=== PATIENT | female | born 1925 | race Caucasian/White ===

== ENCOUNTER 2016-05-25 03:10 | Emergency (ER) | payer MEDICARE, BC ==
[~2016-05-25 03:10] MED LIST: /ONDA4TA PO; /SUCR1TA OR; ACET500C PO; ALLE25CA OR; ASPI325T PO; ASPI81TA3 OR; AZIT250T3 PO; CIPR500T4 OR; DEXILANT OR; FLAG500T OR; FURO40TA2 OR; HYDR-3719 PO; METO25TAB PO; MIRA0.12 PO; REQUIP PO; VICO5TAB OR; VIT D 2000 PO; VITA10002 PO; VITA50003 PO; XANA0.25 PO
[2016-05-25 04:27] LABS: ABG BASE EXCESS 0.9 (-2.0-2.0); ABG DEVICE NASAL CANN; ABG HCO3 25.3 MEQ/L (22.0-26.0); ABG PARTIAL PRESSURE CO2 39.1 mmHg (35.0-45.0); ABG PARTIAL PRESSURE O2 70.1 mmHg (75.0-100.0); ABG STANDARD HCO3 25.3 MEQ/L (22.0-26.0); ABG TOTAL CO2 26.5 MEQ/L (23.0-31.0); ABG pH (ARTERIAL) 7.428 UNITS (7.350-7.450)
[2016-05-25 04:34] LABS: INR 1.06
[2016-05-25 04:37] LABS: CALCIUM LEVEL 8.2 MG/DL (8.8-10.2); CREATININE FOR GFR 0.96 MG/DL (0.55-1.02); GLOMERULAR FILTRATION RATE 58.4 (>32); POTASSIUM SERUM 3.6 MEQ/L (3.5-5.1)
[2016-05-25 04:50] LABS: BASO % 0.3 % (0.0-1.0); EOS # 0.2 K/mm3 (0.0-0.50); EOS % 3.1 % (0.0-3.0); LARGE UNSTAINED CELL # 0.1 K/mm3 (0.0-0.4); LARGE UNSTAINED CELL % 1.1 % (0.0-4.0); LYMPH # 1.7 K/mm3 (1.5-4.5); LYMPH % 19.9 % (24.0-44.0); MEAN CORPUSCULAR HEMOGLOBIN 35.7 pg (27.0-33.0); MEAN CORPUSCULAR HGB CONC 33.5 g/dl (32.0-36.5); MEAN CORPUSCULAR VOLUME 106.7 fl (80.0-96.0); MONO # 0.3 K/mm3 (0.0-0.8); MONO % 4.1 % (0.0-5.0); NEUTROPHILS # 5.8 K/mm3 (1.8-7.7); NEUTROPHILS % 71.5 % (36.0-66.0); PLATELET COUNT, AUTOMATED 162 k/mm3 (150-450); RED CELL DISTRIBUTION WIDTH 13.5 % (11.5-14.5); WHITE BLOOD COUNT 8.1 K/mm3 (4.0-10.0)
--- NOTE | 2016-05-25 05:10 | REPUSA ---
CLINICAL HISTORY: Edema. COMMENTS: Real time sonography with duplex doppler of the extremities bilaterally was performed with attention to the major deep venous structures. Evaluation reveals the common femoral, superficial femoral and popliteal veins bilaterally to be comp letely compressible without intraluminal thrombus. There is normal spontaneous phasic flow and augmen tation in all deep veins. The greater saphenous/common femoral vein junctions are patent bilaterally. IMPRESSION: No evidence of DVT in the lower extremities bilaterally. Thank you for your kind referral of this patient.
[2016-05-25] MEDS ORDERED: FUROSEMIDE 40 MG/4 ML VIAL (J1940) As Ordered ONE (06:23)
--- NOTE | 2016-05-25 06:38 | EDDOCDS ---
Nurse's Notes [facility] Name: Sarah Ambrosio Age: 89 yrs Sex: Female : 1925 Arrival Date: 05/25/2016 Time: 03:10 Bed 8 Private MD: Christopher Spain Diagnosis: Chronic combined systolic (congestive) and diastolic (congestive) heart failure Presentation: 05/25 03:12 Presenting complaint: EMS states: Increased SOB and dizziness this morning. Edema. km Suicide/Homicide risk assessment- the patient denies having any suicidal and/or homicidal ideations and does not present with any other emotional, behavioral or mental health complaints. Status: Patient is not a special services director or dependent. Transition of care: patient was not received from another setting of care. 03:12 [place] [facility] [place] [facility] [place] Assessment: 03:12 General: Appears in no apparent distress, comfortable, Behavior is appropriate for age, kmg1 cooperative, pleasant. Pain: Denies pain. The patient is triaged at the bedside. See Assessment in Nurses Notes section of ED record. Neurological: Level of Consciousness is awake, alert, Denies dizziness. Cardiovascular: Rhythm is sinus rhythm No ectopy. Chest pain is denied. Respiratory: Airway is patent Respiratory effort is even, unlabored, Respiratory pattern is regular, symmetrical, Breath sounds are clear bilaterally. GI: No deficits noted. Abdomen is flat, non- distended Bowel sounds present X 4 quads. Abd is soft and non tender X 4 quads. Derm: Skin is pink, warm & dry. Historical: - Allergies: PENICILLINS; - Home Meds: 1. hydrocodone-acetaminophen 10-325 mg Oral tab .5 tab every 4 hours (Last dose: 05/24/2016) 2. pramipexole 0.125 mg oral tab 1 tab 3 times per day (Last dose: 05/24/2016) 3. bisoprolol fumarate 5 mg oral tab 0.5 tab once daily (Last dose: 05/24/2016) 4. Vitamin B-12 1,000 mcg Oral tab 1,000 mcg (Last dose: 05/24/2016) 5. Senokot-S 8.6-50 mg oral tab 2 tabs once daily 6. Breo Ellipta 100-25 mcg/dose inhalation dsdv 1 puff once daily (Last dose: 05/25/2016) 7. Vitamin D Oral 75484 unit every other week 8. aspirin 325 mg Oral tab 1 tab once daily - PMHx: bursitis; Degenerative disc disease; Gall Bladder Disease; restless leg syndrome; CVA; Hypertension; - PSHx: Appendectomy; Hysterectomy; - Social history: No barriers to communication noted. - Family history: Not pertinent. - : The pt / caregiver states he / she is not on anticoagulants. Home medication list is obtained from the patient, [employer] import data. - Exposure Risk Screening:: None identified. Screenin:15 Screening information is obtained from the patient. Fall risk: No risks identified. kmg1 Assistance ADL's: requires no assistance with activities of daily living. Abuse/DV Screen: The patient / caregiver reports he/she is: not in a situation that causes fear, pain or injury. Nutritional screening: No deficits noted. Advance Directives: There is no active DNR order. home support is adequate. Assessment: 03:12 General: See triage assessment. kmg1 04:15 General: Appears in no apparent distress, comfortable, Behavior is appropriate for age, kmg1 cooperative, pleasant. Pain: Denies pain. Neurological: Denies dizziness. Cardiovascular: Rhythm is regular. Respiratory: No deficits noted. Airway is patent Respiratory effort is even, unlabored, Respiratory pattern is regular, symmetrical. 05:15 Reassessment: Patient appears in no apparent distress at this time. Patient states kmg1 feeling better. Patient states symptoms have improved. 06:30 Reassessment: Patient states feeling better. Patient states symptoms have improved. kmg1 General: Appears in no apparent distress, comfortable, Behavior is appropriate for age, cooperative, pleasant. 06:37 Adult Sepsis Screening: The patient does not have new or worsening altered mentation. kmg1 Patient's respiratory rate is less than 22. Systolic blood pressure is greater than 100. Patient has a qSOFA score of 0- Negative Sepsis Screen. Vital Signs: 03:19 BP 139 / 63 LA Sitting (auto/reg); Pulse 72 MON; Resp 18 S; Temp 97.9(TE); Pulse Ox 96% cln on R/A; Weight 54.43 kg (R); Height 5 ft. 0 in. (152.40 cm) (R); Pain 3/10; 06:24 BP 123 / 64 LA Supine (auto/reg); Pulse 73 MON; Resp 18 S; Temp 97.9(TE); Pulse Ox 94% cln on R/A; Pain 0/10; 03:19 Body Mass Index 23.44 (54.43 kg, 152.40 cm) cln ED Course: 03:12 Patient visited by Shirley Shipman, Membership Coordinator. jlm 03:12 Christopher Spain is Private Physician. jlm 03:12 Patient moved to 8 [facility] 03:16 Triage Initiated kmg1 03:20 Pt greeted and oriented to ED. Patient advised of names of staff involved in care, cln location of call valadez, wait times and NPO status. Patient has correct armband on for positive identification. Bed in low position. Call light in reach. Side rails up X 1. 03:21 Patient visited by Chelsea Tom PCA. cln 03:21 Rahul Cortes DO is Attending Physician. cs11 03:21 Patient visited by Rahul Cortes DO. cs11 03:30 Inserted saline lock: 20 gauge in right antecubital area and blood collected. The kc3 patient tolerated the procedure well. 04:04 Patient visited by Mel Frost RN. kc3 04:04 Pt & Aptt Sent. kc3 04:04 MED Profile Sent. kc3 04:04 CBC with Diff Sent. kc3 04:04 BNP Sent. kc3 04:08 EKG done. (by ED staff). Reviewed by Rahul Cortes DO. nicole 04:09 Patient visited by Patria Mann PCA. niocle 04:15 The patient / caregiver is instructed regarding the plan of care and ED course. kmg1 04:15 No procedures done that require assistance. kmg1 04:17 -Arterial Blood Gas Sent. jc3 04:18 Patient moved to Ultrasound dmg 04:42 Patient moved to 8 dmg 05:10 Assisted to bedside commode. nicole 05:35 Ultrasound Bilateral LE R/O DVT Returned. EDMS 05:39 Patient visited by Patria Mann PCA. nicole 05:55 Christopher Spain is Referral Physician. cs11 06:24 [facility] Payment Agreement was scanned into [employer] and attached to record. hs2 06:25 Patient visited by Chelsea Tom PCA. cln 06:30 Discontinued lock bleeding controlled, pressure dressing applied, No redness/swelling kmg1 at site. Administered Medications: 06:30 Drug: Furosemide 40 mg [furosemide 10 mg/mL injection solution (4 mL)] Route: IVP; km Site: right antecubital; 06:33 CANCELLED (Other Intervention Used): Furosemide 60 mg IM once kmg1 RT: 04:17 ABG's drawn from right radial artery pressure held for 5 minutes no bleeding noted jc3 pressure bandage applied specimen sent pt. tolerated well. Order Results: Lab Order: BNP; SPEC'M 05/25/16 03:27 Test: BRAIN NATRIURETIC PEPTIDE; Value: 343; Range: <100; Abnormal: Above high normal; Units: PG/ML; Status: F Lab Order: CBC with Diff; SPEC'M 05/25/16 03:27 Test: WHITE BLOOD COUNT; Value: 8.1; Range: 4.0-10.0; Units: K/mm3; Status: F Test: RED BLOOD COUNT; Value: 2.94; Range: 4.00-5.40; Abnormal: Below low normal; Units: M/mm3; Status: F Test: HEMOGLOBIN; Value: 10.5; Range: 12.0-16.0; Abnormal: Below low normal; Units: g/dl; Status: F Test: HEMATOCRIT; Value: 31.4; Range: 36.0-47.0; Abnormal: Below low normal; Units: %; Status: F Test: MEAN CORPUSCULAR VOLUME; Value: 106.7; Range: 80.0-96.0; Abnormal: Above high normal; Units: fl; Status: F Test: MEAN CORPUSCULAR HEMOGLOBIN; Value: 35.7; Range: 27.0-33.0; Abnormal: Above high normal; Units: pg; Status: F Test: MEAN CORPUSCULAR HGB CONC; Value: 33.5; Range: 32.0-36.5; Units: g/dl; Status: F Test: RED CELL DISTRIBUTION WIDTH; Value: 13.5; Range: 11.5-14.5; Units: %; Status: F Test: PLATELET COUNT, AUTOMATED; Value: 162; Range: 150-450; Units: k/mm3; Status: F Test: NEUTROPHILS %; Value: 71.5; Range: 36.0-66.0; Abnormal: Above high normal; Units: %; Status: F Test: LYMPH %; Value: 19.9; Range: 24.0-44.0; Abnormal: Below low normal; Units: %; Status: F Test: MONO %; Value: 4.1; Range: 0.0-5.0; Units: %; Status: F Test: EOS %; Value: 3.1; Range: 0.0-3.0; Abnormal: Above high normal; Units: %; Status: F Test: BASO %; Value: 0.3; Range: 0.0-1.0; Units: %; Status: F Test: LARGE UNSTAINED CELL %; Value: 1.1; Range: 0.0-4.0; Units: %; Status: F Test: NEUTROPHILS #; Value: 5.8; Range: 1.8-7.7; Units: K/mm3; Status: F Test: LYMPH #; Value: 1.7; Range: 1.5-4.5; Units: K/mm3; Status: F Test: MONO #; Value: 0.3; Range: 0.0-0.8; Units: K/mm3; Status: F Test: EOS #; Value: 0.2; Range: 0.0-0.50; Units: K/mm3; Status: F Test: BASO #; Value: 0.0; Range: 0.0-0.2; Units: K/mm3; Status: F Test: LARGE UNSTAINED CELL #; Value: 0.1; Range: 0.0-0.4; Units: K/mm3; Status: F Lab Order: MED Profile; SPEC'M 05/25/16 03:27 Test: GLUCOSE, FASTING; Value: 106; Range: 83-110; Units: MG/DL; Status: F Test: BLOOD UREA NITROGEN; Value: 14; Range: 7-18; Units: MG/DL; Status: F Test: CREATININE FOR GFR; Value: 0.96; Range: 0.55-1.02; Units: MG/DL; Status: F Test: GLOMERULAR FILTRATION RATE; Value: 58.4; Range: >32; Status: F Test: SODIUM LEVEL; Value: 138; Range: 136-145; Units: MEQ/L; Status: F Test: POTASSIUM SERUM; Value: 3.6; Range: 3.5-5.1; Units: MEQ/L; Status: F Test: CHLORIDE LEVEL; Value: 101; Range: 98-107; Units: MEQ/L; Status: F Test: CARBON DIOXIDE LEVEL; Value: 28; Range: 21-32; Units: MEQ/L; Status: F Test: ANION GAP; Value: 9; Range: 8-16; Units: MEQ/L; Status: F Test: CALCIUM LEVEL; Value: 8.2; Range: 8.8-10.2; Abnormal: Below low normal; Units: MG/DL; Status: F Test Note: ; Units are mL/min/1.73 m2 Chronic Kidney Disease Staging per NKF: Stage I & II GFR >=60 Normal to Mildly Decreased Stage III GFR 30-59 Moderately Decreased Stage IV GFR 15-29 Severely Decreased Stage V GFR <15 Very Little GFR Left ESRD GFR <15 on KNITTING INSPECTOR Lab Order: -Arterial Blood Gas; SPEC'M 05/25/16 04:16 Test: ABG pH (ARTERIAL); Value: 7.428; Range: 7.350-7.450; Units: UNITS; Status: F Test: ABG PARTIAL PRESSURE CO2; Value: 39.1; Range: 35.0-45.0; Units: mmHg; Status: F Test: ABG PARTIAL PRESSURE O2; Value: 70.1; Range: 75.0-100.0; Abnormal: Below low normal; Units: mmHg; Status: F Test: ABG TOTAL CO2; Value: 26.5; Range: 23.0-31.0; Units: MEQ/L; Status: F Test: ABG HCO3; Value: 25.3; Range: 22.0-26.0; Units: MEQ/L; Status: F Test: ABG BASE EXCESS; Value: 0.9; Range: -2.0-2.0; Status: F Test: ABG STANDARD HCO3; Value: 25.3; Range: 22.0-26.0; Units: MEQ/L; Status: F Test: ABG O2 SATURATION; Value: 94.5; Range: 95.0-99.0; Abnormal: Below low normal; Units: %; Status: F Test: ABG DEVICE; Value: NASAL TASH; Status: F Lab Order: Pt & Aptt; SPEC'M 05/25/16 03:27 Test: PROTHROMBIN TIME; Value: 13.9; Range: 12.3-14.5; Units: SECONDS; Status: F Test: INR; Value: 1.06; Status: F Test: PARTIAL THROMBOPLASTIN TIME; Value: 31.7; Range: 26.6-37.1; Units: SECONDS; Status: F Test Note: ; THERAPUTIC HUMAN INR VALUES INDICATIONS NORMAL RANGES PROPHYLAXIS/TREATMENT OF: VENOUS THROMBOSIS 2.0-3.0 PULMONARY EMBOLISM 2.0-3.0 PREVENTION OF SYSTEMIC EMBOLISM FROM: TISSUE HEART VALVES 2.0-3.0 ACUTE MYOCARDIAL INFARCTION 2.0-3.0 VALVULAR HEART DISEASE 2.0-3.0 ATRIAL FIBRILLATION 2.0-3.0 MECHANICAL VALVES(HIGH RISK) 2.5-3.5 RECURRENT MYOCARDIAL INFARCTION 2.5-3.5 Radiology Order: Ultrasound Bilateral LE R/O DVT Test: Ultrasound Bilateral LE R/O DVT REASON FOR EXAMINATION: Deformity/Swelling; ; CLINICAL HISTORY: Edema.; COMMENTS:; ; Real time sonography with duplex doppler of the extremities bilaterally was performed with attention; to the major deep venous structures.; Evaluation reveals the common femoral, superficial femoral and popliteal veins bilaterally to be comp; letely compressible without intraluminal thrombus. There is normal spontaneous phasic flow and augmen; tation in all deep veins. The greater saphenous/common femoral vein junctions are patent bilaterally.; ; IMPRESSION:; No evidence of DVT in the lower extremities bilaterally.; Thank you for your kind referral of this patient.; ; Outcome: 05:56 Discharge ordered by Provider. 11 06:30 Discharge Assessment: Patient awake, alert and oriented x 3. No cognitive and/or kmg1 functional deficits noted. Patient verbalized understanding of disposition instructions. Patient awake and alert. patient administered narcotics - no. The following High Risk Discharge criteria are identified: None. Discharged to home via wheelchair, with family. Condition: improved. Discharge instructions given to patient, family, Instructed on discharge instructions, follow up and referral plans. medication usage, Demonstrated understanding of instructions, medications, Pt was receptive of discharge instructions/ teaching. Prescriptions given X 1. Property sent home with patient. 06:37 No special radiology studies were completed. kmg1 06:38 [place] [facility] [place] Signatures: Dispatcher [employer] EDMS Enedina Rosario, RN RN kmg1 Jessika Oliveira Joseph jc3 Patria Mann, CHIEF DESIGN ENGINEER CHIEF DESIGN ENGINEER nicole Rahul Cortes, DO DO cs11 Shirley Shipman, Membership Coordinator Unit Mel Fay RN RN kc3 Angelita Bowles, Reg Reg hs2 Vaishali, Chelsea, CHIEF DESIGN ENGINEER CHIEF DESIGN ENGINEER cln MTDD
--- NOTE | 2016-05-25 06:38 | EDDOCDS ---
Physician Documentation [facility] Name: Sarah Ambrosio Age: 89 yrs Sex: Female : 1925 Arrival Date: 05/25/2016 Time: 03:10 Bed 8 Private MD: Christopher Spain Disposition: 05/25/16 05:56 Discharged to Home/Self Care. Impression: Chronic combined systolic (congestive) and diastolic (congestive) heart failure. - Condition is Stable. - Prescriptions for bumetanide 2 mg Oral tablet - take 1 tablet by ORAL route 2 times per day; 60 tablet. - Medication Reconciliation, Local Pharmacy Hours form. - Follow up: Christopher Spain; When: Call to arrange an appointment; Reason: Recheck today's complaints. - Problem is chronic. - Symptoms have improved. - Notes: discontinue lasix Historical: - Allergies: PENICILLINS; - Home Meds: 1. hydrocodone-acetaminophen 10-325 mg Oral tab .5 tab every 4 hours (Last dose: 05/24/2016) 2. pramipexole 0.125 mg oral tab 1 tab 3 times per day (Last dose: 05/24/2016) 3. bisoprolol fumarate 5 mg oral tab 0.5 tab once daily (Last dose: 05/24/2016) 4. Vitamin B-12 1,000 mcg Oral tab 1,000 mcg (Last dose: 05/24/2016) 5. Senokot-S 8.6-50 mg oral tab 2 tabs once daily 6. Breo Ellipta 100-25 mcg/dose inhalation dsdv 1 puff once daily (Last dose: 05/25/2016) 7. Vitamin D Oral 96333 unit every other week 8. aspirin 325 mg Oral tab 1 tab once daily - PMHx: bursitis; Degenerative disc disease; Gall Bladder Disease; restless leg syndrome; CVA; Hypertension; - PSHx: Appendectomy; Hysterectomy; - Social history: No barriers to communication noted. - Family history: Not pertinent. - : The pt / caregiver states he / she is not on anticoagulants. Home medication list is obtained from the patient, [employer] import data. - Exposure Risk Screening:: None identified. Vital Signs: 05/25 03:19 BP 139 / 63 LA Sitting (auto/reg); Pulse 72 MON; Resp 18 S; Temp 97.9(TE); Pulse Ox 96% cln on R/A; Weight 54.43 kg / 120 lbs (R); Height 5 ft. 0 in. (152.40 cm) (R); Pain 3/10; 06:24 BP 123 / 64 LA Supine (auto/reg); Pulse 73 MON; Resp 18 S; Temp 97.9(TE); Pulse Ox 94% cln on R/A; Pain 0/10; 03:19 Body Mass Index 23.44 (54.43 kg, 152.40 cm) cln MDM: 03:59 Call Respiratory ordered. cs11 04:00 Chest, 2 View (pa\E\lat) Ordered. EDMS 04:00 Ultrasound Bilateral LE R/O DVT Ordered. EDMS 04:01 BNP Ordered. EDMS 04:01 CBC with Diff Ordered. EDMS 04:01 MED Profile Ordered. EDMS 04:01 -Arterial Blood Gas Ordered. EDMS 04:01 Pt & Aptt Ordered. EDMS 04:01 ECG WITH READING ER PHYS+CARDIAG ordered. EDMS 04:03 Call Respiratory complete. m 05:41 BNP Reviewed. cs11 05:41 CBC with Diff Reviewed. cs11 05:41 MED Profile Reviewed. cs11 05:41 -Arterial Blood Gas Reviewed. cs11 05:41 Pt & Aptt Reviewed. cs11 05:41 Ultrasound Bilateral LE R/O DVT Reviewed. cs11 06:07 Financial registration complete. hs2 06:24 [facility] Payment Agreement was scanned into [employer] and attached to record. hs2 06:34 Furosemide 40 mg IVP once ordered. kmg1 Administered Medications: 06:30 Drug: Furosemide 40 mg [furosemide 10 mg/mL injection solution (4 mL)] Route: [place]P; [facility] [place]: right antecubital; 06:33 CANCELLED (Other Intervention Used): Furosemide 60 mg IM once km Signatures: Dispatcher [employer] EDMS Enedina Rosario, RN RN [facility] [place] Rahul Cortes DO DO 11 Shirley Shipman, Molecular Biology Scientist Unit Angelita Gaona, Reg Reg hs2 The chart was reviewed and I authenticate all verbal orders and agree with the evaluation and treatment provided.Corrections: (The following items were deleted from the chart) 06:33 05:53 Furosemide 60 mg IM once ordered. [place] [id number] Attachments: 06:24 [facility] [place] hs2 [facility]
--- NOTE | 2016-05-25 08:44 | REP ---
TWO VIEW CHEST: Two views of the chest are performed. There is mild cardiomegaly. There is vascular congestion and diffuse increase in interstitial markings. There is blunting of the left costophrenic angle suggesting a small left pleural effusion. There is calcification of the thoracic aorta. The mediastinal silhouette is unremarkable and unchanged since prior study of 11/19/2015. There are mild degenerative changes of the spine. IMPRESSION: Findings compatible with CHF and interstitial pulmonary edema. Small left effusion. Signed by Crow Samson MD 05/25/2016 04:54 P
--- NOTE | 2016-05-27 07:39 | EDDOCDS ---
Physician Documentation [facility] Name: Sarah Ambrosio Age: 89 yrs Sex: Female : 1925 Arrival Date: 05/25/2016 Time: 03:10 Bed 8 Private MD: Christopher Spain Disposition: 05/25/16 05:56 Discharged to Home/Self Care. Impression: Chronic combined systolic (congestive) and diastolic (congestive) heart failure. - Condition is Stable. - Prescriptions for bumetanide 2 mg Oral tablet - take 1 tablet by ORAL route 2 times per day; 60 tablet. - Medication Reconciliation, Local Pharmacy Hours form. - Follow up: Christopher Spain; When: Call to arrange an appointment; Reason: Recheck today's complaints. - Problem is chronic. - Symptoms have improved. - Notes: discontinue lasix Historical: - Allergies: PENICILLINS; - Home Meds: 1. hydrocodone-acetaminophen 10-325 mg Oral tab .5 tab every 4 hours (Last dose: 05/24/2016) 2. pramipexole 0.125 mg oral tab 1 tab 3 times per day (Last dose: 05/24/2016) 3. bisoprolol fumarate 5 mg oral tab 0.5 tab once daily (Last dose: 05/24/2016) 4. Vitamin B-12 1,000 mcg Oral tab 1,000 mcg (Last dose: 05/24/2016) 5. Senokot-S 8.6-50 mg oral tab 2 tabs once daily 6. Breo Ellipta 100-25 mcg/dose inhalation dsdv 1 puff once daily (Last dose: 05/25/2016) 7. Vitamin D Oral 31919 unit every other week 8. aspirin 325 mg Oral tab 1 tab once daily - PMHx: bursitis; Degenerative disc disease; Gall Bladder Disease; restless leg syndrome; CVA; Hypertension; - PSHx: Appendectomy; Hysterectomy; - Social history: No barriers to communication noted. - Family history: Not pertinent. - : The pt / caregiver states he / she is not on anticoagulants. Home medication list is obtained from the patient, [employer] import data. - Exposure Risk Screening:: None identified. Vital Signs: 05/25 03:19 BP 139 / 63 LA Sitting (auto/reg); Pulse 72 MON; Resp 18 S; Temp 97.9(TE); Pulse Ox 96% cln on R/A; Weight 54.43 kg / 120 lbs (R); Height 5 ft. 0 in. (152.40 cm) (R); Pain 3/10; 06:24 BP 123 / 64 LA Supine (auto/reg); Pulse 73 MON; Resp 18 S; Temp 97.9(TE); Pulse Ox 94% cln on R/A; Pain 0/10; 03:19 Body Mass Index 23.44 (54.43 kg, 152.40 cm) cln MDM: 03:59 Call Respiratory ordered. cs11 04:00 Chest, 2 View (pa\E\lat) Ordered. EDMS 04:00 Ultrasound Bilateral LE R/O DVT Ordered. EDMS 04:01 BNP Ordered. EDMS 04:01 CBC with Diff Ordered. EDMS 04:01 MED Profile Ordered. EDMS 04:01 -Arterial Blood Gas Ordered. EDMS 04:01 Pt & Aptt Ordered. EDMS 04:01 ECG WITH READING ER PHYS+CARDIAG ordered. EDMS 04:03 Call Respiratory complete. m 05:41 BNP Reviewed. cs11 05:41 CBC with Diff Reviewed. cs11 05:41 MED Profile Reviewed. cs11 05:41 -Arterial Blood Gas Reviewed. cs11 05:41 Pt & Aptt Reviewed. cs11 05:41 Ultrasound Bilateral LE R/O DVT Reviewed. cs11 06:07 Financial registration complete. hs2 06:24 [facility] Payment Agreement was scanned into [employer] and attached to record. hs2 06:34 Furosemide 40 mg IVP once ordered. kmg1 Administered Medications: 06:30 Drug: Furosemide 40 mg [furosemide 10 mg/mL injection solution (4 mL)] Route: [place]P; [facility] [place]: right antecubital; 06:33 CANCELLED (Other Intervention Used): Furosemide 60 mg IM once km Signatures: Dispatcher [employer] EDMS Enedina Rosario, RN RN [facility] [place] Rahul Cortes DO DO 11 Shirley Shipman, District Attorney Unit Angelita Gaona, Reg Reg hs2 The chart was reviewed and I authenticate all verbal orders and agree with the evaluation and treatment provided.Corrections: (The following items were deleted from the chart) 06:33 05:53 Furosemide 60 mg IM once ordered. [place] [id number] Attachments: 06:24 [facility] [place] Agreement hs2 Chart Complete MTDD
--- NOTE | 2016-05-27 07:39 | EDDOCDS ---
Physician Documentation [facility] Name: Sarah Ambrosio Age: 89 yrs Sex: Female : 1925 Arrival Date: 05/25/2016 Time: 03:10 Bed 8 Private MD: Christopher Spain Disposition: 05/25/16 05:56 Discharged to Home/Self Care. Impression: Chronic combined systolic (congestive) and diastolic (congestive) heart failure. - Condition is Stable. - Prescriptions for bumetanide 2 mg Oral tablet - take 1 tablet by ORAL route 2 times per day; 60 tablet. - Medication Reconciliation, Local Pharmacy Hours form. - Follow up: Christopher Spain; When: Call to arrange an appointment; Reason: Recheck today's complaints. - Problem is chronic. - Symptoms have improved. - Notes: discontinue lasix Historical: - Allergies: PENICILLINS; - Home Meds: 1. hydrocodone-acetaminophen 10-325 mg Oral tab .5 tab every 4 hours (Last dose: 05/24/2016) 2. pramipexole 0.125 mg oral tab 1 tab 3 times per day (Last dose: 05/24/2016) 3. bisoprolol fumarate 5 mg oral tab 0.5 tab once daily (Last dose: 05/24/2016) 4. Vitamin B-12 1,000 mcg Oral tab 1,000 mcg (Last dose: 05/24/2016) 5. Senokot-S 8.6-50 mg oral tab 2 tabs once daily 6. Breo Ellipta 100-25 mcg/dose inhalation dsdv 1 puff once daily (Last dose: 05/25/2016) 7. Vitamin D Oral 54897 unit every other week 8. aspirin 325 mg Oral tab 1 tab once daily - PMHx: bursitis; Degenerative disc disease; Gall Bladder Disease; restless leg syndrome; CVA; Hypertension; - PSHx: Appendectomy; Hysterectomy; - Social history: No barriers to communication noted. - Family history: Not pertinent. - : The pt / caregiver states he / she is not on anticoagulants. Home medication list is obtained from the patient, [employer] import data. - Exposure Risk Screening:: None identified. Vital Signs: 05/25 03:19 BP 139 / 63 LA Sitting (auto/reg); Pulse 72 MON; Resp 18 S; Temp 97.9(TE); Pulse Ox 96% cln on R/A; Weight 54.43 kg / 120 lbs (R); Height 5 ft. 0 in. (152.40 cm) (R); Pain 3/10; 06:24 BP 123 / 64 LA Supine (auto/reg); Pulse 73 MON; Resp 18 S; Temp 97.9(TE); Pulse Ox 94% cln on R/A; Pain 0/10; 03:19 Body Mass Index 23.44 (54.43 kg, 152.40 cm) cln MDM: 03:59 Call Respiratory ordered. cs11 04:00 Chest, 2 View (pa\E\lat) Ordered. EDMS 04:00 Ultrasound Bilateral LE R/O DVT Ordered. EDMS 04:01 BNP Ordered. EDMS 04:01 CBC with Diff Ordered. EDMS 04:01 MED Profile Ordered. EDMS 04:01 -Arterial Blood Gas Ordered. EDMS 04:01 Pt & Aptt Ordered. EDMS 04:01 ECG WITH READING ER PHYS+CARDIAG ordered. EDMS 04:03 Call Respiratory complete. m 05:41 BNP Reviewed. cs11 05:41 CBC with Diff Reviewed. cs11 05:41 MED Profile Reviewed. cs11 05:41 -Arterial Blood Gas Reviewed. cs11 05:41 Pt & Aptt Reviewed. cs11 05:41 Ultrasound Bilateral LE R/O DVT Reviewed. cs11 06:07 Financial registration complete. hs2 06:24 [facility] Payment Agreement was scanned into [employer] and attached to record. hs2 06:34 Furosemide 40 mg IVP once ordered. kmg1 Administered Medications: 06:30 Drug: Furosemide 40 mg [furosemide 10 mg/mL injection solution (4 mL)] Route: IVP; [facility] [place] Site: right antecubital; 06:33 CANCELLED (Other Intervention Used): Furosemide 60 mg IM once km Signatures: Dispatcher [employer] EDMS Enedina Rosario, RN RN [facility] [place] Rahul Cortes DO DO 11 Shirley Shipman, Peanut [employer] Unit Angelita Gaona, Reg Reg hs2 The chart was reviewed and I authenticate all verbal orders and agree with the evaluation and treatment provided.Corrections: (The following items were deleted from the chart) 06:33 05:53 Furosemide 60 mg IM once ordered. [place] [id number] Attachments: 06:24 [facility] [place] Agreement hs2 Chart Complete MTDD
--- NOTE | 2016-05-27 07:39 | EDDOCDS ---
Nurse's Notes [facility] Name: Sarah Ambrosio Age: 89 yrs Sex: Female : 1925 Arrival Date: 05/25/2016 Time: 03:10 Bed 8 Private MD: Christopher Spain Diagnosis: Chronic combined systolic (congestive) and diastolic (congestive) heart failure Presentation: 05/25 03:12 Presenting complaint: EMS states: Increased SOB and dizziness this morning. Edema. km Suicide/Homicide risk assessment- the patient denies having any suicidal and/or homicidal ideations and does not present with any other emotional, behavioral or mental health complaints. 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 Transition of care: patient was not received from another setting of care. 03:12 Acuity: [place] 3 [facility] [place]:12 Method Of Arrival: [place] [facility] T[place] Assessment: 03:12 General: Appears in no apparent distress, comfortable, Behavior is appropriate for age, kmg1 cooperative, pleasant. Pain: Denies pain. The patient is triaged at the bedside. See Assessment in Nurses Notes section of ED record. Neurological: Level of Consciousness is awake, alert, Denies dizziness. Cardiovascular: Rhythm is sinus rhythm No ectopy. Chest pain is denied. Respiratory: Airway is patent Respiratory effort is even, unlabored, Respiratory pattern is regular, symmetrical, Breath sounds are clear bilaterally. GI: No deficits noted. Abdomen is flat, non- distended Bowel sounds present X 4 quads. Abd is soft and non tender X 4 quads. Derm: Skin is pink, warm & dry. Historical: - Allergies: PENICILLINS; - Home Meds: 1. hydrocodone-acetaminophen 10-325 mg Oral tab .5 tab every 4 hours (Last dose: 05/24/2016) 2. pramipexole 0.125 mg oral tab 1 tab 3 times per day (Last dose: 05/24/2016) 3. bisoprolol fumarate 5 mg oral tab 0.5 tab once daily (Last dose: 05/24/2016) 4. Vitamin B-12 1,000 mcg Oral tab 1,000 mcg (Last dose: 05/24/2016) 5. Senokot-S 8.6-50 mg oral tab 2 tabs once daily 6. Breo Ellipta 100-25 mcg/dose inhalation dsdv 1 puff once daily (Last dose: 05/25/2016) 7. Vitamin D Oral 79137 unit every other week 8. aspirin 325 mg Oral tab 1 tab once daily - PMHx: bursitis; Degenerative disc disease; Gall Bladder Disease; restless leg syndrome; CVA; Hypertension; - PSHx: Appendectomy; Hysterectomy; - Social history: No barriers to communication noted. - Family history: Not pertinent. - : The pt / caregiver states he / she is not on anticoagulants. Home medication list is obtained from the patient, [employer] import data. - Exposure Risk Screening:: None identified. Screenin:15 Screening information is obtained from the patient. Fall risk: No risks identified. kmg1 Assistance ADL's: requires no assistance with activities of daily living. Abuse/DV Screen: The patient / caregiver reports he/she is: not in a situation that causes fear, pain or injury. Nutritional screening: No deficits noted. Advance Directives: There is no active DNR order. home support is adequate. Assessment: 03:12 General: See triage assessment. kmg1 04:15 General: Appears in no apparent distress, comfortable, Behavior is appropriate for age, kmg1 cooperative, pleasant. Pain: Denies pain. Neurological: Denies dizziness. Cardiovascular: Rhythm is regular. Respiratory: No deficits noted. Airway is patent Respiratory effort is even, unlabored, Respiratory pattern is regular, symmetrical. 05:15 Reassessment: Patient appears in no apparent distress at this time. Patient states kmg1 feeling better. Patient states symptoms have improved. 06:30 Reassessment: Patient states feeling better. Patient states symptoms have improved. kmg1 General: Appears in no apparent distress, comfortable, Behavior is appropriate for age, cooperative, pleasant. 06:37 Adult Sepsis Screening: The patient does not have new or worsening altered mentation. kmg1 Patient's respiratory rate is less than 22. Systolic blood pressure is greater than 100. Patient has a qSOFA score of 0- Negative Sepsis Screen. Vital Signs: 03:19 BP 139 / 63 LA Sitting (auto/reg); Pulse 72 MON; Resp 18 S; Temp 97.9(TE); Pulse Ox 96% cln on R/A; Weight 54.43 kg (R); Height 5 ft. 0 in. (152.40 cm) (R); Pain 3/10; 06:24 BP 123 / 64 LA Supine (auto/reg); Pulse 73 MON; Resp 18 S; Temp 97.9(TE); Pulse Ox 94% cln on R/A; Pain 0/10; 03:19 Body Mass Index 23.44 (54.43 kg, 152.40 cm) cln ED Course: 03:12 Patient visited by Shirley Shipman, Manager Commission. jlm 03:12 Christopher Spain is Private Physician. jlm 03:12 Patient moved to 8 [facility] 03:16 Triage Initiated kmg1 03:20 Pt greeted and oriented to ED. Patient advised of names of staff involved in care, cln location of call valadez, wait times and NPO status. Patient has correct armband on for positive identification. Bed in low position. Call light in reach. Side rails up X 1. 03:21 Patient visited by Chelsea Tom PCA. cln 03:21 Rahul Cortes DO is Attending Physician. cs11 03:21 Patient visited by Rahul Cortes DO. cs11 03:30 Inserted saline lock: 20 gauge in right antecubital area and blood collected. The kc3 patient tolerated the procedure well. 04:04 Patient visited by Mel Frost RN. kc3 04:04 Pt & Aptt Sent. kc3 04:04 MED Profile Sent. kc3 04:04 CBC with Diff Sent. kc3 04:04 BNP Sent. kc3 04:08 EKG done. (by ED staff). Reviewed by Rahul Cortes DO. nicole 04:09 Patient visited by Patria Mann PCA. nicole 04:15 The patient / caregiver is instructed regarding the plan of care and ED course. kmg1 04:15 No procedures done that require assistance. kmg1 04:17 -Arterial Blood Gas Sent. jc3 04:18 Patient moved to Ultrasound dmg 04:42 Patient moved to 8 dmg 05:10 Assisted to bedside commode. nicole 05:35 Ultrasound Bilateral LE R/O DVT Returned. EDMS 05:39 Patient visited by Patria Mann PCA. nicole 05:55 Christopher Spain is Referral Physician. cs11 06:24 [facility] Payment Agreement was scanned into [employer] and attached to record. hs2 06:25 Patient visited by Chelsea Tom PCA. cln 06:30 Discontinued lock bleeding controlled, pressure dressing applied, No redness/swelling kmg1 at site. 09:06 Chest, 2 View (pa\E\lat) Returned. EDMS Administered Medications: 06:30 Drug: Furosemide 40 mg [furosemide 10 mg/mL injection solution (4 mL)] Route: IVP; kmg1 Site: right antecubital; 06:33 CANCELLED (Other Intervention Used): Furosemide 60 mg IM once kmg1 RT: 04:17 ABG's drawn from right radial artery pressure held for 5 minutes no bleeding noted jc3 pressure bandage applied specimen sent pt. tolerated well. Order Results: Lab Order: BNP; SPEC'M 05/25/16 03:27 Test: BRAIN NATRIURETIC PEPTIDE; Value: 343; Range: <100; Abnormal: Above high normal; Units: PG/ML; Status: F Lab Order: CBC with Diff; SPEC'M 05/25/16 03:27 Test: WHITE BLOOD COUNT; Value: 8.1; Range: 4.0-10.0; Units: K/mm3; Status: F Test: RED BLOOD COUNT; Value: 2.94; Range: 4.00-5.40; Abnormal: Below low normal; Units: M/mm3; Status: F Test: HEMOGLOBIN; Value: 10.5; Range: 12.0-16.0; Abnormal: Below low normal; Units: g/dl; Status: F Test: HEMATOCRIT; Value: 31.4; Range: 36.0-47.0; Abnormal: Below low normal; Units: %; Status: F Test: MEAN CORPUSCULAR VOLUME; Value: 106.7; Range: 80.0-96.0; Abnormal: Above high normal; Units: fl; Status: F Test: MEAN CORPUSCULAR HEMOGLOBIN; Value: 35.7; Range: 27.0-33.0; Abnormal: Above high normal; Units: pg; Status: F Test: MEAN CORPUSCULAR HGB CONC; Value: 33.5; Range: 32.0-36.5; Units: g/dl; Status: F Test: RED CELL DISTRIBUTION WIDTH; Value: 13.5; Range: 11.5-14.5; Units: %; Status: F Test: PLATELET COUNT, AUTOMATED; Value: 162; Range: 150-450; Units: k/mm3; Status: F Test: NEUTROPHILS %; Value: 71.5; Range: 36.0-66.0; Abnormal: Above high normal; Units: %; Status: F Test: LYMPH %; Value: 19.9; Range: 24.0-44.0; Abnormal: Below low normal; Units: %; Status: F Test: MONO %; Value: 4.1; Range: 0.0-5.0; Units: %; Status: F Test: EOS %; Value: 3.1; Range: 0.0-3.0; Abnormal: Above high normal; Units: %; Status: F Test: BASO %; Value: 0.3; Range: 0.0-1.0; Units: %; Status: F Test: LARGE UNSTAINED CELL %; Value: 1.1; Range: 0.0-4.0; Units: %; Status: F Test: NEUTROPHILS #; Value: 5.8; Range: 1.8-7.7; Units: K/mm3; Status: F Test: LYMPH #; Value: 1.7; Range: 1.5-4.5; Units: K/mm3; Status: F Test: MONO #; Value: 0.3; Range: 0.0-0.8; Units: K/mm3; Status: F Test: EOS #; Value: 0.2; Range: 0.0-0.50; Units: K/mm3; Status: F Test: BASO #; Value: 0.0; Range: 0.0-0.2; Units: K/mm3; Status: F Test: LARGE UNSTAINED CELL #; Value: 0.1; Range: 0.0-0.4; Units: K/mm3; Status: F Lab Order: MED Profile; SPEC'M 05/25/16 03:27 Test: GLUCOSE, FASTING; Value: 106; Range: 83-110; Units: MG/DL; Status: F Test: BLOOD UREA NITROGEN; Value: 14; Range: 7-18; Units: MG/DL; Status: F Test: CREATININE FOR GFR; Value: 0.96; Range: 0.55-1.02; Units: MG/DL; Status: F Test: GLOMERULAR FILTRATION RATE; Value: 58.4; Range: >32; Status: F Test: SODIUM LEVEL; Value: 138; Range: 136-145; Units: MEQ/L; Status: F Test: POTASSIUM SERUM; Value: 3.6; Range: 3.5-5.1; Units: MEQ/L; Status: F Test: CHLORIDE LEVEL; Value: 101; Range: 98-107; Units: MEQ/L; Status: F Test: CARBON DIOXIDE LEVEL; Value: 28; Range: 21-32; Units: MEQ/L; Status: F Test: ANION GAP; Value: 9; Range: 8-16; Units: MEQ/L; Status: F Test: CALCIUM LEVEL; Value: 8.2; Range: 8.8-10.2; Abnormal: Below low normal; Units: MG/DL; Status: F Test Note: ; Units are mL/min/1.73 m2 Chronic Kidney Disease Staging per NKF: Stage I & II GFR >=60 Normal to Mildly Decreased Stage III GFR 30-59 Moderately Decreased Stage IV GFR 15-29 Severely Decreased Stage V GFR <15 Very Little GFR Left ESRD GFR <15 on FORM SETTER STEEL PAN FORMS Lab Order: -Arterial Blood Gas; [facility] 05/25/16 04:16 Test: ABG pH (ARTERIAL); Value: 7.428; Range: 7.350-7.450; Units: UNITS; Status: F Test: ABG PARTIAL PRESSURE CO2; Value: 39.1; Range: 35.0-45.0; Units: mmHg; Status: F Test: ABG PARTIAL PRESSURE O2; Value: 70.1; Range: 75.0-100.0; Abnormal: Below low normal; Units: mmHg; Status: F Test: ABG TOTAL CO2; Value: 26.5; Range: 23.0-31.0; Units: MEQ/L; Status: F Test: ABG HCO3; Value: 25.3; Range: 22.0-26.0; Units: MEQ/L; Status: F Test: ABG BASE EXCESS; Value: 0.9; Range: -2.0-2.0; Status: F Test: ABG STANDARD HCO3; Value: 25.3; Range: 22.0-26.0; Units: MEQ/L; Status: F Test: ABG O2 SATURATION; Value: 94.5; Range: 95.0-99.0; Abnormal: Below low normal; Units: %; Status: F Test: ABG DEVICE; Value: NASAL TASH; Status: F Lab Order: Pt & Aptt; SPEC'M 05/25/16 03:27 Test: PROTHROMBIN TIME; Value: 13.9; Range: 12.3-14.5; Units: SECONDS; Status: F Test: INR; Value: 1.06; Status: F Test: PARTIAL THROMBOPLASTIN TIME; Value: 31.7; Range: 26.6-37.1; Units: SECONDS; Status: F Test Note: ; THERAPUTIC HUMAN INR VALUES INDICATIONS NORMAL RANGES PROPHYLAXIS/TREATMENT OF: VENOUS THROMBOSIS 2.0-3.0 PULMONARY EMBOLISM 2.0-3.0 PREVENTION OF SYSTEMIC EMBOLISM FROM: TISSUE HEART VALVES 2.0-3.0 ACUTE MYOCARDIAL INFARCTION 2.0-3.0 VALVULAR HEART DISEASE 2.0-3.0 ATRIAL FIBRILLATION 2.0-3.0 MECHANICAL VALVES(HIGH RISK) 2.5-3.5 RECURRENT MYOCARDIAL INFARCTION 2.5-3.5 Radiology Order: Chest, 2 View (pa\E\lat) Test: Chest, 2 View (pa\E\lat) REASON FOR EXAMINATION: Shortness of Breath; TWO VIEW CHEST:; ; Two views of the chest are performed. There is mild cardiomegaly. There is; vascular congestion and diffuse increase in interstitial markings. There is; blunting of the left costophrenic angle suggesting a small left pleural effusion.; There is calcification of the thoracic aorta. The mediastinal silhouette is; unremarkable and unchanged since prior study of 11/19/2015. There are mild; degenerative changes of the spine.; ; IMPRESSION:; ; Findings compatible with CHF and interstitial pulmonary edema. Small left; effusion.; ; ; Signed by; Crow Samson MD 05/25/2016 04:54 P; Radiology Order: Ultrasound Bilateral LE R/O DVT Test: Ultrasound Bilateral LE R/O DVT REASON FOR EXAMINATION: Deformity/Swelling; ; CLINICAL HISTORY: Edema.; COMMENTS:; ; Real time sonography with duplex doppler of the extremities bilaterally was performed with attention; to the major deep venous structures.; Evaluation reveals the common femoral, superficial femoral and popliteal veins bilaterally to be comp; letely compressible without intraluminal thrombus. There is normal spontaneous phasic flow and augmen; tation in all deep veins. The greater saphenous/common femoral vein junctions are patent bilaterally.; ; IMPRESSION:; No evidence of DVT in the lower extremities bilaterally.; Thank you for your kind referral of this patient.; ; Outcome: 05:56 Discharge ordered by Provider. cs11 06:30 Discharge Assessment: Patient awake, alert and oriented x 3. No cognitive and/or kmg1 functional deficits noted. Patient verbalized understanding of disposition instructions. Patient awake and alert. patient administered narcotics - no. The following High Risk Discharge criteria are identified: None. Discharged to home via wheelchair, with family. Condition: improved. Discharge instructions given to patient, family, Instructed on discharge instructions, follow up and referral plans. medication usage, Demonstrated understanding of instructions, medications, Pt was receptive of discharge instructions/ teaching. Prescriptions given X 1. Property sent home with patient. 06:37 No special radiology studies were completed. [facility] [place]:38 [place] left the ED. [facility] Signatures: Dispatcher [employer] EDMS Enedina Rosario RN RN kmg1 Jessika Oliveira Myles Savage jc3 Patria Mann, COOK FRY COOK FRY nicole Rahul Cortes, DO DO cs11 Shirley Shipman, Manager Commission Unit catrinam Mel Frost,SALMA RN kc3 Angelita Bowles, Reg Reg hs2 Chelsea Tom, COOK FRY COOK FRY cln Chart Complete MTDD
--- NOTE | 2016-05-27 09:36 | ECGEPIP ---
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
== END 2016-05-25 06:38 | disposition home or self-care (01) ==
LOC: M ED 03:10
DX: I50.9 Heart failure, unspecified (principal); M51.35 Other intervertebral disc degeneration, thoracolumbar region; G25.81 Restless legs syndrome; K82.9 Disease of gallbladder, unspecified; I10 Essential (primary) hypertension; Z86.73 Personal history of transient ischemic attack (TIA), and cerebral infarction without residual deficits; Z79.82 Long term (current) use of aspirin; Z79.891 Long term (current) use of opiate analgesic; Z79.899 Other long term (current) drug therapy; Z88.0 Allergy status to penicillin
CPT/HCPCS: 36415; 36600; 71020; 80048; 82803; 83880; 85025; 85610; 85730; 93005; 93970; 96374; 99284; J1940

== ENCOUNTER → 2016-05-28 | Outpatient (REF) | payer MEDICARE, BC ==
[2016-05-28 16:19] LABS: MEAN CORPUSCULAR HEMOGLOBIN 36.5 pg (27.0-33.0); MEAN CORPUSCULAR HGB CONC 34.3 g/dl (32.0-36.5); MEAN CORPUSCULAR VOLUME 106.4 fl (80.0-96.0); RED CELL DISTRIBUTION WIDTH 13.5 % (11.5-14.5)
[2016-05-28 16:23] LABS: CALCIUM LEVEL 8.6 MG/DL (8.8-10.2); CREATININE FOR GFR 1.03 MG/DL (0.55-1.02); GLOMERULAR FILTRATION RATE 53.8 (>32); POTASSIUM SERUM 3.5 MEQ/L (3.5-5.1)
== END ==
LOC: M SFHCPLAZ 13:59
PROVIDERS: ATTEND Nurse Practitioner Adult Health
DX: I51.89 Other ill-defined heart diseases (principal); I48.0 Paroxysmal atrial fibrillation; J44.9 Chronic obstructive pulmonary disease, unspecified; G25.81 Restless legs syndrome; M48.06 Spinal stenosis, lumbar region
CPT/HCPCS: 36415; 80048; 85027; G0463

== ENCOUNTER → 2016-07-14 | Outpatient (REF) | payer MEDICARE, BC ==
[2016-07-14 16:21] LABS: ALBUMIN 3.9 GM/DL (3.2-5.2); ALBUMIN/GLOBULIN RATIO 1.44 (1.00-1.93); BILIRUBIN,TOTAL 1.1 MG/DL (0.2-1.0); CREATININE FOR GFR 1.11 MG/DL (0.55-1.02); GLOMERULAR FILTRATION RATE 49.4 (>32); POTASSIUM SERUM 4.1 MEQ/L (3.5-5.1); TOTAL PROTEIN 6.6 GM/DL (6.4-8.2)
[2016-07-14 16:29] LABS: MEAN CORPUSCULAR HEMOGLOBIN 35.5 pg (27.0-33.0); MEAN CORPUSCULAR VOLUME 110.8 fl (80.0-96.0); RED CELL DISTRIBUTION WIDTH 13.2 % (11.5-14.5); WHITE BLOOD COUNT 8.9 K/mm3 (4.0-10.0)
== END ==
LOC: M SFHCPLAZ 10:54
PROVIDERS: ATTEND Internal Medicine
DX: G25.81 Restless legs syndrome (principal)

== ENCOUNTER 2016-08-27 00:41 | Emergency (ER) | payer MEDICARE, BC ==
[~2016-08-27] VITALS: Ht 149.9 cm; Wt 52.2 kg
[2016-08-27] MEDS ORDERED: BUME2TAB PO (00:56)
[2016-08-27] MEDS ORDERED: BREO1INH INH (00:56)
[2016-08-27] MEDS ORDERED: BISO10TA PO (00:56)
[2016-08-27] MEDS ORDERED: SENO8.6T2 PO (00:56)
[2016-08-27] MEDS ORDERED: FUROSEMIDE 40 MG/4 ML VIAL (J1940) IV ONE (01:45)
[2016-08-27 02:10] LABS: BASO % 0.7 % (0.0-1.0); EOS # 0.2 K/mm3 (0.0-0.50); EOS % 2.9 % (0.0-3.0); LARGE UNSTAINED CELL # 0.1 K/mm3 (0.0-0.4); LARGE UNSTAINED CELL % 1.2 % (0.0-4.0); LYMPH # 1.6 K/mm3 (1.5-4.5); LYMPH % 21.8 % (24.0-44.0); MEAN CORPUSCULAR HEMOGLOBIN 35.5 pg (27.0-33.0); MEAN CORPUSCULAR HGB CONC 33.4 g/dl (32.0-36.5); MEAN CORPUSCULAR VOLUME 106.2 fl (80.0-96.0); MONO # 0.3 K/mm3 (0.0-0.8); MONO % 3.6 % (0.0-5.0); NEUTROPHILS # 5.2 K/mm3 (1.8-7.7); NEUTROPHILS % 69.8 % (36.0-66.0); PLATELET COUNT, AUTOMATED 173 k/mm3 (150-450); RED CELL DISTRIBUTION WIDTH 13.7 % (11.5-14.5); WHITE BLOOD COUNT 7.4 K/mm3 (4.0-10.0)
[2016-08-27 02:40] LABS: ANION GAP 7 MEQ/L (8-16); BLOOD UREA NITROGEN 18 MG/DL (7-18); CALCIUM LEVEL 8.8 MG/DL (8.8-10.2); CARBON DIOXIDE LEVEL 32 MEQ/L (21-32); CHLORIDE LEVEL 96 MEQ/L (98-107); CREATININE FOR GFR 1.23 MG/DL (0.55-1.02); GLOMERULAR FILTRATION RATE 43.9 (>32); GLUCOSE, FASTING 97 MG/DL (83-110); POTASSIUM SERUM 3.8 MEQ/L (3.5-5.1); SODIUM LEVEL 135 MEQ/L (136-145)
[2016-08-27 04:37] VITALS: BP 92/51
--- NOTE | 2016-08-27 06:15 | REP ---
Clinical: Dyspnea and cough. Technique: PA and lateral. Comparison: 05/25/2016. Findings: The cardiac silhouette is within normal limits. Lung post demonstrate diffuse chronic interstitial changes essentially unchanged compared to prior examinations. Left hilar prominence is again noted and likely related to prominent pulmonary vasculature rather than adenopathy. No effusion. No pneumothorax. Skeletal structures demonstrate osteopenia and degenerative change. Impression: Diffuse chronic-appearing changes similar to prior examination as described above. Subtle superimposed atelectasis cannot be excluded. Signed by Ousmane Perez MD 08/27/2016 06:06 A
--- NOTE | 2016-08-29 07:00 | ECGEPIP ---
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
== END 2016-08-27 05:30 | disposition home or self-care (01) ==
LOC: M ED 02:36
DX: I50.9 Heart failure, unspecified (principal); I48.91 Unspecified atrial fibrillation; R60.0 Localized edema; I51.9 Heart disease, unspecified; Z79.899 Other long term (current) drug therapy; Z79.82 Long term (current) use of aspirin; Z79.891 Long term (current) use of opiate analgesic; Z79.51 Long term (current) use of inhaled steroids; Z88.0 Allergy status to penicillin
CPT/HCPCS: 71020; 80048; 82550; 82553; 83880; 84484; 85025; 93005; 93041; 94760; 96374; 99285; J1940

== ENCOUNTER → 2016-09-01 | Outpatient (REF) | payer MEDICARE, BC ==
[~2016-09-01] MED LIST changes: +BISO10TA PO; +BREO1INH INH; +BUME2TAB PO; +SENO8.6T2 PO
[2016-09-01 14:25] LABS: CREATININE FOR GFR 1.37 MG/DL (0.55-1.02); GLOMERULAR FILTRATION RATE 38.7 (>32); POTASSIUM SERUM 3.5 MEQ/L (3.5-5.1)
== END ==
LOC: M SFHCPLAZ 11:19
PROVIDERS: ATTEND Internal Medicine
DX: I50.9 Heart failure, unspecified (principal)

== ENCOUNTER → 2016-09-23 | Outpatient (REF) | payer MEDICARE, BC ==
[~2016-09-23] MED LIST changes: +ASPI325T28 PO; +AZIT-12 PO; -AZIT250T3 PO; +BISO5TAB5 PO; +CLAR10CA3 PO; +CYCL5TAB PO; +DEMA20TA6 PO; +HYOS125TA PO; +LIDO5TD TD; +LORA0.5T11 PO; +MAGN1TAB25 PO; +MAGN500T5 PO; +METO25TA4 PO; -METO25TAB PO; +MILKSUS PO; +MORP20SO3 PO; +MUPI2OI TOP; +PERCOCET PO; +POTA10CA PO; +POTA10TA16 PO; -SENO8.6T2 PO; +SENO8.6T5 PO; +TORS20TA2 PO; +VITA1CAP40 PO; -VITA50003 PO; +[UNRECOGNIZED DRUG - CODE] INJ
[2016-09-23 13:27] LABS: MEAN CORPUSCULAR HEMOGLOBIN 37.7 pg (27.0-33.0); MEAN CORPUSCULAR HGB CONC 34.9 g/dl (32.0-36.5); MEAN CORPUSCULAR VOLUME 107.8 fl (80.0-96.0); RED CELL DISTRIBUTION WIDTH 13.1 % (11.5-14.5); WHITE BLOOD COUNT 9.4 K/mm3 (4.0-10.0)
[2016-09-23 13:43] LABS: ALBUMIN/GLOBULIN RATIO 1.48 (1.00-1.93); BILIRUBIN,TOTAL 1.2 MG/DL (0.2-1.0); CALCIUM LEVEL 8.8 MG/DL (8.8-10.2); CREATININE FOR GFR 1.24 MG/DL (0.55-1.02); GLOMERULAR FILTRATION RATE 43.5 (>32); TOTAL PROTEIN 6.7 GM/DL (6.4-8.2)
== END ==
LOC: M SFHCPLAZ 10:12
PROVIDERS: ATTEND Nurse Practitioner Adult Health
DX: I51.89 Other ill-defined heart diseases (principal)
CPT/HCPCS: 36415; 80053; 85027; G0463

== ENCOUNTER 2016-10-18 11:34 | Inpatient (IN) | payer MEDICARE, BC ==
[~2016-10-18] VITALS: Ht 152.4 cm; Wt 53.6 kg
[~2016-10-18 11:34] MED LIST changes: -ASPI325T28 PO; -BISO5TAB5 PO; -CLAR10CA3 PO; -CYCL5TAB PO; -DEMA20TA6 PO; -HYOS125TA PO; -LIDO5TD TD; -LORA0.5T11 PO; -MAGN1TAB25 PO; -MAGN500T5 PO; -MILKSUS PO; -MORP20SO3 PO; -MUPI2OI TOP; -PERCOCET PO; -POTA10CA PO; -POTA10TA16 PO; -TORS20TA2 PO; -[UNRECOGNIZED DRUG - CODE] INJ
[2016-10-18] MEDS ORDERED: MORPHINE 2 MG/ML 1ML SYRINGE IM ONE ×2 (12:30→14:00)
--- NOTE | 2016-10-18 14:00 | REP ---
CT RIGHT HIP: CT right hip performed in the axial plane with sagittal and coronal reconstruction images. Soft tissue structures appear unremarkable. I see no evidence of acute fracture, dislocation or intrinsic bone disease. There is mild joint space narrowing with subchondral sclerosis and spurring. There are mild tendinous calcifications along the greater trochanter. IMPRESSION: Mild degenerative changes. No fracture or dislocation. Signed by Crow Samson MD 10/18/2016 07:30 P
--- NOTE | 2016-10-18 14:08 | REP ---
CT LUMBAR SPINE: CT lumbar spine is performed in the axial plane with sagittal and coronal reconstruction images. There is an old compression fracture of L5 which is stable since the MRI of 09/08/2012. No new fracture or dislocation is seen. There is moderate diffuse spurring. There is moderate diffuse disc space narrowing with vacuum phenomenon at T12-L1, L1-2, L2-3 and L3-4. There is mild narrowing at L4-5. There is mild narrowing and vacuum at L5-S1. Diffuse sclerosis and spurring is seen at the posterior facet joints. Moderate size spur is seen at the posterior superior margin of L5 causing mild to moderate spinal stenosis at L4-5 unchanged since the prior MRI exam. Diffuse atherosclerotic calcifications are seen of the abdominal aorta. IMPRESSION: No acute fracture or dislocation. Diffuse degenerative changes. Old compression fracture L5 is unchanged since at least 09/08/2012. There is unchanged mild to moderate spinal stenosis at L4-5. Signed by Crow Samson MD 10/18/2016 07:30 P
--- NOTE | 2016-10-18 14:13 | REP ---
RIGHT HUMERUS, TWO VIEWS: There is no evidence of an acute fracture, dislocation or intrinsic bone disease. IMPRESSION: No fracture or dislocation. Signed by Crow Samson MD 10/18/2016 07:30 P
--- NOTE | 2016-10-18 14:14 | REP ---
RIGHT RIB SERIES: Four views of the right ribs are performed. The study is somewhat limited due to osteopenia but I see no evidence of fracture or bone lesion. An accompanying view of the chest demonstrates no acute pulmonary disease. There is calcification and tortuosity of the thoracic aorta. IMPRESSION: No rib fracture visualized. Signed by Crow Samson MD 10/18/2016 07:30 P
--- NOTE | 2016-10-18 14:27 | HPEPDOC ---
Medical History and Physical Date of Admission History and Physical PRIMARY CARE PROVIDER: [Christopher Vela] ATTENDING: Dr. Lagunas CHIEF COMPLAINT: [Fall] HISTORY OF PRESENT ILLNESS: [89 yo F with hx of HFpEF 70% on last echocardiogram , HTN, chronic back and hip pain, opioid dependance, afib not on AC 2/2 falls spinal stenosis, and chronic Lumbar fx, has been c/o severe hip and back pain could not sleep all night had to sit up through out the night, pain is intolerable was not relieved by her home dose of hydrocodone, patients son at the beside witnessed her fall he states that she essentially tripped over her walker as she was walking in the living room, also has been having significant LE edema and cannot place her compression stockings on, no shortness of breath, no palpitations or chest pain, no orthopnea or PND no loss of consciousness, patient gets chronic injections in the hip] PAST MEDICAL HISTORY: as above PAST SURGICAL HISTORY: cataract surgery hysterectomy SOCIAL HISTORY: lives home with her son, former smoker FAMILY HISTORY: denies ALLERGIES: Please see below. REVIEW OF SYSTEMS reviewed negative except for HPI HOME MEDICATIONS: Please see below. PHYSICAL EXAMINATION: VITAL SIGNS: Vital Sign - Last 24 Hours 10/18/16 10/18/16 10/18/16 10/18/16 11:35 12:01 12:27 12:59 Temp 97.1 Pulse 84 Resp 18 18 18 B/P (MAP) 104/55 (71) Pulse Ox 92 O2 Delivery Room Air 10/18/16 10/18/16 10/18/16 10/18/16 13:55 14:08 14:56 15:20 Resp 20 18 18 18 O2 Delivery Room Air 10/18/16 10/18/16 10/18/16 15:36 15:43 16:46 Temp 98.5 Pulse 87 Resp 18 16 B/P (MAP) 99/55 (70) 102/54 (70) Pulse Ox 94 O2 Delivery Room Air GENERAL APPEARANCE: [in moderate distress 2/2 pain]. HEENT: [PERRL EOMI]. CARDIOVASCULAR: [s1 s2 tachy, irregular]. LUNGS: [CTA]. ABDOMEN: [s,nt,nd,+BS]. MUSCULOSKELETAL: [DUPREE equally]. EXTREMITIES: [+3 pitting edema, ttp of b/l LE]. NEUROLOGICAL: [AAOx3]. no focal deficit LABORATORY DATA: See below. IMAGING: [CT r hip No acute fracture or dislocation. Diffuse degenerative changes. Old compression fracture L5 is unchanged since at least 09/08/2012. There is unchanged mild to moderate spinal stenosis at L4-5.] echo 10/2015 1. Hyperdynamic left ventricle systolic function. LVEF 70-75% by visual estimate. No regional wall motion abnormalities. Normal LV internal dimensions and wall thickness. Unable to assess LV diastolic function in the setting of atrial flutter. 2. Suggestive of moderate elevation of estimated right ventricle systolic pressure versus mild elevation of pulmonary artery systolic pressure. Moderate tricuspid regurgitation. Normal right ventricle size with hyperdynamic right ventricle systolic function. Structurally normal appearing tricuspid leaflets. 3. Inferior vena cava plethora. Suggestive of elevated central venous pressure of at least 20 mmHg. 4. Mild mitral annular calcification. Mild mitral regurgitation. RIB xray negative for fx R arm xray neg for fx MICROBIOLOGY: Please see below. ASSESSMENT: [[89 yo F with hx of HFpEF 70% on last echocardiogram, HTN, chronic back and hip pain, opioid dependance, afib not on AC 2/2 falls spinal stenosis, and chronic Lumbar fx, has been c/o severe hip and back pain could not sleep all night had to sit up through out the night, pain is intolerable was not relieved by her home dose of hydrocodone, patients son at the beside witnessed her fall he states that she essentially tripped over her walker as she was walking in the living room, also has been having significant LE edema and cannot place her compression stockings on, no shortness of breath, no palpitations or chest pain, no orthopnea or PND no loss of consciousness, patient gets chronic injections in the hip]]. . 1. intractable hip pain acute on chronic 2/2 recent fall likely mechanical, will admit for intractable pain, place on percocet for mod pain, morphine for severe pain, stool softners 2. hypokalemia/hyponatremia- likely due to bumex along with poor po intake will replete, 3. b/l LE edema appears chronic 2/2 venous insufficiency also dependant edema, elevated LE continue bumex 2mg daily 4. HFpEF - stable 5. HTN- continue home med 6. afib- fairly controlled, tachycardia due to pain, will continue bisoprolol home dose, not on AC due to frequent falls DVT px. DVT px. . Vital Signs Vital Signs Date Time Temp Pulse Resp B/P (MAP) Pulse Ox O2 Delivery O2 Flow Rate FiO2 10/18/16 14:08 18 10/18/16 12:01 10/18/16 11:35 97.1 84 92 Room Air Home Medications Scheduled Acetaminophen/Hydrocodone (Hydrocodone/Acetaminophen 10-325 mg) 1 Tab Tab, 0.5 TAB PO TID TAKES EITHER HALF A TAB OR A WHOLE TAB Aspirin (Aspirin) 325 Mg Tab, 325 MG PO DAILY Bisoprolol Fumarate (Bisoprolol Fumarate) 5 Mg Tab, 5 MG PO QPM Bumetanide (Bumetanide) 2 Mg Tab, 2 MG PO EVERY OTHER DAY for EDEMA Cortisone Acetate (Cortisone Acetate) 1 Pow Pow, 1 DOSE INJ ASDIRECTED SEES FOR INJECTIONS AT PAIN CLINIC. HAS OTHER INJECTION SCHEDULED FOR 10/19 IN RIGHT HIP Cyanocobalamin (Vitamin B-12) 1,000 Mcg Tab, 1,000 MCG PO DAILY Ergocalciferol (Vitamin D) 50,000 Unit Cap, 50,000 UNIT PO Q2WK EVERY OTHER TIFFANIE Fluticasone/Vilanterol (Breo Ellipta 100-25 Mcg/INH) 1 Inh Inh, 1 PUFF INH DAILY Magnesium Oxide (Magnesium) 500 Mg Tab, 500 MG PO DAILY Mupirocin (Mupirocin) 2 % Oin, 1 DOSE TOP TID APPLIES TO RIGHT LOWER LEG Senna (Senokot) 8.6 Mg Tab, 2 TAB PO DAILY Allergies Coded Allergies: Penicillins (Verified Allergy, Intermediate, RASH, 06/29/12) Penicillins Cross Reactors (Verified Allergy, Intermediate, RASH, 06/29/12) CHARLIE LAGUNAS MD Oct 18, 2016 14:27
[2016-10-18] MEDS ORDERED: BISO5TAB5 PO (14:30)
[2016-10-18] MEDS ORDERED: ASPI325T28 PO (14:30)
[2016-10-18] MEDS ORDERED: [UNRECOGNIZED DRUG - CODE] INJ (14:34)
[2016-10-18] MEDS ORDERED: MAGN500T5 PO (14:34)
[2016-10-18] MEDS ORDERED: MUPI2OI TOP (14:34)
[2016-10-18] MEDS ORDERED: ONDANSETRON 4MG/2ML VIAL (J2405) IV PRN (14:45)
[2016-10-18] MEDS ORDERED: zolPIDEM TARTRATE 5 MG TAB PO PRN (14:45)
[2016-10-18] MEDS: MORPHINE 2 MG/ML 1ML SYRINGE IV PRN ×2 (14:56→20:14)
[2016-10-18 14:58] LABS: BASO % 0.3 % (0.0-1.0); EOS # 0.1 K/mm3 (0.0-0.50); EOS % 0.5 % (0.0-3.0); LARGE UNSTAINED CELL # 0.1 K/mm3 (0.0-0.4); LARGE UNSTAINED CELL % 0.7 % (0.0-4.0); LYMPH # 0.9 K/mm3 (1.5-4.5); LYMPH % 6.8 % (24.0-44.0); MEAN CORPUSCULAR HGB CONC 35.6 g/dl (32.0-36.5); MONO # 0.3 K/mm3 (0.0-0.8); MONO % 2.4 % (0.0-5.0); NEUTROPHILS # 11.3 K/mm3 (1.8-7.7); NEUTROPHILS % 89.2 % (36.0-66.0); PLATELET COUNT, AUTOMATED 228 k/mm3 (150-450); RED CELL DISTRIBUTION WIDTH 13.1 % (11.5-14.5); WHITE BLOOD COUNT 12.7 K/mm3 (4.0-10.0)
[2016-10-18 15:25] LABS: ANION GAP 10 MEQ/L (8-16); BLOOD UREA NITROGEN 19 MG/DL (7-18); CALCIUM LEVEL 8.7 MG/DL (8.8-10.2); CARBON DIOXIDE LEVEL 28 MEQ/L (21-32); CHLORIDE LEVEL 91 MEQ/L (98-107); GLUCOSE, FASTING 118 MG/DL (83-110); POTASSIUM SERUM 3.3 MEQ/L (3.5-5.1); SODIUM LEVEL 129 MEQ/L (136-145)
[2016-10-18 16:00] VITALS: BP 90/53
[2016-10-18] MEDS: CYANOCOBALAMIN 500 MCG TAB PO SCH (16:43)
[2016-10-18] MEDS: ASPIRIN ENTERIC 325 MG TAB PO SCH (16:43)
[2016-10-18] MEDS: NORCO, ANEXSIA 5/325MG TABLET (HYDROcodone/ACETAMINOPHEN) PO PRN (16:46)
[2016-10-18] MEDS: ENOXAPARIN 30 MG/0.3 ML SYR (J1650) SC SCH (17:01)
[2016-10-18] MEDS ORDERED: POTASSIUM CHLORIDE 10 MEQ SR TABLET PO ONE (18:00)
[2016-10-18] MEDS ORDERED: NS 500 ML IV ONE (18:00)
[2016-10-18] MEDS: BISOPROLOL FUMARATE 5 MG TAB PO SCH (20:13)
[2016-10-18] MEDS: DOCUSATE SODIUM 100 MG CAP PO SCH (20:13)
[2016-10-18] MEDS: SENOKOT S TAB PO SCH (20:13)
[2016-10-18 21:00] VITALS: BP 95/54
[2016-10-19] MEDS: NORCO, ANEXSIA 5/325MG TABLET (HYDROcodone/ACETAMINOPHEN) PO PRN ×3 (02:28→17:26)
[2016-10-19 03:34] LABS: BASO % 0.2 % (0.0-1.0); EOS # 0.2 K/mm3 (0.0-0.50); EOS % 1.5 % (0.0-3.0); LARGE UNSTAINED CELL # 0.1 K/mm3 (0.0-0.4); LARGE UNSTAINED CELL % 0.8 % (0.0-4.0); LYMPH # 1.3 K/mm3 (1.5-4.5); LYMPH % 12.2 % (24.0-44.0); MEAN CORPUSCULAR HEMOGLOBIN 36.9 pg (27.0-33.0); MEAN CORPUSCULAR HGB CONC 34.9 g/dl (32.0-36.5); MEAN CORPUSCULAR VOLUME 105.8 fl (80.0-96.0); MONO # 0.3 K/mm3 (0.0-0.8); MONO % 2.9 % (0.0-5.0); NEUTROPHILS # 8.3 K/mm3 (1.8-7.7); NEUTROPHILS % 82.4 % (36.0-66.0); PLATELET COUNT, AUTOMATED 195 k/mm3 (150-450); RED CELL DISTRIBUTION WIDTH 13.9 % (11.5-14.5)
[2016-10-19 03:43] LABS: ABG BASE EXCESS 1.5 (-2.0-2.0); ABG PARTIAL PRESSURE CO2 34.9 mmHg (35.0-45.0); ABG PARTIAL PRESSURE O2 84.2 mmHg (75.0-100.0); ABG STANDARD HCO3 25.8 MEQ/L (22.0-26.0); ABG TOTAL CO2 26.1 MEQ/L (23.0-31.0); ABG pH (ARTERIAL) 7.473 UNITS (7.350-7.450)
[2016-10-19 04:12] LABS: ALBUMIN 3.4 GM/DL (3.2-5.2); ALBUMIN/GLOBULIN RATIO 1.48 (1.00-1.93); BILIRUBIN,TOTAL 2.5 MG/DL (0.2-1.0); CALCIUM LEVEL 7.9 MG/DL (8.8-10.2); CREATININE FOR GFR 1.1 MG/DL (0.55-1.02); GLOMERULAR FILTRATION RATE 49.8 (>32); MAGNESIUM LEVEL 2.3 MG/DL (1.8-2.4); POTASSIUM SERUM 3.8 MEQ/L (3.5-5.1); TOTAL PROTEIN 5.7 GM/DL (6.4-8.2)
[2016-10-19] MEDS ORDERED: FUROSEMIDE 40 MG/4 ML VIAL (J1940) IV ONE (04:45)
[2016-10-19 06:00] VITALS: BP 119/57
[2016-10-19 06:25] LABS: OSMOLALITY URINE 239 MOSM/KG (500-800)
--- NOTE | 2016-10-19 07:42 | REP ---
Portable chest, 03:13 a.m., single AP view the patient sitting: Comparisons are 10/18/2016 and 08/27/2016. There is diffuse interstitial coarsening as an interval change compatible with vascular engorgement and interstitial infiltrates. The right hemidiaphragm is obscured compatible with a focal right lower lobe infiltrate. The right costophrenic angle is effaced compatible with a small right pleural effusion. Cardiac size is enlarged. The dnaish, mediastinum, bony thorax are unremarkable. Impression: Vascular engorgement and interstitial infiltrates. Small right pleural effusion. Cardiomegaly. Signed by Crow Louie MD 10/19/2016 07:34 A
--- NOTE | 2016-10-19 08:19 | ECGEPIP ---
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
[2016-10-19] MEDS: CYANOCOBALAMIN 500 MCG TAB PO SCH (10:28)
[2016-10-19] MEDS: ASPIRIN ENTERIC 325 MG TAB PO SCH (10:28)
[2016-10-19] MEDS: BUMETANIDE 1 MG TAB PO SCH (10:28)
[2016-10-19] MEDS: SENOKOT S TAB PO SCH ×2 (10:28→20:02)
[2016-10-19] MEDS: DOCUSATE SODIUM 100 MG CAP PO SCH ×2 (10:28→20:02)
[2016-10-19 10:44] LABS: CALCIUM LEVEL 8.5 MG/DL (8.8-10.2); CREATININE FOR GFR 1.21 MG/DL (0.55-1.02); GLOMERULAR FILTRATION RATE 44.6 (>32); MAGNESIUM LEVEL 2.2 MG/DL (1.8-2.4); POTASSIUM SERUM 3.5 MEQ/L (3.5-5.1)
[2016-10-19 14:00] VITALS: BP 144/60
--- NOTE | 2016-10-19 15:34 | REP ---
REASON: History of spinal stenosis. COMPARISON: 09/08/2012. The technologist has indicated in the patient's synapse power jacket that the images obtained were the best obtainable. There is excessive motion artifact although the patient was medicated prior to the exam. There are marked technically differences between today's examination and the prior examination. There does not appear to be a gross change in the appearance of vertebral body height or alignment. There does not appear to be a gross change in the disc space height or degree of hydrational signal. Modic type 2 endplate changes are again seen at T12-L1 and L1-2. A grade 3 superior endplate concave deformity of L5 status quo. There is an unchanged spondylolisthesis of L4 on L5. No gross signal changes appear to have developed in the imaged portion of the spinal cord. Broad based annular bulges are seen at every lumbar level. These appears stable, however, subtle increments of worsening cannot be excluded due to the excessive artifact created by motion. There is degenerative facet joint change seen bilaterally with thickening of the ligamentum flava at multiple levels causing central canal stenosis at essentially all lumbar levels and at the T12-L1 level in a fashion which appears to be unchanged from the prior exam. There is no definite evidence of an acute disc extrusion. IMPRESSION: Marked exam limitations with findings and chronic changes as described above. This limited exam shows no definite evidence of an acute disc extrusion or significant acute change from the prior exam, however, subtle degrees of worsening cannot be ruled out by this exam. Signed by Luis Alfredo Anderson DO 10/19/2016 04:30 P
--- NOTE | 2016-10-19 17:00 | REP ---
HISTORY: Pain after fall. AP pelvis shows bilateral hip degenerative changes and bony demineralization. Degenerative changes are also seen involving the sacroiliac joints and imaged portion of the spine. There is no evidence of a fracture. IMPRESSION: Chronic changes. TWO VIEWS OF THE LEFT HIP: HISTORY: Pain after a fall. The bones are demineralized. There are degenerative changes seen involving the left sacroiliac joint and left hip with asymmetric hip joint space narrowing and mild buttressing. The bones are demineralized. There is no evidence an acute fracture. TWO VIEWS OF THE RIGHT HIP: HISTORY: Pain after fall. PRIORS: None. Degenerative changes seen involving the right hip with asymmetric hip joint space narrowing and mild buttressing. Degenerative changes are also seen involving the right sacroiliac joint. There is no evidence of an acute fracture or dislocation. IMPRESSION: Chronic changes. Signed by Luis Alfredo Anderson DO 10/19/2016 07:09 P
[2016-10-19] MEDS: ENOXAPARIN 30 MG/0.3 ML SYR (J1650) SC SCH (17:26)
[2016-10-19 20:02] VITALS: BP 92/51
[2016-10-19] MEDS: BISOPROLOL FUMARATE 5 MG TAB PO SCH (20:02)
--- NOTE | 2016-10-19 21:49 | IPN ---
DATE: 10/19/2016 Ms. Ambrosio is feeling much better today. Pain is better controlled, although she does still have pain specifically in her right hip and her back; she has been up and to the bathroom with assistance. She has required two-person assist. She is hungry for breakfast this morning. She is anxious about the possibility of an MRI and declines interest in surgery, although she would be willing to talk to a surgeon. Temperature is 97.2. Pulse 100, respiratory rate 18, blood pressure 119/57, 92% on 2 liters. Intake and output notable for a negative fluid balance of -40. She is awake, appropriately interactive, pleasantly conversant, somewhat hard of hearing. Breathing is symmetrical. I:E ratio is 1:3. Heart is distant sounding. Abdomen: Soft, doughy, nontender. White cell count 10, hemoglobin 9.4, platelets of 195, BUN 18, creatinine 1.2. MRI is pending. ASSESSMENT: This is an 89-year-old with intractable back pain and falls. PLAN: 1. The patient has intractable hip and back pain in the setting of spinal stenosis, follows with Dr. Rizvi, has been encouraged to have MRI and corticosteroid injections for many months, which the patient has declined. Her sleep has been affected by pain. 2. The patient has hypokalemia and hyponatremia, which will be repleted as needed. 3. The patient has lower extremity edema, which apparently is much improved from yesterday. 4. The patient has hypertension. 5. The patient has atrial fibrillation, not on anticoagulation due to frequent falls. I did discuss this case at length with the patient and her son at the bedside.
[2016-10-19 22:00] VITALS: BP 92/51
[2016-10-20] MEDS: NORCO, ANEXSIA 5/325MG TABLET (HYDROcodone/ACETAMINOPHEN) PO PRN ×4 (01:56→20:38)
[2016-10-20 06:00] VITALS: BP 96/55
[2016-10-20 06:37] LABS: MEAN CORPUSCULAR HEMOGLOBIN 36.9 pg (27.0-33.0); MEAN CORPUSCULAR HGB CONC 34.4 g/dl (32.0-36.5); MEAN CORPUSCULAR VOLUME 107.3 fl (80.0-96.0); RED CELL DISTRIBUTION WIDTH 13.8 % (11.5-14.5); WHITE BLOOD COUNT 10.9 K/mm3 (4.0-10.0)
[2016-10-20 07:38] LABS: CALCIUM LEVEL 8.3 MG/DL (8.8-10.2); CREATININE FOR GFR 1.16 MG/DL (0.55-1.02); GLOMERULAR FILTRATION RATE 46.8 (>32); MAGNESIUM LEVEL 2.1 MG/DL (1.8-2.4); POTASSIUM SERUM 3.5 MEQ/L (3.5-5.1)
[2016-10-20] MEDS: CYANOCOBALAMIN 500 MCG TAB PO SCH (08:51)
[2016-10-20] MEDS: ASPIRIN ENTERIC 325 MG TAB PO SCH (08:51)
[2016-10-20] MEDS: DOCUSATE SODIUM 100 MG CAP PO SCH ×2 (08:51→20:36)
[2016-10-20] MEDS: SENOKOT S TAB PO SCH ×2 (08:52→20:37)
--- NOTE | 2016-10-20 12:51 | IPNPDOC ---
Subjective Date Seen The patient was seen on 10/20/16. Subjective Chief Complaint/HPI The patient is a 89-year-old female admitted with a reason for visit of Intractable Pain. Assessment /Plan Problems (1) Anemia Discussed With: Patient Problem Specific Plan: Monitor Clinically, Repeat Labs Problem Text: H/H trending down. Serial CBC. Stool guaic pending. (2) Spinal stenosis at L4-L5 level Status: Acute Response to Treatment: Controlled Discussed With: Patient Problem Specific Plan: Monitor Clinically (3) Intractable back pain Status: Acute Response to Treatment: Controlled Discussed With: Patient Problem Specific Plan: Monitor Clinically (4) Fall Status: Chronic Discussed With: Patient (5) Intractable pain Status: Chronic Discussed With: Patient Problem Specific Plan: Monitor Clinically (6) Restless leg Status: Chronic Discussed With: Patient (7) A-fib Status: Chronic Discussed With: Patient Problem Text: no a/c due to falls. (8) Hypotension Status: Chronic Problem Specific Plan: Monitor Clinically Problem Text: DC Zebeta Plan/VTE VTE Prophylaxis Ordered?: Yes (LOVENOX) Plan Diet: Continue Current Activity: Continue Current Therapy: PT Respiratory: Wean Oxygen Diagnostics: Repeat Labs in AM, Other Diagnostics Monitor H/H. Wean O2. Pain controlled with oral analgesics. VS, [facility]&O[facility] Vital Signs/I&O Vital Signs Date Time Temp Pulse Resp B/P (MAP) Pulse Ox O2 Delivery O2 Flow Rate FiO2 10/20/16 09:22 18 10/20/16 06:00 99.1 96 96/55 (69) 96 Nasal Cannula 2.0 I&O- Last 24 Hours up to 6 AM 10/20/16 05:59 Intake Total 960 ml Output Total 2100 ml Balance -1140 ml Laboratory Data 24H LABS Laboratory Tests 2 10/19/16 15:59: Magnesium Level 2.3 10/20/16 06:11: Magnesium Level 2.1, Anion Gap 9, Glomerular Filtration Rate 46.8, Blood Urea Nitrogen 15, Creatinine 1.16H, Sodium Level 134L, Potassium Level 3.5, Chloride Level 95L, Carbon Dioxide Level 30, Calcium Level 8.3L CBC/BMP Laboratory Tests 10/20/16 06:11 Red Blood Count 2.42 L, Mean Corpuscular Volume 107.3 H, Mean Corpuscular Hemoglobin 36.9 H, Mean Corpuscular Hemoglobin Concent 34.4, Red Cell Distribution Width 13.8, Calcium Level 8.3 L WALKER WREN MD Oct 20, 2016 12:50
[2016-10-20 14:00] VITALS: BP 117/61
[2016-10-20] MEDS ORDERED: NORCO, ANEXSIA 5/325MG TABLET (HYDROcodone/ACETAMINOPHEN) PO ONE (16:45)
[2016-10-20] MEDS: ENOXAPARIN 30 MG/0.3 ML SYR (J1650) SC SCH (17:29)
[2016-10-20 22:00] VITALS: BP 124/62
[2016-10-21] MEDS: NORCO, ANEXSIA 5/325MG TABLET (HYDROcodone/ACETAMINOPHEN) PO PRN ×3 (01:54→11:40)
[2016-10-21 06:00] VITALS: BP 110/59
[2016-10-21 06:45] LABS: MEAN CORPUSCULAR HEMOGLOBIN 36.8 pg (27.0-33.0); MEAN CORPUSCULAR HGB CONC 34.1 g/dl (32.0-36.5); MEAN CORPUSCULAR VOLUME 107.9 fl (80.0-96.0); RED CELL DISTRIBUTION WIDTH 13.8 % (11.5-14.5); WHITE BLOOD COUNT 12.5 K/mm3 (4.0-10.0)
[2016-10-21 07:02] LABS: CALCIUM LEVEL 8.5 MG/DL (8.8-10.2); CREATININE FOR GFR 1.02 MG/DL (0.55-1.02); GLOMERULAR FILTRATION RATE 54.3 (>32); POTASSIUM SERUM 3.1 MEQ/L (3.5-5.1)
[2016-10-21] MEDS ORDERED: POTASSIUM CHLORIDE 10% LIQ 20 MEQ/15 ML UDC PO ONE (08:00)
[2016-10-21] MEDS: ASPIRIN ENTERIC 325 MG TAB PO SCH (09:56)
[2016-10-21] MEDS: BUMETANIDE 1 MG TAB PO SCH (09:56)
[2016-10-21] MEDS: SENOKOT S TAB PO SCH (09:57)
[2016-10-21] MEDS: CYANOCOBALAMIN 500 MCG TAB PO SCH (09:57)
[2016-10-21] MEDS: DOCUSATE SODIUM 100 MG CAP PO SCH (09:57)
--- NOTE | 2016-10-21 11:04 | DS.PDOC ---
Discharge Summary General Date of Admission Oct 18, 2016 at 14:40 Date of Discharge 10/21/16 Discharge Summary PROCEDURES PERFORMED DURING STAY: [None]. DISCHARGE DIAGNOSES: 1. Acute/chronic lower back pain 2. Spinal stenosis 3. CHF - diastolic dysfunction 4. HTN 5. A-fib - not on anticoagulation due to fall risk 6. Opioid dependence 7. chronic anemia 8. chronic kidney disease COMPLICATIONS/CHIEF COMPLAINT: Intractable Pain. HOSPITAL COURSE: 89 female with history of chronic back pain, follows with Dr. Rizvi where she receives injections. Patient's son also witnessed mechanical fall. Patient admitted for intractable pain. She did require IV analgesics at the beginning of her hospital stay, but her pain eventually was managed with oral analgesics. MRI was obtained which did not show any obvious new acute findings, but was a poor study due to motion. PT evaluation stated safe for discharge. Patient was anemic, but stable, can be followed as outpatient. Patient was also hypotensive and bradycardic, home Zebeta discontinued pending further evaluation by her PCP. DISCHARGE MEDICATIONS: Please see below. ALLERGIES: Please see below. PHYSICAL EXAMINATION ON DISCHARGE: VITAL SIGNS: Please see below. GENERAL: NAD, elderly, frail HEENT: NC/AT, EOMI, PERRL NECK: supple CARDIOVASCULAR EXAMINATION: +S1S2, RRR RESPIRATORY EXAMINATION: CTA B/L ABDOMINAL EXAMINATION: soft, NT, +BS EXTREMITIES: trace lower extremity edema R/L PSYCHIATRIC EXAMINATION: AAOx3 LABORATORY DATA: Please see below. IMAGING: ACTIVITY: [As tolerated]. DIET:Regular DISCHARGE INSTRUCTIONS: 1. Follow up PCP in 3-5 days. 2. Follow up Dr. Rizvi in 1-2 days. ITEMS TO FOLLOWUP ON ON OUTPATIENT: 1. Follow up CBC. 2. Further workup for anemia. DISCHARGE CONDITION: Stable. TIME SPENT ON DISCHARGE: Greater than 30 minutes. Vital Signs/I&Os Vital Signs Date Time Temp Pulse Resp B/P (MAP) Pulse Ox O2 Delivery O2 Flow Rate FiO2 10/21/16 07:21 18 10/21/16 06:51 Room Air 10/21/16 06:00 98.2 99 110/59 (76) 98 10/20/16 06:00 2.0 I&O- Last 24 Hours up to 6 AM 10/21/16 06:00 Intake Total 840 ml Output Total 1000 ml Balance -160 ml Laboratory Data Labs 24H Laboratory Tests 2 10/21/16 06:14: Anion Gap 10, Glomerular Filtration Rate 54.3, Blood Urea Nitrogen 15, Creatinine 1.02, Sodium Level 130L, Potassium Level 3.1L, Chloride Level 92L, Carbon Dioxide Level 28, Calcium Level 8.5L, Magnesium Level 2.0 CBC/BMP Laboratory Tests 10/21/16 06:14 Red Blood Count 2.49 L, Mean Corpuscular Volume 107.9 H, Mean Corpuscular Hemoglobin 36.8 H, Mean Corpuscular Hemoglobin Concent 34.1, Red Cell Distribution Width 13.8, Calcium Level 8.5 L Discharge Medications Scheduled Acetaminophen/Hydrocodone (Hydrocodone/Acetaminophen 10-325 mg) 1 Tab Tab, 1 TAB PO TID, (Reported) TAKES EITHER HALF A TAB OR A WHOLE TAB Aspirin (Aspirin) 325 Mg Tab, 325 MG PO DAILY, (Reported) Bisoprolol Fumarate (Bisoprolol Fumarate) 5 Mg Tab, 2.5 MG PO DAILY, (Reported) Bumetanide (Bumetanide) 2 Mg Tab, 2 MG PO EVERY OTHER DAY for EDEMA, (Reported) Cortisone Acetate (Cortisone Acetate) 1 Pow Pow, 1 DOSE INJ ASDIRECTED, ( Reported) SEES FOR INJECTIONS AT PAIN CLINIC, GETS INJECTIONS IN HER BACK AND HIP. WAS LAST SCHEDULED ON 10/19 FOR HIP INJECTION, BUT MISSED DUE TO BEING INPATIENT Cyanocobalamin (Vitamin B-12) 1,000 Mcg Tab, 1,000 MCG PO DAILY, (Reported) Ergocalciferol (Vitamin D) 50,000 Unit Cap, 50,000 UNIT PO Q2WK, (Reported) EVERY OTHER WEDNESDAY Fluticasone/Vilanterol (Breo Ellipta 100-25 Mcg/INH) 1 Inh Inh, 1 PUFF INH DAILY , (Reported) Mupirocin (Mupirocin) 2 % Oin, 1 DOSE TOP TID, (Reported) APPLIES TO RIGHT LOWER LEG Senna (Senokot) 8.6 Mg Tab, 2 TAB PO DAILY, (Reported) Allergies Coded Allergies: Penicillins (Verified Allergy, Intermediate, RASH, 10/26/16) Penicillins Cross Reactors (Verified Allergy, Intermediate, RASH, 10/26/16) Diazepam (Verified Adverse Reaction, Unknown, syncope, 10/26/16) Ethanol (Verified Adverse Reaction, Unknown, syncope, 10/26/16) WALKER WREN MD Oct 21, 2016 11:04
== END 2016-10-21 14:50 | disposition home or self-care (01) | DRG 552 ==
LOC: M ED 11:34 → M ED INP 14:40 → M MS5PR 15:55
PROVIDERS: ADMIT Internal Medicine; ATTEND Internal Medicine
DX: M54.5 Low back pain (principal); F11.20 Opioid dependence, uncomplicated; E87.1 Hypo-osmolality and hyponatremia; I50.32 Chronic diastolic (congestive) heart failure; I11.0 Hypertensive heart disease with heart failure; E87.6 Hypokalemia; I48.2 Chronic atrial fibrillation; M25.551 Pain in right hip; D64.9 Anemia, unspecified; G25.81 Restless legs syndrome; I95.89 Other hypotension; M48.06 Spinal stenosis, lumbar region; Z88.0 Allergy status to penicillin; Z87.891 Personal history of nicotine dependence; Z79.82 Long term (current) use of aspirin; Z79.899 Other long term (current) drug therapy

== ENCOUNTER 2016-10-26 09:58 | Inpatient (IN) | payer MEDICARE, BC ==
[~2016-10-26] VITALS: Ht 152.4 cm; Wt 51.6 kg
[~2016-10-26 09:58] MED LIST changes: +ASPI325T28 PO; +BISO5TAB5 PO; +MAGN500T5 PO; +MUPI2OI TOP; +[UNRECOGNIZED DRUG - CODE] INJ
[2016-10-26] MEDS ORDERED: BISO5TAB5 PO (10:13)
--- NOTE | 2016-10-26 10:56 | ED PDOC ---
Post-Departure Follow-Up PT PRESENTS WITH HER SON TODAY COMPLAINING OF BACK/HIP PAIN. PT SEES DR. GARCIA FOR PAIN MANAGEMENT FOR HER BACK PAIN. PT WAS ADMITTED DURING HER LAST ER VISIT 1 WEEK AGO FOR THE SAME. WAS DISCHARGED ON WEDNESDAY AND SAW DR. GARCIA ON WEDNESDAY. SON STATES DR. GARCIA ADVISED THEM BECAUSE OF THE AMOUNT OF PAIN SHE WAS IN THAT THEY SHOULD WAIT FOR THESE INJECTIONS. DR. GARCIA IS NOW OUT OF TOWN FOR THE WEEK AND PT RETURNS TO THE ER WITH BACK PAIN/HIP PAIN THAT IS MAKING IT INCREASINGLY DIFFICULT TO AMBULATE IN THE HOUSE. PT TAKES NORCO AT HOME AND THE SON STATES SHE IS DOING WELL AT THIS MOMENT, BUT HE WANTS SOMEONE TO GIVE THIS PT HER INJECTIONS UNDER FLUOROSCOPY, "BECAUSE THEY HAVE GONE IN [place] BEFORE AND WE AREN'T GOING THROUGH THAT HORSE SHIT AGAIN." PT AND SON VERY FRUSTRATED AND ARE WANTING INJECTIONS. SPOKE WITH DR. GAN REGARDING THIS PT AND HER CIRCUMSTANCES. ADVISED TO SPEAK WITH [facility] TO SEE IF THEY CAN HELP. IF NOT, OFFER ADMISSION FOR PAIN CONTROL. SPOKE WITH DR. DELUCA WHO STATED HE DOES NOT PERFORM THESE INJECTIONS, BUT SUGGESTED I SPEAK WITH DR. PETTIT TO SEE IF HE WOULD BE OF SOME ASSISTANCE. CALLED AND SPOKE WITH DR. PETTIT WHO STATED THIS PT WOULD BE ABLE TO BE SEEN AND INJECTED WITHIN THE NEXT DAY. DR. PETTIT ADVISED HIS HASHER MACHINE OPERATOR WOULD BE ABLE TO SEE AND ASSESS THE PT WHEN SHE GETS ADMITTED AND HE WOULD PERFORM THE INJECTION TOMORROW. SPOKE AGAIN WITH PT AND SON AND ALL ARE IN AGREEMENT WITH TREATMENT PLAN AT THIS TIME. MALU SOTELO PA-C Oct 26, 2016 10:56
[2016-10-26] MEDS ORDERED: GABAPENTIN 100 MG CAP PO ONE (11:15)
[2016-10-26 12:20] LABS: BASO % 0.2 % (0.0-1.0); EOS # 0.1 K/mm3 (0.0-0.50); LARGE UNSTAINED CELL # 0.1 K/mm3 (0.0-0.4); LYMPH # 0.9 K/mm3 (1.5-4.5); LYMPH % 6.9 % (24.0-44.0); MEAN CORPUSCULAR HEMOGLOBIN 36.7 pg (27.0-33.0); MEAN CORPUSCULAR HGB CONC 34.7 g/dl (32.0-36.5); MEAN CORPUSCULAR VOLUME 105.6 fl (80.0-96.0); MONO # 0.3 K/mm3 (0.0-0.8); MONO % 2.6 % (0.0-5.0); NEUTROPHILS # 11.5 K/mm3 (1.8-7.7); NEUTROPHILS % 88.3 % (36.0-66.0); PLATELET COUNT, AUTOMATED 244 k/mm3 (150-450); RED CELL DISTRIBUTION WIDTH 14.1 % (11.5-14.5)
[2016-10-26 12:37] LABS: ANION GAP 9 MEQ/L (8-16); BLOOD UREA NITROGEN 18 MG/DL (7-18); CALCIUM LEVEL 8.7 MG/DL (8.8-10.2); CARBON DIOXIDE LEVEL 28 MEQ/L (21-32); CHLORIDE LEVEL 86 MEQ/L (98-107); CREATININE FOR GFR 1.08 MG/DL (0.55-1.02); GLOMERULAR FILTRATION RATE 50.9 (>32); GLUCOSE, FASTING 124 MG/DL (83-110); POTASSIUM SERUM 3.7 MEQ/L (3.5-5.1); SODIUM LEVEL 123 MEQ/L (136-145)
[2016-10-26] MEDS ORDERED: ONDANSETRON 4MG/2ML VIAL (J2405) IV PRN (13:30)
[2016-10-26] MEDS ORDERED: ACETAMINOPHEN TAB 650MG DOSE (2X325MG) PO PRN (13:30)
--- NOTE | 2016-10-26 13:42 | HPEPDOC ---
Medical History and Physical Date of Admission 10/26/16 History and Physical PRIMARY CARE PROVIDER: Dr. Christopher Spain ATTENDING: Dr. Teresa Dalton CHIEF COMPLAINT: Intractable back pain HISTORY OF PRESENT ILLNESS: This is a 89-year-old female history of diastolic heart failure, atrial fibrillation on anticoagulation given falls with history of chronic lumbar fracture and spinal stenosis, chronic hyponatremia, chronic neck and back pain, hypertension who presents complaining of intractable back pain. Patient's and son state that the patient has chronic back pain from the spinal stenosis, compression fracture, as well as bursitis bilaterally. Patient typically has injections with Dr. Rizvi, however she missed her appointment and now he's on vacation. Her pain is very severe, and she was recently admitted earlier this month. Her MRI from 5 days ago with feels no significant changes. The ED staff at spoken to Dr. Moore, who agreed to do that point injections during this hospitalization. Aside from this, patient does have chronic lower extremity edema however is 2-3 + with weeping areas. She sees Dr. Martinez in the office for follow-up. Patient also notes that her right lower extremity is much weaker than the left and this has occurred on Wednesday. She has difficulty ambulating with her walker now. Denies any slurred speech/facial droop. No chest pain/palpitations/ shortness of breath. PAST MEDICAL HISTORY:As per HPI PAST SURGICAL HISTORY: Hysterectomy, cataract surgery SOCIAL HISTORY: History of tobacco abuse. Lives with son. Walks with a walker. FAMILY HISTORY: Noncontributory ALLERGIES: Please see below. REVIEW OF SYSTEMS: HEENT: Denies sore throat/headache CARDIOVASCULAR: Denies chest pain/palpitations RESPIRATORY: Denies shortness of breath/cough GASTROINTESTINAL: denies nausea/vomiting GENITOURINARY: Denies dysuria/urinary urgency. MUSCULOSKELETAL: Denies myalgias/arthralgias NEUROLOGICAL: Denies any focal weakness HOME MEDICATIONS: Please see below. PHYSICAL EXAMINATION: Vitals: (see below) General: No acute distress, laying comfortably in chair. Denies any pain at this time. HEENT: Moist mucous membranes. Neck: No JVD or lymphadenopathy Cardiac: RRR, No murmurs. Pulm: Coarse crackle b/l bases. No wheezing, rhonchi Abd: NT/ND + BS Ext: 2+ pitting edema BLE. RLE with wound, does not appear infected. No erythema /warmth. No cyanosis. Neuro: Strength 5/5 BUE and 5/5 LLE. 1-2/5 RLE. CN 2-12 intact. LABORATORY DATA: See below. IMAGING: MICROBIOLOGY: Please see below. ASSESSMENT/PLAN: 1. Intractable back pain with history of spinal stenosis, chronic L5 compression fracture, bursitis. Recent admission for similar complaints. Dr. Moore will be doing the injection shots during this hospitalization. In the meantime, will continue with Percocet/morphine when necessary. 2. Right lower extremity weakness- questional secondary to her underlying stenosis, however given her atrial fibrillation and not being on anticoagulation secondary to her fall risk, we will obtain CT Head/MRI of the brain to rule out CVA. Neuro checks in the meantime. On aspirin daily. Avoid oversedation in setting of neurologic symptom and risk of hypotension. 3. Bilateral lower extremity edema, with a history of diastolic heart failure. Rule out DVT with Doppler ultrasound. We will place patient on Lasix IV, as well as continue Bumex. We will need to keep a close eye on her renal function, and may require further adjustments of these diuretics tomorrow. 4. Chronic hyponatremia- likely hypervolemic. We will continue with diuretic therapy. Continue to monitor. 5. Hypertension- controlled continue home meds 6. History of atrial fibrillation- on aspirin. Not on anticoagulation secondary to falls. On beta jasmyn 7. Leukocytosis- afebrile. Chest x-ray 6 days ago with ? Right-sided infiltrate. No cough. We'll obtain CT chest to rule out infiltrate. Urinalysis. 8. Chronic anemia- stable. No acute bleeding at this time. We will continue to monitor. 9. Chronic kidney disease stage III- stable. Avoid nephrotoxins. Strict I/O. DVT prophylaxis- SCDs Prognosis guarded Plan discussed in detail with patient and son. Patient will be followed by Dr. Teresa Garduno starting 10/27/16 at 7 AM. Vital Signs Vital Signs Date Time Temp Pulse Resp B/P (MAP) Pulse Ox O2 Delivery O2 Flow Rate FiO2 10/26/16 10:26 10/26/16 10:00 98.0 84 18 97 Room Air Laboratory Data Labs 24H Laboratory Tests 2 10/26/16 12:02: White Blood Count 13.0H, Red Blood Count 2.52L, Hemoglobin 9.2L, Hematocrit 26.6L, Mean Corpuscular Volume 105.6H, Mean Corpuscular Hemoglobin 36.7H, Mean Corpuscular Hemoglobin Concent 34.7, Red Cell Distribution Width 14.1, Platelet Count 244, Neutrophils (%) (Auto) 88.3H, Lymphocytes (%) (Auto) 6.9L, Monocytes (%) (Auto) 2.6, Eosinophils (%) (Auto) 1.0, Basophils (%) (Auto) 0.2, Neutrophils # (Auto) 11.5H, Lymphocytes # (Auto) 0.9L, Monocytes # (Auto) 0.3, Eosinophils # (Auto) 0.1, Basophils # (Auto) 0.0, Large Unclassified Cells % 1.0 , Large Unclassified Cells # 0.1, Anion Gap 9, Glomerular Filtration Rate 50.9, Blood Urea Nitrogen 18, Creatinine 1.08H, Sodium Level 123L, Potassium Level 3.7 , Chloride Level 86L, Carbon Dioxide Level 28, Calcium Level 8.7L CBC/BMP Laboratory Tests 10/26/16 12:02 Red Blood Count 2.52 L, Mean Corpuscular Volume 105.6 H, Mean Corpuscular Hemoglobin 36.7 H, Mean Corpuscular Hemoglobin Concent 34.7, Red Cell Distribution Width 14.1, Neutrophils (%) (Auto) 88.3 H, Lymphocytes (%) (Auto) 6.9 L, Monocytes (%) (Auto) 2.6, Eosinophils (%) (Auto) 1.0, Basophils (%) (Auto ) 0.2, Neutrophils # (Auto) 11.5 H, Lymphocytes # (Auto) 0.9 L, Monocytes # ( Auto) 0.3, Eosinophils # (Auto) 0.1, Basophils # (Auto) 0.0, Calcium Level 8.7 L Home Medications Scheduled Acetaminophen/Hydrocodone (Hydrocodone/Acetaminophen 10-325 mg) 1 Tab Tab, 1 TAB PO TID TAKES EITHER HALF A TAB OR A WHOLE TAB Aspirin (Aspirin) 325 Mg Tab, 325 MG PO DAILY Bisoprolol Fumarate (Bisoprolol Fumarate) 5 Mg Tab, 2.5 MG PO DAILY Cortisone Acetate (Cortisone Acetate) 1 Pow Pow, 1 DOSE INJ ASDIRECTED SEES DR.RADHA FOR INJECTIONS [facility], GETS INJECTIONS IN HER BACK AND HIP. WAS LAST SCHEDULED ON 10/19 FOR HIP INJECTION, BUT MISSED DUE TO BEING INPATIENT Cyanocobalamin (Vitamin B-12) 1,000 Mcg Tab, 1,000 MCG PO DAILY Ergocalciferol (Vitamin D) 50,000 Unit Cap, 50,000 UNIT PO Q2WK EVERY OTHER WEDNESDAY Fluticasone/Vilanterol (Breo Ellipta 100-25 Mcg/INH) 1 Inh Inh, 1 PUFF INH DAILY Lidocaine (Lidocaine) 5 % Pad, 1 PATCH TD DAILY Mupirocin (Mupirocin) 2 % Oin, 1 DOSE TOP TID APPLIES TO RIGHT LOWER LEG Senna (Senokot) 8.6 Mg Tab, 2 TAB PO DAILY Torsemide (Demadex) 20 Mg Tab, 20 MG PO QAM Scheduled PRN Cyclobenzaprine HCl (Cyclobenzaprine HCl) 5 Mg Tab, 5 MG PO Q8HP PRN for SPASMS Milk Of Magnesia (Milk of Magnesia) 1,200 Mg/15 Ml Romelia, 30 ML PO BIDP PRN for CONSTIPATION Oxycodone/Acetaminophen (Percocet 5MG/325MG Tablet) 1 Tab Tab, 1 TAB PO Q6HP PRN for MILD/MODERATE PAIN (PS 1-7) Allergies Coded Allergies: Penicillins (Verified Allergy, Intermediate, RASH, 10/26/16) Penicillins Cross Reactors (Verified Allergy, Intermediate, RASH, 10/26/16) Diazepam (Verified Adverse Reaction, Unknown, syncope, 10/26/16) Ethanol (Verified Adverse Reaction, Unknown, syncope, 10/26/16) ELIU LICEA MD Oct 26, 2016 13:42
[2016-10-26] MEDS ORDERED: FUROSEMIDE 40 MG/4 ML VIAL (J1940) IV SCH (14:00)
[2016-10-26 14:15] VITALS: BP 105/60
[2016-10-26] MEDS ORDERED: PERCOCET 5MG/325MG TAB PO PRN (14:45)
[2016-10-26] MEDS: MORPHINE 2 MG/ML 1ML SYRINGE IV PRN ×3 (15:07→20:45)
[2016-10-26] MEDS: SENOKOT S TAB PO SCH (15:40)
[2016-10-26] MEDS: CYANOCOBALAMIN 500 MCG TAB PO SCH (15:41)
[2016-10-26] MEDS: BISOPROLOL FUMARATE 5 MG TAB PO SCH (15:41)
[2016-10-26] MEDS ORDERED: MORPHINE 2 MG/ML 1ML SYRINGE IV ONE (15:45)
[2016-10-26] MEDS ORDERED: MUPIROCIN 2% OINT 22 GM TUBE TOP SCH ×2 (16:00→16:26)
[2016-10-26 16:07] VITALS: BP 95/57
[2016-10-26] MEDS: ASPIRIN ENTERIC 325 MG TAB PO SCH (16:13)
[2016-10-26] MEDS ORDERED: CYCLOBENZAPRINE 5MG TABLET PO ONE (16:30)
[2016-10-26 18:00] VITALS: BP 94/50
--- NOTE | 2016-10-26 19:15 | CR ---
DATE OF CONSULTATION: 10/26/2016 REFERRING PHYSICIAN: Yue Javed MD CHIEF COMPLAINT: 1. Low back pain. 2. Bilateral hip pain, right greater than left. HISTORY OF PRESENT ILLNESS: Sarah is an 89-year-old female who has had a significant increase in her chronic low back pain and hip pain condition this past month. Follows with Dr. Rizvi at [facility] in [place] and has had a recent lumbar epidural steroid injection around the 12th of this month. The following day she did fall at home. She has been unable to sleep this past month due to severe pain. Reports new onset of right leg paralysis over the past two days. Has had an increase in lower extremity edema with weeping of the right lower extremity with anterior larson skin ulcer noted. She states she lives with her son. He is present today at the bedside. According to the nursing staff, the patient was very uncomfortable ever since evaluation at the emergency room. She has been receiving morphine, hydrocodone and Flexeril over the past few hours prior to this consult and now is stating her pain level as 0/10. She is reluctant to move due to increase in pain. Reporting worst area of pain is her right hip. White count is elevated at 13. PAST MEDICAL HISTORY: 1. 70% HFpEF on last echocardiogram 2. Hypertension. 3. Chronic back and hip pain. 4. Opioid dependence. 5. Atrial fibrillation not on anticoagulation secondary to falls. 6. Spinal stenosis. 7. Chronic lumbar fracture. PAST SURGICAL HISTORY: 1. Cataract. 2. Hysterectomy. SOCIAL HISTORY: Former smoker. Lives with her son. FAMILY HISTORY: Noncontributory. REVIEW OF SYSTEMS: 11-point review of systems negative except for as discussed in history of present illness (HPI). Denies chest pains or shortness of breath. Reports normal control over bowel and bladder and normal bowel and bladder function. PHYSICAL EXAMINATION: Awake, alert. Rating pain level 0/10. VITAL SIGNS: 97, 99.3, 24, blood pressure (BP) 95/57, oxygen saturation 100%. CARDIAC: S1-S2. Normal rate and rhythm. RESPIRATORY - Lung sounds diminished in the bases. Inspection of spine, tenderness noted over hips by me bilaterally. NEURO - Unable to move right leg. Gross pedal and lower extremity edema with weeping and a 2-cm circular ulcer right lower extremity. SKIN: Area of discoloration purple, red in color right inner thigh, which is very painful DIAGNOSTICS: Magnetic Resonance Imaging (MRI) of the lumbar spine dated 10/19/2016 reviewed. Excessive artifact created by of motion. There is degenerative facette joint change seen bilaterally with thickening of the ligamentum flavum at multiple levels causing central canal stenosis at essentially all lumbar levels and at the T12-L1 level in a fashion which appears to be unchanged from the prior exam. There is no definite evidence of an acute disk extrusion. ASSESSMENT: 1. Acute on chronic low back pain. 2. Right hip pain and 3. Right leg paralysis. PLAN: Reviewed the patient's entire presentation with Dr. Moore to include elevated white count and new onset of right leg paralysis. Also informed him of open ulcer right anterior larson and weeping edema of the lower extremities right greater than left. At this point, it is too soon to safely undergo any injection therapy, but he will be visiting the patient tomorrow to reassess. Continue current pain medications as tolerated. May consider more imaging studies of the lumbosacral (LS) spine depending on her presentation tomorrow. If you have any questions or concerns, please do not hesitate to contact me. CHET
--- NOTE | 2016-10-26 19:34 | ECGEPIP ---
Stationary ECG Study [facility] Test Date: 2016-10-26 Pat Name: ROSITA MEDEIROS Department: Room: [place] [address] Gender: F Staff Interpreter: SCOTT : [id number] Requested By: ELIU LICEA Order Number: [id number] Reading MD: German Graham Measurements Intervals [place] Rate: 82 P: [place]: 0 QRS: -22 QRSD: 90 T: 0 QT: 384 QTc: 449 Interpretive Statements Underlying atrial fibrillation with controlled ventricular response. Leftward axis Low voltages with slow precordial R-wave progression and persistent S waves in V5 and V6 Body habitus versus pulmonary disease. Nonspecific ST/T-wave abnormalities No change from 10/18/16 Electronically Signed On 10-26-2016 19:33:27 EDT by German Graham
[2016-10-26 20:00] VITALS: BP 106/57
[2016-10-26] MEDS: MUPIROCIN 2% OINT 22 GM TUBE TOP SCH (20:08)
[2016-10-27] VITALS (10 sets, daily range): BP systolic 64–122; BP diastolic 45–63; O2SAT 96
[2016-10-27] MEDS: PERCOCET 5MG/325MG TAB PO PRN ×3 (00:31→18:09)
[2016-10-27] MEDS: FUROSEMIDE 40 MG/4 ML VIAL (J1940) IV SCH ×2 (03:42→14:57)
[2016-10-27] MEDS: MORPHINE 2 MG/ML 1ML SYRINGE IV PRN ×4 (03:51→16:45)
[2016-10-27 05:39] LABS: MEAN CORPUSCULAR HEMOGLOBIN 36.7 pg (27.0-33.0); MEAN CORPUSCULAR HGB CONC 34.1 g/dl (32.0-36.5); MEAN CORPUSCULAR VOLUME 107.7 fl (80.0-96.0); RED CELL DISTRIBUTION WIDTH 14.5 % (11.5-14.5); WHITE BLOOD COUNT 13.1 K/mm3 (4.0-10.0)
[2016-10-27 05:52] LABS: ANION GAP 11 MEQ/L (8-16); BLOOD UREA NITROGEN 21 MG/DL (7-18); CALCIUM LEVEL 8.7 MG/DL (8.8-10.2); CARBON DIOXIDE LEVEL 29 MEQ/L (21-32); CHLORIDE LEVEL 87 MEQ/L (98-107); CREATININE FOR GFR 1.12 MG/DL (0.55-1.02); GLOMERULAR FILTRATION RATE 48.8 (>32); GLUCOSE, FASTING 105 MG/DL (83-110); MAGNESIUM LEVEL 2.5 MG/DL (1.8-2.4); POTASSIUM SERUM 3.5 MEQ/L (3.5-5.1); SODIUM LEVEL 127 MEQ/L (136-145)
[2016-10-27] MEDS ORDERED: BUMETANIDE 1 MG TAB PO SCH (09:00)
[2016-10-27] MEDS: MUPIROCIN 2% OINT 22 GM TUBE TOP SCH ×3 (09:33→22:24)
[2016-10-27] MEDS: CYANOCOBALAMIN 500 MCG TAB PO SCH (09:34)
[2016-10-27] MEDS: SENOKOT S TAB PO SCH (09:36)
[2016-10-27] MEDS: LIDOCAINE 5% (LIDODERM) PATCH TD SCH (09:36)
[2016-10-27] MEDS: ASPIRIN ENTERIC 325 MG TAB PO SCH (09:36)
[2016-10-27] MEDS: BISOPROLOL FUMARATE 5 MG TAB PO SCH (09:46)
--- NOTE | 2016-10-27 10:40 | REP ---
CT Head without contrast HISTORY: Leg weakness COMPARISON: 07/06/2011 Areas of decreased attenuation are present in the periventricular and subcortical white matter. This represents small-vessel ischemic disease. There is no intraparenchymal hemorrhage, acute infarct, mass or midline shift. T the ventricular system and cortical sulci are dilated consistent with mild volume loss. There is no extra cerebral collection. There is no fracture. The visualized sinuses are clear. IMPRESSION: 1. Small vessel ischemic disease. 2. Mild volume loss. Signed by Kojo Orozco MD 10/27/2016 10:31 A
--- NOTE | 2016-10-27 11:14 | REP ---
CT LUMBAR SPINE WITHOUT CONTRAST: HISTORY: Back pain. COMPARISON: 10/18/2016 There is no disc bulge or herniation at the L1-2 level. The L1 nerves exit the neural foramina without compression. A diffuse disc bulge is present at the L2-3 level. There is minimal compression of the thecal sac. There is hypertrophy of the posterior articulating facets. The L2 nerves exit the neural foramina without compression. A diffuse disc bulge is present at the L3-4 level. There is hypertrophy of the ligamenta flava and posterior articulating facets. These findings produce mild central canal stenosis. There is compression of the left L3 nerve in the neural foramen. The right L3 nerve exits the neural foramen without compression. A diffuse disc bulge is present at the L4-5 level. There is hypertrophy of the ligamenta flava and the posterior articulating facets. There is 7 mm of grade 1 spondylolisthesis of L4 on L5. These findings produce moderate central canal stenosis. There is compression of the right L4 nerve in the neural foramen. The left L4 nerve exits the neural foramen without compression. A diffuse disc bulge is present at the L5-S1 level. There is minimal compression of the thecal sac. There is hypertrophy of the posterior articulating facets. The L5 nerves exit the neural foramina without compression. The L2-3 through L5-S1 intervertebral discs are decreased in height. Vacuum phenomenon is present at the L2-3 and L3-4 levels. These findings are consistent with disc degeneration. There is an old compression fracture of the L5 vertebral body with mild height loss. There is scoliosis convex to the right. IMPRESSION: 1. Diffuse disc bulges at the L2-3 and L5-S1 levels with minimal thecal sac compression. 2. Mild central canal stenosis at the L3-4 level secondary to disc bulge, ligamentous and facet hypertrophy. 3. Moderate central canal stenosis at the L4-5 level secondary to disc bulge, ligamentous and facet hypertrophy and grade 1 spondylolisthesis. Signed by Kojo Orozco MD 10/27/2016 11:16 A
--- NOTE | 2016-10-27 11:19 | REP ---
BILATERAL LOWER EXTREMITY DOPPLER VENOUS ULTRASOUND: Comparison: 05/25/2016, 06/02/2012. Technique: The deep venous system of the bilateral lower extremities is evaluated with bhatia scale imaging, compression ultrasound, color imaging and duplex Doppler interrogation. Examination from the groin through the popliteal fossa into the proximal calf. Findings: There is full compressibility from the common femoral vein in the inguinal region through the popliteal vein on both sides. Color imaging confirms patency throughout the course of the deep venous system. There is respiratory variation and augmented flow at all levels. Impression: 1. No Doppler venous ultrasound evidence of DVT in the bilateral lower extremities. Signed by Mihir Fernandez MD 10/27/2016 11:11 A
--- NOTE | 2016-10-27 11:28 | REP ---
CT CHEST WITHOUT CONTRAST: 10/27/2016 COMPARISON: Portable chest 10/19/2016 and 10/18/2016 rib series CLINICAL HISTORY: Dyspnea , possible infiltrate or other. TECHNIQUE: Helical scanning with coronal and sagittal reconstructions provided. There is underlying COPD and fibrosis with pulmonary artery hypertension. FINDINGS: Lung post show right lower lobe consolidative opacity abutting the pleura which could be infiltrate or subsegmental atelectasis. There is also some patchy opacity abutting the dome of the right diaphragm in the anterior segment of the right lower lobe. It could also be some fibrosis or patchy atelectasis/infiltrate. Deep sulcus subsegmental atelectatic changes are noted. No gross effusion. Scattered areas of minor pleural thickening noted bilaterally. Apical pleuroparenchymal scarring bilaterally. No pulmonary nodule in the upper lobes. Some subpleural fibrotic changes are seen. There is a lateral segment right middle lobe nodule on image of 53 about 5 mm. Some minor cylindrical bronchiectatic changes in the lower lung zones. Heart is mildly prominent with left atrial and ventricular enlargement and right atrial enlargement. There is no pericardial thickening or effusion. There is atherosclerotic calcification of the aorta in its root, ascending arch and descending portions without aneurysm. No pathologic sized mediastinal or hilar adenopathy. No axillary or supraclavicular mass. Bone windows show the sternum, manubrium, portions of clavicles visible to be intact. The left AC and glenohumeral joints show degenerative change with narrowing and mild change on the right. Visualized ribs without displaced fracture or focal lesion, right, with a nondisplaced fracture of the 7th and 8th ribs posterolaterally on the left. No other significant or acute bony finding with the spine showing degenerative disc changes but no compression deformity. There is a dextroconvex scoliosis thoracolumbar junction. In the upper abdomen, the liver shows enlarged left lobe lobulated contour but no hepatomegaly and suggesting chronic liver disease. There is a densely calcified gallstone in the dependent gallbladder which is incompletely visualized. That portion of pancreas included is grossly intact. Adrenal gland show thickening bilaterally suggesting adrenal hyperplasia. Upper poles kidneys without mass. There is extrarenal pelvis bilaterally: Small bowel loops without acute finding. IMPRESSION: 1. Right lower lobe consolidation, atelectasis or infiltrate with some dependent atelectasis, deep sulcus left lower lobe and fibrotic infiltrative changes in the right lower lobe above the dome of the diaphragm. I do not see a definite effusion. 2. COPD, pulmonary artery hypertension, apical pleuroparenchymal scarring and some mild cylindrical bronchiectasis in the lower lung zones. 3. There is a 5 mm nodule in the lateral segment right middle lobe. 4. Calcified tortuous aorta without aneurysm. No pathologic sized mediastinal or hilar adenopathy. Cardiomegaly with multiple chamber enlargement. No pericardial thickening or effusion. Signed by Mihir Fernandez MD 10/27/2016 06:58 P
[2016-10-27] MEDS ORDERED: PERCOCET 5MG/325MG TAB PO PRN (14:45)
[2016-10-27] MEDS: LevoFLOXacin 750 MG TABLET PO SCH (14:57)
--- NOTE | 2016-10-27 15:37 | IPNPDOC ---
Date Seen The patient was seen on 10/27/16. Progress Note Hospitalist Progress Note Subjective: Patient states that she feels much better, her pain is better controlled although she is still having difficulty moving her right lower extremity Objective: Physical Exam: Vitals: Vital Sign - Last 24 Hours 10/26/16 10/26/16 10/26/16 10/26/16 15:40 15:41 15:56 16:07 Temp 99.1 99.1 97.9 Pulse 94 94 94 93 Resp 22 22 24 B/P (MAP) 105/60 105/60 105/60 95/57 (70) Pulse Ox 95 95 100 O2 Delivery Room Air Room Air Room Air 10/26/16 10/26/16 10/26/16 10/26/16 16:10 18:00 20:00 20:30 Temp 98.4 97.0 Pulse 83 117 Resp 20 16 18 B/P (MAP) 94/50 (65) 106/57 (73) Pulse Ox 90 93 O2 Delivery Room Air Room Air Room Air 10/26/16 10/26/16 10/27/16 10/27/16 20:45 20:55 00:00 00:31 Temp 97.3 Pulse 88 Resp 20 18 20 B/P (MAP) 113/63 (80) Pulse Ox 95 O2 Delivery Room Air Room Air Room Air Room Air 10/27/16 10/27/16 10/27/16 10/27/16 01:01 03:51 04:00 07:28 Temp 97.1 Pulse 18 Resp 18 65 22 B/P (MAP) 122/57 (78) Pulse Ox 95 O2 Delivery Room Air Room Air Room Air 10/27/16 10/27/16 10/27/16 10/27/16 08:00 08:45 09:36 09:46 Temp 98.6 Pulse 87 104 Resp 22 20 B/P (MAP) 100/53 (69) 100/53 Pulse Ox 92 O2 Delivery Room Air Room Air 10/27/16 10/27/16 10/27/16 10/27/16 11:30 12:00 13:02 13:57 Temp 99.0 Pulse 99 Resp 20 22 18 20 B/P (MAP) 105/52 (69) Pulse Ox 91 O2 Delivery Room Air General: Awake, alert, no acute distress HEENT: Normocephalic, atraumatic, moist mucous membranes CV: Irregularly irregular Lungs: Clear to auscultation bilaterally Abd: Soft, nontender, nondistended Extremities: Pedal pulses intact bilaterally, 2+ edema bilaterally Neuro: Alert and oriented 3, normal speech, patient is able to wiggle her right toes, but her right lower extremity is significantly weaker than her left Psych: Normal mood and affect Labs and Imaging: Laboratory Tests 10/27/16 04:49 Red Blood Count 2.61 L, Mean Corpuscular Volume 107.7 H, Mean Corpuscular Hemoglobin 36.7 H, Mean Corpuscular Hemoglobin Concent 34.1, Red Cell Distribution Width 14.5, Calcium Level 8.7 L, Total Creatine Kinase 259 H Assessment and Plan: 89-year-old female with history of chronic diastolic CHF, atrial fibrillation, chronic lumbar fracture and spinal stenosis, chronic hyponatremia, chronic neck and back pain, hypertension, chronic anemia, chronic kidney disease stage 2 to 3 who presented to the emergency department with intractable back pain and new right lower extremity weakness. 1. Intractable back pain: The patient is noted to have chronic stenosis and pain , but she states this is above and beyond her usual. CT of the lumbar spine does show mild central stenosis at L3-4 and moderate central stenosis at L4-5, however, this is not significantly changed from one week ago. At this time, the patient is comfortable and sitting in a chair. We will continue the patient on IV morphine, lidocaine patch, Percocet. Dr. Moore of pain management has been consulted, and he is hesitant to do an injection at this time, given her elevated white count and the fact that we have not yet ruled out a stroke as the reason for her right lower extremity weakness. 2. Right lower extremity weakness: CT of the head is unremarkable. We will attempt to get an MRI to rule out CVA, but the patient will require some sedation given her claustrophobia. Already on daily aspirin. 3. Community acquired pneumonia and pulmonary nodule: Chest x-ray aproximately one week ago showed concern for a right consolidation, and CT of the chest on this admission also shows a right lower lobe consolidation, as well as a 5 mm nodule in the right middle lobe. The patient is afebrile and not complaining of any respiratory issues, but she does have a white count of 13. We will initiate her on Levaquin, and she will need outpatient follow-up with pulmonology for the right middle lobe nodule. 4. Acute on chronic diastolic CHF: The patient's most recent echo was performed approximately 11 months ago. It showed a normal ejection fraction, moderate tricuspid regurg, but was not able to assess diastolic function given the Aflutter she was in at the time. However, a prior echo completed in 2011 showed grade 1 diastolic dysfunction. The patient was admitted with significant bilateral lower extremity pitting edema. A Doppler ultrasound shows no evidence of DVT, and we will continue her on IV Lasix for diuresis at this time. We are currently holding her home every other day oral Bumex. 5. Chronic atrial fibrillation: Continue home beta jasmyn and home aspirin. The patient is not on full anticoagulation given her fall risk. 6. Presumed COPD: Patient reports taking Breo Ellipta at home. We do not have this on formulary, but we will substitute Advair while in-house. 7. Acute on chronic hyponatremia: The patient's baseline sodium appears to be in the low 130s. Upon arrival, she had a sodium of 123. I suspect this is secondary to hypervolemia, and we have seen it improve with diuresis now to 127. We'll continue to monitor as we diurese. 8. Hypertension: Continue home beta jasmyn. 9. Chronic anemia: The patient's baseline hemoglobin appears to be in the 9-10s for the last year. She is currently at this baseline. 10. Chronic kidney disease stage 2-3: The patient's baseline creatinine appears to be in the low ones. She is currently at baseline. We'll continue to monitor while we diurese. DVT prophylaxis: SCDs Dispo: pending improvement in back pain and hyponatremia, as well as adequate diuresis; I anticipate the patient will end up needing more than 2 midnights, so we will change her to inpatient status Please note, after I had rounded on the patient in the morning, I received a call from the nursing staff that her son Aung was at the bedside. I came to bedside to speak with both him and the patient's daughter. We discussed the results that we have at the time, as well as the plan going forward, and all questions regarding this were answered. At that time, Aung wanted to further explain what happened when the patient arrived at the hospital yesterday. The nursing staff had previously told me that he had been dissatisfied with how long it took to achieve pain control for his mother, and he proceeded to elaborate on this. I tried multiple times to apologize for the fact that we did not meet his expectations yesterday, but he repeatedly told me he did not want to hear "I'm sorry." I attempted to ask him what we can do to best take care of him and his mother moving forward in the future, but he preferred to continue to discuss his dissatisfaction with the events yesterday. I mentioned to him, that as I had not been working yesterday, the best that I have to offer him regarding the situation yesterday was an apology and a promise that we would work hard to take care of his mother going forward. The son continued to repeat his feelings that yesterday the care of his mother constituted "negligence and neglect," until one of the nursing staff stepped in to let him know that we would not be able to continue this conversation in its current state, but that we would be happy to get someone to speak with him who could continue the conversation. This entire interaction was witnessed by the patient's primary nurses Soledad and Felicia. Afterward, I discussed the conversation with the charge nurse who said she would call the it network administrator content director to speak with the son. VS, I&O, 24H, Fishbone Vital Signs/I&O Vital Signs Date Time Temp Pulse Resp B/P (MAP) Pulse Ox O2 Delivery O2 Flow Rate FiO2 10/27/16 13:57 20 10/27/16 12:00 99.0 99 105/52 (69) 91 Room Air I&O- Last 24 Hours up to 6 AM 10/27/16 06:00 Intake Total 0 ml Output Total 0 ml Balance 0 ml Laboratory Data 24H LABS Laboratory Tests 2 10/27/16 04:49: Anion Gap 11, Glomerular Filtration Rate 48.8, Blood Urea Nitrogen 21H, Creatinine 1.12H, Sodium Level 127L, Potassium Level 3.5, Chloride Level 87L, Carbon Dioxide Level 29, Calcium Level 8.7L, Total Creatine Kinase 259H, Magnesium Level 2.5H, Creatine Kinase MB 3.8H, Creatine Kinase MB Relative Index 1.46, Troponin I < 0.02 CBC/BMP Laboratory Tests 10/27/16 04:49 Red Blood Count 2.61 L, Mean Corpuscular Volume 107.7 H, Mean Corpuscular Hemoglobin 36.7 H, Mean Corpuscular Hemoglobin Concent 34.1, Red Cell Distribution Width 14.5, Calcium Level 8.7 L, Total Creatine Kinase 259 H LISHA EVANS Oct 27, 2016 15:37
[2016-10-27] MEDS: LORazepam 2 MG/ML VIAL (J2060) IV PRN ×2 (17:57→19:47)
[2016-10-27] MEDS: ADVAIR HFA 115/21MCG INHALER INH SCH (19:55)
--- NOTE | 2016-10-27 20:33 | ECHO ---
DATE OF PROCEDURE: 10/27/2016 AGE: 89 GENDER: Female HEIGHT: 60 inches WEIGHT: 121 pounds BODY SURFACE AREA: 1.51 m2 PATIENT LOCATION: Inpatient, PCU, room 3228 REFERRING PHYSICIAN: Dr. Kevon Javed INDICATION: Heart failure (unspecified). 2-D MEASUREMENTS: RV: 3.3 cm LV: 3.3 cm Septum: 0.9 cm Posterior wall: 0.9 cm Aortic root: 2.5 cm LA: 3.4 cm LVEF: 75% DOPPLER MEASUREMENTS: AV: 1.5 m/s LVOT: 0.7 m/s LVOT diameter: 1.6 cm MV-E: 97 Early mitral deceleration time: 134 ms E prime: 8.3, E/E prime ratio: 11.7 PV: 0.6 m/s Pulmonary artery acceleration 88 ms RVSP: 66 mmHg IVC: 2.2 cm COMMENTS: Underlying atrial fibrillation/flutter with controlled ventricular response. No intraventricular conduction disturbance. Normal left heart chamber sizes. Normal right ventricular size, but moderately dilated right atrium. Left ventricle (LV) wall thickness was normal. On real-time imaging from the parasternal and apical projections there was a subtle septal wall motion abnormality, but other left ventricular carmona were hyperkinetic. Right ventricular free wall motion was hypokinetic. Mild mitral annular calcification with normal leaflet thickness and excursion with no posterior systolic buckling. Three equal sized aortic cusps were mildly thickened, but with adequate cusp separation. Normal aortic root size. No apparent intracardiac mass or pericardial effusion. Color flow Doppler study taken from the parasternal and apical projection showed mild mitral, trace aortic, and severe tricuspid with moderate pulmonic insufficiency. Guided continuous wave Doppler of her aortic valve showed a normal peak systolic velocity against left ventricle (LV) outflow tract obstruction. Pulsed and continuous wave Doppler of her LV inflow tract taken from the apical four-chamber projection showed normal diastolic filling velocities against mitral stenosis. There was only early diastolic/passive filling pattern as we would expect with her underlying atrial arrhythmia. Her estimated mean left atrial pressure at this time was within normal limits. Pulsed and continuous wave Doppler of her pulmonary trunk showed a normal peak systolic velocity against right ventricle (RV) outflow tract obstruction. Her pulmonary artery acceleration time was abbreviated consistent with an elevated pulmonary vascular resistance. Guided continuous wave Doppler of her tricuspid valve allowed our estimation of her right ventricular systolic pressure (severely increased). Her inferior vena cava was at least mildly dilated with absent respiratory collapse consistent with significantly elevated central venous pressure/right heart failure. CONCLUSIONS: Normal left ventricular size and wall thickness with subtle septal wall motion abnormality attributed to right ventricular pressure overload. Preserved global left ventricular systolic function. Normal left atrial size and Doppler estimated mean left atrial pressure. Right ventricle upper limits of normal in size with hypokinesis and Doppler evidence of severe pulmonary hypertension. Moderately dilated right atrium and mildly dilated inferior vena cava with absent respiratory collapse consistent with right heart failure. Mild aortic valvular sclerosis without stenosis and only trace insufficiency. Mild mitral annular calcification with mild insufficiency. Normal appearing tricuspid valve with severe insufficiency. Comparing today's study with that of November 19, 2015, there appears to be a worsening of her pulmonary hypertension. Her prognosis would be quite guarded.
[2016-10-27] MEDS: **NOTE PATIENT COMMENT** MISC XX SCH (21:00)
[2016-10-27] MEDS ORDERED: NS 500 ML IV ONE (22:45)
[2016-10-28] VITALS (7 sets, daily range): BP systolic 88–115; BP diastolic 44–79
[2016-10-28] MEDS: FUROSEMIDE 40 MG/4 ML VIAL (J1940) IV SCH ×2 (03:17→14:53)
[2016-10-28] MEDS: PERCOCET 5MG/325MG TAB PO PRN ×3 (03:18→17:06)
[2016-10-28] MEDS: MORPHINE 2 MG/ML 1ML SYRINGE IV PRN ×2 (05:18→21:53)
[2016-10-28 06:23] LABS: MEAN CORPUSCULAR HEMOGLOBIN 36.8 pg (27.0-33.0); MEAN CORPUSCULAR HGB CONC 34.5 g/dl (32.0-36.5); MEAN CORPUSCULAR VOLUME 106.7 fl (80.0-96.0); RED CELL DISTRIBUTION WIDTH 14.4 % (11.5-14.5); WHITE BLOOD COUNT 11.9 K/mm3 (4.0-10.0)
[2016-10-28 06:29] LABS: CALCIUM LEVEL 8.5 MG/DL (8.8-10.2); CREATININE FOR GFR 1.14 MG/DL (0.55-1.02); GLOMERULAR FILTRATION RATE 47.8 (>32); MAGNESIUM LEVEL 2.1 MG/DL (1.8-2.4); POTASSIUM SERUM 3.6 MEQ/L (3.5-5.1)
[2016-10-28] MEDS: ADVAIR HFA 115/21MCG INHALER INH SCH ×2 (07:13→20:09)
[2016-10-28] MEDS: LIDOCAINE 5% (LIDODERM) PATCH TD SCH (08:57)
[2016-10-28] MEDS: SENOKOT S TAB PO SCH (08:58)
[2016-10-28] MEDS: ASPIRIN ENTERIC 325 MG TAB PO SCH (08:58)
[2016-10-28] MEDS: BISOPROLOL FUMARATE 5 MG TAB PO SCH (08:59)
[2016-10-28] MEDS: CYANOCOBALAMIN 500 MCG TAB PO SCH (08:59)
[2016-10-28] MEDS: MUPIROCIN 2% OINT 22 GM TUBE TOP SCH ×3 (09:00→21:33)
[2016-10-28] MEDS ORDERED: SLF 3 ML SYR IV PRN (10:30)
--- NOTE | 2016-10-28 13:19 | IPNPDOC ---
Date Seen The patient was seen on 10/28/16. Progress Note Hospitalist Progress Note Subjective: Patient's BP dropped significantly last night after receiving ativan. Family states she has been sleeping a lot since the ativan. Objective: Physical Exam: Vitals: Vital Sign - Last 24 Hours 10/27/16 10/27/16 10/27/16 10/27/16 16:00 16:45 18:09 19:59 Temp 98.3 Pulse 90 Resp 20 18 22 B/P (MAP) 109/59 (76) Pulse Ox 91 96 O2 Delivery Room Air Nasal Cannula O2 Flow Rate 3.0 10/27/16 10/27/16 10/27/16 10/27/16 20:00 20:00 20:00 20:00 Temp 97.0 Pulse 88 96 Resp 20 18 B/P (MAP) 64/50 (55) 103/58 (73) Pulse Ox 97 O2 Delivery Room Air Nasal Cannula Nasal Cannula O2 Flow Rate 3.0 3.0 10/27/16 10/27/16 10/27/16 10/28/16 20:15 22:00 22:20 00:00 Temp 97.1 Pulse 92 98 95 94 Resp 18 18 B/P (MAP) 103/58 (73) 84/45 (58) 107/55 (72) 115/53 (73) Pulse Ox 95 96 99 O2 Delivery Nasal Cannula Nasal Cannula Nasal Cannula Nasal Cannula O2 Flow Rate 3.0 3.0 3.0 3.0 10/28/16 10/28/16 10/28/16 10/28/16 00:00 03:18 03:59 04:00 Temp 97.6 Pulse 101 Resp 18 B/P (MAP) 103/55 (71) Pulse Ox 93 O2 Delivery Nasal Cannula Nasal Cannula Nasal Cannula O2 Flow Rate 3.0 3.0 3.0 10/28/16 10/28/16 10/28/16 10/28/16 04:40 05:18 06:37 07:28 Resp 20 20 18 O2 Delivery Nasal Cannula O2 Flow Rate 3.0 10/28/16 10/28/16 10/28/16 10/28/16 08:10 08:59 12:00 12:00 Temp 96.9 Pulse 68 64 Resp 19 20 B/P (MAP) 88/44 (59) 88/44 Pulse Ox 91 O2 Delivery Nasal Cannula Nasal Cannula O2 Flow Rate 2.0 1.0 10/28/16 10/28/16 10/28/16 12:00 12:00 12:25 Temp 96.9 96.9 96.9 Pulse 95 95 95 Resp 20 20 16 B/P (MAP) 102/59 (73) 102/59 (73) 102/59 Pulse Ox 95 95 96 O2 Delivery Nasal Cannula Nasal Cannula Nasal Cannula O2 Flow Rate 2.0 2.0 2.0 General: drowsy, awakes to sternal rub and answers directed questions HEENT: Normocephalic, atraumatic, moist mucous membranes CV: Irregularly irregular Lungs: Clear to auscultation bilaterally Abd: Soft, nontender, nondistended Extremities: Pedal pulses intact bilaterally, 2+ edema bilaterally Neuro: groggy but answers questions and follows commands Psych: could not assess Labs and Imaging: Laboratory Tests 10/28/16 05:41 Calcium Level 8.5 L 10/28/16 05:42 Red Blood Count 2.40 L, Mean Corpuscular Volume 106.7 H, Mean Corpuscular Hemoglobin 36.8 H, Mean Corpuscular Hemoglobin Concent 34.5, Red Cell Distribution Width 14.4 Assessment and Plan: 89-year-old female with history of chronic diastolic CHF, atrial fibrillation, chronic lumbar fracture and spinal stenosis, chronic hyponatremia, chronic neck and back pain, hypertension, chronic anemia, chronic kidney disease stage 2 to 3 who presented to the emergency department with intractable back pain and new right lower extremity weakness. 1. Intractable back pain: The patient is noted to have chronic stenosis and pain , but she states this is above and beyond her usual. CT of the lumbar spine does show mild central stenosis at L3-4 and moderate central stenosis at L4-5, however, this is not significantly changed from one week ago. Pain is now controlled. We will continue the patient on IV morphine, lidocaine patch, Percocet. Dr. Moore of pain management has been consulted, and he is hesitant to do an injection at this time, given her elevated white count and the fact that we have not yet ruled out a stroke as the reason for her right lower extremity weakness. 2. Right lower extremity weakness: CT of the head is unremarkable. We attempted to get an MRI to rule out CVA, but the patient's BP dropped significantly with the ativan which the patient requested for sedation secondary to claustrophobia. Have discussed with Dr. Lovett who suggests repeating the CT head to have an interval comparison or potentially getting an open MRI on Wednesday. He has agreed to come evaluate the patient. Already on daily aspirin. 3. Community acquired pneumonia and pulmonary nodule: Chest x-ray approximately one week ago showed concern for a right consolidation, and CT of the chest on this admission also shows a right lower lobe consolidation, as well as a 5 mm nodule in the right middle lobe. The patient is afebrile and not complaining of any respiratory issues, but she does have a white count of 13. We initiated her on Levaquin, and she will need outpatient follow-up with pulmonology for the right middle lobe nodule. WBC now improved to 11. 4. Acute on chronic diastolic CHF: The patient's most recent echo was performed approximately 11 months ago. It showed a normal ejection fraction, moderate tricuspid regurg, but was not able to assess diastolic function given the Aflutter she was in at the time. However, a prior echo completed in 2011 showed grade 1 diastolic dysfunction. The patient was admitted with significant bilateral lower extremity pitting edema. A Doppler ultrasound shows no evidence of DVT, and we will continue her on IV Lasix for diuresis at this time. We are currently holding her home every other day oral Bumex. Echo on this admission shows severe pHTN, RHF, and severe TR. 5. Chronic atrial fibrillation: Continue home aspirin. The patient is not on full anticoagulation given her fall risk. Holding home beta jasmyn given drop in BP after ativan. 6. Presumed COPD: Patient reports taking Breo Ellipta at home. We do not have this on formulary, but we have substituted Advair while in-house. 7. Acute on chronic hyponatremia: The patient's baseline sodium appears to be in the low 130s. Upon arrival, she had a sodium of 123. I suspect this is secondary to hypervolemia, and we have seen it improve with diuresis now to 129. We'll continue to monitor as we diurese. 8. Hypertension: Continue home beta jasmyn. 9. Chronic anemia: The patient's baseline hemoglobin appears to be in the 9-10s for the last year. She is currently at this baseline. 10. Chronic kidney disease stage 2-3: The patient's baseline creatinine appears to be in the low ones. She is currently at baseline. We'll continue to monitor while we diurese. 11. Lethargy after ativan: The patient is quite groggy today, but she is arousable and follows commands and answers questions. Discussed with the son that it can take elderly patients longer to clear benzos. Will continue to monitor. DVT prophylaxis: SCDs Dispo: pending improvement in back pain and hyponatremia, as well as adequate diuresis Sotero Horan was at the bedside, plan of care was discussed and all questions were answered. VS, I&O, 24H, Fishbone Vital Signs/I&O Vital Signs Date Time Temp Pulse Resp B/P (MAP) Pulse Ox O2 Delivery O2 Flow Rate FiO2 10/28/16 12:25 96.9 95 16 102/59 96 Nasal Cannula 2.0 I&O- Last 24 Hours up to 6 AM 10/28/16 06:00 Intake Total 120 ml Output Total 800 ml Balance -680 ml Laboratory Data 24H LABS Laboratory Tests 2 10/28/16 05:41: Anion Gap 13, Glomerular Filtration Rate 47.8, Blood Urea Nitrogen 22H, Creatinine 1.14H, Sodium Level 129L, Potassium Level 3.6, Chloride Level 90L, Carbon Dioxide Level 26, Calcium Level 8.5L, Magnesium Level 2.1 CBC/BMP Laboratory Tests 10/28/16 05:41 Calcium Level 8.5 L 10/28/16 05:42 Red Blood Count 2.40 L, Mean Corpuscular Volume 106.7 H, Mean Corpuscular Hemoglobin 36.8 H, Mean Corpuscular Hemoglobin Concent 34.5, Red Cell Distribution Width 14.4 LISHA EVANS Oct 28, 2016 13:19
[2016-10-28] MEDS: SLF 3 ML SYR IV SCH ×2 (14:53→21:54)
[2016-10-28] MEDS: **NOTE PATIENT COMMENT** MISC XX SCH (21:00)
[2016-10-28] MEDS: NORCO, ANEXSIA 5/325MG TABLET (HYDROcodone/ACETAMINOPHEN) PO SCH (21:13)
--- NOTE | 2016-10-28 21:53 | CR ---
DATE OF CONSULTATION: 10/28/2016 REFERRING PROVIDER: Dr. Teresa Garduno REASON FOR CONSULTATION: Right lower extremity weakness and pain. Sarah Ambrosio is an 89-year-old female with past medical history significant for diastolic heart failure, atrial fibrillation, on anticoagulation, with significant lumbar spinal stenosis which is chronic with history of chronic L5 spontaneous fracture of her back with intense pain occurring approximately 5-6 years ago. The patient usually follows in Dr. Rizvi's pain clinic and had her epidural injection of L4-L5 on 10/07/2016. The patient unfortunately fell down on October 08, the following day. That was a soft fall. The patient fell again on October 18 when her hand slipped off of her night stand. At that time she complained of worsening right hip pain radiating to the groin. The patient was taken to the hospital and had x-rays, showing no pelvic fractures and hip fractures. The patient states that she has been having ongoing severe low back pain with worsening right hip pain radiating to the groin as well as pain traveling down her right thigh and leg. The patient has compression of the right L4 nerve root and left L3 nerve root based on CT of the lumbar spine. The patient could not tolerate MRI due to inability to lie flat for long periods signs as well as severe claustrophobia. The patient did have a head CT, which did exclude any acute ischemic event. The patient was mentioned to have an MRI of her brain; however, again due to intolerance of the scanner could not do so. To again conclude whether the patient had any stroke, it was recommended to go ahead and repeat a CT scan of the head either tomorrow or the day after to compare, though based on clinical examination the patient does not have evidence of weakness secondary to a stroke. The patient has significant pain with manipulation of the right leg. The pain is located near the bursa of the right hip. She is able to flex and extend at the ankle and can extend at the knee, though it is limited due to pain. The patient could not participate fully in testing the right lower extremity due to pain. She has already been assessed by pain management, who will be performing sacroiliac (SI) joint injection as well as injection to her bursa on the right hip hopefully tomorrow. So far the patient has not had any signs of any acute infection. She usually takes hydrocodone 10/325 half tablet every 8 hours around the clock for chronic pain. PAST MEDICAL HISTORY: 1. Diastolic heart failure. 2. Atrial fibrillation, on anticoagulation. 3. Chronic lumbar fracture of the L5, 5-6 years ago. 4. Chronic severe spinal stenosis. 5. Chronic hyponatremia. 6. Chronic neck and back pain. 7. Hypertension. PAST SURGICAL HISTORY: 1. Hysterectomy. 2. Cataract surgery. SOCIAL HISTORY: The patient has a history of tobacco abuse. Lives with her son. Walks with a walker. Denies use of illicit drugs or alcohol. FAMILY HISTORY: Noncontributory. ALLERGIES: PENICILLIN, PENICILLIN CROSS-REACTORS DIAZEPAM, ETHANOL. REVIEW OF SYSTEMS: A 14-point review of systems obtained and is negative except as per history of present illness (HPI). HOME MEDICATIONS: - acetaminophen/hydrocodone 10/325 mg half tablet by mouth three times a day - aspirin 325 mg by mouth daily - bisoprolol fumarate 2.5 mg by mouth twice a day - bumetanide 2 mg every other day - cortisone injection as directed - cyanocobalamin 1000 mcg by mouth daily - Vitamin D 50,000 international units (IU) every two weeks - fluticasone/vilanterol (Breo Ellipta) 100/25 mcg one puff inhaled daily - mupirocin 2% ointment, one dose topical three times a day - senna 8.6 mg tablet two tablets by mouth daily - IMAGING REPORT: CT lumbar spine without contrast 10/27/2016: Impression: Diffuse disc bulge at L2-3 and L5-S1 levels with minimal thecal sac compression. Mild canal stenosis at L3-4 secondary disc bulge. Ligamentous and facet hypertrophy. Moderate central canal stenosis at L4-5 level secondary to disc bulge. Ligamentous and facet hypertrophy and grade 1 spondylolisthesis. Compression of left L3 nerve root and right L4 nerve root in the neural foramen. PHYSICAL EXAMINATION: Temperature 98 degrees Fahrenheit, pulse rate 84, respiratory rate is 18, oxygenation 97% on room air. The patient is normotensive. The patient is alert, oriented person, place, and time. Speech, language, comprehension, repetition are intact. Pupils are 2.5 mm, round, reactive to light. Extraocular movements are intact without nystagmus. Limited upgaze. Sensation in V1, V2, V3 is intact to light touch. Tongue is midline. No facial asymmetry on activation. Hearing subjectively equal to finger rub. No pronator drift. Strength is 5/5, including handgrip, deltoids, biceps, triceps bilaterally. The patient has reasonable normal strength of the left lower extremity. Right lower extremity not tested due to the patient having significant pain with manipulation. The patient is able to extend at the knee, flex and extend at the elbow on her own. She is a difficult time flexing at the hip due to severe pain. Sensory to light touch in all four extremities is intact. Deep tendon reflexes are absent at the patellas, though they are 1+ at bilateral Achilles and 2's in the upper extremities. Romberg testing deferred. Coordination did not reveal any ataxia or dysmetria of the upper extremity [id number]. ASSESSMENT: An 89-year-old female with a history of L5 vertebral body fracture 5-6 years ago with severe spinal stenosis with compression of left nerve root and right L4 nerve root. The patient is having excruciating low back pain, right hip pain, radiating down the leg into the groin, likely resulting from previous trauma occurring on 10/08/2016 as well as 10/18/2016. There does not appear to be any hip fractures or any further fracture of the back. The back may have been aggravated from the fall. The patient's bursitis may be more active and also contributing toward her right hip pain. I agree with plan for pain management to go ahead and try injection near the bursa of the right hip as well as sacroiliac joint (SI) joint injection. The patient will be restarted on her [place] with standing dose of 5/325 mg every 8 hours, which is what she usually takes at home. The patient will continue with as-needed morphine 2 mg every 4 hours as needed for severe pain, lidocaine patch topically every 12 hours on, 12 hours off, as well as breakthrough oxycodone 5/325 mg every 8 hours as needed for pain and Tylenol 650 mg every 4 hours for pain. In regard to exclude any further stroke, ideally an MRI of the brain would be best; however, due to the patient having severe claustrophobia and inability to lie flat, I would recommend repeating a head CT when possible for comparison to the initial head CT completed on admission. I would defer management of pain to the pain management team. Recommend physical therapy (PT)/occupational therapy (OT). History obtained from both the patient and the patient's son. All questions answered satisfactorily to the family in the room. The patient was left without being in acute distress. The patient will be receiving standing doses of her pain medications starting this evening.
[2016-10-29] MEDS: PERCOCET 5MG/325MG TAB PO PRN ×2 (01:17→13:34)
[2016-10-29] MEDS: MORPHINE 2 MG/ML 1ML SYRINGE IV PRN ×2 (02:01→11:47)
[2016-10-29] MEDS: FUROSEMIDE 40 MG/4 ML VIAL (J1940) IV SCH (03:09)
[2016-10-29 04:00] VITALS: BP 101/69
[2016-10-29] MEDS: LevoFLOXacin 750 MG TABLET PO SCH (06:16)
[2016-10-29] MEDS: NORCO, ANEXSIA 5/325MG TABLET (HYDROcodone/ACETAMINOPHEN) PO SCH ×3 (06:17→22:08)
[2016-10-29] MEDS: SLF 3 ML SYR IV SCH ×3 (06:17→20:54)
[2016-10-29 06:36] LABS: BASO % 0.2 % (0.0-1.0); EOS # 0.2 K/mm3 (0.0-0.50); EOS % 1.6 % (0.0-3.0); LYMPH # 0.8 K/mm3 (1.5-4.5); LYMPH % 5.6 % (24.0-44.0); MEAN CORPUSCULAR HEMOGLOBIN 36.8 pg (27.0-33.0); MEAN CORPUSCULAR VOLUME 105.1 fl (80.0-96.0); MONO # 0.4 K/mm3 (0.0-0.8); MONO % 2.8 % (0.0-5.0); NEUTROPHILS # 11.6 K/mm3 (1.8-7.7); NEUTROPHILS % 89.2 % (36.0-66.0); RED CELL DISTRIBUTION WIDTH 14.5 % (11.5-14.5)
[2016-10-29 06:46] LABS: CALCIUM LEVEL 8.5 MG/DL (8.8-10.2); CREATININE FOR GFR 1.19 MG/DL (0.55-1.02); GLOMERULAR FILTRATION RATE 45.5 (>32); MAGNESIUM LEVEL 2.3 MG/DL (1.8-2.4); POTASSIUM SERUM 3.2 MEQ/L (3.5-5.1)
[2016-10-29] MEDS: ADVAIR HFA 115/21MCG INHALER INH SCH ×2 (07:22→20:36)
[2016-10-29 08:00] VITALS: BP_SYST 135; BP_SYST 91; BP_DIAS 50; BP_DIAS 73
[2016-10-29] MEDS: SENOKOT S TAB PO SCH (09:05)
[2016-10-29] MEDS: ASPIRIN ENTERIC 325 MG TAB PO SCH (09:05)
[2016-10-29] MEDS: LIDOCAINE 5% (LIDODERM) PATCH TD SCH (09:06)
[2016-10-29] MEDS: MUPIROCIN 2% OINT 22 GM TUBE TOP SCH ×3 (09:06→20:53)
[2016-10-29] MEDS: CYANOCOBALAMIN 500 MCG TAB PO SCH (09:06)
[2016-10-29] MEDS: POTASSIUM CHLORIDE 10 MEQ SR TABLET PO SCH ×2 (09:26→17:41)
--- NOTE | 2016-10-29 11:42 | REP ---
CT HEAD WITHOUT CONTRAST: HISTORY: Infarction. COMPARISON: 10/27/2016 Areas of decreased attenuation are present in the periventricular and subcortical white matter. This represents small vessel ischemic disease. There is no intraparenchymal hemorrhage, infarct, mass or midline shift. The ventricular system and cortical sulci are dilated consistent with mild volume loss. There is no extracerebral collection. The visualized sinuses are clear. IMPRESSION: 1. Small vessel ischemic disease. 2. Mild volume loss. Signed by Kojo Orozco MD 10/29/2016 12:34 P
[2016-10-29 12:00] VITALS: BP 108/55
--- NOTE | 2016-10-29 14:56 | REP ---
REASON FOR EXAM: Right hip pain. COMPARISON: Right hip CT of 10/18/2016 which showed degenerative changes. The right hip degenerative changes, which are unchanged from eleven days ago. There are left hip degenerative changes similar to the right. There are degenerative changes seen involving the sacroiliac joints and imaged portion of the spine. There is sclerosis involving the inferior, posterior, left sacroiliac joint greater than the right. No acute fractures are seen involving any of the imaged osseous structures. 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 IMPRESSION: Chronic changes. No evidence of an acute fracture. Signed by Luis Alfredo Anderson DO 10/29/2016 04:27 P
[2016-10-29] MEDS ORDERED: oxyCODONE 5MG TAB As Ordered ONE (15:50)
[2016-10-29] MEDS ORDERED: BUPIVACAINE HCL 0.25% 30 ML VIAL As Ordered ONE (16:07)
[2016-10-29] MEDS ORDERED: TRIAMCINOLONE ACETONIDE SUSP 40 MG/ML VIAL (J3301) As Ordered ONE (16:07)
[2016-10-29] MEDS ORDERED: ISOVUE-M 300 61% 15ML VIAL (Q9967) As Ordered ONE (16:08)
[2016-10-29] MEDS ORDERED: LIDOCAINE 1% SDV INJ 30 ML VIAL As Ordered ONE (16:08)
[2016-10-29 17:45] VITALS: BP 113/57
[2016-10-29] MEDS ORDERED: POTASSIUM CHLORIDE 10 MEQ SR TABLET PO ONE (18:00)
--- NOTE | 2016-10-29 18:03 | REP ---
FLUOROSCOPIC GUIDANCE: The images were reviewed with Dr. Fernandez. The patient has a history of low back pain. The portable C-Arm was provided in the OR for Dr. Barber for fluoroscopic guidance. Four intraoperative spot films were obtained using last image hold technology for needle placement verification for right sacroiliac joint injection. The films are on the PACs system and are available for review. 13 seconds of fluoroscopy time was utilized for this procedure. Reviewed by NATO Worthington 10/30/2016 03:32 PEdited and Signed by Mihir Fenrandez MD 10/30/2016 10:09 P
--- NOTE | 2016-10-29 18:10 | IPNPDOC ---
Date Seen The patient was seen on 10/29/16. Progress Note Hospitalist Progress Note Subjective: Patient is back to her normal self today; doing well other than her hip/leg pain Objective: Physical Exam: Vitals: Vital Sign - Last 24 Hours 10/28/16 10/28/16 10/28/16 10/28/16 19:57 20:00 20:00 21:13 Temp 98.3 Pulse 111 Resp 20 22 B/P (MAP) 88/50 (63) Pulse Ox 96 O2 Delivery Nasal Cannula Nasal Cannula O2 Flow Rate 1.0 1.0 10/28/16 10/28/16 10/29/16 10/29/16 21:53 23:59 01:17 02:01 Temp 98.3 Pulse 118 Resp 22 18 22 20 B/P (MAP) 112/79 (90) Pulse Ox 91 O2 Delivery Nasal Cannula O2 Flow Rate 1.0 10/29/16 10/29/16 10/29/16 10/29/16 04:00 06:17 06:55 08:00 Temp 97.1 97.7 Pulse 98 105 Resp 20 20 18 22 B/P (MAP) 101/69 (80) 91/50 (64) Pulse Ox 93 92 O2 Delivery Nasal Cannula Nasal Cannula O2 Flow Rate 1.0 1.0 10/29/16 10/29/16 10/29/16 10/29/16 08:00 11:47 11:57 12:00 Temp 98.3 Pulse 109 Resp 18 18 28 B/P (MAP) 108/55 (72) Pulse Ox 93 92 O2 Delivery Nasal Cannula Room Air Room Air O2 Flow Rate 1.0 10/29/16 10/29/16 10/29/16 13:34 14:04 17:40 Resp 20 20 18 Pulse Ox 94 O2 Delivery Room Air Room Air General: awake, alert, NAD, sitting in chair HEENT: Normocephalic, atraumatic, moist mucous membranes CV: Irregularly irregular Lungs: Clear to auscultation bilaterally Abd: Soft, nontender, nondistended Extremities: Pedal pulses intact bilaterally, 2+ edema bilaterally Neuro: AAOx3, normal speech, carries on lively conversation Psych: normal mood and affect Labs and Imaging: Laboratory Tests 10/29/16 05:51 Red Blood Count 2.33 L, Mean Corpuscular Volume 105.1 H, Mean Corpuscular Hemoglobin 36.8 H, Mean Corpuscular Hemoglobin Concent 35.0, Red Cell Distribution Width 14.5, Calcium Level 8.5 L Assessment and Plan: 89-year-old female with history of chronic diastolic CHF, atrial fibrillation, chronic lumbar fracture and spinal stenosis, chronic hyponatremia, chronic neck and back pain, hypertension, chronic anemia, chronic kidney disease stage 2 to 3 who presented to the emergency department with intractable back pain and new right lower extremity weakness. 1. Intractable back pain: The patient is noted to have chronic stenosis and pain , but she states this is above and beyond her usual. CT of the lumbar spine does show mild central stenosis at L3-4 and moderate central stenosis at L4-5, however, this is not significantly changed from one week ago. Pain is now controlled. We will continue the patient on IV morphine, lidocaine patch, Percocet. Dr. Moore of pain management has been consulted, and he is likely doing an injection today. 2. Right lower extremity weakness: CT of the head is unremarkable. We attempted to get an MRI to rule out CVA, but the patient's BP dropped significantly with the ativan which the patient requested for sedation secondary to claustrophobia. Have discussed with Dr. Lovett who suggests repeating the CT head to have an interval comparison, which we will do today. He evaluated the patient, which we greatly appreciate, and does not think that clinically she has had a stroke. Already on daily aspirin. 3. Community acquired pneumonia and pulmonary nodule: Chest x-ray approximately one week ago showed concern for a right consolidation, and CT of the chest on this admission also shows a right lower lobe consolidation, as well as a 5 mm nodule in the right middle lobe. The patient is afebrile and not complaining of any respiratory issues, but she does have a white count of 13. We initiated her on Levaquin, and she will need outpatient follow-up with pulmonology for the right middle lobe nodule. 4. Acute on chronic diastolic CHF: The patient's most recent echo was performed approximately 11 months ago. It showed a normal ejection fraction, moderate tricuspid regurg, but was not able to assess diastolic function given the Aflutter she was in at the time. However, a prior echo completed in 2011 showed grade 1 diastolic dysfunction. The patient was admitted with significant bilateral lower extremity pitting edema. A Doppler ultrasound shows no evidence of DVT. We have had her on IV lasix, but she appears to be well diuresed at this point so we will stop IV lasix. We are currently holding her home every other day oral Bumex, but will likely resume tomorrow. Echo on this admission shows severe pHTN, RHF, and severe TR. 5. Chronic atrial fibrillation: Continue home aspirin. The patient is not on full anticoagulation given her fall risk. Holding home beta jasmyn given drop in BP after ativan. 6. Presumed COPD: Patient reports taking Breo Ellipta at home. We do not have this on formulary, but we have substituted Advair while in-house. 7. Acute on chronic hyponatremia: The patient's baseline sodium appears to be in the low 130s. Upon arrival, she had a sodium of 123. I suspect this is secondary to hypervolemia, and we have seen it improve with diuresis now to 129. We'll continue to monitor. 8. Hypertension: Holding home beta jasmyn after her drop in BP from the ativan ; BP is still soft. 9. Chronic anemia: The patient's baseline hemoglobin appears to be in the 9-10s for the last year. She is currently at this baseline. 10. Chronic kidney disease stage 2-3: The patient's baseline creatinine appears to be in the low ones. She is currently at baseline. We'll continue to monitor. 11. Lethargy after ativan: Now resolved. DVT prophylaxis: SCDs Dispo: pending improvement in back pain VS, I&O, 24H, Fishbone Vital Signs/I&O Vital Signs Date Time Temp Pulse Resp B/P (MAP) Pulse Ox O2 Delivery O2 Flow Rate FiO2 10/29/16 17:40 18 10/29/16 14:04 Room Air 10/29/16 13:34 94 10/29/16 12:00 98.3 109 108/55 (72) 10/29/16 08:00 1.0 I&O- Last 24 Hours up to 6 AM 10/29/16 05:59 Intake Total 120 ml Output Total 0 ml Balance 120 ml Laboratory Data 24H LABS Laboratory Tests 2 10/29/16 05:51: Neutrophils (%) (Auto) 89.2H, Lymphocytes (%) (Auto) 5.6L, Monocytes (%) (Auto) 2.8, Eosinophils (%) (Auto) 1.6, Basophils (%) (Auto) 0.2, Neutrophils # (Auto) 11.6H, Lymphocytes # (Auto) 0.8L, Monocytes # (Auto) 0.4, Eosinophils # (Auto) 0.2, Basophils # (Auto) 0.0, Erythrocyte Sedimentation Rate 63H, Anion Gap 11, Glomerular Filtration Rate 45.5, Blood Urea Nitrogen 25H, Creatinine 1.19H, Sodium Level 129L, Potassium Level 3.2L, Chloride Level 89L, Carbon Dioxide Level 29, Calcium Level 8.5L, Magnesium Level 2.3 CBC/BMP Laboratory Tests 10/29/16 05:51 Red Blood Count 2.33 L, Mean Corpuscular Volume 105.1 H, Mean Corpuscular Hemoglobin 36.8 H, Mean Corpuscular Hemoglobin Concent 35.0, Red Cell Distribution Width 14.5, Calcium Level 8.5 L LISHA EVANS Oct 29, 2016 18:10
[2016-10-29 20:00] VITALS: BP 143/54
[2016-10-29] MEDS: **NOTE PATIENT COMMENT** MISC XX SCH (20:53)
[2016-10-29 23:59] VITALS: BP 122/58
[2016-10-30] MEDS: MORPHINE 2 MG/ML 1ML SYRINGE IV PRN (03:55)
[2016-10-30 04:00] VITALS: BP 98/63
[2016-10-30] MEDS: SLF 3 ML SYR IV SCH ×3 (05:09→22:07)
[2016-10-30] MEDS: NORCO, ANEXSIA 5/325MG TABLET (HYDROcodone/ACETAMINOPHEN) PO SCH ×3 (05:11→21:18)
[2016-10-30 05:34] LABS: MEAN CORPUSCULAR HEMOGLOBIN 36.7 pg (27.0-33.0); MEAN CORPUSCULAR HGB CONC 34.8 g/dl (32.0-36.5); MEAN CORPUSCULAR VOLUME 105.5 fl (80.0-96.0); RED CELL DISTRIBUTION WIDTH 14.6 % (11.5-14.5); WHITE BLOOD COUNT 14.4 K/mm3 (4.0-10.0)
[2016-10-30 05:53] LABS: CALCIUM LEVEL 8.7 MG/DL (8.8-10.2); CREATININE FOR GFR 1.26 MG/DL (0.55-1.02); GLOMERULAR FILTRATION RATE 42.6 (>32); MAGNESIUM LEVEL 2.3 MG/DL (1.8-2.4); POTASSIUM SERUM 4.8 MEQ/L (3.5-5.1)
[2016-10-30] MEDS: ADVAIR HFA 115/21MCG INHALER INH SCH ×2 (07:26→21:22)
[2016-10-30 08:00] VITALS: BP 112/70
[2016-10-30] MEDS: ASPIRIN ENTERIC 325 MG TAB PO SCH (08:42)
[2016-10-30] MEDS: CYANOCOBALAMIN 500 MCG TAB PO SCH (08:42)
[2016-10-30] MEDS: SENOKOT S TAB PO SCH (08:42)
[2016-10-30] MEDS: LIDOCAINE 5% (LIDODERM) PATCH TD SCH (08:43)
[2016-10-30] MEDS: MUPIROCIN 2% OINT 22 GM TUBE TOP SCH ×3 (08:44→21:19)
[2016-10-30] MEDS ORDERED: BUMETANIDE 1 MG TAB PO SCH (09:00)
[2016-10-30] MEDS: PERCOCET 5MG/325MG TAB PO PRN ×2 (11:47→23:43)
[2016-10-30 12:00] VITALS: BP 126/83
[2016-10-30 16:00] VITALS: BP 97/54
--- NOTE | 2016-10-30 16:33 | IPN ---
DATE: 10/30/2016 CHIEF COMPLAINT: Right low back pain, right hip pain. HISTORY OF PRESENT ILLNESS: Sarah is an 89-year-old female who was seen at our pain clinic yesterday. She had a lumbar epidural steroid injection (LESI). This afternoon, the patient states that she is only in a small amount of pain in her right hip area. States that this is the best that she has felt since her hospital stay. States she was able to work with physical therapy today and ambulate. Rating her pain as small. She does report and I have evaluated her chart that she had a rough night last night. She has been having difficulty at night with pain all month. Hoping that tonight she will have a better night. Son is at the bedside, and I did speak with him as well. Informed them that we would check on her on Wednesday. ASSESSMENT: 1. Acute on chronic low back pain. 2. Right hip pain. 3. Right leg paralysis. PLAN: Continue with current care, as needed pain medications and scheduled hydrocodone. We will check on her on Wednesday. Copy To: Dr. Javed
--- NOTE | 2016-10-30 17:34 | IPNPDOC ---
Date Seen The patient was seen on 10/30/16. Progress Note Hospitalist Progress Note Subjective: Patient reports some improvement in pain after injection yesterday but not a great amount; reports she is having trouble sleeping Objective: Physical Exam: Vitals: Vital Sign - Last 24 Hours 10/29/16 10/29/16 10/29/16 10/29/16 17:40 17:45 17:45 20:00 Temp 98.1 Pulse 117 Resp 18 24 B/P (MAP) 113/57 (75) Pulse Ox 94 O2 Delivery Nasal Cannula Nasal Cannula Nasal Cannula O2 Flow Rate 2.0 2.0 2.0 10/29/16 10/29/16 10/29/16 10/29/16 20:00 20:37 22:00 22:08 Temp 97.4 Pulse 106 Resp B/P (MAP) 143/54 (83) Pulse Ox 97 O2 Delivery Nasal Cannula Nasal Cannula Nasal Cannula O2 Flow Rate 1.0 3.0 2.0 10/29/16 10/30/16 10/30/16 10/30/16 23:59 02:00 03:55 04:00 Temp 98.3 99.1 Pulse 107 109 Resp 18 22 B/P (MAP) 122/58 (79) 98/63 (75) Pulse Ox 93 95 O2 Delivery Nasal Cannula Nasal Cannula Nasal Cannula O2 Flow Rate 1.0 2.0 1.0 10/30/16 10/30/16 10/30/16 10/30/16 04:00 04:05 05:11 06:00 Resp 24 26 O2 Delivery Nasal Cannula Nasal Cannula O2 Flow Rate 2.0 2.0 10/30/16 10/30/16 10/30/16 10/30/16 08:00 08:30 11:47 12:00 Temp 98.0 99.3 Pulse 106 117 Resp 20 22 18 B/P (MAP) 112/70 (84) 126/83 (97) Pulse Ox 95 94 92 O2 Delivery Nasal Cannula Room Air Room Air O2 Flow Rate 1.0 0.0 10/30/16 10/30/16 10/30/16 10/30/16 12:17 14:48 15:19 16:00 Temp 98.6 Pulse 116 Resp 20 16 16 18 B/P (MAP) 97/54 (68) Pulse Ox 92 O2 Delivery Room Air General: awake, alert, NAD HEENT: Normocephalic, atraumatic, moist mucous membranes CV: Irregularly irregular Lungs: Clear to auscultation bilaterally Abd: Soft, nontender, nondistended Extremities: Pedal pulses intact bilaterally, 1+ edema bilaterally Neuro: AAOx3, normal speech, carries on lively conversation Psych: normal mood and affect Labs and Imaging: Laboratory Tests 10/30/16 04:59 Red Blood Count 2.43 L, Mean Corpuscular Volume 105.5 H, Mean Corpuscular Hemoglobin 36.7 H, Mean Corpuscular Hemoglobin Concent 34.8, Red Cell Distribution Width 14.6 H, Calcium Level 8.7 L Assessment and Plan: 89-year-old female with history of chronic diastolic CHF, atrial fibrillation, chronic lumbar fracture and spinal stenosis, chronic hyponatremia, chronic neck and back pain, hypertension, chronic anemia, chronic kidney disease stage 2 to 3 who presented to the emergency department with intractable back pain and new right lower extremity weakness. 1. Intractable back pain: The patient is noted to have chronic stenosis and pain , but she states this is above and beyond her usual. CT of the lumbar spine does show mild central stenosis at L3-4 and moderate central stenosis at L4-5, however, this is not significantly changed from one week ago. Pain is now controlled. We will continue the patient on IV morphine, lidocaine patch, Percocet. Dr. Moore of pain management has been consulted, and completed a lumbar SHAHLA on 10/29. Continue with PT/OT. 2. Right lower extremity weakness: CT of the head is unremarkable. We attempted to get an MRI to rule out CVA, but the patient's BP dropped significantly with the ativan which the patient requested for sedation secondary to claustrophobia. Have discussed with Dr. Lovett who suggests repeating the CT head to have an interval comparison, which was unchanged. He evaluated the patient, which we greatly appreciate, and does not think that clinically she has had a stroke. Already on daily aspirin. Improving as her pain control improves. 3. Community acquired pneumonia and pulmonary nodule: Chest x-ray approximately one week ago showed concern for a right consolidation, and CT of the chest on this admission also shows a right lower lobe consolidation, as well as a 5 mm nodule in the right middle lobe. The patient is afebrile and not complaining of any respiratory issues, but she initially had a white count of 13. We initiated her on Levaquin, and she will need outpatient follow-up with pulmonology for the right middle lobe nodule. White count is going up now, but this is likely a response to the steroid injection. 4. Acute on chronic diastolic CHF: The patient's most recent echo was performed approximately 11 months ago. It showed a normal ejection fraction, moderate tricuspid regurg, but was not able to assess diastolic function given the Aflutter she was in at the time. However, a prior echo completed in 2011 showed grade 1 diastolic dysfunction. The patient was admitted with significant bilateral lower extremity pitting edema. A Doppler ultrasound shows no evidence of DVT. We have had her on IV lasix, but she appears to be well diuresed at this point so we stopped IV lasix. We resumed her home every other day oral Bumex today. Echo on this admission shows severe pHTN, RHF, and severe TR. 5. Chronic atrial fibrillation: Continue home aspirin. The patient is not on full anticoagulation given her fall risk. Holding home beta jasmyn given drop in BP after ativan. 6. Presumed COPD: Patient reports taking Breo Ellipta at home. We do not have this on formulary, but we have substituted Advair while in-house. 7. Acute on chronic hyponatremia: The patient's baseline sodium appears to be in the low 130s. Upon arrival, she had a sodium of 123. I suspect this is secondary to hypervolemia, and we have seen it improve with diuresis now to 129. We'll continue to monitor. We will also fluid restrict to 1800cc daily. 8. Hypertension: Holding home beta jasmyn after her drop in BP from the ativan ; BP is still soft. 9. Chronic anemia: The patient's baseline hemoglobin appears to be in the 9-10s for the last year. She is currently at this baseline. 10. Chronic kidney disease stage 2-3: The patient's baseline creatinine appears to be in the low ones. She is currently at baseline. We'll continue to monitor. 11. Lethargy after ativan: Now resolved. DVT prophylaxis: SCDs Dispo: pending improvement in back pain VS, I&O, 24H, Fishbone Vital Signs/I&O Vital Signs Date Time Temp Pulse Resp B/P (MAP) Pulse Ox O2 Delivery O2 Flow Rate FiO2 10/30/16 16:00 98.6 116 18 97/54 (68) 92 Room Air 10/30/16 08:30 0.0 I&O- Last 24 Hours up to 6 AM 10/30/16 05:59 Intake Total 900 ml Output Total 400 ml Balance 500 ml Laboratory Data 24H LABS Laboratory Tests 2 10/30/16 04:59: Anion Gap 12, Glomerular Filtration Rate 42.6, Blood Urea Nitrogen 21H, Creatinine 1.26H, Sodium Level 128L, Potassium Level 4.8#, Chloride Level 90L, Carbon Dioxide Level 26, Calcium Level 8.7L, Magnesium Level 2.3 CBC/BMP Laboratory Tests 10/30/16 04:59 Red Blood Count 2.43 L, Mean Corpuscular Volume 105.5 H, Mean Corpuscular Hemoglobin 36.7 H, Mean Corpuscular Hemoglobin Concent 34.8, Red Cell Distribution Width 14.6 H, Calcium Level 8.7 L LISHA EVANS Oct 30, 2016 17:34
[2016-10-30 20:00] VITALS: BP 106/61
[2016-10-30] MEDS: **NOTE PATIENT COMMENT** MISC XX SCH (21:00)
[2016-10-31] VITALS (8 sets, daily range): BP systolic 89–115; BP diastolic 54–70
[2016-10-31] MEDS: LevoFLOXacin 750 MG TABLET PO SCH (05:13)
[2016-10-31] MEDS: NORCO, ANEXSIA 5/325MG TABLET (HYDROcodone/ACETAMINOPHEN) PO SCH ×3 (05:14→23:03)
[2016-10-31] MEDS: SLF 3 ML SYR IV SCH ×3 (05:15→23:03)
[2016-10-31 05:28] LABS: MEAN CORPUSCULAR HEMOGLOBIN 36.9 pg (27.0-33.0); MEAN CORPUSCULAR HGB CONC 34.8 g/dl (32.0-36.5); MEAN CORPUSCULAR VOLUME 106.3 fl (80.0-96.0); RED CELL DISTRIBUTION WIDTH 14.5 % (11.5-14.5)
[2016-10-31 05:51] LABS: CALCIUM LEVEL 8.8 MG/DL (8.8-10.2); CREATININE FOR GFR 1.27 MG/DL (0.55-1.02); GLOMERULAR FILTRATION RATE 42.2 (>32); MAGNESIUM LEVEL 2.5 MG/DL (1.8-2.4); POTASSIUM SERUM 4.4 MEQ/L (3.5-5.1)
[2016-10-31] MEDS: ADVAIR HFA 115/21MCG INHALER INH SCH ×2 (07:04→20:27)
[2016-10-31] MEDS: CYANOCOBALAMIN 500 MCG TAB PO SCH (08:06)
[2016-10-31] MEDS: LIDOCAINE 5% (LIDODERM) PATCH TD SCH (08:06)
[2016-10-31] MEDS: BISOPROLOL FUM 2.5 MG PER 1/2TAB PO SCH (08:07)
[2016-10-31] MEDS: ASPIRIN ENTERIC 325 MG TAB PO SCH (08:07)
[2016-10-31] MEDS: SENOKOT S TAB PO SCH (08:07)
[2016-10-31] MEDS: MUPIROCIN 2% OINT 22 GM TUBE TOP SCH ×3 (08:08→23:05)
[2016-10-31] MEDS ORDERED: MOM 30ML SUSPENSION UDC PO PRN (09:30)
[2016-10-31] MEDS: MORPHINE 2 MG/ML 1ML SYRINGE IV PRN (10:14)
[2016-10-31] MEDS: PERCOCET 5MG/325MG TAB PO PRN ×2 (10:36→18:20)
[2016-10-31] MEDS ORDERED: BENZOCAINE 20% MT PRN (12:30)
--- NOTE | 2016-10-31 12:30 | IPNPDOC ---
Date Seen The patient was seen on 10/31/16. Progress Note Hospitalist Progress Note Subjective: Patient reports that she had her best night yet last night, although she is still having some pain in her leg/back Objective: Physical Exam: Vitals: Vital Sign - Last 24 Hours 10/30/16 10/30/16 10/30/16 10/30/16 14:48 16:00 20:00 20:00 Temp 98.6 98.2 Pulse 116 113 Resp 16 18 18 B/P (MAP) 97/54 (68) 106/61 (76) Pulse Ox 92 96 O2 Delivery Room Air Room Air Room Air O2 Flow Rate 0.0 10/30/16 10/30/16 10/31/16 10/31/16 21:18 23:43 00:00 00:13 Temp 97.5 Pulse 108 Resp 18 18 18 22 B/P (MAP) 115/56 (75) Pulse Ox 93 O2 Delivery Room Air 10/31/16 10/31/16 10/31/16 10/31/16 04:00 05:14 05:44 08:00 Temp 98.1 98.0 Pulse 102 98 Resp 18 20 20 16 B/P (MAP) 111/70 (84) 89/54 (66) Pulse Ox 91 93 O2 Delivery Room Air Room Air 10/31/16 10/31/16 10/31/16 10/31/16 08:07 08:22 10:14 10:36 Pulse 102 Resp 22 22 B/P (MAP) 118/74 O2 Delivery Room Air General: awake, alert, NAD HEENT: Normocephalic, atraumatic, moist mucous membranes CV: Irregularly irregular Lungs: Clear to auscultation bilaterally Abd: Soft, nontender, nondistended Extremities: Pedal pulses intact bilaterally, 1+ edema bilaterally Neuro: AAOx3, normal speech, carries on lively conversation Psych: normal mood and affect Labs and Imaging: Laboratory Tests 10/31/16 04:48 Red Blood Count 2.54 L, Mean Corpuscular Volume 106.3 H, Mean Corpuscular Hemoglobin 36.9 H, Mean Corpuscular Hemoglobin Concent 34.8, Red Cell Distribution Width 14.5, Calcium Level 8.8 Assessment and Plan: 89-year-old female with history of chronic diastolic CHF, atrial fibrillation, chronic lumbar fracture and spinal stenosis, chronic hyponatremia, chronic neck and back pain, hypertension, chronic anemia, chronic kidney disease stage 2 to 3 who presented to the emergency department with intractable back pain and new right lower extremity weakness. 1. Intractable back pain: The patient is noted to have chronic stenosis and pain , but she states this is above and beyond her usual. CT of the lumbar spine does show mild central stenosis at L3-4 and moderate central stenosis at L4-5, however, this is not significantly changed from one week ago. Pain is now controlled. We will continue the patient on IV morphine, lidocaine patch, Percocet. Dr. Moore of pain management has been consulted, and completed a lumbar SHAHLA on 10/29. Continue with PT/OT. 2. Right lower extremity weakness: CT of the head is unremarkable. We attempted to get an MRI to rule out CVA, but the patient's BP dropped significantly with the ativan which the patient requested for sedation secondary to claustrophobia. Have discussed with Dr. Lovett who suggests repeating the CT head to have an interval comparison, which was unchanged. He evaluated the patient, which we greatly appreciate, and does not think that clinically she has had a stroke. Already on daily aspirin. Improving as her pain control improves. 3. Community acquired pneumonia and pulmonary nodule: Chest x-ray approximately one week ago showed concern for a right consolidation, and CT of the chest on this admission also shows a right lower lobe consolidation, as well as a 5 mm nodule in the right middle lobe. The patient is afebrile and not complaining of any respiratory issues, but she initially had a white count of 13. We initiated her on Levaquin, and she will need outpatient follow-up with pulmonology for the right middle lobe nodule. White count is going up now, but this is likely a response to the steroid injection. 4. Acute on chronic diastolic CHF: The patient's most recent echo was performed approximately 11 months ago. It showed a normal ejection fraction, moderate tricuspid regurg, but was not able to assess diastolic function given the Aflutter she was in at the time. However, a prior echo completed in 2011 showed grade 1 diastolic dysfunction. The patient was admitted with significant bilateral lower extremity pitting edema. A Doppler ultrasound shows no evidence of DVT. We have had her on IV lasix, but she appears to be well diuresed at this point so we stopped IV lasix. We resumed her home every other day oral Bumex, however, as she continues to have some edema, we will increase it to daily. Echo on this admission shows severe pHTN, RHF, and severe TR. 5. Chronic atrial fibrillation: Continue home aspirin. The patient is not on full anticoagulation given her fall risk. Restart home beta jasmyn. 6. Presumed COPD: Patient reports taking Breo Ellipta at home. We do not have this on formulary, but we have substituted Advair while in-house. 7. Acute on chronic hyponatremia: The patient's baseline sodium appears to be in the low 130s. Upon arrival, she had a sodium of 123. I suspect this is secondary to hypervolemia, and we have seen it improve with diuresis now to 129. We'll continue to monitor. We will also fluid restrict to 1800cc daily. 8. Hypertension: Restart home beta jasmyn 9. Chronic anemia: The patient's baseline hemoglobin appears to be in the 9-10s for the last year. She is currently at this baseline. 10. Chronic kidney disease stage 2-3: The patient's baseline creatinine appears to be in the low ones. She is currently at baseline. We'll continue to monitor. 11. Lethargy after ativan: Now resolved. 12. Oral ulcer: The patient has an ulcer at the base of her bottom gumline, where it connects to her inner lower lip. I suspect that her dentures are repeatedly irritating it, making it difficult to heal. Have advised that she only wear dentures when necessary and otherwise leave them out to allow healing. Also will give orabase for symptomatic relief. DVT prophylaxis: SCDs Dispo: pending improvement in back pain VS, I&O, 24H, Fishbone Vital Signs/I&O Vital Signs Date Time Temp Pulse Resp B/P (MAP) Pulse Ox O2 Delivery O2 Flow Rate FiO2 10/31/16 10:36 22 10/31/16 08:22 Room Air 10/31/16 08:07 102 118/74 10/31/16 08:00 98.0 93 10/30/16 20:00 0.0 I&O- Last 24 Hours up to 6 AM 10/31/16 06:00 Intake Total 1040 ml Output Total 1275 ml Balance -235 ml Laboratory Data 24H LABS Laboratory Tests 2 10/31/16 04:48: Anion Gap 14, Glomerular Filtration Rate 42.2, Blood Urea Nitrogen 28H, Creatinine 1.27H, Sodium Level 128L, Potassium Level 4.4, Chloride Level 89L, Carbon Dioxide Level 25, Calcium Level 8.8, Magnesium Level 2.5H CBC/BMP Laboratory Tests 10/31/16 04:48 Red Blood Count 2.54 L, Mean Corpuscular Volume 106.3 H, Mean Corpuscular Hemoglobin 36.9 H, Mean Corpuscular Hemoglobin Concent 34.8, Red Cell Distribution Width 14.5, Calcium Level 8.8 LISHA EVANS Oct 31, 2016 12:30
[2016-10-31] MEDS ORDERED: BENZOCAINE 20% GEL 9GM TUBE (ANBESOL MAX STRENGTH) MT PRN (13:22)
[2016-10-31] MEDS: BUMETANIDE 1 MG TAB PO SCH (14:44)
[2016-10-31] MEDS ORDERED: MAGNESIUM CITRATE 300 ML BTL PO ONE (19:00)
[2016-10-31] MEDS: **NOTE PATIENT COMMENT** MISC XX SCH (21:00)
[2016-11-01] MEDS ORDERED: MAGNESIUM CITRATE 300 ML BTL PO ONE (00:15)
[2016-11-01] MEDS: CYCLOBENZAPRINE 5MG TABLET PO PRN (03:02)
[2016-11-01] MEDS: MORPHINE 2 MG/ML 1ML SYRINGE IV PRN ×3 (04:38→14:34)
[2016-11-01 04:45] VITALS: BP 99/61
[2016-11-01 05:48] LABS: MEAN CORPUSCULAR HEMOGLOBIN 36.5 pg (27.0-33.0); MEAN CORPUSCULAR HGB CONC 34.2 g/dl (32.0-36.5); MEAN CORPUSCULAR VOLUME 106.7 fl (80.0-96.0); WHITE BLOOD COUNT 17.8 K/mm3 (4.0-10.0)
[2016-11-01] MEDS: SLF 3 ML SYR IV SCH ×3 (06:00→21:42)
[2016-11-01 06:31] LABS: CALCIUM LEVEL 8.9 MG/DL (8.8-10.2); CREATININE FOR GFR 1.34 MG/DL (0.55-1.02); GLOMERULAR FILTRATION RATE 39.6 (>32); MAGNESIUM LEVEL 3.1 MG/DL (1.8-2.4); POTASSIUM SERUM 4.1 MEQ/L (3.5-5.1)
[2016-11-01] MEDS: BUMETANIDE 1 MG TAB PO SCH (07:45)
[2016-11-01] MEDS: SENOKOT S TAB PO SCH (07:45)
[2016-11-01] MEDS: LIDOCAINE 5% (LIDODERM) PATCH TD SCH (07:45)
[2016-11-01] MEDS: ASPIRIN ENTERIC 325 MG TAB PO SCH (07:46)
[2016-11-01] MEDS: BISOPROLOL FUM 2.5 MG PER 1/2TAB PO SCH (07:46)
[2016-11-01] MEDS: CYANOCOBALAMIN 500 MCG TAB PO SCH (07:46)
[2016-11-01] MEDS: NORCO, ANEXSIA 5/325MG TABLET (HYDROcodone/ACETAMINOPHEN) PO SCH ×4 (07:47→22:30)
[2016-11-01] MEDS: MUPIROCIN 2% OINT 22 GM TUBE TOP SCH ×3 (07:47→21:00)
[2016-11-01 08:00] VITALS: BP 96/59
[2016-11-01 12:00] VITALS: BP 86/51
[2016-11-01] MEDS: ADVAIR HFA 115/21MCG INHALER INH SCH ×2 (13:32→21:00)
[2016-11-01 14:00] VITALS: BP 99/60
--- NOTE | 2016-11-01 15:25 | IPNPDOC ---
Date Seen The patient was seen on 11/01/16. Progress Note Hospitalist Progress Note Subjective: Patient reports that she is in significant pain again and was not able to sleep all night Objective: Physical Exam: Vitals: Vital Sign - Last 24 Hours 10/31/16 10/31/16 10/31/16 10/31/16 16:00 16:00 18:20 18:50 Temp 97.2 Pulse 89 Resp 16 18 18 B/P (MAP) 100/58 (72) Pulse Ox 91 O2 Delivery Room Air Room Air 10/31/16 10/31/16 10/31/16 10/31/16 19:45 20:00 23:03 23:33 Temp 98.1 Pulse 99 Resp 20 18 18 B/P (MAP) 99/64 (76) Pulse Ox 93 O2 Delivery Room Air Room Air 10/31/16 11/01/16 11/01/16 11/01/16 23:59 00:00 04:38 04:45 Temp 98.8 99.1 Pulse 98 100 Resp 22 20 22 B/P (MAP) 100/59 (73) 99/61 (74) Pulse Ox 91 94 O2 Delivery Room Air Room Air Room Air 11/01/16 11/01/16 11/01/16 11/01/16 04:48 07:46 07:47 08:00 Temp 97.2 Pulse 89 90 Resp 18 18 16 B/P (MAP) 110/62 96/59 (71) Pulse Ox 96 O2 Delivery Room Air 11/01/16 11/01/16 11/01/16 11/01/16 08:54 12:00 13:31 14:00 Temp 98.1 Pulse 92 Resp 22 18 18 B/P (MAP) 86/51 (63) 99/60 (73) Pulse Ox 97 95 O2 Delivery Room Air Room Air 11/01/16 14:34 Resp 20 General: sleeping but arousable; answers questions appropriately but obviously in pain HEENT: Normocephalic, atraumatic, moist mucous membranes CV: Irregularly irregular Lungs: Clear to auscultation bilaterally Abd: Soft, nontender, nondistended Extremities: Pedal pulses intact bilaterally, 1+ edema bilaterally Neuro: AAOx3, normal speech Psych: very frustrated with her pain Labs and Imaging: Laboratory Tests 11/01/16 05:08 Red Blood Count 2.62 L, Mean Corpuscular Volume 106.7 H, Mean Corpuscular Hemoglobin 36.5 H, Mean Corpuscular Hemoglobin Concent 34.2, Red Cell Distribution Width 15.0 H, Calcium Level 8.9 Assessment and Plan: 89-year-old female with history of chronic diastolic CHF, atrial fibrillation, chronic lumbar fracture and spinal stenosis, chronic hyponatremia, chronic neck and back pain, hypertension, chronic anemia, chronic kidney disease stage 2 to 3 who presented to the emergency department with intractable back pain and new right lower extremity weakness. 1. Intractable back pain: The patient is noted to have chronic stenosis and pain , but she states this is above and beyond her usual. CT of the lumbar spine does show mild central stenosis at L3-4 and moderate central stenosis at L4-5, however, this is not significantly changed from one week ago. We will continue the patient on IV morphine, lidocaine patch, Percocet. Dr. Moore of pain management has been consulted, and completed a lumbar SHAHLA on 10/29. Continue with PT/OT. Patient is still in significant pain and the family is interested in additional injections; will discuss with pain management on Wednesday. 2. Right lower extremity weakness: CT of the head is unremarkable. We attempted to get an MRI to rule out CVA, but the patient's BP dropped significantly with the ativan which the patient requested for sedation secondary to claustrophobia. Have discussed with Dr. Lovett who suggests repeating the CT head to have an interval comparison, which was unchanged. He evaluated the patient, which we greatly appreciate, and does not think that clinically she has had a stroke. Already on daily aspirin. 3. Community acquired pneumonia and pulmonary nodule: Chest x-ray approximately one week ago showed concern for a right consolidation, and CT of the chest on this admission also shows a right lower lobe consolidation, as well as a 5 mm nodule in the right middle lobe. The patient is afebrile and not complaining of any respiratory issues, but she initially had a white count of 13. We initiated her on Levaquin, and she will need outpatient follow-up with pulmonology for the right middle lobe nodule. White count is going up now, but this is likely a response to the steroid injection. Will stop levaquin after tomorrow's dose. 4. Acute on chronic diastolic CHF: The patient's most recent echo was performed approximately 11 months ago. It showed a normal ejection fraction, moderate tricuspid regurg, but was not able to assess diastolic function given the Aflutter she was in at the time. However, a prior echo completed in 2011 showed grade 1 diastolic dysfunction. The patient was admitted with significant bilateral lower extremity pitting edema. A Doppler ultrasound shows no evidence of DVT. We initially had her on IV lasix but have now resumed her home every other day bumex. Echo on this admission shows severe pHTN, RHF, and severe TR. 5. Chronic atrial fibrillation: Continue home aspirin. The patient is not on full anticoagulation given her fall risk. Continue home beta jasmyn. 6. Presumed COPD: Patient reports taking Breo Ellipta at home. We do not have this on formulary, but we have substituted Advair while in-house. 7. Acute on chronic hyponatremia: The patient's baseline sodium appears to be in the low 130s. Upon arrival, she had a sodium of 123. With diuresis, this improved to 129. We'll continue to monitor. We will also continue fluid restrict to 1800cc daily. Once IV diuresis was stopped, her sodium began to drop again, so we will consult Dr. Harris of nephrology. 8. Hypertension: Continue home beta jasmyn 9. Chronic anemia: The patient's baseline hemoglobin appears to be in the 9-10s for the last year. She is currently at this baseline. 10. Chronic kidney disease stage 2-3: The patient's baseline creatinine appears to be in the low ones. She is currently at baseline. We'll continue to monitor. 11. Lethargy after ativan: Now resolved. 12. Oral ulcer: The patient has an ulcer at the base of her bottom gumline, where it connects to her inner lower lip. I suspect that her dentures are repeatedly irritating it, making it difficult to heal. Have advised that she only wear dentures when necessary and otherwise leave them out to allow healing. Also will give orabase for symptomatic relief. DVT prophylaxis: SCDs Dispo: pending improvement in back pain and sodium; will need outpatient follow- up with pulmonology for the right middle lobe nodule VS, I&O, 24H, Fishbone Vital Signs/I&O Vital Signs Date Time Temp Pulse Resp B/P (MAP) Pulse Ox O2 Delivery O2 Flow Rate FiO2 8/6/17 14:34 20 11/01/16 14:00 99/60 (73) 11/01/16 13:31 95 Room Air 11/01/16 12:00 98.1 92 10/30/16 20:00 0.0 I&O- Last 24 Hours up to 6 AM 11/01/16 06:00 Intake Total 880 ml Output Total 1350 ml Balance -470 ml Laboratory Data 24H LABS Laboratory Tests 2 11/01/16 05:08: Anion Gap 12, Glomerular Filtration Rate 39.6, Blood Urea Nitrogen 31H, Creatinine 1.34H, Sodium Level 125L, Potassium Level 4.1, Chloride Level 86L, Carbon Dioxide Level 27, Calcium Level 8.9, Magnesium Level 3.1H CBC/BMP Laboratory Tests 11/01/16 05:08 Red Blood Count 2.62 L, Mean Corpuscular Volume 106.7 H, Mean Corpuscular Hemoglobin 36.5 H, Mean Corpuscular Hemoglobin Concent 34.2, Red Cell Distribution Width 15.0 H, Calcium Level 8.9 LISHA EVANS Nov 01, 2016 15:25
[2016-11-01 16:00] VITALS: BP 96/53
[2016-11-01] MEDS ORDERED: TOLVAPTAN 15 MG TAB (SAMSCA) PO ONE (16:00)
[2016-11-01] MEDS: PERCOCET 5MG/325MG TAB PO PRN (16:35)
[2016-11-01 20:00] VITALS: BP 102/53
[2016-11-01] MEDS: **NOTE PATIENT COMMENT** MISC XX SCH (21:00)
--- NOTE | 2016-11-01 21:46 | CR ---
DATE OF CONSULTATION: 11/01/2016 CONSULTATION REPORT FOR: Dr. Teresa Garduno CONSULTING PHYSICIAN: Dr. Harris REASON FOR CONSULTATION: Management of hyponatremia in the setting of edema and heart failure. CHIEF COMPLAINT: The patient presented to the emergency room on 10/26/2016 with intractable back pain. HISTORY OF PRESENT ILLNESS: Sarah Ambrosio is an 89-year-old female with past medical history of spinal stenosis and chronic lumbar fracture, history of severe pulmonary hypertension and right heart failure, and possible chronic kidney disease stage III with a baseline creatinine of 1.08 on admission. The patient was admitted on 10/26/2016 with intractable back pain secondary to spinal stenosis. She was found to have a sodium of 123 on admission which was attributed to congestive heart failure (CHF) and fluid overload. The patient was being diuresed by the primary medical team with Bumex. However, sodium has been fluctuating around 128-129 and it dropped down to 125 today morning, so nephrology service was called for further help in the management of hyponatremia in the setting of right heart failure and lower extremity edema. PAST MEDICAL HISTORY: The patient has a past medical history as mentioned above, she has history of: 1. Severe pulmonary hypertension. 2. Right heart failure. 3. Atrial fibrillation. 4. Lumbar stenosis with lumbar fractures in the past. 5. She has chronic hyponatremia. 6. Hypertension. PAST SURGICAL HISTORY: The patient is status post hysterectomy and cataract surgery in the past. ALLERGIES: She is allergic to DIAZEPAM, ETHANOL, PENICILLINS. FAMILY HISTORY: No significant family history of end-stage renal disease requiring hemodialysis. SOCIAL HISTORY: The patient lives with her son and son was present at the bedside and he provided much of the history at this time. As reported by son, normally, before getting sick, the patient is able to perform all the activities of daily living including bathing, walking with walker, eating food, cooking for herself. There is no history of illicit drug abuse or alcohol abuse. REVIEW OF SYSTEMS: The patient is drowsy and obtunded at this time because of pain medications. She is not able to provide any reliable review of systems at this time, but she is in no apparent distress. PHYSICAL EXAMINATION: VITAL SIGNS: Temperature is 97.2 degrees Fahrenheit, blood pressure is 96/59, pulse is 90, respiratory rate of 16, saturating 96% on room air. INTAKE AND OUTPUT: Urine output recorded as 1700 mL yesterday. There is no urine output recorded today. Weight on the bed scale was 51.6 kg. HEAD AND NECK EXAMINATION: Pupils are equally round and reactive to light. Mucous membranes are dry. Neck is supple. There is no jugular venous distention (JVD). CARDIOVASCULAR: S1, S2, regular rate. No murmur, rub or gallop. RESPIRATORY: Mild crepitations to deep inspiration at the bases. Otherwise, no rales or rhonchi. ABDOMEN: Soft, positive bowel sounds, nontender. No ascites. No organomegaly. MUSCULOSKELETAL: The patient has 2+ pitting edema of the bilateral lower extremities which is tender to palpation. Otherwise, no clubbing or cyanosis. CENTRAL NERVOUS SYSTEM: The patient is awake, alert and oriented times one, drowsy and sleepy, follows some commands. She moves upper extremities to commands. LYMPH NODES: No significant cervical, axillary or inguinal lymphadenopathy. PSYCHIATRIC: The patient is sleepy and obtunded. LABORATORY REVIEW: CBC showed a WBC of 17.8, hemoglobin 9.5, platelets are 273. BMP showed sodium 125, potassium 4.1, chloride 86, bicarbonate 27, BUN 31, creatinine is 1.34, calcium 8.9, magnesium is 3.1. IMAGING STUDIES: CAT scan of the head done on 10/29/2016 showed small vessel ischemic changes, mild volume loss. CAT scan of the pelvis showed chronic changes. No evidence of acute fracture. CT chest done on 10/27/2016 showed right lower lobe consolidation, atelectasis or infiltrate with some dependent atelectasis, COPD and pulmonary artery hypertension and calcified tortuous aorta without aneurysm. CURRENT INPATIENT MEDICATIONS: The patient's current medications include: - Tylenol as needed - aspirin 325 mg daily - benzocaine topical - bisoprolol 2.5 mg daily - She was on Bumex 2.5 mg by mouth every 48 hours, last dose was given today morning. - vitamin B12 1000 mcg daily - Flexeril 5 mg every eight hours as needed - Levaquin 750 mg every 48 hours - magnesium citrate 150 mL by mouth one dose - morphine 2 mg IV every four hours as needed for severe pain - Zofran 4 mg every six hours - oxycodone as needed ASSESSMENT: An 89-year-old female with chronic right heart failure with severe pulmonary hypertension, lower extremity edema, atrial fibrillation, spinal stenosis with severe backache, chronic kidney disease stage III with a best baseline creatinine of around 1. Nephrology service following the patient for management of hyponatremia in the setting of congestive heart failure. PLAN: 1. Hyponatremia. It is very difficult to assess the volume status of this patient. The patient is dry from her waist up. She does not have any presacral edema. There is no edema in the thighs. Her tongue is dry. I hear minimal crepitations in her lungs. However, she has 2+ edema on the lower extremities and echocardiogram also shows severe pulmonary hypertension and right heart failure with akinetic right ventricle. I do not have the urine studies available at this time. However, I have ordered the urine osmolality, urine sodium, serum thyroid-stimulating hormone (TSH), T4, and a.m. cortisol level. Since sodium level is not improving with the diuretics at this time, I have held the Bumex dose. She was already given a dose today morning. In order to help with the edema and the hyponatremia at the same time, I would recommend doing aquaresis with tolvaptan, one dose of 15 mg by mouth tonight will be given. Continue to monitor daily intake and output and I will check the a.m. sodium level and urine studies and change the management accordingly. 2. Chronic systolic right heart failure. The patient has severe pulmonary hypertension and severe tricuspid regurgitation as mentioned above. It will be very technical to diurese this patient because she might be preload dependent because of her severe pulmonary hypertension and right heart failure. At this time, I will diurese the patient with tolvaptan and the patient will be evaluated tomorrow morning for any need to give IV diuretics. 3. Pneumonia. The patient is currently on Levaquin 750 mg by mouth every 48 hours. The rest of the management is as per primary team. She still has a high white cell count of 17.8. 4. Intractable back pain. The patient's back pain is being optimized at this time with oxycodone orally and IV morphine injections as needed. The patient also has lidocaine patches. Because of the severe intractable pain sometime in elderly, because of the stress that can cause syndrome of inappropriate secretion of antidiuretic hormone (SIADH) as well, however, I do not have any urine osmolality and urine studies available to prove that it is SIADH. Continue with pain optimization with the opioids at this time. 5. Chronic atrial fibrillation. Heart rate is controlled at this time. Continue bisoprolol 2.5 mg daily. The patient is not on anticoagulation at this time. Continue home dose of aspirin 325 mg by mouth daily. Thank you for involving us in the care of this patient. We shall be happy to follow the patient along with you tomorrow morning. Plan of care was discussed with the hospitalist, Dr. Teresa Garduno.
[2016-11-02] VITALS: BP 121/69
[2016-11-02] MEDS: PERCOCET 5MG/325MG TAB PO PRN ×2 (00:30→12:02)
[2016-11-02 04:00] VITALS: BP 99/57
[2016-11-02] MEDS: SLF 3 ML SYR IV SCH ×3 (06:12→21:33)
[2016-11-02] MEDS: LevoFLOXacin 750 MG TABLET PO SCH (06:12)
[2016-11-02 07:45] VITALS: BP 102/52
[2016-11-02] MEDS: ADVAIR HFA 115/21MCG INHALER INH SCH ×2 (08:30→20:40)
[2016-11-02 08:36] LABS: MEAN CORPUSCULAR HEMOGLOBIN 36.7 pg (27.0-33.0); MEAN CORPUSCULAR HGB CONC 34.8 g/dl (32.0-36.5); MEAN CORPUSCULAR VOLUME 105.6 fl (80.0-96.0); RED CELL DISTRIBUTION WIDTH 15.1 % (11.5-14.5); WHITE BLOOD COUNT 15.1 K/mm3 (4.0-10.0)
[2016-11-02 09:27] LABS: CALCIUM LEVEL 8.3 MG/DL (8.8-10.2); CREATININE FOR GFR 1.47 MG/DL (0.55-1.02); FREE T4 1.69 NG/DL (0.76-1.46); GLOMERULAR FILTRATION RATE 35.6 (>32); MAGNESIUM LEVEL 3.3 MG/DL (1.8-2.4); POTASSIUM SERUM 3.6 MEQ/L (3.5-5.1)
[2016-11-02] MEDS ORDERED: TOLVAPTAN 15 MG TAB (SAMSCA) PO ONE (10:00)
[2016-11-02 10:04] LABS: CORTISOL AM 5.3 UG/DL (4.3-22.4)
[2016-11-02] MEDS: SENOKOT S TAB PO SCH (10:27)
[2016-11-02] MEDS: CYANOCOBALAMIN 500 MCG TAB PO SCH (10:27)
[2016-11-02] MEDS: LIDOCAINE 5% (LIDODERM) PATCH TD SCH (10:28)
[2016-11-02] MEDS: ASPIRIN ENTERIC 325 MG TAB PO SCH (10:33)
[2016-11-02] MEDS: MUPIROCIN 2% OINT 22 GM TUBE TOP SCH ×3 (10:34→21:14)
[2016-11-02] MEDS: BISOPROLOL FUM 2.5 MG PER 1/2TAB PO SCH (10:40)
[2016-11-02 12:00] VITALS: BP 109/58
--- NOTE | 2016-11-02 14:14 | IPNPDOC ---
Date Seen The patient was seen on 11/02/16. Progress Note Hospitalist Progress Note Subjective: Patient reports that she had a good night last night but that she often begins to get pain before she is allowed her next dose of pain meds Objective: Physical Exam: Vitals: Vital Sign - Last 24 Hours 11/01/16 11/01/16 11/01/16 11/01/16 14:34 16:00 16:35 20:00 Temp 97.3 97.2 Pulse 82 87 Resp 20 18 18 18 B/P (MAP) 96/53 (67) 102/53 (69) Pulse Ox 97 96 O2 Delivery Room Air Room Air 11/01/16 11/01/16 11/01/16 11/02/16 20:00 21:42 22:30 00:00 Temp 98.0 Pulse 99 Resp 18 16 20 B/P (MAP) 121/69 (86) Pulse Ox 93 O2 Delivery Room Air Room Air 11/02/16 11/02/16 11/02/16 11/02/16 00:30 00:30 02:00 04:00 Temp 96.5 Pulse 76 Resp 16 16 20 B/P (MAP) 99/57 (71) Pulse Ox 95 O2 Delivery Room Air Room Air 11/02/16 11/02/16 11/02/16 11/02/16 05:00 07:45 08:00 10:20 Temp 98.8 Pulse 93 Resp 20 16 B/P (MAP) 102/52 (69) Pulse Ox 91 O2 Delivery Room Air Room Air Room Air 11/02/16 11/02/16 11/02/16 10:40 12:00 12:02 Temp 97.0 Pulse 90 85 Resp 18 16 B/P (MAP) 102/52 109/58 (75) Pulse Ox 96 O2 Delivery Room Air General: awake, alert, cleaning herself at the sink, no acute distress HEENT: Normocephalic, atraumatic, moist mucous membranes CV: Irregularly irregular Lungs: Clear to auscultation bilaterally Abd: Soft, nontender, nondistended Extremities: Pedal pulses intact bilaterally, 1+ edema bilaterally Neuro: AAOx3, normal speech Psych: normal mood and affect Labs and Imaging: Laboratory Tests 11/02/16 08:19 Red Blood Count 2.57 L, Mean Corpuscular Volume 105.6 H, Mean Corpuscular Hemoglobin 36.7 H, Mean Corpuscular Hemoglobin Concent 34.8, Red Cell Distribution Width 15.1 H, Calcium Level 8.3 L Assessment and Plan: 89-year-old female with history of chronic diastolic CHF, atrial fibrillation, chronic lumbar fracture and spinal stenosis, chronic hyponatremia, chronic neck and back pain, hypertension, chronic anemia, chronic kidney disease stage 2 to 3 who presented to the emergency department with intractable back pain and new right lower extremity weakness. 1. Intractable back pain: The patient is noted to have chronic stenosis and pain , but she states this is above and beyond her usual. CT of the lumbar spine does show mild central stenosis at L3-4 and moderate central stenosis at L4-5, however, this is not significantly changed from one week ago. We will continue the patient on IV morphine, lidocaine patch, Percocet. I have decreased the interval of her PRN percocet dosing. Dr. Moore of pain management has been consulted, and completed a lumbar SHAHLA on 10/29. Continue with PT/OT. Patient is still in significant pain and the family is interested in additional injections ; I have spoken to Dr. Moore's office today to relay the message that they would like him and his team to please come re-evaluate. 2. Right lower extremity weakness: CT of the head is unremarkable. We attempted to get an MRI to rule out CVA, but the patient's BP dropped significantly with the ativan which the patient requested for sedation secondary to claustrophobia. Have discussed with Dr. Lovett who suggests repeating the CT head to have an interval comparison, which was unchanged. He evaluated the patient, which we greatly appreciate, and does not think that clinically she has had a stroke. Already on daily aspirin. 3. Community acquired pneumonia and pulmonary nodule: Chest x-ray approximately one week ago showed concern for a right consolidation, and CT of the chest on this admission also shows a right lower lobe consolidation, as well as a 5 mm nodule in the right middle lobe. The patient is afebrile and not complaining of any respiratory issues, but she initially had a white count of 13. She is now s/ p one week of levaquin, which we are stopping now. She will need outpatient follow-up with pulmonology for the right middle lobe nodule. White count is going up now, but this is likely a response to the steroid injection. 4. Acute on chronic diastolic CHF: The patient's most recent echo was performed approximately 11 months ago. It showed a normal ejection fraction, moderate tricuspid regurg, but was not able to assess diastolic function given the Aflutter she was in at the time. However, a prior echo completed in 2011 showed grade 1 diastolic dysfunction. The patient was admitted with significant bilateral lower extremity pitting edema. A Doppler ultrasound shows no evidence of DVT. We initially had her on IV lasix but have now stopped diuresis all together. Echo on this admission shows severe pHTN, RHF, and severe TR. 5. Chronic atrial fibrillation: Continue home aspirin. The patient is not on full anticoagulation given her fall risk. Continue home beta jasmyn. 6. Presumed COPD: Patient reports taking Breo Ellipta at home. We do not have this on formulary, but we have substituted Advair while in-house. 7. Acute on chronic hyponatremia: The patient's baseline sodium appears to be in the low 130s. Upon arrival, she had a sodium of 123. With diuresis, this improved to 129. We will also continue fluid restrict to 1800cc daily. Once IV diuresis was stopped, her sodium began to drop again, so we consulted Dr. Harris of nephrology and appreciate his help with her Na. 8. Hypertension: Continue home beta jasmyn 9. Chronic anemia: The patient's baseline hemoglobin appears to be in the 9-10s for the last year. She is currently at this baseline. 10. Chronic kidney disease stage 2-3: The patient's baseline creatinine appears to be in the low ones. She is currently at baseline. We'll continue to monitor. 11. Lethargy after ativan: Now resolved. 12. Oral ulcer: The patient has an ulcer at the base of her bottom gumline, where it connects to her inner lower lip. I suspect that her dentures are repeatedly irritating it, making it difficult to heal. Have advised that she only wear dentures when necessary and otherwise leave them out to allow healing. Also will give orabase for symptomatic relief. DVT prophylaxis: SCDs Dispo: pending improvement in back pain and sodium; will need outpatient follow- up with pulmonology for the right middle lobe nodule VS, I&O, 24H, Fishbone Vital Signs/I&O Vital Signs Date Time Temp Pulse Resp B/P (MAP) Pulse Ox O2 Delivery O2 Flow Rate FiO2 11/02/16 12:02 16 11/02/16 12:00 97.0 85 109/58 (75) 96 Room Air 10/30/16 20:00 0.0 I&O- Last 24 Hours up to 6 AM 11/02/16 06:00 Intake Total 120 ml Output Total 1150 ml Balance -1030 ml Laboratory Data 24H LABS Laboratory Tests 2 11/02/16 00:17: Urine Appearance CLEAR, Urine Color YELLOW, Urine pH 5.0, Urine Specific [place] 1.008, Urine Protein NEGATIVE, Urine Glucose (UA) NEGATIVE, Urine Ketones NEGATIVE, Urine Urobilinogen 0.2, Urine Bilirubin NEGATIVE, Urine Leukocyte Esterase NEGATIVE, Urine Blood NEGATIVE, Urine Nitrite NEGATIVE, Urine WBC (Auto) 1, Urine RBC (Auto) 1, Urine Hyaline Casts (Auto) 0, Urine Bacteria (Auto) NEGATIVE, Urine Squamous Epithelial Cells 0, Urine Mucus (Auto) SMALL, Urine Sperm (Auto) , Urine Random Osmolality 253L, Urine Random Creatinine 46.0, Urine Random Sodium 18 11/02/16 08:19: Anion Gap 11, Glomerular Filtration Rate 35.6, Blood Urea Nitrogen 32H, Creatinine 1.47H, Sodium Level 131L, Potassium Level 3.6, Chloride Level 90L, Carbon Dioxide Level 30, Calcium Level 8.3L, Magnesium Level 3.3H, Thyroid Stimulating Hormone (TSH) 1.560, Free Thyroxine 1.69H, Cortisol AM Sample 5.3 CBC/BMP Laboratory Tests 11/02/16 08:19 Red Blood Count 2.57 L, Mean Corpuscular Volume 105.6 H, Mean Corpuscular Hemoglobin 36.7 H, Mean Corpuscular Hemoglobin Concent 34.8, Red Cell Distribution Width 15.1 H, Calcium Level 8.3 L Microbiology Microbiology 11/02/16 Urine Culture, Received Pending LISHA EVANS Nov 02, 2016 14:14
[2016-11-02] MEDS: NORCO, ANEXSIA 5/325MG TABLET (HYDROcodone/ACETAMINOPHEN) PO SCH ×2 (14:26→21:14)
[2016-11-02 16:00] VITALS: BP 87/55
--- NOTE | 2016-11-02 16:31 | IPN ---
DATE: 11/02/2016 SUBJECTIVE: The patient was seen and examined at the bedside today morning. The patient is actually sitting on the sofa. She is much more awake and alert today. Her pain is better optimized. The patient got a dose of tolvaptan yesterday. Her sodium is up to 131 now. REVIEW OF SYSTEMS: The patient denies any fevers, chills, rigors, headache, nausea, vomiting, chest pain, shortness of breath. Her main complaint at this time is low back pain and right leg pain. Rest of review of systems is negative. OBJECTIVE: VITAL SIGNS: Temperature is 97 degrees Fahrenheit, blood pressure is 109/58, pulse is 85, respiratory rate of 18, saturating 96% on room air. INTAKE AND OUTPUT: Urine output recorded as 750 mL yesterday, 700 mL so far today since overnight. Weight on the bed scale is not available. PHYSICAL EXAMINATION: GENERAL: The patient is awake, alert and oriented times three, sitting in sofa in no apparent distress. HEAD AND NECK EXAMINATION: Extraocular muscles intact. Pupils are equally round and reactive to light. Mucous membranes are moist. Neck is supple. There is no jugular venous distention (JVD). CARDIOVASCULAR: S1, S2, regular rate. No murmur, rub, or gallop. RESPIRATORY: Chest is clear to auscultation bilaterally. Bilateral equal air entry. No rales or rhonchi. ABDOMEN: Soft, positive bowel sounds, nontender. No ascites. No organomegaly. MUSCULOSKELETAL: The patient has 2+ pitting edema of the bilateral lower extremities which are tender to palpation. Otherwise, no clubbing or cyanosis. CENTRAL NERVOUS SYSTEM: No focal deficit. The patient is oriented times three. She follows commands and decreased range of movement of her lower extremities because of pain. PSYCHIATRIC: Normal mood and affect. LABORATORY REVIEW: CBC showed a WBC of 15.1, hemoglobin 9.4, platelets are 250. BMP showed sodium 131, potassium 3.6, chloride 90, bicarbonate is 30, BUN 33, creatinine is 1.47, calcium is 8.3, magnesium is 3.3. CURRENT INPATIENT MEDICATIONS: The patient's medications were all reviewed by me. Her Levaquin has been stopped now. The patient was given another dose of tolvaptan 15 mg by mouth times one dose today. ASSESSMENT: An 89-year-old female with chronic right heart failure with severe pulmonary hypertension, lower extremity edema, atrial fibrillation, spinal stenosis and severe backache, chronic kidney disease stage III with a best baseline creatinine of around 1. Nephrology service following the patient for management of hyponatremia in the setting of congestive heart failure and lower extremity edema. PLAN: 1. Hyponatremia. The patient was given a dose of tolvaptan yesterday. Sodium improved from 125 to 131. I am going to give her another dose of tolvaptan 15 mg by mouth today. Continue to hold the diuretics at this time. 2. Chronic systolic right heart failure with severe pulmonary hypertension. The patient has dependent lower extremity edema which is worsened by right heart failure. However, diuresis is affective her renal function and made the sodium level worse. Continue the tolvaptan at this time. 3. Lower extremity edema. The patient will need compression sequential bandage to help with the improvement of lower extremity edema. More diuresis will worsen her kidney function. 4. Intractable back pain. Pain optimization is as per primary team. 5. Pneumonia. The patient's Levaquin has been stopped at this time. White cell count is improving. It is down to 15.1 today. 6. Acute kidney injury superimposed on chronic kidney disease. The patient's best baseline creatinine is 1. It is up to 1.47 now. The patient already got a dose of Bumex yesterday. Continue the tolvaptan and await for the improvement of renal function at this time. Plan of care was discussed with the patient's son at the bedside.
--- NOTE | 2016-11-02 19:27 | IPNPDOC ---
General Date of Service/Time The patient was seen on 11/02/16 at 1700. Subjective: Mrs. Thomas is seen status post right sacroiliac joint injection completed by Dr. Moore on 10/29/2016. Patient reports that she is doing better in terms of her low back pain. States that all of her pain is now located in her right hip and radiating into the lateral right thigh. States that she has been able to stand and walk with a walker and walk in the kumar. Notes at times. However, the pain in the right hip is now excruciating. She and her son are asking for a right hip bursa injection. Rates her pain level as a 4- 5 fall seated in the chair. States that at times the pain has escalated to a 7-9 /10. Notes that her pain medications have been working fairly well. States that she did have some constipation due to them. Exam: Alert, oriented, talkative. Hard of hearing. Heart rate is irregular. Respiratory clear to auscultation. No wheezes, rales or rhonchi. Abdomen soft nondistended, bowel sounds active in all quadrants. Musculoskeletal no tenderness palpated with over lumbar spinous processes. Mild tenderness noted with palpation across the lumbar paravertebral muscles. No specific sacroiliac joint tenderness elicited. Exquisite tenderness with palpation over right trochanter. No tenderness with palpation over left trochanter. Extremities significant lower extremity edema. Legs are cool. No specific weakness is noted in the lower extremities. No foot drop. l. Assessment 1. Sacral ileitis. 2. Trochanteric bursitis. 3. Chronic low back pain. Recommendation and plan Case discussed with Dr. Moore and he did suggest bringing her back to the clinic for further injection therapy. Patient states that she has had excellent results with trochanteric bursa injection with Dr. Rizvi in the past and would like to pursue that at this time. Would have her continue with her usual medications. We'll plan to see her here in the clinic for interventional therapy tomorrow. Chief complaint The patient is a 89-year-old female admitted with a reason for visit of Fall Intractable Pain. Pain management is asked to see in regards to patient's continued . Progress Note SUBJECTIVE: Patient is a -year-old [RACE] [GENDER] with OBJECTIVE PHYSICAL EXAMINATION: VITAL SIGNS: Please see below. GENERAL: HEENT: CARDIOVASCULAR: . RESPIRATORY: . ABDOMINAL: EXTREMITIES: NEUROLOGICAL: PSYCHOLOGICAL: IMAGING: ASSESSMENT AND PLAN: This is a -year-old [RACE] [GENDER] with . PROBLEMS: 1. : . 2. : . 3. : . DISPOSITION: . Allergies Allergies: Coded Allergies: Penicillins (Verified Allergy, Intermediate, RASH, 10/26/16) Penicillins Cross Reactors (Verified Allergy, Intermediate, RASH, 10/26/16) Diazepam (Verified Adverse Reaction, Unknown, syncope, 10/26/16) Ethanol (Verified Adverse Reaction, Unknown, syncope, 10/26/16) VS,Fishbone, I+O VS, Fishbone, I+O Laboratory Tests 11/02/16 08:19 Red Blood Count 2.57 L, Mean Corpuscular Volume 105.6 H, Mean Corpuscular Hemoglobin 36.7 H, Mean Corpuscular Hemoglobin Concent 34.8, Red Cell Distribution Width 15.1 H, Calcium Level 8.3 L Vital Signs Date Time Temp Pulse Resp B/P (MAP) Pulse Ox O2 Delivery O2 Flow Rate FiO2 11/02/16 16:00 97.7 81 18 87/55 (66) 99 Room Air 10/30/16 20:00 0.0 I&O- Last 24 Hours up to 6 AM 11/02/16 05:59 Intake Total 120 ml Output Total 750 ml Balance -630 ml Liz GomezP-C Nov 02, 2016 19:27
[2016-11-02 20:00] VITALS: BP 113/70
[2016-11-02] MEDS: **NOTE PATIENT COMMENT** MISC XX SCH (21:00)
[2016-11-03] VITALS (7 sets, daily range): BP systolic 80–112; BP diastolic 48–70
[2016-11-03] MEDS: CYCLOBENZAPRINE 5MG TABLET PO PRN (01:49)
[2016-11-03] MEDS: PERCOCET 5MG/325MG TAB PO PRN ×3 (02:22→19:05)
[2016-11-03] MEDS ORDERED: MORPHINE 2 MG/ML 1ML SYRINGE IV ONE (03:15)
[2016-11-03] MEDS: SLF 3 ML SYR IV SCH ×3 (03:23→22:27)
[2016-11-03] MEDS: NORCO, ANEXSIA 5/325MG TABLET (HYDROcodone/ACETAMINOPHEN) PO SCH ×3 (07:04→22:25)
[2016-11-03] MEDS: ADVAIR HFA 115/21MCG INHALER INH SCH ×2 (07:45→21:37)
[2016-11-03 07:51] LABS: CALCIUM LEVEL 8.6 MG/DL (8.8-10.2); CREATININE FOR GFR 1.22 MG/DL (0.55-1.02); GLOMERULAR FILTRATION RATE 44.2 (>32); POTASSIUM SERUM 3.8 MEQ/L (3.5-5.1)
[2016-11-03 08:20] LABS: MEAN CORPUSCULAR HEMOGLOBIN 36.2 pg (27.0-33.0); MEAN CORPUSCULAR HGB CONC 33.5 g/dl (32.0-36.5); RED CELL DISTRIBUTION WIDTH 14.6 % (11.5-14.5); WHITE BLOOD COUNT 16.5 K/mm3 (4.0-10.0)
[2016-11-03] MEDS ORDERED: BUMETANIDE 1 MG TAB PO SCH (09:00)
[2016-11-03] MEDS: BISOPROLOL FUM 2.5 MG PER 1/2TAB PO SCH (09:39)
[2016-11-03] MEDS: ASPIRIN ENTERIC 325 MG TAB PO SCH (09:40)
[2016-11-03] MEDS: SENOKOT S TAB PO SCH (09:40)
[2016-11-03] MEDS: CYANOCOBALAMIN 500 MCG TAB PO SCH (09:40)
[2016-11-03] MEDS: LIDOCAINE 5% (LIDODERM) PATCH TD SCH (09:40)
[2016-11-03] MEDS: MUPIROCIN 2% OINT 22 GM TUBE TOP SCH ×3 (09:41→22:26)
[2016-11-03] MEDS ORDERED: TOLVAPTAN 15 MG TAB (SAMSCA) PO ONE (10:15)
[2016-11-03] MEDS ORDERED: LIDOCAINE 1% SDV INJ 30 ML VIAL As Ordered ONE (13:57)
[2016-11-03] MEDS ORDERED: TRIAMCINOLONE ACETONIDE SUSP 40 MG/ML VIAL (J3301) As Ordered ONE (13:57)
[2016-11-03] MEDS ORDERED: BUPIVACAINE HCL 0.25% 30 ML VIAL As Ordered ONE (13:57)
[2016-11-03] MEDS ORDERED: ISOVUE-M 300 61% 15ML VIAL (Q9967) As Ordered ONE (13:58)
[2016-11-03] MEDS ORDERED: oxyCODONE 5MG TAB As Ordered ONE (13:59)
--- NOTE | 2016-11-03 15:14 | IPN ---
DATE: 11/03/2016 SUBJECTIVE: This morning the patient tells me that she feels all right. She is not complaining of pain. She tells me that she wants to use the restroom, but otherwise has no other specific complaints. OBJECTIVE: VITAL SIGNS: Temperature 97.8, pulse 88, respiratory rate 20, blood pressure 102/52, oxygen saturation 93% on room air. GENERAL: She is a frail, elderly, female lying in a recliner. She does not appear to be in any acute distress. HEENT: Cranial nerves II through XII are grossly intact. She has moist mucous membranes. No elevation of central venous pressure. CARDIOVASCULAR EXAM: S1, S2 regular. RESPIRATORY EXAM: Clear. ABDOMINAL EXAM: Benign. EXTREMITIES: There is 1+ edema bilaterally. LABORATORY STUDIES: WBC 16.5, hemoglobin 10, platelet count 271. Chemistry panel: Sodium 133, potassium 3.8, chloride 93, bicarbonate 29, BUN 27 , creatinine 1.2. No new imaging. ASSESSMENT AND PLAN: This is an 89-year-old female who was admitted for a fall with intractable pain. The patient reportedly missed a pain injection on the outpatient setting. She is status post sacroiliac injection by Dr. Moore on 10/29/2016. The plan today is for a bursal injection at 2:00 p.m. She is nothing by mouth for this procedure. The patient did have a CT of the lumbar spine that previously showed mild central stenosis of L3-4, moderate stenosis of L4-5, but not changed from the week previous. The patient is continued on aggressive pain medications, including IV morphine for breakthrough pain. The patient is continuing to work with physical therapy (PT) and occupational therapy (OT). It appeared that the patient's right lower extremity weakness is felt to be related to pain and not related to any CVA. Neurology's help has been appreciated. 2. Community acquired pneumonia and pulmonary nodule. The patient has completed a course of Levaquin. She will need outpatient followup for the right middle lobe nodule. Leukocytosis is relatively stable today. 3. Acute on chronic diastolic congestive heart failure (CHF). She had a normal ejection fraction 11 months ago. Nephrology's help is greatly appreciated. Echocardiogram on this admission reveals pulmonary hypertension with heart failure with tricuspid regurgitation. She should have outpatient followup with [facility]orgue libr[facility] for further evaluation to reveal the etiology, consider even a right heart catheterization. 4. Chronic atrial fibrillation. She is on aspirin. Not a candidate for anticoagulation secondary to fall risk. She is on a beta jamsyn for rate control. 5. Chronic obstructive pulmonary disease (COPD). Documented that the patient is on Breo Ellipta at home and we will add Advair. 6. Hyponatremia. Nephrology's help is appreciated. She is on tolvaptan and responding appropriately. 7. Hypertension. She is on a beta jasmyn. 8. Chronic anemia, stable. 9. Chronic kidney disease, stable. 10. Deep vein thrombosis (DVT) prophylaxis. The patient is on sequential compression device (SCD) and TEDs. We will consider initiating further anticoagulation after her bursal injection. CHET
--- NOTE | 2016-11-03 19:37 | IPN ---
DATE: 11/03/2016 SUBJECTIVE: The patient was seen and examined at the bedside today morning. She was actually sitting on the sofa. The patient was slightly drowsy because of pain medications. Otherwise, her renal function is improving and I see an improvement in her sodium as well. Sodium is up to 134 now. REVIEW OF SYSTEMS: The patient is drowsy and sleepy. She is unable to provide any reliable review of systems, but she is in no apparent distress. She is just complaining of mild low back pain and right leg pain. OBJECTIVE: VITAL SIGNS: Temperature is 97.2 degrees Fahrenheit, blood pressure (BP) is 102/56, pulse is 80, respiratory rate of 16, saturating 97% on room air. Intake and output: Urine output recorded as 1400 mL yesterday, 750 mL so far today since overnight. Weight on the bed scale is not available. PHYSICAL EXAMINATION: GENERAL: The patient is awake, alert, oriented times three, but just drowsy because of the pain medications. HEAD AND NECK EXAM: Extraocular muscles intact. Pupils equally round and reactive to light. Mucous membranes are moist. Neck is supple. There is no jugular venous distension (JVD). CARDIOVASCULAR: S1, S2 regular rate, no murmur, rub and gallop. RESPIRATORY: Chest is clear to auscultation bilaterally. Bilateral equal air entry No rales or rhonchi. ABDOMEN: Soft, positive bowel sounds. Nontender, no ascites, no organomegaly. MUSCULOSKELETAL: The patient has 2+ pitting edema of the bilateral lower extremities, which is very tender, otherwise no clubbing or cyanosis. CENTRAL NERVOUS SYSTEM: No focal deficit. The patient is drowsy because of pain medications, but she is able to communicate and follow commands. LABORATORY REVIEW: Complete blood count (CBC) showed a white blood count (WBC) of 16.5, hemoglobin 10, platelets are 271. Basic metabolic panel (BMP) showed sodium 133, potassium 3.8, chloride 93, bicarbonate 29, BUN 27, creatine is 122, it was 1.47 yesterday. Calium 8.6. CURRENT INPATIENT MEDICATIONS: The patient's medications were all reviewed by me. There is no change in the medications today. I have given the patient another dose of tolvaptan 15 mg by mouth times one dose. ASSESSMENT: 89-year-old female with chronic right heart failure with severe pulmonary hypertension, lower extremity edema, atrial fibrillation, spinal stenosis with severe back pain, chronic kidney disease stage III with a baseline creatine of around 1, nephrology service following the patient for management of hyponatremia in the setting of congestive heart failure and lower extremity edema long with acute kidney injury. PLAN: 1. Hyponatremia. The patient is responding well to tolvaptan 15 mg by mouth daily. Her renal function is also improving. Sodium is up to 134. I have given the patient another dose of tolvaptan. 2. Chronic systolic right heart failure with severe pulmonary hypertension. The patient has dependent edema of the lower extremities, which was very difficult to cure because she becomes hyponatremia and goes into renal failure with diuretics. She is currently being diuresed with tolvaptan. 3. Lower extremity edema. The patient needs to keep her leg raised. She sits most of the time in the sofa because of her severe back pain. The patient would also benefit from compression bandage for her legs. 4. Acute kidney injury superimposed on chronic kidney disease. The patient's creatine is improving after holding Bumex and switching to tolvaptan. Creatine is down to 1.22 now. Continue to monitor for improvement of renal function.
[2016-11-03] MEDS: **NOTE PATIENT COMMENT** MISC XX SCH (21:00)
[2016-11-04] VITALS (7 sets, daily range): BP systolic 91–126; BP diastolic 50–60
[2016-11-04] MEDS: SLF 3 ML SYR IV SCH ×3 (06:06→21:15)
[2016-11-04] MEDS: NORCO, ANEXSIA 5/325MG TABLET (HYDROcodone/ACETAMINOPHEN) PO SCH ×3 (06:08→21:16)
[2016-11-04] MEDS: ADVAIR HFA 115/21MCG INHALER INH SCH ×2 (07:43→20:27)
[2016-11-04 07:46] LABS: MEAN CORPUSCULAR HEMOGLOBIN 36.1 pg (27.0-33.0); MEAN CORPUSCULAR HGB CONC 33.4 g/dl (32.0-36.5); MEAN CORPUSCULAR VOLUME 108.1 fl (80.0-96.0); RED CELL DISTRIBUTION WIDTH 15.2 % (11.5-14.5); WHITE BLOOD COUNT 15.4 K/mm3 (4.0-10.0)
[2016-11-04 07:51] LABS: CALCIUM LEVEL 8.7 MG/DL (8.8-10.2); CREATININE FOR GFR 1.36 MG/DL (0.55-1.02); POTASSIUM SERUM 3.6 MEQ/L (3.5-5.1)
[2016-11-04] MEDS: CYANOCOBALAMIN 500 MCG TAB PO SCH (10:18)
[2016-11-04] MEDS: ASPIRIN ENTERIC 325 MG TAB PO SCH (10:18)
[2016-11-04] MEDS: SENOKOT S TAB PO SCH (10:18)
[2016-11-04] MEDS: LIDOCAINE 5% (LIDODERM) PATCH TD SCH (10:19)
[2016-11-04] MEDS: MUPIROCIN 2% OINT 22 GM TUBE TOP SCH ×3 (11:39→20:52)
[2016-11-04] MEDS: BISOPROLOL FUM 2.5 MG PER 1/2TAB PO SCH (11:44)
[2016-11-04] MEDS ORDERED: MOM 30ML SUSPENSION UDC PO PRN (12:00)
[2016-11-04] MEDS: TORSEMIDE 20 MG TAB PO SCH (12:20)
[2016-11-04] MEDS: HEPARIN SOD (PORCINE) 5000 UNITS/ML VIAL SQ SCH ×2 (14:30→20:51)
--- NOTE | 2016-11-04 14:42 | IPN ---
DATE: 11/04/2016 SUBJECTIVE: The patient was seen and examined at the bedside today morning. She was actually sitting on the sofa eating her breakfast. She is awake and alert. She reports that her pain is optimized at this time. Sodium level is improving. Sodium is up to 135 now. Renal function is stable with a creatinine of 1.3 now. REVIEW OF SYSTEMS: The patient denies any fevers, chills, rigors, headache, nausea, vomiting, or chest pain. She does report mild lower back pain, which is optimized at this time. She reports lower extremity edema at this time. The rest of the review of systems negative. OBJECTIVE: VITAL SIGNS: Temperature is 99.4 degrees Fahrenheit, blood pressure (BP) is 191/52, pulse is 91, respiratory rate of 18, saturating 91% on room air. Intake and output: Urine output recorded as 875 mL yesterday, 200 mL so far today since overnight. Weight on the bed scale is not available. PHYSICAL EXAMINATION: GENERAL: The patient is awake, alert, oriented times three, sitting on sofa, no apparent distress. HEAD AND NECK EXAM: Extraocular muscles intact. Pupils equally round and reactive to light. Mucous membranes are moist. Neck is supple. There is no jugular venous distension (JVD). CARDIOVASCULAR: S1, S2 regular rate, no murmur, rub and gallop. RESPIRATORY: Chest is clear to auscultation bilaterally. Bilateral equal air entry No rales or rhonchi. No presacral edema. ABDOMEN: Soft, positive bowel sounds. Nontender, no ascites, no organomegaly. MUSCULOSKELETAL: The patient has 2+ pitting edema of the bilateral lower extremities, which are tender, otherwise no clubbing or cyanosis. CENTRAL NERVOUS SYSTEM: No focal neurological deficit. Power is 5/5 in bilateral upper extremities. She is oriented times three. LABORATORY REVIEW: Complete blood count (CBC) showed a white blood count (WBC) of 15.4, hemoglobin 9.7, platelets are 240. Basic metabolic panel (BMP) showed sodium 135, potassium 3.6, chloride 95, bicarbonate 30, BUN 29, creatine is 1.36, it was 1.2, GFR is 39. CURRENT INPATIENT MEDICATIONS: The patient's medications were all reviewed by me. I have started the patient on torsemide 20 mg by mouth daily. There is no other change in the medications today. ASSESSMENT: 89-year-old female with chronic right heart failure with severe pulmonary hypertension, lower extremity edema, atrial fibrillation, spinal stenosis with severe back pain, chronic kidney disease stage III with a baseline creatine of around 1, nephrology service following the patient for management of acute kidney injury superimposed on chronic kidney disease and hyponatremia in the setting of congestive heart failure and lower extremity edema. PLAN: 1. Hyponatremia. The patient's sodium is improving. It is up to 135 now. She got three doses of tolvaptan so far. I am going to start the patient on low dose of loop diuretic, torsemide 20 mg by mouth daily. We will monitor the sodium level, intake and output tomorrow and adjust the dose as needed. 2. Right hear failure with severe pulmonary hypertension. It is causing dependent edema as well. Difficult to diurese this patient because of acute kidney injury and worsening of hyponatremia initially during this admission. I have started the patient on low dose of torsemide. We will adjust the dose according to the patient's response. 3. Lower extremity edema. The patient keeps sitting on the sofa for a long time. Lower extremity edema is secondary to a combination of patient sitting on the sofa and severe right heart failure. She has been started on low dose of diuretics. The patient needs to keep her legs elevated when she is sitting. 4. Acute kidney injury superimposed on chronic kidney disease. The patient's baseline creatine is 1. Creatinine is fluctuating at 1.2 to 1.3. Continue to monitor for improvement of renal function.
--- NOTE | 2016-11-04 17:15 | REP ---
FLUOROSCOPIC GUIDANCE: The images were reviewed with Dr. Samson. The patient has a history of right hip pain. The portable C-ARM was provided in the OR for Dr. Barber for fluoroscopic guidance. 4 intraoperative fluoroscopic spot films were obtained for needle placement verification for right hip trochanteric injection. The films are on the PACS system and are available for review. 8 seconds of fluoroscopic time was utilized for this procedure. Reviewed by NATO Worthington 11/05/2016 05:30 PEdited and Signed by Crow Samson MD 11/06/2016 04:56 P
[2016-11-04] MEDS: **NOTE PATIENT COMMENT** MISC XX SCH (20:52)
--- NOTE | 2016-11-04 21:34 | IPN ---
DATE: 11/04/2016 SUBJECTIVE: The patient tells me that she is feeling significantly better today. She tells me that she is able to move her right lower extremity. Tells me she has not felt so well in many days. She denies chest pain, shortness of breath, fevers, chills, nausea, vomiting, or diarrhea. OBJECTIVE: VITAL SIGNS: Temperature 98.7, pulse 98, respiratory rate 20, blood pressure 102/55, oxygen saturation 96% on room air. GENERAL: She is a frail, elderly, female laying in a recliner. She does not appear to be in any acute distress. HEENT: Cranial nerves II through XII are grossly intact. She has moist mucous membranes. She is awake, alert and oriented times three. CARDIOVASCULAR EXAM: S1, S2 regular. RESPIRATORY EXAM: Clear. ABDOMINAL EXAM: Benign. EXTREMITIES: There is 1-2+ edema bilaterally. LABORATORY STUDIES: WBC 15.4 stable with hemoglobin 9.7, platelet count 240. Chemistry panel: Sodium 135, potassium 3.6, chloride 95, bicarbonate 30, BUN 29, creatinine 1.3. No new imaging. ASSESSMENT AND PLAN: This is an 89-year-old female with acute on chronic back pain. PROBLEMS: 1. Acute on chronic back pain. The patient reportedly had missed an outpatient bursal injection in the outpatient setting. She is status post an epidural injection via the pain clinic and then also a trochanteric bursal injection yesterday afternoon, which she has had a great response to. She is feeling much better. She is not requiring IV pain medication at this time. I would like her to continue working with physical therapy and occupational therapy until she is cleared from their perspective. The patient is eager and would like to go home today. I did have a chance to speak with the patient's son at length. He expressed concerns about her inability to have a bowel movement with the titrated up pain medication as well as pain on the left side and requested if it was a possibility for the patient to undergo a left trochanteric bursal injection while in the hospital. I did call the pain clinic. I did attempt Dr. Moore on his cell phone and page him without any response. Fortunately, I did get a call back from Dr. Rizvi's office who are able to see the patient as early as Wednesday morning for assessment of potential left trochanteric bursal injection at that time. The patient was seen by neurology earlier during her stay. The was felt to be no evidence that she had a CVA or stroke. 2. Community acquired pneumonia and pulmonary nodule. She has completed a course of Levaquin. She will require outpatient followup regarding the pulmonary nodule in the right middle lobe. Leukocytosis is stable. 3. Acute on chronic diastolic congestive heart failure (CHF) with right sided heart failure. Nephrology's help is greatly appreciated. She has pulmonary hypertension with tricuspid regurgitation. She should have outpatient followup with her homicide squad lieutenant. 4. Chronic atrial fibrillation. She is on aspirin and not on anticoagulation secondary to her fall risk. She is on a beta jasmyn for rate control. 5. Chronic obstructive pulmonary disease (COPD). Documented that the patient is on Breo Ellipta at home. She has been on Advair while an inpatient. 6. Hyponatremia. Improving with tolvaptan. Nephrology's help is once again appreciated. 7. Hypertension. The patient is on a beta jasmyn. 8. Chronic anemia, stable. 9. Chronic kidney disease, stable. 10. Deep vein thrombosis (DVT) prophylaxis. Sequentials and thromboembolic deterrent stockings (TEDS). I will start the patient on heparin twice a day. DISPOSITION: Pending PT and the patient's ability to have a bowel movement.
[2016-11-04] MEDS: CYCLOBENZAPRINE 5MG TABLET PO PRN (23:49)
[2016-11-05 00:10] VITALS: BP 112/56
[2016-11-05] MEDS: PERCOCET 5MG/325MG TAB PO PRN ×2 (02:01→11:01)
[2016-11-05] MEDS: NORCO, ANEXSIA 5/325MG TABLET (HYDROcodone/ACETAMINOPHEN) PO SCH (05:22)
[2016-11-05] MEDS: SLF 3 ML SYR IV SCH (05:22)
[2016-11-05 06:00] VITALS: BP 116/52
[2016-11-05 07:56] LABS: MEAN CORPUSCULAR HEMOGLOBIN 36.2 pg (27.0-33.0); MEAN CORPUSCULAR HGB CONC 33.1 g/dl (32.0-36.5); MEAN CORPUSCULAR VOLUME 109.2 fl (80.0-96.0); RED CELL DISTRIBUTION WIDTH 15.2 % (11.5-14.5); WHITE BLOOD COUNT 14.6 K/mm3 (4.0-10.0)
[2016-11-05 08:00] VITALS: BP 111/59
[2016-11-05 08:04] LABS: CALCIUM LEVEL 8.4 MG/DL (8.8-10.2); CREATININE FOR GFR 1.27 MG/DL (0.55-1.02); GLOMERULAR FILTRATION RATE 42.2 (>32); POTASSIUM SERUM 3.9 MEQ/L (3.5-5.1)
[2016-11-05] MEDS ORDERED: CYCL5TAB PO (08:05)
[2016-11-05] MEDS ORDERED: PERCOCET PO (08:05)
[2016-11-05] MEDS ORDERED: MILKSUS PO (08:05)
[2016-11-05] MEDS ORDERED: LIDO5TD TD (08:05)
[2016-11-05] MEDS ORDERED: DEMA20TA6 PO (08:05)
[2016-11-05] MEDS: HEPARIN SOD (PORCINE) 5000 UNITS/ML VIAL SQ SCH (09:00)
[2016-11-05] MEDS: BISOPROLOL FUM 2.5 MG PER 1/2TAB PO SCH (09:00)
[2016-11-05] MEDS: ADVAIR HFA 115/21MCG INHALER INH SCH (09:05)
[2016-11-05] MEDS: TORSEMIDE 20 MG TAB PO SCH (10:57)
[2016-11-05] MEDS: SENOKOT S TAB PO SCH (10:57)
[2016-11-05] MEDS: CYANOCOBALAMIN 500 MCG TAB PO SCH (10:57)
[2016-11-05] MEDS: ASPIRIN ENTERIC 325 MG TAB PO SCH (10:59)
[2016-11-05] MEDS: LIDOCAINE 5% (LIDODERM) PATCH TD SCH (11:00)
[2016-11-05] MEDS: MUPIROCIN 2% OINT 22 GM TUBE TOP SCH (11:00)
--- NOTE | 2016-11-05 18:28 | IPN ---
DATE: 11/05/2016 SUBJECTIVE: The patient was seen and examined at the bedside today morning. She was sitting in the bed today. Her pain is optimized. Sodium is stable at 133 and renal function is also stable around her baseline. REVIEW OF SYSTEMS: The patient denies any fevers, chills, rigors, headache, nausea, vomiting, or chest pain. She reports her back pain is optimized. She still reports lower extremity edema, but she reports that it is getting better. The rest of the review of systems is negative. . OBJECTIVE: VITAL SIGNS: Temperature is 99.1 degrees Fahrenheit, blood pressure (BP) is 111/59, pulse is 86, respiratory rate of 18, saturating 94% on room air. Intake and output: Urine output recorded as 1425 mL yesterday, 450 mL so far today since overnight. Weight on the bed scale is not available. PHYSICAL EXAMINATION: GENERAL: The patient is awake, alert, oriented times three, sitting on the bed, no apparent distress. HEAD AND NECK EXAM: Extraocular muscles intact. Pupils equally round and reactive to light. Mucous membranes are moist. Neck is supple. There is no jugular venous distension (JVD). CARDIOVASCULAR: S1, S2 regular rate, no murmur, rub and gallop. RESPIRATORY: Chest is clear to auscultation bilaterally. Bilateral equal air entry No rales or rhonchi. ABDOMEN: Soft, positive bowel sounds. Nontender, no ascites, no organomegaly. MUSCULOSKELETAL: The patient has 2+ pitting edema of the bilateral lower extremities, which are tender, otherwise no clubbing or cyanosis. CENTRAL NERVOUS SYSTEM: No focal neurological deficit. Power is 5/5 in extremities. LABORATORY REVIEW: Complete blood count (CBC) showed a white blood count (WBC) of 14.6, hemoglobin is 9.4, platelets are 223. Basic metabolic panel (BMP) showed sodium of 133, potassium 3.9, chloride 93, bicarbonate 29, BUN 28, creatinine is 1.27, calcium 8.4. CURRENT INPATIENT MEDICATIONS: The patient's medications were all reviewed by me. She has been started on torsemide 20 mg by mouth daily, it was started yesterday morning. There is no other change in the medications today as compared with yesterday. ASSESSMENT: 89-year-old female with chronic right heart failure with severe pulmonary hypertension, chronic lower extremity edema, atrial fibrillation, spinal stenosis and history of severe back pain, chronic kidney disease stage III with a baseline creatine of around 1, nephrology service following the patient for management of acute kidney injury superimposed on chronic kidney disease and management of hyponatremia in the setting of congestive heart failure. PLAN: 1. Hyponatremia. The patient's sodium is improved to 135 with three doses of tolvaptan. She was switched to torsemide 20 mg daily. Sodium is 133 now, which is acceptable at this time. Continue current dose of torsemide 20 mg daily. She can get repeat laboratories done in about one week after discharge from the hospital. 2. Right hear failure with severe pulmonary hypertension. The patient has dependent edema because of right heart failure. Continue the gentle diuresis with torsemide 20 mg daily. The rest of the dose adjustment will be done by primary care provider as an outpatient. 3. Acute kidney injury superimposed on chronic kidney disease. The patient's baseline creatine is 1; however, at this time, her creatinine inpatient is fluctuating between 1.2 to 1.3, which is acceptable at this time. Okay to continue the diuretics. DISCHARGE PLANNING: It is okay to discharge the patient from nephrology standpoint. The patient and her son want to followup with the primary care provider after discharge from the hospital. If needed, the patient can be referred to nephrology clinic for further management of hyponatremia and diuretics.
--- NOTE | 2016-11-06 06:34 | DSES ---
DATE OF ADMISSION: 10/27/2016 DATE OF DISCHARGE: 11/05/2016 DISCHARGE DIAGNOSIS: Acute on chronic back pain. SECONDARY DIAGNOSES: Community acquired pneumonia. Pulmonary nodule. Acute on chronic diastolic congestive heart failure with right cor pulmonale. Atrial fibrillation. Chronic obstructive pulmonary disease (COPD). Hyponatremia. Hypertension. Chronic anemia. Chronic kidney disease. CONSULTATIONS: Dr. Barber of the pain clinic. Dr. Harris, nephrology. HOSPITAL COURSE: The patient is an 89-year-old female with chronic back pain and normally followed with Dr. Rizvi in the pain clinic for fairly regular injections related to spinal stenosis, compression fracture and bursitis. She was previously admitted for pain, was recently discharged to his clinic, however, she missed her appointment after a fall and when attempted to reschedule, he was on vacation. She had severe pain. She was admitted to the hospital. She did have some lower extremity weakness. Was also seen by Dr. Conley of neurology who did not feel that she had had a stroke and felt it was just secondary to pain or weakness. She was seen by the pain clinic on 10/26/2016 and injection was initially held off given that she had an elevated white cell count and right leg weakness. The patient was monitored and evaluated by neurology and then once again re-evaluated on 10/30 by the pain clinic. The patient did receive a sacroiliac joint injection by Dr. Barber on 10/29/2016. She was doing better, however, she did have significant pain in the right hip and was unable to ambulate and be cleared by physical therapy. She did undergo a right bursal injection on 11/03/2016 which gave her the most relief. Her functional status did improve. She worked with physical therapy for several days and was eventually cleared by them. During her stay, of note, the patient's son was at times somewhat frustrated with the care provided. Patient advocate was involved during the stay as was [facility] (PFS) and their help was greatly appreciated. There was one such occasion where there was concern the patient's son may have verbally abusive with Dr. Garduno and a nurse had to intervene to de-escalate the conversation between the two of them in defense of Dr. Garduno. SUBJECTIVE: This morning, the patient reports that she is feeling well. She wants to go home. Does not want to be in the hospital any longer. OBJECTIVE: Vital signs: Temperature 98.6, pulse 88, respiratory rate 16, blood pressure 116/52, oxygen saturation 92% on room air. General: She is a very frail elderly female lying in the bed. She is accompanied by her son. She does not appear to be in any acute distress. HEENT: Moist mucous membranes and elevation of CVP. Cardiovascular exam: S1, S2. Regular. Abdominal exam: Benign. Extremities: She has 1-2+ edema bilaterally. LABORATORY STUDIES: WBC 14.6, hemoglobin 9.4, platelet count 221. Chemistry panel: Sodium 133, potassium 3.9, chloride 93, bicarbonate 29, BUN 28, creatinine 1.2. IMAGING: The patient did have a lumbar spine CT that revealed diffuse disc bulge L2, L3, L5, S1 with minimal thecal sac compression. Mild central canal stenosis L3-L4 secondary to disc bulge. Moderate central canal stenosis L4-L5. She has also had a CT scan of the head that reveals small vessel ischemic disease, mild volume loss. She had a chest CT that revealed 5 mm nodule in the lateral segment of the right middle lobe that will require followup, chronic obstructive pulmonary disease (COPD), pulmonary artery hypertension, some mild cylindrical bronchiectasis in the lower lung zones, right lower lobe consolidative process. Patient also had a duplex ultrasound that revealed no evidence of deep venous thrombosis (DVT) in bilateral lower extremities. She also had a CT scan of her pelvis which revealed chronic changes. No evidence of any acute fractures. ASSESSMENT AND PLAN: This is an 89-year-old female with acute on chronic back pain. PROBLEMS: 1. Acute on chronic pain. As outlined above, the patinet did miss an outpatient followup appointment after recently being hospitalized for pain control. She was readmitted once again this time for pain control. She was seen by the pain clinic on numerous occasions during her stay and a bursal injection to the right trochanteric bursa did alleviate her pain to the point where she has been cleared by physical therapy at this time. I have spoken with her son at great length and arranged for followup with Dr. Rizvi Wednesday morning. If needed, she can receive a bursal injection on the left side. Dr. Rizvi has assured me of this. She is having bowel movements and has been cleared by physical therapy and eager to go home. She is not requiring any IV pain medication. We will discharge her home on the regimen that has been working for her while she has been in the hospital consisting of Percocet, Flexeril, Craig, lidocaine patches. 2. Community acquired pneumonia and pulmonary nodule. She completed a course of Levaquin while inpatient. She will require outpatient followup regarding a 5 mm right middle lobe pulmonary nodule with repeat imaging. 3. Acute on chronic diastolic congestive heart failure with right sided heart failure. Nephrology's help has been greatly appreciated. She has pulmonary hypertension with tricuspid regurgitation felt to be related to her chronic obstructive pulmonary disease (COPD). She should have outpatient followup. Consider referral to glue maker bone or guard entrance registrar. She has been started on torsemide. 4. Hyponatremia. The patient did require tolvaptan while in the hospital. Nephrology's help was once again appreciated. She is being discharged on torsemide with a BMP check on Wednesday with results to be sent to Dr. Harris. She is to followup with nephrology within 2 weeks. 5. Chronic obstructive pulmonary disease (COPD). Patient is on Breo Ellipta at home and will be discharged back on this. 6. Chronic atrial fibrillation. She is on aspirin and not on any coagulation secondary to fall risk. She is on beta jasmyn for rate control. 7. Hypertension. She is on beta jasmyn. 8. Chronic anemia, stable. 9. Chronic kidney disease, stable. 10. Deep venous thrombosis (DVT) prophylaxis, sequentials and thromboembolic deterrent stockings (TEDS) as well as heparin when she was in the hospital. DISPOSITION: The patient has been cleared by physical therapy. She is being discharged home to the care of her son. Extensive time was spent at the bedside discussing great detail and length of all her medications, followup and answering all questions asked by both the patient and her son. She is to followup with her primary care provider within 7 days, nephrology within 2 weeks, Dr. Rizvi on Wednesday. Patient is to call their office for the appointment. Activity and diet are as prior to admission. She is to return to the emergency room if her symptoms worsen. MEDICATIONS AT THE TIME OF DISCHARGE: - Flexeril 5 mg every 8 hours as needed for muscle spasm - lidocaine 5% patch transdermally daily - milk of magnesia 30 mL twice a day as needed for constipation - Percocet 5/325 one tablet every 6 hours, maximum daily dose four tablets, dispense 12 tablets - torsemide 20 mg every morning - hydrocodone/acetaminophen 10/325 three times a day either half a tablet or while tablet - aspirin 325 mg daily - bisoprolol 2.5 mg daily - B12 1000 mcg daily - vitamin D 50,000 units every 2 weeks on Mondays - Breo Ellipta 100/25 daily - Mupirocin 2% ointment topically three times daily to the right lower leg - Senokot 8.5 mg two tablets daily Greater than 30 minutes organizing disposition.
== END 2016-11-05 12:15 | disposition home or self-care (01) | DRG 551 ==
LOC: M ED 09:58 → M ED INP 13:16 → M PCU 14:09 → OBSVTOIN 10-27 14:15 → M MS4PR 11-03 20:45
PROVIDERS: ADMIT Internal Medicine; ATTEND Internal Medicine
PROC: 3E0R3NZ Introduction of Analgesics, Hypnotics, Sedatives into Spinal Canal, Percutaneous Approach (ICD-10-PCS; principal; 2016-10-29)
PROC: 3E0U3NZ Introduction of Analgesics, Hypnotics, Sedatives into Joints, Percutaneous Approach (ICD-10-PCS; 2016-11-03)
DX: M48.06 Spinal stenosis, lumbar region (principal); J18.9 Pneumonia, unspecified organism; I50.33 Acute on chronic diastolic (congestive) heart failure; E87.1 Hypo-osmolality and hyponatremia; I13.0 Hypertensive heart and chronic kidney disease with heart failure and stage 1 through stage 4 chronic kidney disease, or unspecified chronic kidney disease; J44.0 Chronic obstructive pulmonary disease with (acute) lower respiratory infection; N17.9 Acute kidney failure, unspecified; I48.2 Chronic atrial fibrillation; N18.3 Chronic kidney disease, stage 3 (moderate); M70.62 Trochanteric bursitis, left hip; Z66 Do not resuscitate; T42.4X5A Adverse effect of benzodiazepines, initial encounter; K12.1 Other forms of stomatitis; R53.83 Other fatigue; R91.1 Solitary pulmonary nodule; M46.1 Sacroiliitis, not elsewhere classified; I36.1 Nonrheumatic tricuspid (valve) insufficiency; M70.61 Trochanteric bursitis, right hip; I27.2 Other secondary pulmonary hypertension; F10.20 Alcohol dependence, uncomplicated; D64.9 Anemia, unspecified; Z79.82 Long term (current) use of aspirin; Z88.0 Allergy status to penicillin; Z88.8 Allergy status to other drugs, medicaments and biological substances; Z79.899 Other long term (current) drug therapy; Z87.891 Personal history of nicotine dependence

== ENCOUNTER → 2016-11-03 | Outpatient (CLI) | payer MEDICARE, BC ==
[~2016-11-03] MED LIST changes: +CLAR10CA3 PO; +CYCL5TAB PO; +DEMA20TA6 PO; +HYOS125TA PO; +LIDO5TD TD; +LORA0.5T11 PO; +MAGN1TAB25 PO; +MILKSUS PO; +MORP20SO3 PO; +PERCOCET PO; +POTA10CA PO; +POTA10TA16 PO; +TORS20TA2 PO
--- NOTE | 2016-11-16 23:58 | ECWPNPC ---
PATIENT NAME: ROSITA MEDEIROS : 1925 GENDER: FEMALE VISIT DATE: 11/03/2016 DISCHARGE DATE: 11/03/16739 VISIT LOCKED DATE TIME: PHYSICIAN: BUTCH PETTIT RESOURCE: BUTCH PETTIT REASON FOR APPOINTMENT 1. RIGHT HIP TROCHANTERIC HISTORY OF PRESENT ILLNESS HISTORY OF PRESENT ILLNESS: PAIN THE PATIENT DESCRIBES THE PAIN... FALL RISK SCREENING: SCREENING :NO FALLS IN THE PAST YEAR CURRENT MEDICATIONS TAKING COLACE 100 MG CAPSULE 1 CAPSULE NEEDED ORALLY ONCE A DAY IN THE EVENING, NOTES: BEFORE 10/26/16 TAKING VITAMIN B12 500 MCG TABLET 2 TABLET ORALLY ONCE A DAY, NOTES: 11/03/16899 TAKING HYDROCODONE-ACETAMINOPHEN 10-325 MG TABLET 1 TABLET ORALLY EVERY 6 HRS NEEDED FOR PAIN, NOTES: 11/03/16699 TAKING ASPIRIN 325 MG TABLET 1 TABLET ORALLY ONCE A DAY, NOTES: 11/03/16899 TAKING FLONASE 50 MCG/ACT SUSPENSION 2 SPRAYS IN EACH NOSTRIL NASALLY ONCE A DAY, NOTES: 10/29/16721 TAKING VENTOLIN HFA 108 (90 BASE) MCG/ACT AEROSOL SOLUTION 2 PUFFS NEEDED FOR COUGH INHALATION EVERY 4-6 HRS ON HOLD UNTIL SEEN BY Slava DOZIER COUTURE ALTERATIONS DRESSMAKER ON 12/03, NOTES: BEFORE 10/26/16 TAKING BREO ELLIPTA 100-25 MCG/INH AEROSOL POWDER BREATH ACTIVATED 1 PUFF INHALATION ONCE A DAY, NOTES: BEFORE 10/26/16 TAKING BISOPROLOL FUMARATE 5 MG TABLET 1/2 TABLET ORALLY ONCE A DAY, NOTES: 11/03/16899 TAKING DRISDOL 01776 UNIT CAPSULE 1 CAPSULE ORALLY EVERY OTHER WEEK, NOTES: BEFORE 10/26/16 TAKING SENOKOT S 8.6-50 MG TABLET 2 TABLETS P.O. Q AM FOR CONSTIPATION, NOTES: 11/03/16899 TAKING CLOTRIMAZOLE 1 % CREAM 1 APPLICATION TOPICALLY TWICE A DAY, NOTES: BEFORE 10/26/16 TAKING BUMETANIDE 2 MG TABLET 1 TABLET ORALLY ONCE A DAY, NOTES: BEFORE 10/26/16 TAKING ALLEVYN AG NON-ADHESIVE - PAD [id number] PAD OVER 2 ULCERS EXTERNALLY TID TAKING BACTROBAN 2 % OINTMENT 1 APPLICATION THIN LAYER TO PERIWOUND EXTERNALLY THREE TIMES A DAY, NOTES: 8/3/17 0906 TAKING OXYCODONE-ACETAMINOPHEN 5-325 MG TABLET 1 TABLET NEEDED ORALLY EVERY 8 HRS PRN NOT-TAKING MIRAPEX 0.125 MG TABLET 1 TABLET ORALLY THREE TIMES DAILY NOT-TAKING MIRAPEX ER 0.375 MG TABLET EXTENDED RELEASE 24 HOUR 1 TABLET ORALLY ONCE A DAY MEDICATION LIST REVIEWED AND RECONCILED WITH THE PATIENT PAST MEDICAL HISTORY 11/19/2015, COPD AND FIBROSIS, PULMONARY ARTERY HYPERTENSION OSTEOPOROSIS ALLERGIC RHINITIS OSTEOARTHRITIS VITAMIN D DEFICIENCY TOBACCO DEPENDENCE ANEMIA OF UNKNOWN MECHANISM SYNCOPE EVENT MONITOR NEGATIVE LEG EDEMA DRUG INDUCED CONSTIPATION HYPOPROTEINEMIA ECHOCARDIOGRAM 11/19/2015, HYPERDYNAMIC LEFT VENTRICULAR SYSTOLIC FUNCTION, LVEF 7075% BY VISUAL ESTIMATE, SUGGESTIVE OF MODERATE ELEVATION OF ESTIMATED RIGHT VENTRICULAR SYSTOLIC PRESSURE VERSUS MILD ELEVATION OF PULMONARY ARTERY SYSTOLIC PRESSURE, MILD MITRAL REGURG A-FIB ALLERGIES ZANTAC: PT UNABLE TO RECALL: ALLERGY OMEPRAZOLE: PT UNABLE TO RECALL: ALLERGY PENICILLIN (FOR ALLERGIES USE ONLY): TOLD IN 1956: ALLERGY GENTAMICIN SULFATE: RED MOUTH AND TONGUE SWELLING FROM EYE DROPS 2016: ALLERGY DIAZEPAM: EXTREME SEDATION: SIDE EFFECTS ETHANOL: PER IN PATIENT CHART--SYNCOPE SURGICAL HISTORY HYSTERECTOMY, TOTAL WITH BSO AND APPENDECTOMY FOR ENDOMETRIOSIS 10/1975 D&C X6 OVER 12 YEARS TONSILLECTOMY A CHILD OD CATARACT EXTRACTION 08/22/2014 OS CATARACT EXTRACTION 09/19/2014 HOSPITALIZATION/MAJOR DIAGNOSTIC PROCEDURE NAUSEA 10/2014 [facility]- ATRIAL FIBRILLATION, ONSET UNKNOWN, UPPER RESPIRATORY INFECTION 11/18-11/21/2015 [facility]- 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 CONSTITUTIONAL: ANY CHANGE IN YOUR MEDICAL CONDITION? NO . CHILLS NO . FEVER NO . INFECTION: DO YOU HAVE NEW INFECTIONS? NO . DO YOU HAVE HISTORY OF MRSA? NO . MUSCULOSKELETAL: ANY NEW PATTERNS OF PAIN OR NUMBNESS? NO . GASTROENTEROLOGY: ANY NEW CHANGE IN BOWEL CONTROL? NO . GENITOURINARY: ANY NEW CHANGE IN BLADDER CONTROL? NO . IS THERE A CHANCE YOU COULD BE ? NO . HEMATOLOGY/LYMPH: DO YOU TAKE ANY BLOOD THINNERS? (FOR EXAMPLE- COUMADIN, PLAVIX, AGGRENOX, PLATEL, PRADAXA, OR XARELTO) NO . WHEN WAS YOUR LAST DOSE? DATE: TIME: . NEUROLOGY: HAVE YOU FALLEN IN THE PAST 6 MONTHS? NO . ANY NEW EXTREMITY NUMBNESS OR WEAKNESS? NO . CARDIOLOGY: DO YOU HAVE A PACEMAKER OR DEFIBRILLATOR? NO . RESPIRATORY: HAVE YOU BEEN SICK IN THE PAST WEEK? NO . FEVER NO . FLU LIKE SYMPTOMS? NO . COUGH NO . INTEGUMENTARY: DO YOU HAVE ANY RASHES OR OPEN SORES? NO . ALLERGIC/IMMUNO: ARE YOU ALLERGIC TO SHELLFISH OR IV DYE? NO . ANY NEW ALLERGIES? NO . PSYCHIATRIC: DO YOU HAVE THOUGHTS OF HURTING YOURSELF OR SOMEONE ELSE? NO . ARE YOU ABUSED, NEGLECTED, OR IN AN UNSAFE ENVIRONMENT? NO . ENDOCRINOLOGY: ARE YOU DIABETIC? NO . OTHER: DO YOU NEED ANY PRESCRIPTIONS? NO . IF YES, PLEASE LIST: ____ . ANY NEW PROBLEMS WITH YOUR MEDICATIONS? NO . WHEN DID YOU LAST EAT? 11/02/161999 . WHEN DID YOU LAST DRINK? 11/03/16 0800 . WHAT DID YOU LAST DRINK? WATER . NAME OF PERSON DRIVING YOU HOME? PT IS AN INPATIENT; TRANSPORTER TO RETURN PT TO . . DO YOU HAVE ANY OTHER QUESTIONS OR CONCERNS NO . VITAL SIGNS WT 116 LBS, HT 60 IN, BMI 22.65 INDEX, BP 103/53 MM HG, HR 77 /MIN, RR 18 /MIN, TEMP 98.0 F, OXYGEN SAT % 91%, NA INITIALS AW 1334. ASSESSMENTS TROCHANTERIC BURSITIS, RIGHT HIP - M70.61 (PRIMARY) TREATMENT OTHERS NOTES: PREPROCEDURE DIAGNOSIS: BURSITIS AT THE RIGHT GREATER TROCHANTER OF THE FEMUR. POSTPROCEDURE DIAGNOSIS: BURSITIS AT THE RIGHT GREATER TROCHANTER OF THE FEMUR. PROCEDURE: INJECTION AT THE BURSA OF THE OF THE RIGHT GREATER TROCHANTER OF THE FEMUR UNDER FLUOROSCOPIC GUIDANCE. SURGEON: DR. BUTCH PETTIT ASSISTANT STORE LEADER: NONEANESTHESIA: LOCAL. PREOPERATIVE NOTE: THE PATIENT HAS A HISTORY OF RIGHT HIP PAIN. I EVALUATED THE PATIENT AND REVIEWED THE CHART. WE BOTH AGREE ON INJECTING OVER THE BURSA OF THE [DEFAULT VALUE] GREATER TROCHANTER OF THE FEMUR. I WENT THROUGH THE RISKS, ALTERNATIVES, AND BENEFITS ASSOCIATED WITH THIS PROCEDURE. THE PATIENT WOULD LIKE TO PROCEED AND GIVE CONSENT TO PERFORMED THE PROCEDURE. THE PATIENT DENIES UNEXPLAINABLE WEIGHT LOSS, FEVERS, CHILLS, OR CHANGES IN HIS URINARY OR BOWEL CONTROL. DESCRIPTION OF PROCEDURE: AFTER CONSENT WAS TAKEN, THE PATIENT WAS BROUGHT TO THE PROCEDURE ROOM AND PLACED IN THE LEFT LATERAL DECUBITUS POSITION. THE RIGHT HIP AREA WAS CLEANED WITH CHLORAPREP SOLUTION AND DRAPED ASEPTICALLY. THE PROCEDURE WAS DONE UNDER STERILE CONDITIONS. I CHECKED LATERALITY WITH THE PATIENT AND THE STAFF IN THE PROCEDURE ROOM AT THE MOMENT OF THE TIME OUT. UNDER FLUOROSCOPIC GUIDANCE, TARGET WAS SELECTED AT THE RIGHT GREATER TROCHANTER OF THE FEMUR. LIDOCAINE WAS USED TO NUMB THE SKIN AND THE SUBCUTANEOUS TISSUE BELOW IT. SPINAL NEEDLE, 22-GAUGE WAS ADVANCED UNDER FLUOROSCOPIC GUIDANCE AND FOLLOWING PATIENT FEEDBACK UNTIL THE TARGET WAS TOUCHED. POSITION OF THE NEEDLE WAS VERIFIED WITH AP AND LATERAL VIEWS. AFTER PROPER POSITION OF THE NEEDLE WAS ACHIEVED, ISOVUE M DYE, 30%, 0.25 ML WAS INJECTED SHOWING ADEQUATE SPREAD OF THE DYE. THEN A SOLUTION OF 20 ML OF BUPIVACAINE 0.25% AND KENALOG 40 MG WAS INJECTED. THERE WAS NO EVIDENCE OF BLOOD, PARESTHESIA, OR CEREBROSPINAL FLUID. THE PATIENT WAS SENT TO THE RECOVERY ROOM. THE PATIENT WAS MOVING THE EXTREMITIES AND DOING WELL. THERE WERE NO COMPLICATIONS DURING THE PROCEDURE. POSTOPERATIVE NOTE: I DISCUSSED ALTERNATIVES WITH THE PATIENT. WE WILL SEE THE PATIENT BACK IN SEVERAL WEEKS FOR REEVALUATION OF THE CASE. I AM LOOKING FOR LONG-LASTING PAIN RELIEF WITH THIS INTERVENTION. FLUOROSCOPIC TIME WAS 8 SECONDS. FURTHER RECOMMENDATIONS WILL BE DONE DEPENDING ON HOW THE PATIENT DOES. THERE WERE NO COMPLICATIONS.I, ANA ABARCA, DOCUMENTED THE ABOVE INFORMATION ACTING A SCRIBE FOR DR. PETTIT. I HAVE REVIEWED THE ABOVE DOCUMENT, WRITTEN BY ANA JAIMES AND I VERIFY THAT IT IS ACCURATE. DIAGNOSTIC IMAGING [facility] FLUORO GUIDANCE (PAIN)[id number] PROCEDURE CODES 82308 DRAIN/INJ JOINT/BURSA W/O US 6045F RADXPS IN END [id number] PXD 92763 NEEDLE LOCALIZATION BY XRAY DISPOSITION & COMMUNICATION FOLLOW UP 3 WEEKS ELECTRONICALLY SIGNED BY BUTCH PETTIT MD ON 11/16/2016 AT 05:50 PM EDT DISCLAIMER : THIS IS A VISIT SUMMARY EXTRACTED FROM THE [employer] CHART. IT IS NOT A COPY OF THE [employer] PROGRESS NOTE. CHET
== END | disposition home or self-care (01) ==
LOC: M PAIN 14:00
PROVIDERS: ATTEND Anesthesiology
DX: G89.29 Other chronic pain (principal); M70.61 Trochanteric bursitis, right hip; J44.9 Chronic obstructive pulmonary disease, unspecified; M81.0 Age-related osteoporosis without current pathological fracture; M19.90 Unspecified osteoarthritis, unspecified site; E55.9 Vitamin D deficiency, unspecified; D64.9 Anemia, unspecified; K59.03 Drug induced constipation; E77.8 Other disorders of glycoprotein metabolism; I48.91 Unspecified atrial fibrillation; Z79.899 Other long term (current) drug therapy; Z79.82 Long term (current) use of aspirin; Z79.51 Long term (current) use of inhaled steroids; Z88.0 Allergy status to penicillin; Z88.8 Allergy status to other drugs, medicaments and biological substances; F17.210 Nicotine dependence, cigarettes, uncomplicated

== ENCOUNTER → 2016-11-17 | Outpatient (REF) | payer MEDICARE, BC ==
[2016-11-17 13:53] LABS: MEAN CORPUSCULAR HEMOGLOBIN 37.5 pg (27.0-33.0); MEAN CORPUSCULAR HGB CONC 34.5 g/dl (32.0-36.5); MEAN CORPUSCULAR VOLUME 108.5 fl (80.0-96.0); RED CELL DISTRIBUTION WIDTH 14.9 % (11.5-14.5); WHITE BLOOD COUNT 13.5 K/mm3 (4.0-10.0)
[2016-11-17 14:24] LABS: ALBUMIN 3.5 GM/DL (3.2-5.2); ALBUMIN/GLOBULIN RATIO 1.46 (1.00-1.93); BILIRUBIN,TOTAL 2.5 MG/DL (0.2-1.0); CALCIUM LEVEL 8.2 MG/DL (8.8-10.2); CREATININE FOR GFR 1.15 MG/DL (0.55-1.02); GLOMERULAR FILTRATION RATE 47.3 (>32); POTASSIUM SERUM 3.3 MEQ/L (3.5-5.1); TOTAL PROTEIN 5.9 GM/DL (6.4-8.2)
== END ==
LOC: M SFHCPLAZ 13:07
PROVIDERS: ATTEND Nurse Practitioner Adult Health
DX: I51.89 Other ill-defined heart diseases (principal); Z09 Encounter for follow-up examination after completed treatment for conditions other than malignant neoplasm; G25.81 Restless legs syndrome; I48.0 Paroxysmal atrial fibrillation; J44.9 Chronic obstructive pulmonary disease, unspecified; R91.1 Solitary pulmonary nodule; M54.2 Cervicalgia; E87.6 Hypokalemia
CPT/HCPCS: 36415; 80053; 85027; G0463

== ENCOUNTER 2016-11-27 13:51 | Inpatient (IN) | payer MEDICARE, BC ==
[~2016-11-27] VITALS: Ht 152.4 cm; Wt 53.5 kg
[2016-11-27] VITALS (15 sets, daily range): BP systolic 64–103; BP diastolic 34–66
[~2016-11-27 13:51] MED LIST changes: -CLAR10CA3 PO; -HYOS125TA PO; -LORA0.5T11 PO; -MAGN1TAB25 PO; -MORP20SO3 PO; -POTA10CA PO; -POTA10TA16 PO; -TORS20TA2 PO
[2016-11-27] MEDS ORDERED: CLAR10CA3 PO (14:17)
[2016-11-27] MEDS ORDERED: POTA10CA PO (14:17)
[2016-11-27] MEDS ORDERED: MAGN1TAB25 PO (14:18)
[2016-11-27 15:56] LABS: ADD MANUAL DIFFER YES; MEAN CORPUSCULAR HEMOGLOBIN 36.5 pg (27.0-33.0); MEAN CORPUSCULAR HGB CONC 34.2 g/dl (32.0-36.5); MEAN CORPUSCULAR VOLUME 106.8 fl (80.0-96.0); PLATELET COUNT, AUTOMATED 201 k/mm3 (150-450); RED CELL DISTRIBUTION WIDTH 15.2 % (11.5-14.5); WHITE BLOOD COUNT 24.4 K/mm3 (4.0-10.0)
[2016-11-27 15:59] LABS: ALBUMIN 3.2 GM/DL (3.2-5.2); ALKALINE PHOSPHATASE 101 U/L (45-117); ALT/SGPT 25 U/L (12-78); ANION GAP 10 MEQ/L (8-16); AST/SGOT 18 U/L (15-37); BILIRUBIN,DIRECT 0.6 MG/DL (0.0-0.2); BLOOD UREA NITROGEN 25 MG/DL (7-18); CALCIUM LEVEL 8.2 MG/DL (8.8-10.2); CARBON DIOXIDE LEVEL 30 MEQ/L (21-32); CHLORIDE LEVEL 91 MEQ/L (98-107); CREATININE FOR GFR 1.21 MG/DL (0.55-1.02); FREE T4 1.45 NG/DL (0.76-1.46); GLOMERULAR FILTRATION RATE 44.6 (>32); GLUCOSE, FASTING 109 MG/DL (83-110); POTASSIUM SERUM 3.3 MEQ/L (3.5-5.1); SODIUM LEVEL 131 MEQ/L (136-145); TOTAL PROTEIN 6.1 GM/DL (6.4-8.2)
[2016-11-27 16:05] LABS: BILIRUBIN,TOTAL 2.5 MG/DL (0.2-1.0)
[2016-11-27] MEDS ORDERED: NS 500 ML IV ONE ×2 (16:30→19:15)
[2016-11-27 16:38] LABS: ANISOCYTOSIS 1+; GIANT PLATELETS 1+; POLYCHROMASIA 1+
[2016-11-27] MEDS ORDERED: POTASSIUM CHLORIDE 10 MEQ SR TABLET PO ONE (16:45)
[2016-11-27] MEDS ORDERED: VANCOMYCIN HCL 1,000 MG, VIAL MATE ADAPTER 1 EACH in D5W 250 ML IV ONE (16:45)
--- NOTE | 2016-11-27 16:58 | REP ---
Clinical: Pain and swelling . Technique: Samson scale and color Doppler evaluation using linear high frequency transducer. Findings: Ultrasound examination of the right and left lower extremity deep venous structures from the common femoral vein to the popliteal vein demonstrates normal compressibility flow and wave patterns in response to respiration and augmentation. There is no evidence for deep venous thrombosis. Impression: No evidence for deep venous thrombosis. Signed by Ousmane Perez MD 11/27/2016 04:50 P
--- NOTE | 2016-11-27 17:07 | REP ---
Clinical: Chest pain and edema. Technique: PA and lateral. Comparison: 10/19/2016. Findings: Stable cardiomegaly and atherosclerotic changes to the vasculature noted. Lung post demonstrate diffuse chronic interstitial changes without obvious consolidation, effusion, or pneumothorax. No definite pulmonary vascular congestion or CHF. Skeletal structures demonstrate osteopenia and degenerative changes. Impression: Chronic stable changes. No acute cardiopulmonary process appreciated. Signed by Ousmane Perez MD 11/27/2016 04:59 P
[2016-11-27] MEDS ORDERED: LIDO5TD TD (17:17)
[2016-11-27] MEDS ORDERED: POTA10TA16 PO (17:17)
[2016-11-27] MEDS ORDERED: TORS20TA2 PO (17:17)
[2016-11-27] MEDS ORDERED: MEROPENEM INJ 1 GM in D5W MINI-BAG PLUS 100 ML IV ONE (17:45)
[2016-11-27] MEDS ORDERED: ONDANSETRON 4MG/2ML VIAL (J2405) IV PRN (18:30)
[2016-11-27] MEDS ORDERED: ACETAMINOPHEN TAB 650MG DOSE (2X325MG) PO PRN (18:30)
[2016-11-27] MEDS ORDERED: PERCOCET 5MG/325MG TAB PO PRN ×3 (18:30→21:45)
[2016-11-27] MEDS ORDERED: VANCOMYCIN HCL 1,000 MG, VIAL MATE ADAPTER 1 EACH in D5W 250 ML IV SCH (18:45)
[2016-11-27] MEDS: NS 1,000 ML IV SCH (19:00)
[2016-11-27] MEDS ORDERED: SODIUM CHLORIDE 0.9% 1000 ML IV ONE (19:15)
--- NOTE | 2016-11-27 20:13 | HPE ---
DATE OF ADMISSION: 11/27/2016 PRIMARY CARE PROVIDER: Dr. 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 The patient stated on 11/26/2016 at 3:00 a.m., the patient woke up in the middle of the night with worsening pain of the left lower extremity. Since then, the patient is noted to have worsening erythema, swelling and sharp pain from the left distal lower extremity and progressing upwards. Those symptoms never happened before. The patient denies any fever or chills, denies any chest pain or shortness of breath. At her baseline, the patient does have a systolic blood pressure running around 90s. After the patient arrived in the emergency room, the patient was found to have significant hypotension with systolic blood pressure around 76 with diastolic function of 49. Patient also found to have a WBC of 24.4. Blood culture was obtained, and the patient started on empiric antibiotics, and the hospitalist team was called for admission. ALLERGIES: PENICILLIN (rash). DIAZEPAM (significant sedation). PAST MEDICAL HISTORY: Atrial fibrillation, on aspirin only. 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 COPD. Chronic lumbar fracture with spinal stenosis resulting in chronic intractable back pain. PAST SURGICAL HISTORY: Hysterectomy. Cataract surgery. SOCIAL HISTORY: Smoked more than 60 years, quit smoking a few years ago. Denied alcohol use. Denied recreational drug use. Patient is DO NOT RESUSCITATE (DNR), DO NOT INTUBATE (DNI), forms were obtained in the last few hospitalizations. REVIEW OF SYSTEMS: GENERAL: Denies any fever or chills. HEENT: Denies any vision changes, auditory changes. CARDIOVASCULAR: History of atrial fibrillation. Denied any chest pain or palpitations. Normal systolic blood pressure running around 90s. RESPIRATORY: History of COPD. Denies any cough or sputum production. GASTROINTESTINAL: Denies nausea, vomiting, diarrhea or abdominal pain. MUSCULOSKELETAL: Chronic bilateral lower extremity swelling. The patient presented with acute worsening of the left lower extremity swelling, erythema and pain, started since 11/26/2016. NEUROLOGICAL: The patient does have chronic lumbar fracture with spinal stenosis , resulting in intractable back pain. The patient is being followed frequently with pain management, Dr. Rizvi. Denies any new numbness or tingling. VITAL SIGNS: Temperature is 98, pulse is 89, respirations 18, blood pressure is 77/51, pulse oximetry is 97% in room air. GENERAL: Moderate distress secondary to significant left lower extremity tenderness. Patient is alert and oriented times three. HEENT: Normocephalic, atraumatic. Extraocular motor grossly intact. CARDIOVASCULAR: Irregularly irregular, positive S1, S2. Heart rate is running around 80s. RESPIRATORY: Very distant lung sounds. No wheezes or crackles can be appreciated. GASTROINTESTINAL: Abdomen is soft, nontender, nondistended. Bowel sounds present. MUSCULOSKELETAL: 3+ pitting edema bilaterally, left worse than the right. There is some erythema from the ankle area to below the knee. Very significant tenderness to palpation. There is also a chronic wound of the right lower extremity near the heel. The patient also has a healing traumatic wound right at the right anterior larson. No active discharge noted. There is a scab covering the wound. NEUROLOGICAL: Sensation to fine touch grossly intact. Muscle strength 5/5. LABORATORY DATA: WBC is 24.4, hemoglobin is 9.7, hematocrit 28.2, platelet count is 201. Sodium is 131, potassium 3.3, chloride is 91, carbon dioxide 30, BUN 25, creatinine 1.21, GFR is 44.6, fasting glucose 109, lactic acid 2.7, calcium is 8.2, total bilirubin is 2.5, direct bilirubin is 0.6, AST 18, ALT 25, alkaline phosphatase 101, total CK is 55, troponin I is less than 0.02. BNP is 534., total protein 6.1, albumin 3.2, TSH is 1.58, free T4 is 1.45. Microbiology: Blood culture is pending times two sets. IMAGING STUDIES: Chest x-ray showed chronic stable changes. No acute cardiopulmonary process. Bilateral lower extremity Doppler shows no evidence of deep vein thrombosis (DVT). ASSESSMENT AND PLAN: 1. Sepsis. Most likely secondary to left lower extremity soft tissue infection. The patient will be admitted to the progressive care unit (PCU) under inpatient status. The patient currently has very soft blood pressures, and the patient is receiving intermittent bolus, and the patient will continue on the hydration after the bolus. With fluid resuscitation, the patient's blood pressure improved to 91/55 at the time of the encounter. 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 We will be very cautious regarding the fluid. The patient was started on broad-spectrum antibiotic of vancomycin and meropenem. The patient does have an allergy to penicillin. Will follow with blood cultures. 2. Diastolic congestive heart dysfunction. With the right cor pulmonale, the patient was admitted previously with exacerbations. Currently, the patient needs fluid resuscitation for sepsis, but we will be very cautious to observe any sign of fluid overload. Continue input, output and daily weight. The patient's diuretic of torsemide will be on hold at this moment. 3. Chronic obstructive pulmonary disease. Does not have any exacerbation at this moment. The patient will have a nebulizer treatment if needed. 4. Chronic intractable back pain secondary to chronic lumbar fracture and spinal stenosis. The patient has been followed as an outpatient with Dr. Rizvi and the patient had frequent spinal steroid injections. Currently, we will maintain the patient on Percocet 1-2 tablets by mouth every 4 hours as needed. 5. History of pulmonary nodules. At the last admission, the patient was found to have a 5 mm right middle lobe pulmonary nodule, followed with a repeat scan in the outpatient setting after the patient discharged from current hospitalization. 6. Atrial fibrillation. patient had a discussion with the primary care provider , and the patient is not on any anticoagulation except for aspirin 325 mg by mouth daily. Currently, the patient's heart rate is in satisfactory range. Due to significant hypotension, the patient's Zebeta will be on hold. 7. Acute kidney injury in September 2016. Currently, the patient does have a mild decrease in renal function. However, will continue to monitor. The patient requires gentle fluid resuscitation at this moment. Will follow with renal function in the morning. 8. Deep vein thrombosis (DVT) prophylaxis. Patient is on heparin. MTDD
[2016-11-27] MEDS ORDERED: LORATADINE 10 MG TAB PO SCH (21:00)
[2016-11-27] MEDS: HEPARIN SOD (PORCINE) 5000 UNITS/ML VIAL SC SCH (21:02)
[2016-11-27 21:08] LABS: ERYTHROCYTE SEDIMENTATION RATE 58 mm/hr (0-42)
[2016-11-27] MEDS: LIDOCAINE 5% (LIDODERM) PATCH TD PRN (22:00)
[2016-11-27] MEDS ORDERED: NS 1,000 ML IV ONE (23:15)
[2016-11-28] VITALS (33 sets, daily range): BP systolic 67–127; BP diastolic 36–71
[2016-11-28] MEDS ORDERED: SODIUM CHLORIDE 0.9% 1000 ML IV ONE (02:15)
[2016-11-28] MEDS: ADVAIR HFA 115/21MCG INHALER INH SCH ×3 (02:37→20:24)
--- NOTE | 2016-11-28 02:46 | IPNPDOC ---
Text Note Date of Service The patient was seen on 11/28/16. NOTE Throughout this evening I was called to evaluate patient on several occasions between the hours of 800PM to 200AM. The patient has been noted to have severe intractable back pain and was also noted to have hypotension (SBP <80). Upon discussion with the patient and the son we had attempted to improve the blood pressure with IV fluids for resuscitation and continue with antibiotics. We would continue to hold additional pain medications given that her blood pressure was low. Despite this plan, the patients blood pressure continue to decline throughout the course of the night and failed to improve with IV fluids. She remained asymptomatic about the blood pressure. Her biggest concern was the pain. After receiving 3L of NS her blood pressure remained in the 80s and it was planned for a central line placement with Dr. Gerardo, who had come into the ICU at 200AM. After discussion with the patient and the son, the patient decided that she did not want any aggressive interventions, she was made aware of the fact that this would no longer improve her blood pressure should aggressive measures be required. She is made aware that if her blood pressure continues to decline without supportive medications that she could . At the point we will continue with IV fluids and antibiotics. Her MOLST form was updated to reflect limited medical intervention. VS,Fishbone, I+O VS, Fishbone, I+O Laboratory Tests 11/27/16 15:06 Red Blood Count 2.64 L, Mean Corpuscular Volume 106.8 H, Mean Corpuscular Hemoglobin 36.5 H, Mean Corpuscular Hemoglobin Concent 34.2, Red Cell Distribution Width 15.2 H Vital Signs Date Time Temp Pulse Resp B/P (MAP) Pulse Ox O2 Delivery O2 Flow Rate FiO2 11/27/16 23:24 22 11/27/16 20:39 97.4 11/27/16 20:21 82 97 11/27/16 13:52 Room Air I&O- Last 24 Hours up to 6 AM 11/28/16 05:59 Intake Total 930 ml Balance 930 ml ESTER PABON MD Nov 28, 2016 02:46
[2016-11-28] MEDS ORDERED: PERCOCET 5MG/325MG TAB PO ONE (03:00)
[2016-11-28] MEDS ORDERED: NS 1,000 ML IV ONE (04:45)
[2016-11-28] MEDS: HEPARIN SOD (PORCINE) 5000 UNITS/ML VIAL SC SCH ×3 (05:32→22:16)
[2016-11-28] MEDS: NS 1,000 ML IV SCH (05:43)
[2016-11-28] MEDS: MEROPENEM INJ 1 GM in D5W MINI-BAG PLUS 100 ML IV SCH ×2 (06:10→17:29)
[2016-11-28] MEDS: VANCOMYCIN HCL 750 MG, VIAL MATE ADAPTER 1 EACH in D5W 250 ML IV SCH ×2 (07:49→19:31)
[2016-11-28] MEDS: ASPIRIN ENTERIC 325 MG TAB PO SCH (08:00)
[2016-11-28] MEDS: SENOKOT S TAB PO SCH (08:01)
[2016-11-28] MEDS: CYANOCOBALAMIN 500 MCG TAB PO SCH (08:01)
[2016-11-28] MEDS: POTASSIUM CHLORIDE 10 MEQ SR TABLET PO SCH (08:01)
[2016-11-28] MEDS: PERCOCET 5MG/325MG TAB PO PRN ×4 (08:26→22:27)
[2016-11-28 08:42] LABS: INR 1.07
[2016-11-28 09:56] LABS: ALBUMIN 2.6 GM/DL (3.2-5.2); ALBUMIN/GLOBULIN RATIO 0.96 (1.00-1.93); ALKALINE PHOSPHATASE 94 U/L (45-117); ALT/SGPT 25 U/L (12-78); ANION GAP 10 MEQ/L (8-16); AST/SGOT 22 U/L (15-37); BILIRUBIN,TOTAL 1.7 MG/DL (0.2-1.0); BLOOD UREA NITROGEN 20 MG/DL (7-18); CALCIUM LEVEL 7.1 MG/DL (8.8-10.2); CARBON DIOXIDE LEVEL 22 MEQ/L (21-32); CHLORIDE LEVEL 102 MEQ/L (98-107); CREATININE FOR GFR 0.91 MG/DL (0.55-1.02); GLOMERULAR FILTRATION RATE > 60.0 (>32); GLUCOSE, FASTING 136 MG/DL (83-110); MAGNESIUM LEVEL 2.2 MG/DL (1.8-2.4); POTASSIUM SERUM 3.7 MEQ/L (3.5-5.1); SODIUM LEVEL 134 MEQ/L (136-145); TOTAL PROTEIN 5.3 GM/DL (6.4-8.2)
[2016-11-28 10:02] LABS: ADD MANUAL DIFFER YES; DIFF SLIDE NUMBER 143; MEAN CORPUSCULAR HEMOGLOBIN 36.3 pg (27.0-33.0); MEAN CORPUSCULAR HGB CONC 33.4 g/dl (32.0-36.5); MEAN CORPUSCULAR VOLUME 108.7 fl (80.0-96.0); PLATELET COUNT, AUTOMATED 182 k/mm3 (150-450); RED CELL DISTRIBUTION WIDTH 15.5 % (11.5-14.5); WHITE BLOOD COUNT 20.5 K/mm3 (4.0-10.0)
[2016-11-28 10:32] LABS: EOSINOPHILS 2 % (0-5)
[2016-11-28 10:35] LABS: DOHLE BODIES 1+; TOXIC GRANULATION 1+
[2016-11-28 10:38] LABS: POLYCHROMASIA 1+
--- NOTE | 2016-11-28 12:40 | REP ---
Clinical: Central line placement. Comparison: 11/27/2016. Findings: Right central line with tip in the SVC. Mediastinum and cardiac silhouette are stable with atherosclerotic changes to the thoracic aorta noted along with mild cardiomegaly. The lung post demonstrate diffuse chronic interstitial changes and suspected superimposed interstitial edema as well as trace basilar atelectasis. No obvious pneumothorax. Cannot exclude small right pleural effusion. Skeletal structures stable. Impression: 1. Central venous catheter in satisfactory position. No obvious pneumothorax. 2. Cannot exclude interstitial edema and right lower lobe atelectasis/possible small effusion. Signed by Ousmane Perez MD 11/28/2016 12:31 P
--- NOTE | 2016-11-28 14:33 | CCN ---
DATE: 11/28/2016 I was called to evaluate this 89-year-old female in the intensive care unit with sepsis and shock not responsive to fluid administration. There is a past medical history in the electronic record of obstructive lung disease, congestive heart failure diastolic, anemia and spinal stenosis with significant pain issues. She presented to the hospital with pain and swelling in her left leg and was admitted with diagnosis of cellulitis and now despite 6 liters of fluid blood pressure is soft. At bedside, she is ill-appearing, able to respond to simple questions, awake, but complaining of pain in her back and legs. Her temperature is 98, pulse rate is 80, respirations 20, blood pressure 79/50. HEENT: Oral and nasal mucosa are pink. Her posterior pharynx is not erythematous. Jugular veins are distended to 5-6 cm. Carotid upstroke is sluggish. Heart: Sounds are irregularly irregular. Breath sounds are coarse with rales in the bases. Chest is symmetric and increased in its AP diameter. Abdomen is soft. Bowel sounds in right lower quadrant. Extremities are edematous. Pulses are able to be palpated, but quite diminished. DIAGNOSTIC STUDIES: White cell count is 20.5, hemoglobin 7.6, hematocrit 22.9, and platelet count 182,000. Differential white cell count shows 97% neutrophils, toxic granulation Dohle bodies. There is also polychromasia and basophilic stippling and microcytosis. Her electrolytes are sodium 134, potassium 3.7, chloride 102, CO2 22, BUN 20, creatinine 0.9, and glucose is 136. Her lactic acid was 2.7 and is now 1.9. Serum calcium is 7.1, but the albumin is 2.6. Total bilirubin is down from 2.5 to 1.7. Urinalysis shows 2+ protein, 1+ glucose, 3+ blood, leukocyte esterase positive, too many white cells to count, and bacteria were not seen. Blood cultures have been obtained as has a urine culture and results are pending. Chest x-ray has just been performed and shows cardiomegaly and prominence of the interstitium. The primary problem requiring critical attention is severe sepsis with shock. The patient will require central venous access and pressor therapy to maintain a mean arterial pressure of 60. Broad-spectrum antibiotics have already been initiated and would seem appropriate pending culture results. Sources of her infection are likely urinary and possibly due to cellulitis of her legs. Ulcer prophylaxis will be initiated with Protonix. Deep vein thrombosis (DVT) prophylaxis has been initiated with subcutaneous heparin. The patient's condition is critical. Prognosis is guarded. 77 minutes was spent in the provision of bedside critical care and coordination, exclusive of procedure time. CC. HISTORY OF PRESENT ILLNESS Dictated
[2016-11-28] MEDS: NOREPINEPHRINE BITARTRATE 8 MG in D5W 500 ML IV SCH (15:34)
[2016-11-28] MEDS: PANTOPRAZOLE 40MG TAB (PROTONIX) PO SCH (15:35)
--- NOTE | 2016-11-28 19:21 | ECGEPIP ---
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
--- NOTE | 2016-11-28 19:59 | IPN ---
DATE: 11/28/2016 SUBJECTIVE: The patient is seen and examined in the room. The patient's two sons are also present during encounter. We had a long discussion about the patient's significant infection causing hemodynamic instability. Initially the patient was strongly against central line placement; however, the patient had a long discussion with both sons and after the family meeting, they signed a consent for the blood product transfusion and also gave the consent for central line placement. The patient continues to have significant pain from the lower back, and the patient feels that her life quality is not good due to severe and persistent chronic pain. The patient has been on continuous fluid resuscitation, and the patient has been receiving multiple boluses. However, the patient's blood pressure has continued to remain soft. OBJECTIVE: VITAL SIGNS: Temperature 98.4, pulse is 92, respirations 21, blood pressure is 90/53, pulse oximetry 97% on room air. GENERAL: Moderate to severe distress secondary to severe pain and unstable vitals. The patient is alert and awake, able to make decisions. HEENT: Normocephalic, atraumatic. Extraocular motor grossly intact. CARDIOVASCULAR: Positive S1, S2. Irregularly irregular. LUNGS: There are bilateral crackles and coarse lung sounds, but I cannot appreciate any wheezes. GASTROINTESTINAL: Abdomen soft, nontender, nondistended. MUSCULOSKELETAL: At last 3+ pitting edema bilaterally, left greater than right. This is significantly tender to palpation of bilateral lower extremities, left greater than right. The patient also has a chronic wound at the right lower extremity near the larson. There is a scab covering the wound. There continues to be erythema at the left lower extremity below the knee. LABORATORY DATA: WBC 20.5, hemoglobin 7.6, hematocrit 22.9, platelet count is 182. Sodium is 134, potassium 3.7, chloride 102, carbon dioxide 22, BUN 20, creatinine 0.91, GFR greater than 60, fasting glucose 136, calcium 7.1, magnesium 2.2, total bilirubin 1.7, AST 22, ALT 25, alkaline phosphatase 94. C-reactive protein is 11.4. Total protein 5.3, albumin 2.6. ASSESSMENT AND PLAN: 1. Septic shock. Initially the patient has been receiving multiple fluid boluses and continue on continuous IV fluid, and the patient's blood pressure continues to be very soft. There are multiple times that the patient's systolic blood pressure would drop in the low 70s. The lowest mean arterial pressure (MAP ) would be around 49. After a long discussion with the patient and the patient's two sons, they finally agreed for central line placement, and the balance staff inspector, Dr. Gerardo is consulted, and the patient has a peripherally inserted central catheter (PICC) line is inserted. The patient started on pressors. The patient is currently on broad-spectrum antibiotics with vancomycin and meropenem. The patient does have an allergy to PENICILLIN. The patient's prognosis is guarded. We appreciate Dr. Gerardo's assistance. The patient has a positive urinalysis (UA). We are awaiting for urine culture. 2. Chronic obstructive pulmonary disease (COPD). Currently this does not have any sign of exacerbation. The patient does have breathing treatment as needed. 3. Atrial fibrillation. Currently heart rate is in the satisfactory range. The patient has been taking aspirin only. 4. 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 The patient does have significant sign of fluid overload, actually sign of right-sided congestive heart failure. However, due to patient being treated for septic shock, the patient is on IV fluid. We will continue to monitor the patient's fluid status. 5. 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 We will be cautious regarding the patient's pain medication. However, we also want to provide adequate control for her excruciating pain. The patient has frequent emotional instability due to intractable with frequent acute flares. 6. History of pulmonary nodules. The patient was found to have a 5 mm right middle lobe pulmonary nodules. 7. Acute kidney injury. Today the patient's renal function returned to normal range. 8. Deep venous thrombosis (DVT) prophylaxis on heparin. MTDD
[2016-11-28] MEDS: **NOTE PATIENT COMMENT** MISC XX SCH (21:00)
[2016-11-29] VITALS (16 sets, daily range): BP systolic 86–119; BP diastolic 47–72
[2016-11-29] MEDS: NOREPINEPHRINE BITARTRATE 8 MG in D5W 500 ML IV SCH (02:20)
[2016-11-29] MEDS: PERCOCET 5MG/325MG TAB PO PRN ×4 (04:08→20:00)
[2016-11-29] MEDS: HEPARIN SOD (PORCINE) 5000 UNITS/ML VIAL SC SCH ×3 (05:28→22:00)
[2016-11-29] MEDS: MEROPENEM INJ 1 GM in D5W MINI-BAG PLUS 100 ML IV SCH ×2 (05:28→17:18)
--- NOTE | 2016-11-29 06:49 | RO ---
DATE OF PROCEDURE: 11/28/2016 PREOPERATIVE DIAGNOSIS: Hypotension. POSTOPERATIVE DIAGNOSIS: Hypotension. PROCEDURE PERFORMED: Right subclavian CVP placement. SURGEON: Daniel Gerardo DO CHASER HELPER: ANESTHESIA: DESCRIPTION OF PROCEDURE: The patient was seen and the procedure explained to the patient as well as were all of the possible complications pertaining thereto including, but not limited to bleeding, infection, medication reaction, lung collapse. An informed consent was obtained. The patient was placed in a supine position. The skin overlying the right subclavian vein was prepped with Chloraprep and draped in a sterile fashion. A 25-gauge needle was used to raise a skin wheal of 1% lidocaine. Thereafter a 17-gauge introducer needle was placed in through the skin and into the right subclavian vein. Free return of venous blood was obtained. A vascular tip Guidewire was advanced and a small incision made adjacent to the Guidewire. A triple lumen catheter was placed over the guidewire to a distance of 15 cm. The wire was removed and the catheter was sewn in place. A sterile dressing was applied. A post procedural chest x-ray has been ordered. There were no apparent complication.
[2016-11-29 07:02] LABS: BASO % 0.1 % (0.0-1.0); EOS # 0.4 K/mm3 (0.0-0.50); EOS % 1.9 % (0.0-3.0); LARGE UNSTAINED CELL # 0.1 K/mm3 (0.0-0.4); LARGE UNSTAINED CELL % 0.4 % (0.0-4.0); LYMPH % 4.2 % (24.0-44.0); MEAN CORPUSCULAR HGB CONC 33.8 g/dl (32.0-36.5); MEAN CORPUSCULAR VOLUME 109.5 fl (80.0-96.0); MONO # 0.4 K/mm3 (0.0-0.8); MONO % 1.6 % (0.0-5.0); NEUTROPHILS # 19.7 K/mm3 (1.8-7.7); NEUTROPHILS % 91.8 % (36.0-66.0); PLATELET COUNT, AUTOMATED 188 k/mm3 (150-450); RED CELL DISTRIBUTION WIDTH 15.5 % (11.5-14.5); WHITE BLOOD COUNT 21.5 K/mm3 (4.0-10.0)
[2016-11-29 07:26] LABS: ALBUMIN 2.8 GM/DL (3.2-5.2); ALBUMIN/GLOBULIN RATIO 1.04 (1.00-1.93); ALKALINE PHOSPHATASE 116 U/L (45-117); ALT/SGPT 26 U/L (12-78); ANION GAP 8 MEQ/L (8-16); AST/SGOT 22 U/L (15-37); BILIRUBIN,TOTAL 1.8 MG/DL (0.2-1.0); BLOOD UREA NITROGEN 16 MG/DL (7-18); CARBON DIOXIDE LEVEL 23 MEQ/L (21-32); CHLORIDE LEVEL 103 MEQ/L (98-107); CREATININE FOR GFR 0.84 MG/DL (0.55-1.02); GLOMERULAR FILTRATION RATE > 60.0 (>32); GLUCOSE, FASTING 108 MG/DL (83-110); POTASSIUM SERUM 4.5 MEQ/L (3.5-5.1); SODIUM LEVEL 134 MEQ/L (136-145); TOTAL PROTEIN 5.5 GM/DL (6.4-8.2)
[2016-11-29] MEDS: VANCOMYCIN HCL 750 MG, VIAL MATE ADAPTER 1 EACH in D5W 250 ML IV SCH ×2 (08:10→19:58)
[2016-11-29] MEDS: SENOKOT S TAB PO SCH (08:17)
[2016-11-29] MEDS: ASPIRIN ENTERIC 325 MG TAB PO SCH (08:17)
[2016-11-29] MEDS: PANTOPRAZOLE 40MG TAB (PROTONIX) PO SCH (08:18)
[2016-11-29] MEDS: POTASSIUM CHLORIDE 10 MEQ SR TABLET PO SCH (08:18)
[2016-11-29] MEDS: CYANOCOBALAMIN 500 MCG TAB PO SCH (08:18)
--- NOTE | 2016-11-29 08:32 | REP ---
Clinical: Edema. Shortness of breath. Comparison: 11/28/2016. Findings: Right subclavian catheter with tip in the SVC unchanged. Mediastinum and cardiac silhouette remains stable. The lung post demonstrate diffuse chronic interstitial changes and superimposed interstitial edema as well as right lower lobe infiltrate and small to moderate right pleural effusion identified. No pneumothorax. Skeletal structures demonstrate osteopenia and degenerative changes. Impression: Findings suggest interstitial edema with right lower lobe opacity and small to moderate pleural effusion. Signed by Ousmane Perez MD 11/29/2016 08:24 A
[2016-11-29] MEDS: ADVAIR HFA 115/21MCG INHALER INH SCH ×2 (08:34→19:47)
[2016-11-29] MEDS ORDERED: FUROSEMIDE 40 MG/4 ML VIAL (J1940) IV ONE ×2 (09:00→22:30)
--- NOTE | 2016-11-29 09:28 | PHACANCOPD ---
PHARMACY VANCOMYCIN DOSING Pt Demographics Demographics Patient Age:89 , Weight:53.000 , Gender: female Adjusted Body Weight Date: 11/29/16, Adjusted Body Weight: [NA] Kg Events Past 24 Hours Events Past 24 Hours: YES: Change in CrCl, Elevation in WBC, NO: Dialysis, Diuretic Therapy, Fever, Pending Diagnostics, Pending Procedures, Other Vancomycin Vancomycin indication: sepsis Vancomycin Target Ranges: 15-20 mcg/ml Vancomycin Load Y/N: Yes Load Dose Date Time Vancomycin Load Dose: 1000mg Date: 11/27 Time: 17:00 Vancomycin Dose Date: 11/28/16. Current Vancomycin Dose: [750mg IV q12h @08] Intermittent Dosing?: No Labs Labs Item Value Date Time Vancomycin Level Trough 18.6 UG/ML 11/29/16 0650 Item Value Date Time White Blood Count 24.4 K/mm3 H 11/27/16 1506 Lactic Acid Level 2.7 MMOL/L *H 11/27/16 1506 Creatinine 1.21 MG/DL H 11/27/16 1506 White Blood Count 20.5 K/mm3 H 11/28/16 0945 White Blood Count 21.5 K/mm3 H 11/29/16 0650 Lactic Acid Level 1.9 MMOL/L 11/28/16 0051 Creatinine 0.91 MG/DL 11/28/16 0927 Creatinine 0.84 MG/DL 11/29/16 0650 C-Reactive Protein, Quantitative 11.40 MG/DL H 11/28/16 0927 Micro Microbiology 11/27/16 Blood Culture - Preliminary, Resulted No growth after 24 hours . All specim... 11/27/16 Blood Culture - Preliminary, Resulted No growth after 24 hours . All specim... 11/28/16 Urine Culture, Received Pending Creatinine Clearance Date:11/29/16. Creatinine Clearance: [35 ml/min] Date:11/27/16. Creatinine Clearance: [25 ml/min]. . Pending Labs repeat vanco trough 12/01 @07:00 Assessment and Plan Maintaining Current Dose?: Yes Reason for dose change: No Dose Change Pharmacist Note Pharmacist Note Date: 11/29/16. Pharmacist note: pt was admitted 11/27 for sepsis and she was started on broad spectrum antibiotics meropenem and vancomycin. Her SCr has improved since admission, WBCs still elevated. Pt has not been on vancomycin at our facility in the past nor does she have an apparent Hx of MRSA. She was started on a 1g load followed by 750mg IV q12h. Vanco trough drawn ~1hr before the 4th dose was 18.6 mcg/ml. I will repeat a trough Wednesday morning assuming no acute changes in renal function. Her pressures have improved. All cultures have been NGTD. We will continue to monitor. Shakeel Hayward.D. Nov 29, 2016 09:28
--- NOTE | 2016-11-29 14:22 | IPN ---
DATE: 11/29/2016 SUBJECTIVE: The patient is seen and examined in the room today. This morning, the patient is having increasing shortness of breath starting to require oxygen supplement. The patient's pain is better controlled. The patient still has very poor oral intake. The patient's blood pressure has been maintained. Since yesterday at noon time, the patient starting having very limited urinary output and this morning, the output started to improve. OBJECTIVE: VITAL SIGNS: Temperature 98.7, pulse 108, respiration 25, blood pressure is 109/55, pulse ox is 95% with 4 liters nasal cannula. GENERAL: Fatigued male in distress secondary to difficulty breathing and back pain. The patient is alert and oriented times three. HEENT: Normocephalic, atraumatic. Extraocular muscles grossly intact. CARDIOVASCULAR: Irregularly irregular pulse, S1, S2. At the time of my encounter, the patient's heart rate is running around 100. LUNGS: Positive bilateral crackles primarily at the lower base, but I cannot appreciate any wheezes. ABDOMEN: Soft, nontender, nondistended. MUSCULOSKELETAL: At least 3+ pitting edema of the bilateral lower extremities. Left foot is worse than the right. Extremity is tender to palpation bilaterally. The left lower extremity is worse than the right lower extremity. There is also significant erythema below the left knee. Does show chronic wound located on the right anterior larson. The wound is covered by a scab. LABORATORY DATA: WBC 31.5, hemoglobin 8, hematocrit 23.7, platelet count 188. Sodium 134, potassium 4.5, chloride is 103, carbon dioxide 23, BUN 16, creatinine 0.84, GFR greater than 60, fasting glucose is 108, calcium is 8, total bilirubin is 1.8, AST 22, ALT 26, alkaline phosphatase 116. Total protein is 5.5, albumin 2.8. ASSESSMENT/PLAN: 1. Septic shock secondary to urinary tract infection and cellulitis. Urine culture is still pending empirically. The patient is started on vancomycin and meropenem due to penicillin allergies. Previously the patient was on aggressive IV resuscitation, however, the patient had difficulty maintaining good blood pressures. So central subclavian line was placed by Dr. Gerardo. Intermittently, the patient has to use pressors to maintain satisfactory pressures. Due to concerned for the fluid overload, the fluids were discontinued yesterday evening. However, this morning, the patient still started to have fluid overload especially in the lungs and started requiring increased hydration requirements. Portable chest was performed and one dose of IV Lasix was given to the patient to facilitate fluid removal. Before receiving a consent for the central line, the patient had received approximately 8.1 liters of fluid resuscitation on 11/28/2016. 2. Chronic obstructive pulmonary disease (COPD): The patient does not have any sign of exacerbations. Continue breathing treatment as needed. 3. Atrial fibrillation: The patient's heart rate is maintained around 100. The patient is only taking a full dose of aspirin and will continue the aspirin. 4. 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 Fluid has to be given to the patient to maintain blood pressures. Now the patient has signs of fluid overload. Fluid was discontinued. Continue to monitor ventral venous pressure (CVP) and we will start a trial of one dose of IV Lasix and continue to monitor the fluid status. 5. Chronic lumbar fracture with spinal stenosis resulting in chronic intractable back pain. The patient's home pain medication reviewed. The patient currently is on Percocet one tablet by mouth every 4 hours, and per patient, the patient's pain is under control. At this moment, the patient does not require escalation of her medication requirement. 6. History of pulmonary nodules: The patient has a 5 mm right middle lobe pulmonary nodule. May benefit from routine outpatient followup. 7. History of acute kidney injury: Currently renal function has been in the normal range in the past 48 hours. 8. Deep venous thrombosis (DVT) prophylaxis on heparin.
[2016-11-29] MEDS: ALBUTEROL SULFATE 2.5 MG/0.5 ML INH NEB SOLN NEB PRN (18:19)
[2016-11-29] MEDS: **NOTE PATIENT COMMENT** MISC XX SCH (21:00)
--- NOTE | 2016-11-29 23:30 | REPUSA ---
Clinical history: Shortness of breath. Comparison: 11/27/2016. Findings: The mediastinum and cardiac silhouette are within normal limits. There are diffuse bilatera l interstitial infiltrates. There is a focal right upper lobe infiltrate. There is also a right lower lobe infiltrate with pleural effusion. The osseous structures and soft tissues are unremarkable. Impression: 1. Right lower lobe infiltrate with pleural effusion. 2. Right upper lobe infiltrate. 3. Mild congestive heart failure.
[2016-11-30] VITALS (10 sets, daily range): BP systolic 89–114; BP diastolic 50–60
[2016-11-30] MEDS: PERCOCET 5MG/325MG TAB PO PRN ×4 (00:47→19:16)
[2016-11-30] MEDS: MEROPENEM INJ 1 GM in D5W MINI-BAG PLUS 100 ML IV SCH ×2 (05:27→18:30)
[2016-11-30] MEDS: HEPARIN SOD (PORCINE) 5000 UNITS/ML VIAL SC SCH ×3 (05:27→22:17)
[2016-11-30 05:51] LABS: ADD MANUAL DIFFER YES; MEAN CORPUSCULAR HEMOGLOBIN 37.5 pg (27.0-33.0); MEAN CORPUSCULAR HGB CONC 34.3 g/dl (32.0-36.5); MEAN CORPUSCULAR VOLUME 109.2 fl (80.0-96.0); PLATELET COUNT, AUTOMATED 181 k/mm3 (150-450); WHITE BLOOD COUNT 19.2 K/mm3 (4.0-10.0)
[2016-11-30 06:11] LABS: ALBUMIN 2.7 GM/DL (3.2-5.2); ALBUMIN/GLOBULIN RATIO 1.04 (1.00-1.93); ALKALINE PHOSPHATASE 118 U/L (45-117); ALT/SGPT 23 U/L (12-78); ANION GAP 8 MEQ/L (8-16); AST/SGOT 14 U/L (15-37); BILIRUBIN,TOTAL 1.9 MG/DL (0.2-1.0); BLOOD UREA NITROGEN 14 MG/DL (7-18); CALCIUM LEVEL 8.1 MG/DL (8.8-10.2); CARBON DIOXIDE LEVEL 27 MEQ/L (21-32); CHLORIDE LEVEL 99 MEQ/L (98-107); CREATININE FOR GFR 0.86 MG/DL (0.55-1.02); GLOMERULAR FILTRATION RATE > 60.0 (>32); GLUCOSE, FASTING 99 MG/DL (83-110); POTASSIUM SERUM 3.9 MEQ/L (3.5-5.1); SODIUM LEVEL 134 MEQ/L (136-145); TOTAL PROTEIN 5.3 GM/DL (6.4-8.2)
[2016-11-30 06:22] LABS: EOSINOPHILS 1 % (0-5)
[2016-11-30 06:26] LABS: DOHLE BODIES 1+; POLYCHROMASIA 1+; TOXIC VACUOLATION 1+
[2016-11-30 07:05] LABS: MAGNESIUM LEVEL 2.1 MG/DL (1.8-2.4)
[2016-11-30] MEDS: ADVAIR HFA 115/21MCG INHALER INH SCH ×2 (07:33→20:05)
[2016-11-30] MEDS ORDERED: FUROSEMIDE 40 MG/4 ML VIAL (J1940) IV ONE (08:00)
[2016-11-30] MEDS: VANCOMYCIN HCL 750 MG, VIAL MATE ADAPTER 1 EACH in D5W 250 ML IV SCH ×2 (08:21→19:15)
[2016-11-30] MEDS: CYANOCOBALAMIN 500 MCG TAB PO SCH (08:50)
[2016-11-30] MEDS: ASPIRIN ENTERIC 325 MG TAB PO SCH (08:51)
[2016-11-30] MEDS: PANTOPRAZOLE 40MG TAB (PROTONIX) PO SCH (08:51)
[2016-11-30] MEDS: SENOKOT S TAB PO SCH (08:51)
[2016-11-30] MEDS: POTASSIUM CHLORIDE 10 MEQ SR TABLET PO SCH (08:52)
[2016-11-30] MEDS: **NOTE PATIENT COMMENT** MISC XX SCH (21:00)
--- NOTE | 2016-11-30 22:30 | IPN ---
DATE: 11/30/2016 SUBJECTIVE: Patient is seen and examined in the morning and in the afternoon. During this morning, patient stated she is not feeling well, she is having difficulty breathing, any type of minor exertion, even moving on her bed, will cause worsening shortness of breath. In the afternoon, patient stated her breathing is improving and her pain is controlled. OBJECTIVE: VITAL SIGNS: Temperature is 98, pulse is 98, respirations 20, blood pressure 109/56, pulse oximetry is 97% with 2 liters nasal cannula. GENERAL: Mild to moderate sign of distress secondary to difficulty breathing. Alert and oriented times three. HEENT: Normocephalic, atraumatic. Extraocular motors grossly intact. CARDIOVASCULAR: Irregularly irregular, positive S1, S2, tachycardic. Heart rate greater than 100. LUNGS: Positive bilateral crackles more significant in the lower base but I cannot appreciate any wheezes. ABDOMEN: Soft, nontender, nondistended. EXTREMITIES: At least 3+ pitting edema of the bilateral lower extremities, left worse than on the right. There is also significant erythema of the left lower extremity below the knee, improved compared to yesterday. Patient also has a chronic wound covered with a scab in the mid anterior larson. There is a healing wound near the medial side of the right distal lower extremity. No active bleeding. LABORATORY DATA: WBC 19.2, hemoglobin 8.1, hematocrit 23.5, platelet count 181. Sodium 134, potassium 3.9, chloride 99, carbon dioxide 27, BUN 14, creatinine 0.86, GFR greater than 60, fasting glucose 99, calcium 8.1, magnesium 2.1, total bilirubin 1.9, AST 14, ALT 23, alkaline phosphatase 118, C-reactive protein 10.3, total protein 5.3, albumin 2.7. Urine culture is negative. ASSESSMENT AND PLAN: 1. Septic shock. Patient has a clinical finding of cellulitis initially. We suspected patient had a urinary tract infection due to the positive urinalysis. However, urine culture came back negative. Patient has been off the pressors. Patient is started on broad-spectrum antibiotic of vancomycin and meropenem. Patient does have a penicillin allergy. Previously, patient had aggressive IV resuscitation to maintain vital sign instability, however, shortly after admission, patient continued to have very soft blood pressure and it was very difficult to maintain with IV fluids only and consent was obtained and patient had a central line insertion and patient was on the pressor intermittently since. Since yesterday, patient started having signs of fluid overload. IV fluid was discontinued. Continue to monitor central venous pressure (CVP) and patient has been getting intermittent Lasix. Since 11/28/2016, patient has greater than 10 liters of fluid resuscitation. 2. Acute chronic respiratory distress. Patient has baseline chronic obstructive pulmonary disease (COPD) but patient did not present with signs of respiratory distress. Patient is still having difficulty breathing after aggressive fluid resuscitation to maintain blood pressure for patient's septic shock. Currently, patient requires oxygen support and we have been giving patient intermittent IV Lasix diuresis for fluid removal. Continue to monitor the blood pressure and continue to monitor the central venous pressure (CVP). 3. Chronic obstructive pulmonary disease (COPD). No sign of exacerbation. Continue breathing treatment as needed. 4. Atrial fibrillation. Currently, patient has tachycardia most likely secondary to her acute severe sepsis. At baseline, patient is only taking full dose aspirin. 5. 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 Currently, patient has fluid overload due to aggressive IV resuscitation for patient's septic shock. Currently, patient has been receiving intermittent Lasix diuresis based on patient's fluid status. 6. Chronic lumbar fracture with spinal stenosis resulting in chronic intractable back pain. Currently, pain is controlled. 7. History of pulmonary nodules. Patient has a 5 mm right middle lobe pulmonary nodule. May benefit from routine outpatient followup. 8. History of acute kidney injury. Renal function is in normal range currently. 9. Deep venous thrombosis (DVT) prophylaxis, on heparin.
[2016-12-01] VITALS (7 sets, daily range): BP systolic 90–116; BP diastolic 51–64
[2016-12-01] MEDS: PERCOCET 5MG/325MG TAB PO PRN ×5 (00:42→18:24)
[2016-12-01] MEDS: MEROPENEM INJ 1 GM in D5W MINI-BAG PLUS 100 ML IV SCH ×2 (05:05→17:38)
[2016-12-01] MEDS: HEPARIN SOD (PORCINE) 5000 UNITS/ML VIAL SC SCH ×3 (05:05→21:57)
[2016-12-01 05:24] LABS: BASO % 0.1 % (0.0-1.0); EOS # 0.2 K/mm3 (0.0-0.50); EOS % 0.9 % (0.0-3.0); LARGE UNSTAINED CELL # 0.1 K/mm3 (0.0-0.4); LARGE UNSTAINED CELL % 0.6 % (0.0-4.0); LYMPH # 0.9 K/mm3 (1.5-4.5); LYMPH % 4.8 % (24.0-44.0); MEAN CORPUSCULAR HEMOGLOBIN 37.3 pg (27.0-33.0); MEAN CORPUSCULAR VOLUME 106.7 fl (80.0-96.0); MONO # 0.3 K/mm3 (0.0-0.8); MONO % 1.6 % (0.0-5.0); NEUTROPHILS # 14.6 K/mm3 (1.8-7.7); PLATELET COUNT, AUTOMATED 141 k/mm3 (150-450); RED CELL DISTRIBUTION WIDTH 15.5 % (11.5-14.5); WHITE BLOOD COUNT 15.9 K/mm3 (4.0-10.0)
[2016-12-01 05:42] LABS: ALBUMIN 2.2 GM/DL (3.2-5.2); ALBUMIN/GLOBULIN RATIO 1.05 (1.00-1.93); ALKALINE PHOSPHATASE 95 U/L (45-117); ALT/SGPT 19 U/L (12-78); ANION GAP 8 MEQ/L (8-16); AST/SGOT 12 U/L (15-37); BILIRUBIN,TOTAL 1.8 MG/DL (0.2-1.0); BLOOD UREA NITROGEN 14 MG/DL (7-18); CALCIUM LEVEL 7.3 MG/DL (8.8-10.2); CARBON DIOXIDE LEVEL 28 MEQ/L (21-32); CHLORIDE LEVEL 98 MEQ/L (98-107); CREATININE FOR GFR 0.64 MG/DL (0.55-1.02); GLOMERULAR FILTRATION RATE > 60.0 (>32); GLUCOSE, FASTING 105 MG/DL (83-110); POTASSIUM SERUM 3.7 MEQ/L (3.5-5.1); SODIUM LEVEL 134 MEQ/L (136-145); TOTAL PROTEIN 4.3 GM/DL (6.4-8.2)
[2016-12-01] MEDS: ADVAIR HFA 115/21MCG INHALER INH SCH (07:18)
--- NOTE | 2016-12-01 07:42 | PHACANCOPD ---
PHARMACY VANCOMYCIN DOSING Pt Demographics Demographics Patient Age:89 , Weight:51.200 , Gender: female Adjusted Body Weight Date: 11/29/16, Adjusted Body Weight: [NA] Kg Events Past 24 Hours Events Past 24 Hours: YES: Change in CrCl, NO: Dialysis, Diuretic Therapy, Fever, Elevation in WBC, Pending Diagnostics , Pending Procedures, Other Vancomycin Vancomycin indication: sepsis Vancomycin Target Ranges: 15-20 mcg/ml Vancomycin Load Y/N: Yes Load Dose Date Time Vancomycin Load Dose: 1000mg Date: 11/27 Time: 17:00 Vancomycin Dose Date: 11/28/16. Current Vancomycin Dose: [750mg IV q12h @08] Intermittent Dosing?: No Labs Labs Vital Signs Label Value Date Time Patient Temperature 99.2 degrees F 11/30/16 2000 Temperature Source Temporal 11/30/161999 Patient Temperature 98.3 degrees F 12/01/16 0001 Temperature Source Temporal 12/01/16 0001 Patient Temperature 99.6 degrees F 12/01/16 0400 Temperature Source Temporal 12/01/16 0400 Item Value Date Time White Blood Count 21.5 K/mm3 H 11/29/16 0650 White Blood Count 19.2 K/mm3 H 11/30/16 0529 White Blood Count 15.9 K/mm3 H 12/01/16 0507 Creatinine 0.84 MG/DL 11/29/16 0650 Creatinine 0.86 MG/DL 11/30/16 0529 Creatinine 0.64 MG/DL 12/01/16 0507 C-Reactive Protein, Quantitative 10.30 MG/DL H 11/30/16 0529 C-Reactive Protein, Quantitative 13.10 MG/DL H 12/01/16 0507 Vancomycin Level Trough 18.6 UG/ML 11/29/16 0650 Vancomycin Level Trough 27.7 UG/ML *H 12/01/16 0638 Micro Microbiology 11/27/16 Blood Culture - Preliminary, Resulted No Growth after 72 hours. All specime... 11/27/16 Blood Culture - Preliminary, Resulted No Growth after 72 hours. All specime... 11/28/16 Urine Culture - Final, Complete Creatinine Clearance Date:11/29/16. Creatinine Clearance: [35 ml/min] Date:11/27/16. Creatinine Clearance: [25 ml/min]. . Pending Labs repeat vanco trough 12/01 @07:00 Assessment and Plan Maintaining Current Dose?: No Reason for dose change: Trough too high Pharmacist Note Pharmacist Note 12/01/16: Trough drawn @0638 this am came back at 27.7 mcg/ml. Patient's SCr is still improving. I held patient's morning Vanco dose and will restart patient at 500mg IV Q12H starting at 2000. I will schedule a trough for tomorrow morning before next dose. We will continue to monitor and adjust dose as needed. Date: 11/29/16. Pharmacist note: pt was admitted 11/27 for sepsis and she was started on broad spectrum antibiotics meropenem and vancomycin. Her SCr has improved since admission, WBCs still elevated. Pt has not been on vancomycin at our facility in the past nor does she have an apparent Hx of MRSA. She was started on a 1g load followed by 750mg IV q12h. Vanco trough drawn ~1hr before the 4th dose was 18.6 mcg/ml. I will repeat a trough Wednesday morning assuming no acute changes in renal function. Her pressures have improved. All cultures have been NGTD. We will continue to monitor. [facility] Dec 01, 2016 07:42
--- NOTE | 2016-12-01 08:19 | REP ---
Clinical: Dyspnea. Edema. Comparison: 11/29/2016. Findings: Mediastinum and cardiac silhouette are stable. Right subclavian catheter with tip in the SVC. Diffuse chronic interstitial changes are appreciated with superimposed right upper lobe, right lower lobe, and left retrocardiac infiltrates increased from prior examination. Underlying interstitial edema and small right pleural effusion cannot be excluded. No pneumothorax. Skeletal structures stable. Impression: Increasing multifocal infiltrates compatible with pneumonia. Suspected interstitial edema and small right pleural effusion. Signed by Ousmane Perez MD 12/01/2016 08:09 A
[2016-12-01] MEDS ORDERED: ACETAMINOPHEN TAB 650MG DOSE (2X325MG) PO ONE ×2 (09:00→15:30)
[2016-12-01] MEDS: PANTOPRAZOLE 40MG TAB (PROTONIX) PO SCH (09:20)
[2016-12-01] MEDS: ASPIRIN ENTERIC 325 MG TAB PO SCH (09:20)
[2016-12-01] MEDS: SENOKOT S TAB PO SCH (09:20)
[2016-12-01 09:21] LABS: RETIC HEMOGLOBIN CONTENT CHr 36.8 PG (24-36); RETICULOCYTE ABSOLUTE ADVIA212 72 x10(9)/L (17-77)
[2016-12-01] MEDS: CYANOCOBALAMIN 500 MCG TAB PO SCH (09:21)
[2016-12-01] MEDS: POTASSIUM CHLORIDE 10 MEQ SR TABLET PO SCH (09:21)
[2016-12-01 09:24] LABS: REASON FOR REVIEW COMPREHENSIVE REVIEW
[2016-12-01 09:33] LABS: FERRITIN 513 NG/ML (8-252); PERCENT SATURATION 18.8 % (13.2-45.0); TOTAL IRON BINDING CAPACITY 138 UG/DL (250-450)
[2016-12-01] MEDS ORDERED: CALCIUM CARBONATE 500 MG CHEW U/D PO ONE (16:30)
[2016-12-01] MEDS ORDERED: FUROSEMIDE 40 MG/4 ML VIAL (J1940) IV ONE (16:45)
[2016-12-01] MEDS: VANCOMYCIN HCL 500 MG in D5W MINI-BAG PLUS 100 ML IV SCH (19:28)
[2016-12-01] MEDS: ALBUTEROL SULFATE 2.5 MG/0.5 ML INH NEB SOLN NEB PRN (19:51)
[2016-12-01] MEDS: **NOTE PATIENT COMMENT** MISC XX SCH (21:00)
[2016-12-01] MEDS: LIDOCAINE 5% (LIDODERM) PATCH TD PRN (21:58)
--- NOTE | 2016-12-01 23:32 | IPNPDOC ---
Subjective Date Seen The patient was seen on 12/01/16. Subjective Chief Complaint/HPI The patient is a 89-year-old female admitted with a reason for visit of Sepsis. Pt was examined at bedside. No acute complaints. Pt still feels short of breath and has interrupted speech and short sentences due to having to catch her breath. Pt having difficulty with soft diet and prefers pureed food. No reported events overnight. Constitutional: Denies: Chills, Fever Pulmonary: Reports: Dyspnea (resting, worsened with talking), Denies: Cough Cardiovascular: Denies: Chest Pain Gastrointestinal: Denies: Nausea, Vomiting Genitourinary: Denies: Dysuria Psych: Reports: Mood Normal Objective Physical Examination General Exam: Positive: Alert, Cooperative, Mild Distress (due to difficulty breathing) Eye Exam: Positive: Conjunctiva & lids normal, EOMI ENT Exam: Positive: Atraumatic Neck Exam: Positive: Supple Chest Exam: Positive: Clear to auscultation, Other (Use of accessory muscles. On 2L NC) Heart Exam: Positive: Tachycardic, Irregular Rhythm, Normal S1, Normal S2, Negative: Rate Normal Abdomen Exam: Positive: Normal bowel sounds, Soft, Negative: Tenderness Extremity Exam: Positive: Normal pulses, Other, Negative: Tenderness Neuro Exam: Positive: Normal Speech Psych Exam: Positive: Mental status NL, Mood NL, Oriented x 3 Assessment /Plan Assessment Septic shock. Patient has a clinical finding of cellulitis initially. -continue Vancomycin. Changed from 750 @275cc/hr to 500 @110cc/hr since Vanc trough elevated at 27.7 continue Meropenem held -Central line in place since bp has been low and difficult to maintain with IV fluids with pressors given intermittently -continue to monitor CPV. Is at 12 today, 12/01/16 -fluid level today improving: no edema, JVD, or crackles noted. Lasix given again today 12/01/16. -iron studies today: high ferritin, low TIBC & iron -CRP increasing -transferred from ICU to PCU today Hypotension -bp 86/51 today. Transfused 2U PRBCs. Recheck H&H & bp Acute on chronic respiratory distress -baseline COPD -O2 oxygen support and we have been giving patient intermittent IV -Lasix diuresis -Monitor bp & CVP (CVP = 12 on 12/01/16) COPD -No sign of exacerbation -breathing treatment prn Atrial fibrillation -continues to be tachycardic, likely due to acute severe sepsis -at baseline, patient only takes full dose aspirin Diastolic CHF with right cor pulmonale -responded well to Lasix. 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 -Pain is controlled History of pulmonary nodules -Patient has 5mm right middle lobe pulmonary nodule -outpatient followup recommended History of MICHELLE -normalized renal function currently DVT prophylaxis -Heparin Plan/VTE VTE Prophylaxis Ordered?: Yes Plan/Urinary Catheter Reason for insertion/continuin: Critical Pt monitoring VS, I&O, 24H, Fishbone Vital Signs/I&O Vital Signs Date Time Temp Pulse Resp B/P (MAP) Pulse Ox O2 Delivery O2 Flow Rate FiO2 12/01/16 09:58 98.7 105 20 108/59 95 Nasal Cannula 12/01/16 08:00 2.0 I&O- Last 24 Hours up to 6 AM 12/01/16 06:00 Intake Total 945 ml Output Total 1765 ml Balance -820 ml Laboratory Data 24H LABS Laboratory Tests 2 12/01/16 05:07: White Blood Count 15.9H, Red Blood Count 1.96L, Hemoglobin 7.3L, Hematocrit 20.9L, Mean Corpuscular Volume 106.7H, Mean Corpuscular Hemoglobin 37.3H, Mean Corpuscular Hemoglobin Concent 35.0, Red Cell Distribution Width 15.5H, Platelet Count 141L, Neutrophils (%) (Auto) 92.0H, Lymphocytes (%) (Auto) 4.8L, Monocytes (%) (Auto) 1.6, Eosinophils (%) (Auto) 0.9, Basophils (%) (Auto) 0.1, Neutrophils # (Auto) 14.6H, Lymphocytes # (Auto) 0.9L, Monocytes # (Auto) 0.3, Eosinophils # (Auto) 0.2, Basophils # (Auto) 0.0, Large Unclassified Cells % 0.6 , Large Unclassified Cells # 0.1, Differential Slide Review Report, Differential Pathologist's Review COMPREHENSIVE REVIEW, Peripheral Blood Smear Path Consult PERIPHERAL SMEAR, Absolute Reticulocyte Count 72, Percent Reticulocyte Count 3.60H, Reticulocyte Hgb Content (CHr) 36.8H, Anion Gap 8, Glomerular Filtration Rate > 60.0, Blood Urea Nitrogen 14, Creatinine 0.64, Sodium Level 134L, Potassium Level 3.7, Chloride Level 98, Carbon Dioxide Level 28, Calcium Level 7.3L, Aspartate Amino Transf (AST/SGOT) 12L, Alanine Aminotransferase (ALT/SGPT) 19, Alkaline Phosphatase 95, Total Bilirubin 1.8H, Total Protein 4.3L, Albumin 2.2L, Iron Level 26L, Total Iron Binding Capacity 138L, Transferrin % Saturation 18.8, Ferritin 513H, C-Reactive Protein, Quantitative 13.10H, Albumin/Globulin Ratio 1.05 12/01/16 06:38: Vancomycin Level Trough 27.7*H CBC/BMP Laboratory Tests 12/01/16 05:07 Red Blood Count 1.96 L, Mean Corpuscular Volume 106.7 H, Mean Corpuscular Hemoglobin 37.3 H, Mean Corpuscular Hemoglobin Concent 35.0, Red Cell Distribution Width 15.5 H, Neutrophils (%) (Auto) 92.0 H, Lymphocytes (%) (Auto ) 4.8 L, Monocytes (%) (Auto) 1.6, Eosinophils (%) (Auto) 0.9, Basophils (%) ( Auto) 0.1, Neutrophils # (Auto) 14.6 H, Lymphocytes # (Auto) 0.9 L, Monocytes # (Auto) 0.3, Eosinophils # (Auto) 0.2, Basophils # (Auto) 0.0, Calcium Level 7.3 L, Aspartate Amino Transf (AST/SGOT) 12 L, Alanine Aminotransferase (ALT/SGPT) 19, Alkaline Phosphatase 95, Total Bilirubin 1.8 H, Total Protein 4.3 L, Albumin 2.2 L Microbiology Microbiology 11/27/16 Blood Culture - Final, Complete 11/27/16 Blood Culture - Final, Complete 11/28/16 Urine Culture - Final, Complete GME ATTESTATION GME ATTESTATION My preceptor for this patient encounter was physically present in the building during the encounter and was fully available. As needed, all aspects of the patient interview, examination, medical decision making process, and medical care plan development were reviewed and approved by the preceptor. Preceptor is aware and concurs with the plan as stated in the body of this note and will attest to such by his/her cosignature. Attending Note Attending Note I have independently interviewed and examined this patient at the bedside and discussed the management plans with Dr. Andrews as documented above. SANFORD ANDREWS DO Dec 01, 2016 11:39 TONI GARNER MD Dec 02, 2016 05:42
[2016-12-02] VITALS (9 sets, daily range): BP systolic 88–121; BP diastolic 48–66
[2016-12-02] MEDS: PERCOCET 5MG/325MG TAB PO PRN ×4 (00:08→18:03)
[2016-12-02] MEDS: HEPARIN SOD (PORCINE) 5000 UNITS/ML VIAL SC SCH ×3 (06:31→21:46)
[2016-12-02] MEDS: MEROPENEM INJ 1 GM in D5W MINI-BAG PLUS 100 ML IV SCH ×2 (06:34→17:59)
[2016-12-02 06:59] LABS: BASO % 0.1 % (0.0-1.0); EOS # 0.1 K/mm3 (0.0-0.50); EOS % 0.7 % (0.0-3.0); LARGE UNSTAINED CELL # 0.1 K/mm3 (0.0-0.4); LARGE UNSTAINED CELL % 0.7 % (0.0-4.0); LYMPH # 0.7 K/mm3 (1.5-4.5); MEAN CORPUSCULAR HEMOGLOBIN 37.1 pg (27.0-33.0); MEAN CORPUSCULAR HGB CONC 34.6 g/dl (32.0-36.5); MEAN CORPUSCULAR VOLUME 107.4 fl (80.0-96.0); MONO # 0.3 K/mm3 (0.0-0.8); MONO % 2.1 % (0.0-5.0); NEUTROPHILS # 12.9 K/mm3 (1.8-7.7); NEUTROPHILS % 91.4 % (36.0-66.0); PLATELET COUNT, AUTOMATED 140 k/mm3 (150-450); RED CELL DISTRIBUTION WIDTH 14.9 % (11.5-14.5); WHITE BLOOD COUNT 14.1 K/mm3 (4.0-10.0)
[2016-12-02 07:03] LABS: ADD MORPHOLOGY? YES
[2016-12-02 07:28] LABS: ALBUMIN 2.1 GM/DL (3.2-5.2); ALBUMIN/GLOBULIN RATIO 0.95 (1.00-1.93); ALKALINE PHOSPHATASE 100 U/L (45-117); ALT/SGPT 18 U/L (12-78); ANION GAP 8 MEQ/L (8-16); AST/SGOT 12 U/L (15-37); BILIRUBIN,TOTAL 1.7 MG/DL (0.2-1.0); BLOOD UREA NITROGEN 15 MG/DL (7-18); CALCIUM LEVEL 7.1 MG/DL (8.8-10.2); CARBON DIOXIDE LEVEL 30 MEQ/L (21-32); CHLORIDE LEVEL 98 MEQ/L (98-107); CREATININE FOR GFR 0.59 MG/DL (0.55-1.02); GLOMERULAR FILTRATION RATE > 60.0 (>32); GLUCOSE, FASTING 103 MG/DL (83-110); POTASSIUM SERUM 3.9 MEQ/L (3.5-5.1); SODIUM LEVEL 136 MEQ/L (136-145); TOTAL PROTEIN 4.3 GM/DL (6.4-8.2)
[2016-12-02] MEDS: ADVAIR HFA 115/21MCG INHALER INH SCH ×2 (07:52→19:36)
--- NOTE | 2016-12-02 08:03 | REP ---
Clinical: Shortness of breath. Edema. Comparison: 12/01/2016. Findings: Mediastinum and cardiac silhouette are stable and grossly within normal limits. Diffuse chronic interstitial changes are appreciated with superimposed right upper lobe infiltrate and possible interstitial edema similar to prior examination. Small layering effusions are suggested and unchanged. No pneumothorax. Skeletal structures stable. Impression: No significant change from prior examination. Continued evidence for right upper lobe infiltrate, interstitial edema, and small layering pleural effusions. Signed by Ousmane Perez MD 12/02/2016 07:55 A
[2016-12-02 08:27] LABS: ANISOCYTOSIS 2+; POIKILOCYTOSIS 1+
[2016-12-02] MEDS: VANCOMYCIN HCL 500 MG in D5W MINI-BAG PLUS 100 ML IV SCH ×2 (09:57→19:52)
[2016-12-02] MEDS: ASPIRIN ENTERIC 325 MG TAB PO SCH (09:58)
[2016-12-02] MEDS: POTASSIUM CHLORIDE 10 MEQ SR TABLET PO SCH (09:59)
[2016-12-02] MEDS: PANTOPRAZOLE 40MG TAB (PROTONIX) PO SCH (10:00)
[2016-12-02] MEDS: CYANOCOBALAMIN 500 MCG TAB PO SCH (10:00)
[2016-12-02] MEDS: SENOKOT S TAB PO SCH (10:00)
--- NOTE | 2016-12-02 10:33 | PHACANCOPD ---
PHARMACY VANCOMYCIN DOSING Pt Demographics Demographics Patient Age:89 , Weight:51.200 , Gender: female Adjusted Body Weight Date: 11/29/16, Adjusted Body Weight: [NA] Kg Vancomycin Vancomycin indication: sepsis Vancomycin Target Ranges: 15-20 mcg/ml Vancomycin Load Y/N: Yes Load Dose Date Time Vancomycin Load Dose: 1000mg Date: 11/27 Time: 17:00 Vancomycin Dose Date: 11/28/16. Current Vancomycin Dose: [750mg IV q12h @08] Intermittent Dosing?: No Labs Micro Microbiology 11/27/16 Blood Culture - Final, Complete 11/27/16 Blood Culture - Final, Complete 11/28/16 Urine Culture - Final, Complete Creatinine Clearance Date:11/29/16. Creatinine Clearance: [35 ml/min] Date:11/27/16. Creatinine Clearance: [25 ml/min]. . Pending Labs repeat vanco trough 12/01 @07:00 Assessment and Plan Maintaining Current Dose?: Yes Reason for dose change: No Dose Change Pharmacist Note Pharmacist Note 12/02/16: This morning's scheduled 0700 trough was not drawn; therefore, I have rescheduled for the follow-up trough to be drawn tonight at 1900. The patient's scr and output remain stable. We will continue to monitor and make further adjustments as needed. 12/01/16: Trough drawn @0638 this am came back at 27.7 mcg/ml. Patient's SCr is still improving. I held patient's morning Vanco dose and will restart patient at 500mg IV Q12H starting at 2000. I will schedule a trough for tomorrow morning before next dose. We will continue to monitor and adjust dose as needed. Date: 11/29/16. Pharmacist note: pt was admitted 11/27 for sepsis and she was started on broad spectrum antibiotics meropenem and vancomycin. Her SCr has improved since admission, WBCs still elevated. Pt has not been on vancomycin at our facility in the past nor does she have an apparent Hx of MRSA. She was started on a 1g load followed by 750mg IV q12h. Vanco trough drawn ~1hr before the 4th dose was 18.6 mcg/ml. I will repeat a trough Wednesday morning assuming no acute changes in renal function. Her pressures have improved. All cultures have been NGTD. We will continue to monitor. [facility] Dec 02, 2016 10:33
[2016-12-02] MEDS: LACTOBACILLUS ACIDOPHILUS CAP (BACID) PO SCH ×2 (12:43→21:45)
[2016-12-02] MEDS ORDERED: SLF 3 ML SYR IV PRN (13:00)
[2016-12-02] MEDS: SLF 3 ML SYR IV SCH ×2 (14:00→21:45)
[2016-12-02] MEDS ORDERED: FUROSEMIDE 20 MG/2 ML VIAL (J1940) IV ONE (15:15)
[2016-12-02] MEDS: **NOTE PATIENT COMMENT** MISC XX SCH (21:00)
--- NOTE | 2016-12-02 23:12 | IPNPDOC ---
Subjective Date Seen The patient was seen on 12/02/16. Subjective Chief Complaint/HPI The patient is a 89-year-old female admitted with a reason for visit of Sepsis. Examined at bedside. No acute complaints. Still feeling short of breath. No reported events overnight. Pt reports good appetite and tolerating puree diet well. General: Reports: Normal Appetite Constitutional: Denies: Chills, Fever ENT: Denies: Dysphagia Pulmonary: Reports: Dyspnea, Denies: Cough Cardiovascular: Denies: Chest Pain, Lt Headedness Gastrointestinal: Denies: Nausea, Vomiting, Abdominal Pain Psych: Reports: Mood Normal Objective Physical Examination General Exam: Positive: Alert, Cooperative, Mild Distress (due to difficulty breathing) Eye Exam: Positive: Conjunctiva & lids normal, EOMI ENT Exam: Positive: Atraumatic Neck Exam: Positive: Supple Chest Exam: Positive: Clear to auscultation, Other (Use of accessory muscles. On 2L NC) Heart Exam: Positive: Tachycardic, Irregular Rhythm, Normal S1, Normal S2, Negative: Rate Normal Abdomen Exam: Positive: Normal bowel sounds, Soft, Negative: Tenderness Extremity Exam: Positive: Normal pulses, Other, Negative: Tenderness Neuro Exam: Positive: Normal Speech Psych Exam: Positive: Mental status NL, Mood NL, Oriented x 3 Assessment /Plan Assessment Septic shock. Patient has a clinical finding of cellulitis initially. -continue Vancomycin. Vanc trough trending downwards towards normal range. Will recheck in am -continue Meropenem -elevated WBC continuing to trend downwards -Central line in place since bp has been low and difficult to maintain with IV fluids with pressors given intermittently -monitor H&H -CRP continuing to increase Hypotension -bp well controlled today. Monitor. May require fluid resuscitation or transfusion. 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 Appreciate their assistance History of MICHELLE -normalized renal function DVT prophylaxis -Heparin Plan/VTE VTE Prophylaxis Ordered?: Yes Plan/Urinary Catheter Reason for insertion/continuin: Critical Pt monitoring VS, I&O, 24H, Fishbone Vital Signs/I&O Vital Signs Date Time Temp Pulse Resp B/P (MAP) Pulse Ox O2 Delivery O2 Flow Rate FiO2 12/02/16 05:16 17 Nasal Cannula 3.0 12/02/16 02:57 98.4 111 113/57 (75) 89 I&O- Last 24 Hours up to 6 AM 12/02/16 06:00 Intake Total 475 ml Output Total 1765 ml Balance -1290 ml Laboratory Data 24H LABS Laboratory Tests 2 12/02/16 06:36: White Blood Count 14.1H, Red Blood Count 1.95L, Hemoglobin 7.3L, Hematocrit 21.0L, Mean Corpuscular Volume 107.4H, Mean Corpuscular Hemoglobin 37.1H, Mean Corpuscular Hemoglobin Concent 34.6, Red Cell Distribution Width 14.9H, Platelet Count 140L, Neutrophils (%) (Auto) 91.4H, Lymphocytes (%) (Auto) 5.0L, Monocytes (%) (Auto) 2.1, Eosinophils (%) (Auto) 0.7, Basophils (%) (Auto) 0.1, Neutrophils # (Auto) 12.9H, Lymphocytes # (Auto) 0.7L, Monocytes # (Auto) 0.3, Eosinophils # (Auto) 0.1, Basophils # (Auto) 0.0, Large Unclassified Cells % 0.7 , Large Unclassified Cells # 0.1, Platelet Estimate DECREASED, Poikilocytosis 1+ , Anisocytosis 2+, Macrocytosis 2+, Anion Gap 8, Glomerular Filtration Rate > 60.0, Blood Urea Nitrogen 15, Creatinine 0.59, Sodium Level 136, Potassium Level 3.9, Chloride Level 98, Carbon Dioxide Level 30, Calcium Level 7.1L, Aspartate Amino Transf (AST/SGOT) 12L, Alanine Aminotransferase (ALT/SGPT) 18, Alkaline Phosphatase 100, Total Bilirubin 1.7H, Total Protein 4.3L, Albumin 2.1L , C-Reactive Protein, Quantitative 14.50H, Albumin/Globulin Ratio 0.95L CBC/BMP Laboratory Tests 12/01/16 12:44 12/01/16 21:29 12/02/16 00:05 12/02/16 06:36 Red Blood Count 1.95 L, Mean Corpuscular Volume 107.4 H, Mean Corpuscular Hemoglobin 37.1 H, Mean Corpuscular Hemoglobin Concent 34.6, Red Cell Distribution Width 14.9 H, Neutrophils (%) (Auto) 91.4 H, Lymphocytes (%) (Auto ) 5.0 L, Monocytes (%) (Auto) 2.1, Eosinophils (%) (Auto) 0.7, Basophils (%) ( Auto) 0.1, Neutrophils # (Auto) 12.9 H, Lymphocytes # (Auto) 0.7 L, Monocytes # (Auto) 0.3, Eosinophils # (Auto) 0.1, Basophils # (Auto) 0.0, Calcium Level 7.1 L, Aspartate Amino Transf (AST/SGOT) 12 L, Alanine Aminotransferase (ALT/SGPT) 18, Alkaline Phosphatase 100, Total Bilirubin 1.7 H, Total Protein 4.3 L, Albumin 2.1 L Microbiology Microbiology 11/27/16 Blood Culture - Final, Complete 11/27/16 Blood Culture - Final, Complete 11/28/16 Urine Culture - Final, Complete GME ATTESTATION GME ATTESTATION My preceptor for this patient encounter was physically present in the building during the encounter and was fully available. As needed, all aspects of the patient interview, examination, medical decision making process, and medical care plan development were reviewed and approved by the preceptor. Preceptor is aware and concurs with the plan as stated in the body of this note and will attest to such by his/her cosignature. SANFORD WADE DO Dec 02, 2016 08:33 TONI GARNER MD Dec 03, 2016 13:28
[2016-12-03] MEDS ORDERED: MOM 30ML SUSPENSION UDC PO PRN (00:30)
[2016-12-03] MEDS: PERCOCET 5MG/325MG TAB PO PRN ×4 (00:49→19:46)
[2016-12-03 05:33] VITALS: BP 129/68
[2016-12-03] MEDS: SLF 3 ML SYR IV SCH ×3 (05:51→21:20)
[2016-12-03] MEDS: MEROPENEM INJ 1 GM in D5W MINI-BAG PLUS 100 ML IV SCH ×2 (05:51→17:40)
[2016-12-03] MEDS: HEPARIN SOD (PORCINE) 5000 UNITS/ML VIAL SC SCH ×3 (05:51→21:19)
[2016-12-03] MEDS ORDERED: ACETAMINOPHEN TAB 650MG DOSE (2X325MG) PO ONE (06:45)
[2016-12-03 07:03] LABS: BASO % 0.1 % (0.0-1.0); EOS # 0.1 K/mm3 (0.0-0.50); LARGE UNSTAINED CELL # 0.1 K/mm3 (0.0-0.4); LARGE UNSTAINED CELL % 0.6 % (0.0-4.0); LYMPH # 0.6 K/mm3 (1.5-4.5); LYMPH % 4.4 % (24.0-44.0); MEAN CORPUSCULAR HEMOGLOBIN 36.9 pg (27.0-33.0); MEAN CORPUSCULAR HGB CONC 34.3 g/dl (32.0-36.5); MEAN CORPUSCULAR VOLUME 107.7 fl (80.0-96.0); MONO # 0.2 K/mm3 (0.0-0.8); MONO % 1.4 % (0.0-5.0); NEUTROPHILS # 12.2 K/mm3 (1.8-7.7); NEUTROPHILS % 92.5 % (36.0-66.0); PLATELET COUNT, AUTOMATED 138 k/mm3 (150-450); RED CELL DISTRIBUTION WIDTH 14.9 % (11.5-14.5); WHITE BLOOD COUNT 13.2 K/mm3 (4.0-10.0)
[2016-12-03 07:28] LABS: ALBUMIN/GLOBULIN RATIO 0.91 (1.00-1.93); ALKALINE PHOSPHATASE 132 U/L (45-117); ALT/SGPT 22 U/L (12-78); ANION GAP 8 MEQ/L (8-16); AST/SGOT 20 U/L (15-37); BILIRUBIN,TOTAL 1.5 MG/DL (0.2-1.0); BLOOD UREA NITROGEN 17 MG/DL (7-18); CALCIUM LEVEL 7.3 MG/DL (8.8-10.2); CARBON DIOXIDE LEVEL 31 MEQ/L (21-32); CHLORIDE LEVEL 96 MEQ/L (98-107); CREATININE FOR GFR 0.58 MG/DL (0.55-1.02); GLOMERULAR FILTRATION RATE > 60.0 (>32); GLUCOSE, FASTING 121 MG/DL (83-110); SODIUM LEVEL 135 MEQ/L (136-145); TOTAL PROTEIN 4.2 GM/DL (6.4-8.2)
--- NOTE | 2016-12-03 07:46 | REP ---
Clinical: Shortness of breath. Comparison: 12/02/2016. Findings: Mediastinum and cardiac silhouette along with diffuse chronic interstitial changes remain stable. Superimposed right upper lobe and bibasilar (right greater than left) infiltrates are again appreciated with suspected small layering effusions. No pneumothorax. Right subclavian catheter with tip in the SVC. Skeletal structures demonstrate stable osteopenia. Impression: Chronic changes with superimposed multifocal infiltrates and small pleural effusions similar to prior examination. Signed by Ousmane Perez MD 12/03/2016 07:37 A
[2016-12-03 08:00] VITALS: BP 87/54
[2016-12-03] MEDS: FUROSEMIDE 20 MG/2 ML VIAL (J1940) IV SCH ×2 (09:00→21:00)
[2016-12-03] MEDS: ADVAIR HFA 115/21MCG INHALER INH SCH ×2 (09:10→22:00)
[2016-12-03] MEDS: CYANOCOBALAMIN 500 MCG TAB PO SCH (09:19)
[2016-12-03] MEDS: SENOKOT S TAB PO SCH (09:20)
[2016-12-03] MEDS: POTASSIUM CHLORIDE 10 MEQ SR TABLET PO SCH (09:20)
[2016-12-03] MEDS: LACTOBACILLUS ACIDOPHILUS CAP (BACID) PO SCH ×2 (09:20→21:20)
[2016-12-03] MEDS: PANTOPRAZOLE 40MG TAB (PROTONIX) PO SCH (09:21)
[2016-12-03] MEDS: ASPIRIN ENTERIC 325 MG TAB PO SCH (09:21)
[2016-12-03] MEDS: VANCOMYCIN HCL 500 MG in D5W MINI-BAG PLUS 100 ML IV SCH ×2 (09:22→19:46)
[2016-12-03 12:00] VITALS: BP 128/60
[2016-12-03 16:00] VITALS: BP 99/59
--- NOTE | 2016-12-03 17:52 | IPNPDOC ---
Subjective Date Seen The patient was seen on 12/03/16. Subjective Chief Complaint/HPI The patient is a 89-year-old female admitted with a reason for visit of Sepsis. Pt was seen and examined at bedside. Son, Aung, was present at the time of examination. Pt has no acute complaints. Pt states she was feeling better, partly because she was able to move from her bed to the chair and partially because she was able to pass gas. No bowel movement yet but is on a bowel regimen. Pt also stated no lightheadedness when she moved from supine to sitting to standing. Plan discussed with pt and her son. Constitutional: Denies: Chills, Fever, Night Sweats ENT: Denies: Head Aches Pulmonary: Reports: Cough (productive for green phlem ), Denies: Dyspnea Cardiovascular: Denies: Chest Pain, Lt Headedness Gastrointestinal: Reports: Constipation, Denies: Nausea, Vomiting, Abdominal Pain Neurological: Denies: Numbness Psych: Reports: Mood Normal Objective Physical Examination General Exam: Positive: Alert, Cooperative, Mild Distress (due to difficulty breathing) Eye Exam: Positive: Conjunctiva & lids normal, EOMI ENT Exam: Positive: Atraumatic Neck Exam: Positive: Supple Chest Exam: Positive: Clear to auscultation, Other (Use of accessory muscles. On 3L NC) Heart Exam: Positive: Tachycardic, Irregular Rhythm, Normal S1, Normal S2, Negative: Rate Normal Abdomen Exam: Positive: Normal bowel sounds, Soft, Negative: Tenderness Extremity Exam: Positive: Normal pulses, Negative: Tenderness Neuro Exam: Positive: Normal Speech Psych Exam: Positive: Mental status NL, Mood NL, Oriented x 3 Assessment /Plan Assessment Septic shock. Patient has a clinical finding of cellulitis initially. -scheduled Lasix started today: 20mg bid IV, hold if sbp<110 or Cr>1.5 -continue Vancomycin. Vanc trough normalized today. Monitor -continue Meropenem -elevated WBC still trending down -CRP elevated at 14, but stable -Increased Alk Phos today -Central line in place since bp has been low and difficult to maintain with IV fluids with pressors given intermittently Anemia -pt denies bloody stools and hematuria -will check stool for occult blood -transfused 1U PRBC today. Monitor Hypotension -bp low this am again. Blood transfusion will assist. Monitor -scheduled Lasix started today. Was held this morning for sbp<110 -avoid fluid hydration at this point and prevent fluid overload Acute on chronic respiratory distress -baseline COPD -O2 oxygen support and we have been giving patient intermittent IV Lasix diuresis. -Monitor bp COPD -pt still short of breath. 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 Appreciate their assistance History of MICHELLE -renal function remaining normalized DVT prophylaxis -Heparin Plan/VTE VTE Prophylaxis Ordered?: Yes Plan/Urinary Catheter Reason for insertion/continuin: Critical Pt monitoring VS, I&O, 24H, [facility] Vital Signs/I&O Vital Signs Date Time Temp Pulse Resp B/P (MAP) Pulse Ox O2 Delivery O2 Flow Rate FiO2 12/03/16 08:00 100.0 105 20 87/54 (65) 95 Nasal Cannula 2.0 I&O- Last 24 Hours up to 6 AM 12/03/16 06:00 Intake Total 480 ml Output Total 2225 ml Balance -1745 ml Laboratory Data 24H LABS Laboratory Tests 2 12/02/16 17:48: Vancomycin Level Trough 21.0H 12/02/16 17:49: B-Type Natriuretic Peptide 455H 12/03/16 06:38: Vancomycin Level Trough 17.8, White Blood Count 13.2H, Red Blood Count 1.90L, Hemoglobin 7.0L, Hematocrit 20.4L, Mean Corpuscular Volume 107.7H, Mean Corpuscular Hemoglobin 36.9H, Mean Corpuscular Hemoglobin Concent 34.3, Red Cell Distribution Width 14.9H, Platelet Count 138L, Neutrophils (%) (Auto) 92.5H , Lymphocytes (%) (Auto) 4.4L, Monocytes (%) (Auto) 1.4, Eosinophils (%) (Auto) 1.0, Basophils (%) (Auto) 0.1, Neutrophils # (Auto) 12.2H, Lymphocytes # (Auto) 0.6L, Monocytes # (Auto) 0.2, Eosinophils # (Auto) 0.1, Basophils # (Auto) 0.0, Large Unclassified Cells % 0.6, Large Unclassified Cells # 0.1, Anion Gap 8, Glomerular Filtration Rate > 60.0, Blood Urea Nitrogen 17, Creatinine 0.58, Sodium Level 135L, Potassium Level 4.0, Chloride Level 96L, Carbon Dioxide Level 31, Calcium Level 7.3L, Aspartate Amino Transf (AST/SGOT) 20, Alanine Aminotransferase (ALT/SGPT) 22, Alkaline Phosphatase 132H, Total Bilirubin 1.5H , Total Protein 4.2L, Albumin 2.0L, C-Reactive Protein, Quantitative 14.70H, Albumin/Globulin Ratio 0.91L CBC/BMP Laboratory Tests 12/02/16 17:49 12/02/16 23:30 12/03/16 06:38 Red Blood Count 1.90 L, Mean Corpuscular Volume 107.7 H, Mean Corpuscular Hemoglobin 36.9 H, Mean Corpuscular Hemoglobin Concent 34.3, Red Cell Distribution Width 14.9 H, Neutrophils (%) (Auto) 92.5 H, Lymphocytes (%) (Auto ) 4.4 L, Monocytes (%) (Auto) 1.4, Eosinophils (%) (Auto) 1.0, Basophils (%) ( Auto) 0.1, Neutrophils # (Auto) 12.2 H, Lymphocytes # (Auto) 0.6 L, Monocytes # (Auto) 0.2, Eosinophils # (Auto) 0.1, Basophils # (Auto) 0.0, Calcium Level 7.3 L, Aspartate Amino Transf (AST/SGOT) 20, Alanine Aminotransferase (ALT/SGPT) 22 , Alkaline Phosphatase 132 H, Total Bilirubin 1.5 H, Total Protein 4.2 L, Albumin 2.0 L Microbiology Microbiology 11/27/16 Blood Culture - Final, Complete 11/27/16 Blood Culture - Final, Complete 11/28/16 Urine Culture - Final, Complete GME ATTESTATION GME ATTESTATION My preceptor for this patient encounter was physically present in the building during the encounter and was fully available. As needed, all aspects of the patient interview, examination, medical decision making process, and medical care plan development were reviewed and approved by the preceptor. Preceptor is aware and concurs with the plan as stated in the body of this note and will attest to such by his/her cosignature. Attending Note Attending Note I have independently interviewed and examined this patient at the bedside, and discussed the management plan with my Resident Physician, Dr. Andrews, as documented above. SANFORD ANDREWS DO Dec 03, 2016 10:16 TONI GARNER MD Dec 04, 2016 08:36
[2016-12-03 19:30] LABS: ANION GAP 6 MEQ/L (8-16); BLOOD UREA NITROGEN 18 MG/DL (7-18); CALCIUM LEVEL 8.2 MG/DL (8.8-10.2); CARBON DIOXIDE LEVEL 29 MEQ/L (21-32); CHLORIDE LEVEL 97 MEQ/L (98-107); CREATININE FOR GFR 0.64 MG/DL (0.55-1.02); GLOMERULAR FILTRATION RATE > 60.0 (>32); GLUCOSE, FASTING 139 MG/DL (83-110); POTASSIUM SERUM 4.6 MEQ/L (3.5-5.1); SODIUM LEVEL 132 MEQ/L (136-145)
[2016-12-03 20:00] VITALS: BP 108/66
[2016-12-03] MEDS: **NOTE PATIENT COMMENT** MISC XX SCH (21:00)
[2016-12-03] MEDS ORDERED: MOM 30ML SUSPENSION UDC PO ONE (21:15)
[2016-12-04] VITALS (7 sets, daily range): BP systolic 109–151; BP diastolic 57–91
[2016-12-04] MEDS: PERCOCET 5MG/325MG TAB PO PRN ×5 (00:34→21:22)
[2016-12-04] MEDS: MEROPENEM INJ 1 GM in D5W MINI-BAG PLUS 100 ML IV SCH (05:04)
[2016-12-04] MEDS: SLF 3 ML SYR IV SCH ×3 (05:04→21:24)
[2016-12-04 05:23] LABS: BASO % 0.1 % (0.0-1.0); EOS # 0.1 K/mm3 (0.0-0.50); EOS % 0.7 % (0.0-3.0); LARGE UNSTAINED CELL # 0.1 K/mm3 (0.0-0.4); LARGE UNSTAINED CELL % 0.6 % (0.0-4.0); LYMPH # 0.7 K/mm3 (1.5-4.5); LYMPH % 4.8 % (24.0-44.0); MEAN CORPUSCULAR HEMOGLOBIN 35.4 pg (27.0-33.0); MEAN CORPUSCULAR HGB CONC 34.6 g/dl (32.0-36.5); MONO # 0.3 K/mm3 (0.0-0.8); MONO % 1.7 % (0.0-5.0); NEUTROPHILS # 13.3 K/mm3 (1.8-7.7); NEUTROPHILS % 92.1 % (36.0-66.0); PLATELET COUNT, AUTOMATED 138 k/mm3 (150-450); RED CELL DISTRIBUTION WIDTH 18.3 % (11.5-14.5); WHITE BLOOD COUNT 14.4 K/mm3 (4.0-10.0)
[2016-12-04 05:24] LABS: ADD MORPHOLOGY? NO; MEAN CORPUSCULAR VOLUME 102.2 fl (80.0-96.0)
[2016-12-04 05:56] LABS: ALBUMIN 2.2 GM/DL (3.2-5.2); ALBUMIN/GLOBULIN RATIO 0.92 (1.00-1.93); ALKALINE PHOSPHATASE 138 U/L (45-117); ALT/SGPT 24 U/L (12-78); ANION GAP 9 MEQ/L (8-16); AST/SGOT 19 U/L (15-37); BILIRUBIN,TOTAL 1.8 MG/DL (0.2-1.0); BLOOD UREA NITROGEN 19 MG/DL (7-18); CALCIUM LEVEL 7.8 MG/DL (8.8-10.2); CARBON DIOXIDE LEVEL 29 MEQ/L (21-32); CHLORIDE LEVEL 98 MEQ/L (98-107); GLOMERULAR FILTRATION RATE > 60.0 (>32); GLUCOSE, FASTING 102 MG/DL (83-110); POTASSIUM SERUM 4.8 MEQ/L (3.5-5.1); SODIUM LEVEL 136 MEQ/L (136-145); TOTAL PROTEIN 4.6 GM/DL (6.4-8.2)
[2016-12-04] MEDS: HEPARIN SOD (PORCINE) 5000 UNITS/ML VIAL SC SCH (06:06)
[2016-12-04] MEDS ORDERED: FLEET ENEMA PR PRN (06:15)
[2016-12-04] MEDS ORDERED: LACTULOSE 20 GM/30 ML SYRUP UD PO ONE ×2 (06:30→07:30)
[2016-12-04] MEDS: ADVAIR HFA 115/21MCG INHALER INH SCH ×2 (08:19→20:52)
[2016-12-04] MEDS ORDERED: MIRALAX *UNIT DOSE* 17GM PACKET PO SCH (09:00)
[2016-12-04] MEDS: CEPHALEXIN 250 MG CAP PO SCH ×4 (09:00→21:00)
[2016-12-04] MEDS: VANCOMYCIN HCL 500 MG in D5W MINI-BAG PLUS 100 ML IV SCH (09:18)
[2016-12-04] MEDS: LACTOBACILLUS ACIDOPHILUS CAP (BACID) PO SCH ×2 (09:19→21:22)
[2016-12-04] MEDS: CYANOCOBALAMIN 500 MCG TAB PO SCH (09:19)
[2016-12-04] MEDS: SENOKOT S TAB PO SCH ×2 (09:19→21:22)
[2016-12-04] MEDS: ASPIRIN ENTERIC 325 MG TAB PO SCH (09:19)
[2016-12-04] MEDS: PANTOPRAZOLE 40MG TAB (PROTONIX) PO SCH (09:19)
[2016-12-04] MEDS: POTASSIUM CHLORIDE 10 MEQ SR TABLET PO SCH (09:20)
--- NOTE | 2016-12-04 11:11 | REP ---
Clinical: Shortness of breath. Comparison: 12/03/2016. Findings: Mediastinum and cardiac silhouette are stable. Lung post demonstrate chronic interstitial changes with superimposed right upper lobe and bibasilar infiltrate/atelectasis as well as suspected small right pleural effusion. No pneumothorax. Skeletal structures stable. [id number] identified with tip in the SVC. Impression: Relatively stable findings including right upper lobe and bibasilar atelectasis/infiltrates (right greater than left) with small suspected right pleural effusion. Signed by Ousmane Perez MD 12/04/2016 07:22 A
[2016-12-04] MEDS ORDERED: GOLYTELY SOLN 4000 ML BTL PO ONE (18:00)
--- NOTE | 2016-12-04 18:08 | IPNPDOC ---
Subjective Date Seen The patient was seen on 12/04/16. Subjective Chief Complaint/HPI The patient is a 89-year-old female admitted with a reason for visit of Sepsis. Pt was seen and examined at bedside. Son was present. Pt states that her appetite has improved compared to previous days. Pt states that she feels smarter and more alert compared to the previous days. Nasal canula at 3L was in place. Serrano catheter was in place. Pt has heel protectors on bilateral heels. Pt still has not had a bowel movement but feels like she needs to. Pt states she has abdominal pain from constipation, and that she has not had a BM since admission on 11/27 despite multiple different bowel regimens given today. She states she previously felt this pain on her last admission and had to be manually disimpacted. Per nursing, she has been asking for more Percocet for her pain today, and asked nurses to disimpact her. Per nursing, they attempted disimpacting her, but only scant light brown fecal matter was removed, and stool was too far to reach manually. Constitutional: Denies: Chills, Fever, Night Sweats ENT: Denies: Head Aches Pulmonary: Denies: Dyspnea, Cough Cardiovascular: Denies: Chest Pain, Lt Headedness Gastrointestinal: Reports: Abdominal Pain, Constipation, Denies: Nausea, Vomiting, Diarrhea Genitourinary: Denies: Dysuria Objective Physical Examination General Exam: Positive: Alert, Cooperative, Mild Distress (due to constipation and abdominal pain) Eye Exam: Positive: Conjunctiva & lids normal, EOMI ENT Exam: Positive: Atraumatic Neck Exam: Positive: Supple Chest Exam: Positive: Clear to auscultation, Other (Use of accessory muscles. On 3L NC) Heart Exam: Positive: Tachycardic, Irregular Rhythm, Normal S1, Normal S2, Negative: Rate Normal Abdomen Exam: Positive: BS Hypoactive, Negative: Soft (bloated, tense abdomen diffusely), Tenderness Extremity Exam: Positive: Normal pulses, Negative: Tenderness Neuro Exam: Positive: Normal Speech Psych Exam: Positive: Mental status NL, Mood NL, Oriented x 3 Assessment /Plan Assessment Septic shock. Patient has a clinical finding of cellulitis initially. -elevated WBC trending upwards again, as is Alk Phos. CRP still elevated, but trending down. Previous blood and urine cultures have been negative. -Vancomycin and Meropenem discontinued today 12/04. Started Keflex. -scheduled Lasix discontinued 12/04 -Central line in place since bp has been low and difficult to maintain with IV fluids with pressors given intermittently Constipation -Per nursing, they attempted disimpacting her, but only scant light brown fecal matter was removed, and stool was too far to reach manually. Will try prune juice, and if need be, Mineral Oil. -no BM since arrival to hospital -bowel support given: Senekot, Miralax, Lactulose, Fleet enema, Milk of Magnesia Anemia -pt denies bloody stools and hematuria -will check stool for occult blood. Awaiting BM, as pt is still constipated -transfused 1U PRBC 12/03. Hb increased 2 points, but trending down again this morning. Will monitor H&H and transfuse again if needed. Pt is asymptomatic at this point: denies fatigue and chest pain. History of MICHELLE -BUN/CR beginning to rise. May be from dehydration and pt may require IV fluids soon. Monitor -Serrano discontinued today 12/04. Bladder scan q4h Acute on chronic respiratory distress -baseline COPD -O2 oxygen support, 3L NC. May need intermittent IV Lasix diuresis -Monitor bp COPD -pt still short of breath. CXR today again unchanged from yesterday and shows no acute changes -Advair & Proventil prn Atrial fibrillation -continues to be tachycardic, likely due to acute severe sepsis -at baseline, patient only takes full dose aspirin Diastolic CHF with right cor pulmonale -scheduled Lasix discontinued. 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 Appreciate their assistance DVT prophylaxis -Heparin Plan/VTE VTE Prophylaxis Ordered?: Yes Plan/Urinary Catheter Reason for insertion/continuin: Critical Pt monitoring VS, I&O, 24H, Fishbone Vital Signs/I&O Vital Signs Date Time Temp Pulse Resp B/P (MAP) Pulse Ox O2 Delivery O2 Flow Rate FiO2 12/04/16 07:46 97.8 104 20 114/66 (82) 96 Nasal Cannula 2.0 I&O- Last 24 Hours up to 6 AM 12/04/16 06:00 Intake Total 1020 ml Output Total 1100 ml Balance -80 ml Laboratory Data 24H LABS Laboratory Tests 2 12/03/16 18:33: Anion Gap 6L, Glomerular Filtration Rate > 60.0, Blood Urea Nitrogen 18, Creatinine 0.64, Sodium Level 132L, Potassium Level 4.6, Chloride Level 97L, Carbon Dioxide Level 29, Calcium Level 8.2L 12/04/16 05:09: Anion Gap 9, Glomerular Filtration Rate > 60.0, Blood Urea Nitrogen 19H, Creatinine 0.50L, Sodium Level 136, Potassium Level 4.8, Chloride Level 98, Carbon Dioxide Level 29, Calcium Level 7.8L, White Blood Count 14.4H, Red Blood Count 2.48L, Hemoglobin 8.8L, Hematocrit 25.3L, Mean Corpuscular Volume 102.2#H , Mean Corpuscular Hemoglobin 35.4H, Mean Corpuscular Hemoglobin Concent 34.6, Red Cell Distribution Width 18.3H, Platelet Count 138L, Neutrophils (%) (Auto) 92.1H, Lymphocytes (%) (Auto) 4.8L, Monocytes (%) (Auto) 1.7, Eosinophils (%) ( Auto) 0.7, Basophils (%) (Auto) 0.1, Neutrophils # (Auto) 13.3H, Lymphocytes # ( Auto) 0.7L, Monocytes # (Auto) 0.3, Eosinophils # (Auto) 0.1, Basophils # (Auto ) 0.0, Large Unclassified Cells % 0.6, Large Unclassified Cells # 0.1, Aspartate Amino Transf (AST/SGOT) 19, Alanine Aminotransferase (ALT/SGPT) 24, Alkaline Phosphatase 138H, Total Bilirubin 1.8H, Total Protein 4.6L, Albumin 2.2L, C-Reactive Protein, Quantitative 13.10H, Albumin/Globulin Ratio 0.92L CBC/BMP Laboratory Tests 12/03/16 18:33 Calcium Level 8.2 L 12/04/16 05:09 Calcium Level 7.8 L, Red Blood Count 2.48 L, Mean Corpuscular Volume 102.2 #H, Mean Corpuscular Hemoglobin 35.4 H, Mean Corpuscular Hemoglobin Concent 34.6, Red Cell Distribution Width 18.3 H, Neutrophils (%) (Auto) 92.1 H, Lymphocytes ( %) (Auto) 4.8 L, Monocytes (%) (Auto) 1.7, Eosinophils (%) (Auto) 0.7, Basophils (%) (Auto) 0.1, Neutrophils # (Auto) 13.3 H, Lymphocytes # (Auto) 0.7 L, Monocytes # (Auto) 0.3, Eosinophils # (Auto) 0.1, Basophils # (Auto) 0.0, Aspartate Amino Transf (AST/SGOT) 19, Alanine Aminotransferase (ALT/SGPT) 24, Alkaline Phosphatase 138 H, Total Bilirubin 1.8 H, Total Protein 4.6 L, Albumin 2.2 L Microbiology Microbiology 11/27/16 Blood Culture - Final, Complete 11/27/16 Blood Culture - Final, Complete 11/28/16 Urine Culture - Final, Complete GME ATTESTATION GME ATTESTATION My preceptor for this patient encounter was physically present in the building during the encounter and was fully available. As needed, all aspects of the patient interview, examination, medical decision making process, and medical care plan development were reviewed and approved by the preceptor. Preceptor is aware and concurs with the plan as stated in the body of this note and will attest to such by his/her cosignature. Attending Note Attending Note I have independently interviewed and examined this patient at the bedside, and discussed the manaqement plan with my Resident, Dr. Andrews. SANFORD ANDREWS DO Dec 04, 2016 08:47 TONI GARNER MD Dec 05, 2016 08:31
[2016-12-04] MEDS: **NOTE PATIENT COMMENT** MISC XX SCH (21:00)
[2016-12-04] MEDS: LIDOCAINE 5% (LIDODERM) PATCH TD PRN (21:23)
[2016-12-05] MEDS: PERCOCET 5MG/325MG TAB PO PRN ×5 (02:10→23:30)
[2016-12-05 03:00] VITALS: BP 118/65
[2016-12-05 05:46] LABS: BASO % 0.1 % (0.0-1.0); EOS # 0.1 K/mm3 (0.0-0.50); EOS % 0.6 % (0.0-3.0); LARGE UNSTAINED CELL # 0.1 K/mm3 (0.0-0.4); LARGE UNSTAINED CELL % 0.6 % (0.0-4.0); LYMPH # 0.9 K/mm3 (1.5-4.5); LYMPH % 4.2 % (24.0-44.0); MEAN CORPUSCULAR HEMOGLOBIN 34.1 pg (27.0-33.0); MEAN CORPUSCULAR HGB CONC 32.8 g/dl (32.0-36.5); MONO # 0.4 K/mm3 (0.0-0.8); MONO % 1.9 % (0.0-5.0); NEUTROPHILS # 17.5 K/mm3 (1.8-7.7); NEUTROPHILS % 92.7 % (36.0-66.0); PLATELET COUNT, AUTOMATED 165 k/mm3 (150-450); RED CELL DISTRIBUTION WIDTH 18.1 % (11.5-14.5); WHITE BLOOD COUNT 18.9 K/mm3 (4.0-10.0)
[2016-12-05] MEDS: SLF 3 ML SYR IV SCH ×3 (06:00→22:00)
[2016-12-05 06:12] LABS: ALBUMIN 2.2 GM/DL (3.2-5.2); ALBUMIN/GLOBULIN RATIO 0.92 (1.00-1.93); ALKALINE PHOSPHATASE 177 U/L (45-117); ALT/SGPT 29 U/L (12-78); ANION GAP 10 MEQ/L (8-16); AST/SGOT 24 U/L (15-37); BILIRUBIN,TOTAL 1.5 MG/DL (0.2-1.0); BLOOD UREA NITROGEN 21 MG/DL (7-18); CALCIUM LEVEL 7.8 MG/DL (8.8-10.2); CARBON DIOXIDE LEVEL 27 MEQ/L (21-32); CHLORIDE LEVEL 97 MEQ/L (98-107); GLOMERULAR FILTRATION RATE > 60.0 (>32); GLUCOSE, FASTING 88 MG/DL (83-110); POTASSIUM SERUM 4.8 MEQ/L (3.5-5.1); SODIUM LEVEL 134 MEQ/L (136-145); TOTAL PROTEIN 4.6 GM/DL (6.4-8.2)
[2016-12-05] MEDS ORDERED: ALPRAZolam 0.25 MG TAB PO PRN (06:45)
[2016-12-05] MEDS ORDERED: ALPRAZolam 0.25 MG TAB PO ONE (06:45)
[2016-12-05] MEDS: ADVAIR HFA 115/21MCG INHALER INH SCH ×2 (07:15→20:12)
[2016-12-05 08:00] VITALS: BP 94/52
[2016-12-05] MEDS: POTASSIUM CHLORIDE 10 MEQ SR TABLET PO SCH (08:09)
[2016-12-05] MEDS: CYANOCOBALAMIN 500 MCG TAB PO SCH (08:09)
[2016-12-05] MEDS: LACTOBACILLUS ACIDOPHILUS CAP (BACID) PO SCH ×2 (08:09→21:00)
[2016-12-05] MEDS: CEPHALEXIN 250 MG CAP PO SCH ×4 (08:09→21:00)
[2016-12-05] MEDS: ASPIRIN ENTERIC 325 MG TAB PO SCH (08:09)
[2016-12-05] MEDS: PANTOPRAZOLE 40MG TAB (PROTONIX) PO SCH (08:10)
[2016-12-05] MEDS: MEGESTROL ES SUSP 625 MG/5 ML UDC PO SCH (09:00)
--- NOTE | 2016-12-05 09:46 | REP ---
Clinical: Shortness of breath. Comparison: 10/27/2016. Findings: New findings include acute infiltrate involves the right upper lung zone along with small to moderate bilateral pleural effusions and bibasilar consolidations/atelectasis (right greater than left). Chronic findings include COPD/emphysematous disease, age-related chronic interstitial changes and moderate bronchiectasis. Mediastinum demonstrates atherosclerotic changes to the thoracic aorta and coronary arteries without aortic aneurysm, significant cardiomegaly or pericardial effusion. No pneumothorax. Musculoskeletal structures demonstrate diffuse age related degenerative changes without focal osseous abnormality. Impression: 1. [id number] acute infiltrate involving the right upper lung zone along with small to moderate bilateral pleural effusions and bibasilar consolidation/atelectasis (right greater than left). 2. Diffuse chronic changes as described above. Signed by Ousmane Perez MD 12/05/2016 09:39 A
--- NOTE | 2016-12-05 09:52 | REP ---
Clinical: Abdominal pain with ecchymosis and anemia. Comparison: 11/20/2014. Findings: Lung bases demonstrate small to moderate pleural effusions and bibasilar atelectasis (right greater than left). Cholelithiasis noted without evidence for acute cholecystitis. Liver, spleen, atrophic pancreas, bilateral adrenal glands and kidneys are normal for noncontrast evaluation. The enteric system suggests the possibility of fecal impaction at the rectum which measures approximately 7.9 x 6.4 cm diameter. No evidence for bowel obstruction. Pelvis demonstrates relatively normal bladder and evidence of prior hysterectomy. No ascites. No free air. No definite adenopathy. Atherosclerotic changes to the vasculature noted. Degenerative changes the musculoskeletal structures are appreciated without acute focal osseous abnormality. Impression: 1. Bibasilar pleural effusions and atelectasis. 2. Cholelithiasis. 3. Possible fecal impaction at the rectum. Signed by Ousmane Perez MD 12/05/2016 09:43 A
[2016-12-05] MEDS ORDERED: MAGNESIUM CITRATE 300 ML BTL PO ONE (11:00)
[2016-12-05] MEDS: MEROPENEM INJ 1 GM in D5W MINI-BAG PLUS 100 ML IV SCH ×2 (11:55→22:36)
[2016-12-05 12:00] VITALS: BP 112/63
[2016-12-05] MEDS ORDERED: SODIUM CHLORIDE 0.9% INJ 10 ML SYR IV PRN (13:45)
[2016-12-05] MEDS: SODIUM CHLORIDE 0.9% INJ 10 ML SYR IV SCH ×2 (13:59→22:59)
--- NOTE | 2016-12-05 14:22 | IPNPDOC ---
Subjective Date Seen The patient was seen on 12/05/16. Subjective Chief Complaint/HPI The patient is a 89-year-old female admitted with a reason for visit of Sepsis. Pt examined resting in chair with son, daughter, and son-in-law in room. Per family, she had 3 large BMs yesterday, non-bloody, and is feeling better since, but is irritable. Small dose of Xanax has been adde to assist, which put patient to sleep. Pt states she has no pain. She is noticeably irritable and tired and yelled at others in the room to stop talking and give her silence. She is no longer moaning in pain and complaining of constipation or abdominal pain like yesterday. Per night team, Serrano was removed yesterday and pt had difficulty urinating afterwards. Bladder scan revealed 500mL still remaining, and a straight catheterization was performed. Constitutional: Denies: Chills, Fever Pulmonary: Reports: Dyspnea (chronic), Denies: Cough Cardiovascular: Denies: Chest Pain, Lt Headedness Gastrointestinal: Denies: Nausea, Vomiting, Abdominal Pain, Constipation (had multiple BMs yesterday), Melena, Hematochezia Neurological: Denies: Weakness, Numbness Psych: Reports: Mood Normal (states she is annoyed of people talking about her and wants everyone to be quiet) Objective Physical Examination General Exam: Positive: Alert, Cooperative, No Acute Distress Eye Exam: Positive: Conjunctiva & lids normal, EOMI ENT Exam: Positive: Atraumatic Neck Exam: Positive: Supple Chest Exam: Positive: Clear to auscultation, Other (On 3L NC) Heart Exam: Positive: Tachycardic, Irregular Rhythm, Normal S1, Normal S2 Telemetry: Positive: Atrial fibrillation Abdomen Exam: Positive: Normal bowel sounds, Negative: Soft (bloated, tense abdomen diffusely, but improved from yesterday ), Tenderness Extremity Exam: Positive: Normal pulses, Negative: Tenderness Neuro Exam: Positive: Normal Speech Psych Exam: Positive: Mental status NL, Anxiety (still anxious about her bowel habits ), Negative: Mood NL (irritable and easily aggravated by people talking) Assessment /Plan Assessment Septic shock. Patient has a clinical finding of cellulitis initially. -elevated WBC continue to trend upwards, as is Alk Phos due to stopping Vancomycin and Meropenem yesterday since cellulitis was improving. Restart Meropenem due to CT showing consolidations in lungs today -CRP still elevated, but trending down yesterday. Previous blood and urine cultures have been negative. -Continue Keflex -scheduled Lasix and Levophed discontinued 12/04 -Central line in place since bp has been low and difficult to maintain with IV fluids with pressors given intermittently Constipation -Manually disimpacting failed yesterday 12/04. Only scant light brown fecal matter was removed, and stool was too far to reach manually -numerous BMs yesterday for first time since admission after being given a strong regiment and then Golytely -bowel support discontinued (Senekot, Miralax, Lactulose, Fleet enema, Magnesium Citrate) -CT of abdomen today 12/05 shows still possible fecal impaction at rectum. Continue Golytely and Mag Citrate -Xanax .25mg for irritability and anxiety added today Anemia -12/05 CT of abdomen to rule out possible retroperitoneal bleed due to anemia, abd pain, and anemia. Imaging showed no bleed. -LDH normal. PENDING: haptoglobin. -pt denies bloody stools and hematuria -will check stool for occult blood, as pt had first BM since admission yesterday 12/05 -transfused 1U PRBC 12/03. Hb has been wavering slightly back and forth, most recently decreased from 9 to 8.5 this morning. Transfuse more PRBC if needed History of MICHELLE -BUN/CR slightly abnormal, but stable. May be from dehydration and pt may require IV fluids soon. Monitor -Serrano discontinued 12/04. Per night team, she is unable to void thus far. Bladder scan showed >500mL remaining in bladder, and straight catheterization was performed. -PENDING: urinalysis and urine culture to rule out possible UTI as etiology. Pt is afebrile and WBC WNL. Monitor Acute on chronic respiratory distress -chest CT 12/05 shows acute infiltrate in right upper lung along with bilateral pleural effusions and bibasilar atelectasis. Resume Meropenem -baseline COPD -continue O2 oxygen support. May need intermittent IV Lasix diuresis -Monitor bp COPD -pt still short of breath -Advair & Proventil prn Lack of appetite -pt states is her baseline -Megesterol Acetate started 12/05 -Ensure started, tid with meals and qhs Atrial fibrillation -continues to be tachycardic, likely due to acute severe sepsis -at baseline, patient only takes full dose aspirin Diastolic CHF with right cor pulmonale -scheduled Lasix discontinued. 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 Appreciate their assistance DVT prophylaxis -Heparin Plan/VTE VTE Prophylaxis Ordered?: Yes Plan/Urinary Catheter Reason for insertion/continuin: Critical Pt monitoring VS, I&O, 24H, Fishbone Vital Signs/I&O Vital Signs Date Time Temp Pulse Resp B/P (MAP) Pulse Ox O2 Delivery O2 Flow Rate FiO2 12/05/16 08:00 99.5 113 22 94/52 (66) 100 Nasal Cannula 4.0 I&O- Last 24 Hours up to 6 AM 12/05/16 06:00 Intake Total 1190 ml Output Total 1025 ml Balance 165 ml Laboratory Data 24H LABS Laboratory Tests 2 12/05/16 05:30: White Blood Count 18.9H, Red Blood Count 2.49L, Hemoglobin 8.5L, Hematocrit 25.9L, Mean Corpuscular Volume 104.0H, Mean Corpuscular Hemoglobin 34.1H, Mean Corpuscular Hemoglobin Concent 32.8, Red Cell Distribution Width 18.1H, Platelet Count 165, Neutrophils (%) (Auto) 92.7H, Lymphocytes (%) (Auto) 4.2L, Monocytes (%) (Auto) 1.9, Eosinophils (%) (Auto) 0.6, Basophils (%) (Auto) 0.1, Neutrophils # (Auto) 17.5H, Lymphocytes # (Auto) 0.9L, Monocytes # (Auto) 0.4, Eosinophils # (Auto) 0.1, Basophils # (Auto) 0.0, Large Unclassified Cells % 0.6 , Large Unclassified Cells # 0.1, Anion Gap 10, Glomerular Filtration Rate > 60.0, Blood Urea Nitrogen 21H, Creatinine 0.50L, Sodium Level 134L, Potassium Level 4.8, Chloride Level 97L, Carbon Dioxide Level 27, Calcium Level 7.8L, Aspartate Amino Transf (AST/SGOT) 24, Alanine Aminotransferase (ALT/SGPT) 29, Alkaline Phosphatase 177H, Total Bilirubin 1.5H, Total Protein 4.6L, Albumin 2.2L, Albumin/Globulin Ratio 0.92L CBC/BMP Laboratory Tests 12/04/16 18:36 12/05/16 05:30 Red Blood Count 2.49 L, Mean Corpuscular Volume 104.0 H, Mean Corpuscular Hemoglobin 34.1 H, Mean Corpuscular Hemoglobin Concent 32.8, Red Cell Distribution Width 18.1 H, Neutrophils (%) (Auto) 92.7 H, Lymphocytes (%) (Auto ) 4.2 L, Monocytes (%) (Auto) 1.9, Eosinophils (%) (Auto) 0.6, Basophils (%) ( Auto) 0.1, Neutrophils # (Auto) 17.5 H, Lymphocytes # (Auto) 0.9 L, Monocytes # (Auto) 0.4, Eosinophils # (Auto) 0.1, Basophils # (Auto) 0.0, Calcium Level 7.8 L, Aspartate Amino Transf (AST/SGOT) 24, Alanine Aminotransferase (ALT/SGPT) 29 , Alkaline Phosphatase 177 H, Total Bilirubin 1.5 H, Total Protein 4.6 L, Albumin 2.2 L Microbiology Microbiology 11/27/16 Blood Culture - Final, Complete 11/27/16 Blood Culture - Final, Complete 11/28/16 Urine Culture - Final, Complete GME ATTESTATION GME ATTESTATION My preceptor for this patient encounter was physically present in the building during the encounter and was fully available. As needed, all aspects of the patient interview, examination, medical decision making process, and medical care plan development were reviewed and approved by the preceptor. Preceptor is aware and concurs with the plan as stated in the body of this note and will attest to such by his/her cosignature. SANFORD WDAE DO Dec 05, 2016 09:23
[2016-12-05 16:00] VITALS: BP 114/64
[2016-12-05 19:29] VITALS: BP 140/67
[2016-12-05] MEDS: **NOTE PATIENT COMMENT** MISC XX SCH (21:00)
[2016-12-05] MEDS: LIDOCAINE 5% (LIDODERM) PATCH TD PRN (21:00)
[2016-12-05] MEDS ORDERED: MORPHINE 2 MG/ML 1ML SYRINGE IV ONE (22:45)
[2016-12-05 23:59] VITALS: BP 132/63
[2016-12-06] MEDS: PERCOCET 5MG/325MG TAB PO PRN ×5 (03:52→23:06)
[2016-12-06 04:00] VITALS: BP 124/65
[2016-12-06] MEDS: SODIUM CHLORIDE 0.9% INJ 10 ML SYR IV SCH ×3 (04:19→21:52)
[2016-12-06 05:10] LABS: BASO % 0.1 % (0.0-1.0); EOS # 0.2 K/mm3 (0.0-0.50); EOS % 0.9 % (0.0-3.0); LARGE UNSTAINED CELL # 0.1 K/mm3 (0.0-0.4); LARGE UNSTAINED CELL % 0.6 % (0.0-4.0); LYMPH # 0.9 K/mm3 (1.5-4.5); LYMPH % 4.3 % (24.0-44.0); MEAN CORPUSCULAR HEMOGLOBIN 34.6 pg (27.0-33.0); MEAN CORPUSCULAR HGB CONC 33.1 g/dl (32.0-36.5); MEAN CORPUSCULAR VOLUME 104.5 fl (80.0-96.0); MONO # 0.4 K/mm3 (0.0-0.8); MONO % 2.3 % (0.0-5.0); NEUTROPHILS # 15.8 K/mm3 (1.8-7.7); NEUTROPHILS % 91.9 % (36.0-66.0); PLATELET COUNT, AUTOMATED 189 k/mm3 (150-450); RED CELL DISTRIBUTION WIDTH 17.7 % (11.5-14.5); WHITE BLOOD COUNT 17.2 K/mm3 (4.0-10.0)
[2016-12-06] MEDS: SLF 3 ML SYR IV SCH ×3 (06:00→21:52)
[2016-12-06 06:12] LABS: ALBUMIN 2.2 GM/DL (3.2-5.2); ALKALINE PHOSPHATASE 167 U/L (45-117); BILIRUBIN,TOTAL 1.7 MG/DL (0.2-1.0); BLOOD UREA NITROGEN 21 MG/DL (7-18); CALCIUM LEVEL 7.6 MG/DL (8.8-10.2); CARBON DIOXIDE LEVEL 28 MEQ/L (21-32); CHLORIDE LEVEL 96 MEQ/L (98-107); CREATININE FOR GFR 0.49 MG/DL (0.55-1.02); GLUCOSE, FASTING 89 MG/DL (83-110); POTASSIUM SERUM 5.1 MEQ/L (3.5-5.1); SODIUM LEVEL 133 MEQ/L (136-145); TOTAL PROTEIN 4.7 GM/DL (6.4-8.2)
[2016-12-06 06:24] LABS: ALT/SGPT 27 U/L (12-78); AST/SGOT 18 U/L (15-37)
[2016-12-06 06:58] LABS: ANION GAP 9 MEQ/L (8-16)
[2016-12-06 06:59] LABS: ALBUMIN/GLOBULIN RATIO 0.88 (1.00-1.93)
[2016-12-06] MEDS: ADVAIR HFA 115/21MCG INHALER INH SCH ×2 (07:24→20:33)
[2016-12-06] MEDS ORDERED: FUROSEMIDE 20 MG/2 ML VIAL (J1940) IV ONE (07:45)
[2016-12-06] MEDS: PANTOPRAZOLE 40MG TAB (PROTONIX) PO SCH (09:50)
[2016-12-06] MEDS: CYANOCOBALAMIN 500 MCG TAB PO SCH (09:51)
[2016-12-06] MEDS: POTASSIUM CHLORIDE 10 MEQ SR TABLET PO SCH (09:51)
[2016-12-06] MEDS: LACTOBACILLUS ACIDOPHILUS CAP (BACID) PO SCH ×2 (09:51→21:52)
[2016-12-06] MEDS: MEGESTROL ES SUSP 625 MG/5 ML UDC PO SCH (09:51)
[2016-12-06] MEDS: CEPHALEXIN 250 MG CAP PO SCH (09:51)
[2016-12-06] MEDS: ASPIRIN ENTERIC 325 MG TAB PO SCH (09:52)
[2016-12-06] MEDS: ALBUTEROL SULFATE 2.5 MG/0.5 ML INH NEB SOLN NEB PRN ×2 (10:25→14:59)
[2016-12-06] MEDS: MEROPENEM INJ 1 GM in D5W MINI-BAG PLUS 100 ML IV SCH ×2 (11:47→23:05)
[2016-12-06 14:00] VITALS: BP 103/58
[2016-12-06] MEDS: BISOPROLOL FUMARATE 5 MG TAB PO SCH (14:28)
--- NOTE | 2016-12-06 16:26 | IPN ---
DATE: 12/06/2016 SUBJECTIVE: The patient is seen and examined at the bedside. The chart has been reviewed. This morning according to nursing, the patient was very agitated, unable to sleep last night because of severe discomfort. She did not wish to continue with current management and just wanted to go home. The patient's son was present at the bedside, who encouraged her to stay in the hospital and continue her current management. She remained with some sinus tachycardia into the morning about 123. She was restarted on imipenem yesterday due to findings of a moderate to large acute infiltrate in the right upper lung zone and small to moderate bilateral effusions with bibasilar consolidations. Keflex was discontinued for her lower extremity cellulitis which has resolved. OBJECTIVE: VITAL SIGNS: Current temperature is 99. Temperature maximum (T-max) of 99.2, pulse of 114 irregular and thready, respiratory rate 20, blood pressure 124/65, 94% on two liters nasal cannula. GENERAL: She is awake, alert, and oriented to her name, very hard of hearing. Very frail appearing female, moaning at the bedside. No use of respiratory accessory muscles. NECK: She has no jugular venous distention, no thyromegaly, no cervical lymphadenopathy. LUNGS: Diminished with bilateral crackles at the bases. HEART: S1, S2. Irregularly irregular ABDOMEN: Soft, nontender, nondistended. Positive bowel sounds. EXTREMITIES: Trace to 1+ edema. Multiple ulcers noted due to chronic venous stasis. The patient has a stage II sacral decubitus. LABORATORY DATA: White count 17, hemoglobin 8.6, hematocrit 25, platelet count 189. Sodium 133, potassium 5.1, chloride 96, bicarbonate 28, BUN 21, creatinine 0.49, glucose of 89. Calcium is 7.6, total bilirubin 1.7, AST 18, ALT 27, alkaline phosphatase of 167, LDH of 211. MICROBIOLOGY: Urine culture is negative. Two sets of blood cultures are negative. IMAGING: CT abdomen and pelvis on 12/05/2016, imaging study: Bibasilar pleural effusions and atelectasis, cholelithiasis, fecal impaction in the rectum, bibasilar pleural effusions. CT chest shows moderate to large right upper lung zone acute infiltrate with mild to moderate bilateral pleural effusions, bibasilar consolidation and atelectasis , right greater than left. Diffuse chronic changes. ASSESSMENT AND PLAN: This is an 89-year-old female with a history significant for atrial fibrillation on aspirin only, diastolic heart failure with right cor pulmonale, chronic obstructive pulmonary disease (COPD), chronic lumbar fracture with spinal stenosis, with chronic intractable back pain, hysterectomy, cataract surgery, smoked for more than 60 years, DO NOT RESUSCITATE, DO NOT INTUBATE, who was brought in by the family due to worsening lower extremity pain, swelling and erythema that started on 11/26, awaking in the middle of the night with increasing erythema and swelling. The patient was admitted. The patient had systolic pressure running in the 90s. Was found to have significant hypotension with systolic pressure of 76, diastolic 49, white count 24,000. The patient was started on empiric antibiotics for presumed lower extremity cellulitis. She was septic with hypotension sbp 70 white count of 24,000, and tachycardic, was admitted to the intensive care unit (ICU), was fluid resuscitated. She was placed on vancomycin and meropenem from admission. The patient received a total of 8.1 liters of fluid from 11/28 to 11/29, with an additional 1.3 liters on 11/29. She then developed congestive heart failure with fluid overload. Dr. Gerardo was consulted and a right subclavian CVP was placed. The patient was diuresed gingerly with improvement in her respiratory status. She was kept on vancomycin and meropenem, with resolution of her lower extremity cellulitis. Culture results blood in urine were negative. The patient was transferred to progressive care unit (PCU). Continued to have fluid overload and as needed doses of Lasix had been given. The patient continued to complain of fatigue and weakness. Initial hemoglobin of 7.3, was found to be hemodilutional. The patient was persistently anemic with hemoglobin dropping down to 7.0, at which point she was transfused two units or red blood cells. Pathology showed anemia of inflammation and chronic disease. She was monitored for any other signs of infection. White count was noted to increase back from 13,000 to 14-18,000. The patient had not had a bowel movement. Did receive a bowel regimen. On 12/04 and 12/05/2016, we were reluctant to obtain a gastrointestinal (GI) panel in light of recent use of bowel regimen. Her appetite has been diminished and she is currently on Megace. She has been restarted back on Meropenem due to concerns of a moderate to large consolidation on repeat scans. Cephalexin has been discontinued. Currently, the patient has been increasingly confused yesterday after being given one dose of Xanax in order to obtain a CT abdomen and pelvis, as well as CT of the chest for evaluation. The patient states that she would like to go home. I have discussed this case at length with the patient's son at the bedside, that she would most likely prefer to be comfort measures only with no other further treatment, but the son is insistent to continue with full treatment for now to give her another day or two to improve and to feel better. The patient was agreeable this morning to follow the son's recommendation. I have offered to reverse the effects of Xanax, although this was given more than 24 hours ago, unlikely to be causing her sedation, but the patient's son is agreeable to allow her to be comfortable at this time, with no checking the blood gas or reversing the effects of the Xanax for now. The patient is medically stable for transfer to medical/surgical floor with continued monitoring of her heart rate due to prior history of atrial fibrillation. Her beta blockade was discontinued previously due to low blood pressure. Current active issues are as follows: 1. Moderate to large consolidation on CT concerning for pneumonia. The patient is currently back on meropenem. We will ask Dr. Fu to see her in the morning. The patient has been treated previously for lower extremity cellulitis with vancomycin and meropenem, transitioned to Keflex two days ago with increasing white count without any fever. Repeat scan to evaluate patient's increasing white count shows a large consolidation on CT of the chest. 2. Persistent anemia, initially thought to be hemodilution, potentially from phlebotomies. Pathology shows anemia of inflammation or chronic disease. No iron deficiency. She has been transfused two units of blood. We will continue to monitor for now. The patient's stool was not checked for blood. We will continue to monitor. 3. Fecal stasis, status post bowel regimen, with increasing white count. We have discontinued her bowel regimen for at least 24 hours. If diarrhea were to result or worsening white count, will need to rule out for Clostridium (C.) difficile as she is at high risk for this due to broad-spectrum antibiotics given recently. 4. Acute hypoxic respiratory failure requiring two liters of oxygen nasal cannula, saturating 92-94% secondary to fluid overload and congestive heart failure, diastolic dysfunction as well as large pneumonia. Empiric treatment with nebulizer treatments, as well as antibiotics for pneumonia and as needed Lasix is blood pressure permits. 5. Atrial fibrillation. We will resume low-dose beta blockade with holding parameters. 6. Stage II decubitus in the sacrum. Wound care, turn and reposition every two hours. 7. Venous stasis, chronic venous insufficiency. Continue with wound care for the ulcers. Diurese as needed if blood pressure permits. MTDD
[2016-12-06] MEDS ORDERED: ONDANSETRON 4 MG TAB (S0181) PO PRN (20:00)
[2016-12-06] MEDS: **NOTE PATIENT COMMENT** MISC XX SCH (21:00)
[2016-12-06 22:00] VITALS: BP 96/59
[2016-12-07] MEDS: PERCOCET 5MG/325MG TAB PO PRN ×5 (03:23→22:45)
[2016-12-07] MEDS: SODIUM CHLORIDE 0.9% INJ 10 ML SYR IV SCH ×3 (05:37→22:45)
[2016-12-07] MEDS: SLF 3 ML SYR IV SCH ×3 (05:38→22:00)
[2016-12-07 06:00] VITALS: BP 109/54
[2016-12-07 06:56] LABS: ALBUMIN 2.3 GM/DL (3.2-5.2); ALBUMIN/GLOBULIN RATIO 0.96 (1.00-1.93); ALKALINE PHOSPHATASE 164 U/L (45-117); ALT/SGPT 24 U/L (12-78); ANION GAP 9 MEQ/L (8-16); AST/SGOT 17 U/L (15-37); BILIRUBIN,TOTAL 1.3 MG/DL (0.2-1.0); BLOOD UREA NITROGEN 24 MG/DL (7-18); CALCIUM LEVEL 7.5 MG/DL (8.8-10.2); CARBON DIOXIDE LEVEL 29 MEQ/L (21-32); CHLORIDE LEVEL 93 MEQ/L (98-107); CREATININE FOR GFR 0.53 MG/DL (0.55-1.02); GLOMERULAR FILTRATION RATE > 60.0 (>32); GLUCOSE, FASTING 87 MG/DL (83-110); POTASSIUM SERUM 4.8 MEQ/L (3.5-5.1); SODIUM LEVEL 131 MEQ/L (136-145); TOTAL PROTEIN 4.7 GM/DL (6.4-8.2)
[2016-12-07 07:13] LABS: BASO % 0.1 % (0.0-1.0); EOS # 0.2 K/mm3 (0.0-0.50); EOS % 0.9 % (0.0-3.0); LARGE UNSTAINED CELL # 0.1 K/mm3 (0.0-0.4); LARGE UNSTAINED CELL % 0.7 % (0.0-4.0); LYMPH # 0.9 K/mm3 (1.5-4.5); LYMPH % 3.8 % (24.0-44.0); MEAN CORPUSCULAR HEMOGLOBIN 34.4 pg (27.0-33.0); MEAN CORPUSCULAR HGB CONC 33.1 g/dl (32.0-36.5); MONO # 0.4 K/mm3 (0.0-0.8); MONO % 2.1 % (0.0-5.0); NEUTROPHILS # 17.6 K/mm3 (1.8-7.7); NEUTROPHILS % 92.3 % (36.0-66.0); PLATELET COUNT, AUTOMATED 221 k/mm3 (150-450); RED CELL DISTRIBUTION WIDTH 17.4 % (11.5-14.5); WHITE BLOOD COUNT 19.1 K/mm3 (4.0-10.0)
[2016-12-07] MEDS: ADVAIR HFA 115/21MCG INHALER INH SCH ×2 (08:03→21:00)
[2016-12-07 08:18] VITALS: BP 95/57
[2016-12-07 08:21] VITALS: BP 95/57
[2016-12-07 09:00] VITALS: BP 95/57
[2016-12-07] MEDS: LACTOBACILLUS ACIDOPHILUS CAP (BACID) PO SCH ×2 (09:00→22:44)
[2016-12-07] MEDS: BISOPROLOL FUMARATE 5 MG TAB PO SCH (09:00)
[2016-12-07] MEDS: ASPIRIN ENTERIC 325 MG TAB PO SCH (09:00)
[2016-12-07] MEDS: PANTOPRAZOLE 40MG TAB (PROTONIX) PO SCH (10:19)
[2016-12-07] MEDS: POTASSIUM CHLORIDE 10 MEQ SR TABLET PO SCH (10:21)
[2016-12-07] MEDS: CYANOCOBALAMIN 500 MCG TAB PO SCH (10:23)
[2016-12-07] MEDS: MEGESTROL ES SUSP 625 MG/5 ML UDC PO SCH (10:23)
[2016-12-07] MEDS: MEROPENEM INJ 1 GM in D5W MINI-BAG PLUS 100 ML IV SCH (11:39)
[2016-12-07] MEDS: LevoFLOXacin 500 MG TABLET PO SCH (17:54)
[2016-12-07] MEDS: **NOTE PATIENT COMMENT** MISC XX SCH (21:00)
[2016-12-07 22:00] VITALS: BP 106/64
[2016-12-08] MEDS: PERCOCET 5MG/325MG TAB PO PRN ×4 (04:08→20:57)
[2016-12-08] MEDS: SLF 3 ML SYR IV SCH (05:14)
[2016-12-08] MEDS: LevoFLOXacin 500 MG TABLET PO SCH (05:14)
[2016-12-08] MEDS: SODIUM CHLORIDE 0.9% INJ 10 ML SYR IV SCH ×3 (05:14→22:00)
[2016-12-08 05:48] LABS: BASO % 0.1 % (0.0-1.0); EOS # 0.2 K/mm3 (0.0-0.50); EOS % 1.3 % (0.0-3.0); LARGE UNSTAINED CELL # 0.2 K/mm3 (0.0-0.4); LARGE UNSTAINED CELL % 0.8 % (0.0-4.0); LYMPH % 4.2 % (24.0-44.0); MEAN CORPUSCULAR HEMOGLOBIN 33.8 pg (27.0-33.0); MEAN CORPUSCULAR HGB CONC 32.4 g/dl (32.0-36.5); MEAN CORPUSCULAR VOLUME 104.4 fl (80.0-96.0); MONO # 0.3 K/mm3 (0.0-0.8); MONO % 1.6 % (0.0-5.0); NEUTROPHILS # 18.3 K/mm3 (1.8-7.7); NEUTROPHILS % 91.9 % (36.0-66.0); PLATELET COUNT, AUTOMATED 223 k/mm3 (150-450); RED CELL DISTRIBUTION WIDTH 17.5 % (11.5-14.5); WHITE BLOOD COUNT 19.9 K/mm3 (4.0-10.0)
[2016-12-08 06:00] VITALS: BP 108/62
[2016-12-08 06:33] LABS: ALBUMIN 2.2 GM/DL (3.2-5.2); ALBUMIN/GLOBULIN RATIO 0.85 (1.00-1.93); ALKALINE PHOSPHATASE 144 U/L (45-117); ALT/SGPT 22 U/L (12-78); ANION GAP 5 MEQ/L (8-16); AST/SGOT 15 U/L (15-37); BILIRUBIN,TOTAL 1.2 MG/DL (0.2-1.0); BLOOD UREA NITROGEN 20 MG/DL (7-18); CALCIUM LEVEL 7.4 MG/DL (8.8-10.2); CARBON DIOXIDE LEVEL 31 MEQ/L (21-32); CHLORIDE LEVEL 96 MEQ/L (98-107); CREATININE FOR GFR 0.51 MG/DL (0.55-1.02); GLOMERULAR FILTRATION RATE > 60.0 (>32); GLUCOSE, FASTING 94 MG/DL (83-110); POTASSIUM SERUM 4.5 MEQ/L (3.5-5.1); SODIUM LEVEL 132 MEQ/L (136-145); TOTAL PROTEIN 4.8 GM/DL (6.4-8.2)
[2016-12-08] MEDS: ADVAIR HFA 115/21MCG INHALER INH SCH (07:14)
[2016-12-08] MEDS ORDERED: SCOPOLAMINE 1.5 MG TRANSDERMAL TD PRN (08:45)
[2016-12-08] MEDS: MORPHINE 2 MG/ML 1ML SYRINGE IV PRN ×2 (09:22→13:18)
[2016-12-08] MEDS ORDERED: MAGIC MOUTHWASH SUSPENSION BTL SSP PRN (12:15)
[2016-12-08] MEDS ORDERED: NYSTATIN 500,000 U/5 ML SUSP UDC SS SCH (12:15)
--- NOTE | 2016-12-08 13:38 | IPNPDOC ---
Text Note Date of Service The patient was seen on 12/08/16. NOTE Subjective: Patient is an 89 year old female with a PMHx of Atrial fibrillation, Diastolic CHF, COPD, Intractable back pain 2/2 chronic lumbar fracture with spinal stenosis who presented to the ER with complaints of left lower extremity pain, swelling and erythema. She was found to have cellulitis of her LLE and later was found to have a pneumonia. She received IV fluid hydration for hypotension, broad spectrum antibiotics (Meropenem and Vancomycin) and had a central line placed for possible pressor support. She has become fluid overloaded from aggressive fluid resuscitation. Patient was seen and examined at the bedside. Her son is present at the bedside. Patient has been refusing medical treatment for the last few days and she has noted that she is tired of continuing medical treatment. She advised that she wants to be comfort measures only. I have discussed with her and her son about this option and they are both agreeable. I have updated the MOLST form. Objective: Vitals (See below) Full physical exam not completed Assessment and plan: s/p septic shock; severe sepsis Worsening leukocytosis Constipation Anxiety attacks Macrocytic anemia Hyponatremia Hypocalcemia s/p Acute kidney injury Acute on chronic respiratory distress COPD Atrial fibrillation Decompensated Acute Diastolic CHF with Right cor Pulmonale Acute on Chronic Intractable back pain 2/2 lumbar fracture and spinal stenosis Pulmonary nodules Sacral wound DVT prophylaxis After discussion with son and patient; will will uphold the patient's wishes Will discontinue all several non-comfort medications and continue with [employer] order set Code Status - DNR / DNI - [employer] VS,Fishbone, I+O VS, Fishbone, I+O Laboratory Tests 12/08/16 05:16 Red Blood Count 2.31 L, Mean Corpuscular Volume 104.4 H, Mean Corpuscular Hemoglobin 33.8 H, Mean Corpuscular Hemoglobin Concent 32.4, Red Cell Distribution Width 17.5 H, Neutrophils (%) (Auto) 91.9 H, Lymphocytes (%) (Auto ) 4.2 L, Monocytes (%) (Auto) 1.6, Eosinophils (%) (Auto) 1.3, Basophils (%) ( Auto) 0.1, Neutrophils # (Auto) 18.3 H, Lymphocytes # (Auto) 1.0 L, Monocytes # (Auto) 0.3, Eosinophils # (Auto) 0.2, Basophils # (Auto) 0.0, Calcium Level 7.4 L, Aspartate Amino Transf (AST/SGOT) 15, Alanine Aminotransferase (ALT/SGPT) 22 , Alkaline Phosphatase 144 H, Total Bilirubin 1.2 H, Total Protein 4.8 L, Albumin 2.2 L Vital Signs Date Time Temp Pulse Resp B/P (MAP) Pulse Ox O2 Delivery O2 Flow Rate FiO2 12/08/16 13:18 20 12/08/16 08:10 Nasal Cannula 2.0 12/08/16 06:00 98.3 62 108/62 (78) 96 I&O- Last 24 Hours up to 6 AM 12/08/16 05:59 Intake Total 580 ml Balance 580 ml ESTER PABON MD Dec 08, 2016 13:38
[2016-12-08] MEDS ORDERED: HYOS125TA PO (17:18)
[2016-12-08] MEDS ORDERED: MORP20SO3 PO (17:18)
[2016-12-08] MEDS ORDERED: LORA0.5T11 PO (17:18)
--- NOTE | 2016-12-08 18:03 | CR ---
DATE OF CONSULTATION: 12/07/2016 REASON FOR CONSULTATION: Asked to consult regarding elevated white count with a new right upper lobe pneumonia. HISTORY OF PRESENT ILLNESS: Ms. Ambrosio an 89-year-old female who was admitted on 11/27/20167 with worsening left lower extremity pain, swelling and erythema. She stated that it had started the day prior to admission. The patient was complaining of pain in that area as well. She had denied any fever, chills, shortness of breath, or chest pain. The patient has chronic obstructive pulmonary disease (COPD) and cor pulmonale. In the emergency room, she was hypotensive with a white count of 24 and therefore, the patient was admitted with a diagnosis of sepsis, cellulitis, and was started on empiric antibiotics. Initially, she was treated with meropenem 1 gram IV every eight hours that she continued until 12/04/2016 along with vancomycin. The patient received eight days of antibiotics. On 12/04/2016, her white count was noted to be down to 14.4 and therefore, she was switched to oral Keflex. The cellulitis had improved. The next day, her white count bumped up back to 18,[address] done showed a moderate to large acute infiltrate involving the right upper lobe along with small to moderate bilateral pleural effusions and therefore, the patient was restarted on meropenem and vancomycin. She was seen at the bedside. She was not happy to see us. She complained of significant pain in her lower extremities where she has a small ulcerations from pressure ulcers or trauma. She stated that she had a cough which was not very productive. She does not usually use oxygen. She was on oxygen on two liters nasal cannula. PAST MEDICAL HISTORY: Her past medical history is significant for: 1. Chronic obstructive pulmonary disease (COPD) with cor pulmonale. 2. Osteoporotic compression fracture. 3. Atrial fibrillation. 4. Diastolic congestive heart failure. 5. Chronic lumbar fracture with spinal stenosis. 6. Chronic intractable back pain. PAST SURGICAL HISTORY: 1. Hysterectomy. 2. Cataract surgery. SOCIAL HISTORY: She smoked more than 60 years, quit a few years ago. She denies alcohol use. She has a DO NOT RESUSCITATE (DNR)/DO NOT INTUBATE (DNI) and lives with her son. REVIEW OF SYSTEMS: She denied having any fever, chills, or headache. She had no chest pain. She does have increasing shortness of breath and a cough. She denied nausea, vomiting, or diarrhea. She complains of bilateral lower extremity swelling and pain. PHYSICAL EXAMINATION: On physical examination, she is a frail, elderly female in no acute distress but uncomfortable and not wanting to be bothered. Temperature is 98.5, pulse 97, respirations 15, blood pressure 106/64, oxygen saturation 99% on two liters nasal cannula. Her maximum temperature (T-max) during this admission was 100 on 12/03/2016. HEART: Normal S1, S2, regular with a systolic ejection murmur 1/6 at the left upper sternal border. LUNGS: Diminished air entry with few crackles at both bases. ABDOMEN: Soft, nontender. No visceromegaly. EXTREMITIES: Trace edema bilaterally. Multiple ulcerations noted, especially on the right leg, two large ulcers that are tender to touch. She has a small decubitus ulcer as well. NEUROLOGIC: Moves all extremities, follows commands, able to respond clearly to questions but also closes her eyes and does not want to be bothered. LABORATORY DATA: On 12/07/2016, white count 19.1, hemoglobin 8.2, hematocrit 24.8, platelets 221, 92% neutrophils, 4% lymphocytes. Sodium 131, potassium 4.8, chloride 93, bicarbonate 29, BUN 24, creatinine 0.5, glucose 86, calcium 7.5, bilirubin 1.3, AST 17, ALT 24, alkaline phosphatase 164, total protein 4.7, albumin 2.3. Blood cultures: Two sets done on 11/27/2016 were negative. Urine culture on 11/28/2016 was negative. Urine culture on 12/07/2016 had yeastlike organism. IMPRESSION: This is an 89-year-old female who was admitted initially with what sounded like left lower extremity cellulitis, treated with vancomycin and meropenem with some improvement, then developed a right upper lobe pneumonia, possibly aspiration, possibly healthcare-associated or had underlying pneumonia on admission that was not picked up by chest x-ray, as she has had multiple chest x-rays that showed increasing multifocal infiltrates compatible with pneumonia. The only pathogen that has not been covered in the past nine days with meropenem and vancomycin would be atypical pathogens such as Chlamydia, Mycoplasma and more so Legionella at this age. The patient has underlying chronic obstructive pulmonary disease (COPD) and is at risk of Legionellosis. PLAN: Suggest discontinuing IV meropenem. She has received 10 days with no improvement in her white count, switch to Levaquin 500 mg by mouth daily. We will try to obtain a sputum Gram-stain and culture as well as sputum culture for Legionella and a urine Legionella antigen.
[2016-12-08] MEDS: **NOTE PATIENT COMMENT** MISC XX SCH (21:00)
[2016-12-09] MEDS: MORPHINE 2 MG/ML 1ML SYRINGE IV PRN ×2 (02:46→08:59)
[2016-12-09] MEDS: PERCOCET 5MG/325MG TAB PO PRN ×2 (05:27→10:43)
[2016-12-09] MEDS: SODIUM CHLORIDE 0.9% INJ 10 ML SYR IV SCH (05:27)
[2016-12-09] MEDS: SODIUM CHLORIDE 0.9% INJ 10 ML SYR IV PRN ×2 (09:00→10:44)
--- NOTE | 2016-12-09 16:16 | DSES ---
DATE OF ADMISSION: 11/27/2016 DATE OF DISCHARGE: 12/09/2016 ATTENDING PHYSICIANS: Dr. Celso Mckay DICTATED BY: Dr. Celso Parish PRIMARY CARE PHYSICIAN: LITO Barahona REFERRING PHYSICIAN: None. CONSULTING PHYSICIANS: Dr. Tank Gerardo CONDITION ON DISCHARGE: Guarded. FINAL DIAGNOSIS: Septic shock/severe sepsis. PROCEDURES: On 11/28/2016 patient had a right subclavian CVP placed. HISTORY OF PRESENT ILLNESS: The patient is an 89-year-old female with a past medical history of atrial fibrillation, diastolic CHF, chronic obstructive pulmonary artery disease (COPD), intractable back pain secondary to chronic lumbar fracture and spinal stenosis who presented to the emergency room with complaints of left lower extremity pain, swelling, and erythema. She was found to have cellulitis of her left lower extremity and later was found to have pneumonia. She received IV fluid hydration for hypotension, broad spectrum antibiotics which included Meropenem and Vancomycin and had a central line placed for possible pressure support. She became fluid overloaded from aggressive fluid resuscitation. Throughout the hospital course patient had persistent and deteriorating back pain. HOSPITAL COURSE: Status post septic shock/severe sepsis Worsening leukocytosis Constipation Anxiety attacks Macrocytic anemia Hyponatremia Hypocalcemia Status post acute kidney injury Acute on chronic respiratory distress Chronic obstructive pulmonary artery disease (COPD) Atrial fibrillation Decompensated acute diastolic CHF with right cor pulmonale Acute on chronic Intractable back pain secondary to lumbar fracture and spinal stenosis Pulmonary nodules Sacral wound Deep venous thrombosis (DVT) prophylaxis On 12/08/2016, I discussed with the patient what her goals of care were and patient was adamant that she had enough of medical treatment, she has been refusing medical treatment over the last few days in her hospital course and advised to staff and her son, who is her healthcare proxy, that she is tired of all this medical treatment and did not find any improvement or reward from it and she decided that she only wanted to be comfort measures and continue with pain control for her back only. Patient's son was present at the bedside. Patient was in sound state of mind to make this decision. She was capable of making decisions, had no disorientation. I have discussed in full with becoming comfort measures only (CHIEF COMPLIANCE OFFICER) means. Patient's Medical Orders for Life-Sustaining Treatment (MOLST) form was updated and her status was changed to CHIEF COMPLIANCE OFFICER. On 12/09/2016 patient was accepted to hospice house and will be transitioned to that point. DISCHARGE MEDICATION: Patient had been discharged with the following medication list: - Hyoscyamine Sulfate 0.125 mg by mouth every 4 hours as needed terminal secretions - Lorazepam 0.5 mg by mouth every 4 hours as needed anxiety/agitation - morphine sulfate 0.25 to 1 milliliter by mouth every 2 hours as needed pain CONTINUED MEDICATIONS: Include: - hydrocodone/acetaminophen 10/325 one tablet by mouth three times a day - lidocaine 5% one patch transdermally daily as needed pain DISCHARGE INSTRUCTIONS: Patient has been DO NOT RESUSCITATE/DO NOT INTUBATE and CHIEF COMPLIANCE OFFICER and will only return to the hospital if her pain remains uncontrolled. TIME SPENT ON DISCHARGE: Greater than 35 minutes.
== END 2016-12-09 11:10 | disposition hospice, inpatient (51) | DRG 871 ==
LOC: M ED 13:51 → M ED INP 18:29 → M ICU 20:45 → M PCU 12-02 03:21 → M MS5PR 12-06 07:54
PROVIDERS: ADMIT Internal Medicine; ATTEND General Practice
PROC: 02HV33Z Insertion of Infusion Device into Superior Vena Cava, Percutaneous Approach (ICD-10-PCS; principal; 2016-11-28)
PROC: 30253N1 (ICD-10-PCS; 2016-12-03)
DX: A41.9 Sepsis, unspecified organism (principal); R65.21 Severe sepsis with septic shock; J18.9 Pneumonia, unspecified organism; J96.01 Acute respiratory failure with hypoxia; I50.33 Acute on chronic diastolic (congestive) heart failure; L03.115 Cellulitis of right lower limb; L03.116 Cellulitis of left lower limb; N17.9 Acute kidney failure, unspecified; E87.1 Hypo-osmolality and hyponatremia; Z51.5 Encounter for palliative care; Z66 Do not resuscitate; L89.152 Pressure ulcer of sacral region, stage 2; I27.81 Cor pulmonale (chronic); M80.08XD Age-related osteoporosis with current pathological fracture, vertebra(e), subsequent encounter for fracture with routine healing; I48.91 Unspecified atrial fibrillation; F41.9 Anxiety disorder, unspecified; E83.51 Hypocalcemia; J44.9 Chronic obstructive pulmonary disease, unspecified; K59.00 Constipation, unspecified; D63.8 Anemia in other chronic diseases classified elsewhere; R91.1 Solitary pulmonary nodule; M48.06 Spinal stenosis, lumbar region; Z79.82 Long term (current) use of aspirin; Z90.710 Acquired absence of both cervix and uterus; Z87.891 Personal history of nicotine dependence; Z88.0 Allergy status to penicillin